=== PATIENT | male | born 1960 | race Caucasian/White ===

== ENCOUNTER → 2017-03-28 13:55 | Outpatient (CLI) | payer BC, SELFPAY ==
[2017-03-28 14:32] LABS: Basophils # 0.1 K/mm3 (0-0.2); Basophils % 0.9 % (0.1-2.0); Eosinophils # 0.2 K/mm3 (0.0-0.4); Eosinophils % 3.5 % (0.1-12.0); Hematocrit 34.7 % (42.0-52.0); Hemoglobin 9.7 g/dL (14.1-18.0); Lymphocytes # 1.4 K/mm3 (0.7-4.5); Lymphocytes % 22.9 K/mm3 (10-50); Mean Corpuscular HGB Conc 27.8 g/dL (31.8-35.4); Mean Corpuscular Volume 71.8 fl (80-94); Monocytes # 0.4 K/mm3 (0.1-1.0); Monocytes % 7.2 % (1.7-9.3); Neutrophils % 65.4 % (37.0-80.0); Platelet Count 398 K/mm3 (142-424); Red Blood Count 4.84 M/mm3 (4.60-6.20); Red Cell Distribution Width 16.8 % (11.5-17.5); White Blood Count 6.1 K/mm3 (4.8-10.8)
[2017-03-30 08:23] LABS: Iron 15 ug/dL (38-169); UIBC 473 ug/dL (111-343)
[2017-03-30 18:28] LABS: Iron Saturation 3 % (15-55)
== END ==
PROVIDERS: PCP Nurse Practitioner Family; Visit Provider Nurse Practitioner Family
DX: R53.83 Other fatigue (principal)
CPT/HCPCS: 83550; 85025

== ENCOUNTER 2017-04-16 12:55 | Outpatient (CLI) | payer BC, SELFPAY ==
[2017-04-16 13:16] VITALS: BP 115/77; PULSE 74; RESP 20; TEMP 36.6; O2SAT 98
[2017-04-16 13:31] VITALS: BP 117/69; PULSE 69; RESP 20; O2SAT 97
[2017-04-16 13:46] VITALS: BP 120/64; PULSE 67; RESP 20; O2SAT 97
[2017-04-16 14:01] VITALS: BP 119/69; PULSE 67; RESP 20; O2SAT 97
[2017-04-16 14:20] VITALS: BP 115/77; PULSE 69; RESP 20; TEMP 36.6; O2SAT 97
== END 2017-04-16 14:25 | disposition home or self-care (01) ==
LOC: INF 13:04
PROVIDERS: Family Provider Emergency Medicine; PCP Nurse Practitioner Family; Visit Provider Internal Medicine
DX: D50.9 Iron deficiency anemia, unspecified (principal)
CPT/HCPCS: 96365; J1756

== ENCOUNTER 2017-04-23 12:38 | Outpatient (CLI) | payer BC, SELFPAY ==
[2017-04-23 13:12] VITALS: BP 114/68; PULSE 75; RESP 18; TEMP 36.6; O2SAT 97
[2017-04-23 13:27] VITALS: BP 111/67; PULSE 78; RESP 18; TEMP 36.5; O2SAT 96
[2017-04-23 13:42] VITALS: BP 109/62; PULSE 79; RESP 18; TEMP 36.4; O2SAT 97
[2017-04-23 14:00] VITALS: BP 112/64; PULSE 74; RESP 18; TEMP 36.4; O2SAT 98
== END 2017-04-23 14:05 | disposition home or self-care (01) ==
LOC: INF 12:38
PROVIDERS: Family Provider Emergency Medicine; PCP Nurse Practitioner Family; Visit Provider Internal Medicine
DX: D50.0 Iron deficiency anemia secondary to blood loss (chronic) (principal)
CPT/HCPCS: 96365; J1756

== ENCOUNTER 2017-04-30 12:21 | Outpatient (CLI) | payer BC, SELFPAY ==
[2017-04-30 12:35] VITALS: BP 127/92; PULSE 68; RESP 20; TEMP 36.4; O2SAT 96
[2017-04-30 12:50] VITALS: BP 122/70; PULSE 68; RESP 20; TEMP 36.4; O2SAT 98
[2017-04-30 13:05] VITALS: BP 128/79; PULSE 68; RESP 20; TEMP 36.4; O2SAT 96
== END 2017-04-30 13:10 | disposition home or self-care (01) ==
LOC: INF 12:21
PROVIDERS: Family Provider Emergency Medicine; PCP Nurse Practitioner Family; Visit Provider Internal Medicine
DX: D50.0 Iron deficiency anemia secondary to blood loss (chronic) (principal)
CPT/HCPCS: 96365; J1756

== ENCOUNTER 2017-05-07 11:57 | Outpatient (CLI) | payer BC, SELFPAY ==
[2017-05-07 12:01] VITALS: BMI 36.3
[2017-05-07 12:33] VITALS: BP 134/86; PULSE 74; RESP 18; TEMP 36.8; O2SAT 98
[2017-05-07 12:39] LABS: Basophils % 0.8 % (0.1-2.0); Eosinophils # 0.2 K/mm3 (0.0-0.4); Eosinophils % 3.7 % (0.1-12.0); Hematocrit 39.9 % (42.0-52.0); Hemoglobin 11.1 g/dL (14.1-18.0); Lymphocytes # 1.2 K/mm3 (0.7-4.5); Lymphocytes % 22.5 K/mm3 (10-50); Mean Corpuscular HGB Conc 27.9 g/dL (31.8-35.4); Mean Corpuscular Hemoglobin 21.6 pg (27.0-31.2); Mean Corpuscular Volume 77.5 fl (80-94); Mean Platelet Volume 7.1 fl (7.4-10.4); Monocytes # 0.5 K/mm3 (0.1-1.0); Monocytes % 9.1 % (1.7-9.3); Neutrophils # 3.4 K/mm3 (1.8-7.8); Platelet Count 329 K/mm3 (142-424); Red Blood Count 5.15 M/mm3 (4.60-6.20); Red Cell Distribution Width 22.6 % (11.5-17.5); White Blood Count 5.3 K/mm3 (4.8-10.8)
[2017-05-07 12:48] VITALS: BP 129/84; PULSE 71; RESP 18; O2SAT 97
[2017-05-07 13:03] VITALS: BP 131/84; PULSE 78; RESP 18; O2SAT 97
[2017-05-07 13:12] VITALS: BP 129/76; PULSE 71; RESP 18; TEMP 36.6; O2SAT 98
== END 2017-05-07 13:15 | disposition home or self-care (01) ==
LOC: INF 11:57
PROVIDERS: Family Provider Emergency Medicine; PCP Nurse Practitioner Family; Visit Provider Internal Medicine
DX: D50.9 Iron deficiency anemia, unspecified (principal)
CPT/HCPCS: 85025; 96365; J1756

== ENCOUNTER 2017-05-14 12:46 | Outpatient (CLI) | payer BC, SELFPAY ==
[2017-05-14 13:35] VITALS: BP 121/82; PULSE 74; RESP 18; TEMP 36.1; O2SAT 96
[2017-05-14 14:05] VITALS: BP 132/79; PULSE 80; RESP 18; O2SAT 97
[2017-05-14 14:25] VITALS: BP 119/76; PULSE 69; RESP 18; TEMP 36.4; O2SAT 97
== END 2017-05-14 14:25 | disposition home or self-care (01) ==
LOC: INF 12:47
PROVIDERS: Family Provider Emergency Medicine; PCP Nurse Practitioner Family; Visit Provider Internal Medicine
DX: D50.9 Iron deficiency anemia, unspecified (principal)
CPT/HCPCS: 96365; J1756

== ENCOUNTER 2017-05-21 12:40 | Outpatient (CLI) | payer BC, SELFPAY ==
[2017-05-21 13:18] VITALS: BP 147/92; PULSE 74; RESP 18; TEMP 36.7; O2SAT 97
[2017-05-21 13:26] VITALS: BMI 36.3
[2017-05-21 13:48] VITALS: BP 135/90; PULSE 69; RESP 18
[2017-05-21 14:18] VITALS: BP 137/91; PULSE 70; RESP 18
== END 2017-05-21 14:18 | disposition home or self-care (01) ==
LOC: INF 12:57
PROVIDERS: Family Provider Emergency Medicine; PCP Nurse Practitioner Family; Visit Provider Internal Medicine
DX: D50.9 Iron deficiency anemia, unspecified (principal)
CPT/HCPCS: 96365; J1756

== ENCOUNTER → 2017-06-05 14:25 | Outpatient (CLI) | payer BC, SELFPAY ==
[2017-06-05 14:42] LABS: Basophils % 0.6 % (0.1-2.0); Eosinophils # 0.3 K/mm3 (0.0-0.4); Eosinophils % 5.2 % (0.1-12.0); Hematocrit 43.1 % (42.0-52.0); Hemoglobin 12.7 g/dL (14.1-18.0); Lymphocytes # 1.5 K/mm3 (0.7-4.5); Lymphocytes % 27.7 K/mm3 (10-50); Mean Corpuscular HGB Conc 29.6 g/dL (31.8-35.4); Mean Corpuscular Hemoglobin 24.9 pg (27.0-31.2); Mean Corpuscular Volume 84.3 fl (80-94); Mean Platelet Volume 7.8 fl (7.4-10.4); Monocytes # 0.4 K/mm3 (0.1-1.0); Monocytes % 6.7 % (1.7-9.3); Neutrophils # 3.2 K/mm3 (1.8-7.8); Neutrophils % 59.8 % (37.0-80.0); Platelet Count 316 K/mm3 (142-424); Red Blood Count 5.11 M/mm3 (4.60-6.20); Red Cell Distribution Width 21.8 % (11.5-17.5); White Blood Count 5.3 K/mm3 (4.8-10.8)
[2017-06-05 15:22] LABS: Alanine Aminotransferase 33 U/L (12-78); Albumin Level 4.1 gm/dL (3.4-5.0); Albumin/Globulin Ratio 1.1 (1.1-1.8); Alkaline Phosphatase 66 U/L (46-116); Anion Gap 12.4 mEq/L (5-15); Aspartate Amino Transferase 18 U/L (15-37); Bilirubin,Total 0.2 mg/dL (0.2-1.0); Blood Urea Nitrogen 10 mg/dL (7-18); Calcium 8.9 mg/dL (8.5-10.1); Carbon Dioxide 29 mmol/L (21.0-32.0); Chloride 102 mmol/L (98-107); Creatinine,Serum 0.84 mg/dL (0.70-1.30); Estimated Glomerular Filt Rate 95 ml/min (>60); GFR (African American) 115 ML/MIN (>60); Globulin 3.6 gm/dl (1.3-3.2); Glucose 100 mg/dL (74-106); Potassium 4.4 mmoL/L (3.5-5.1); Sodium 139 mmol/L (136-145); Total Protein,Serum 7.7 gm/dL (6.4-8.2)
== END ==
PROVIDERS: Visit Provider Internal Medicine
DX: D50.0 Iron deficiency anemia secondary to blood loss (chronic) (principal)
CPT/HCPCS: 36415; 80053; 85025

== ENCOUNTER → 2017-06-12 14:19 | Outpatient (CLI) | payer BC, SELFPAY ==
[2017-06-12 16:01] LABS: Ferritin 37 ng/mL (8-388)
[2017-06-18 15:28] LABS: Tissue Transglutaminase IgA Ab <2 U/mL
[2017-06-18 15:29] LABS: Endomysial IgA Antibody Negative
== END ==
PROVIDERS: Visit Provider Internal Medicine
DX: D50.9 Iron deficiency anemia, unspecified (principal)
CPT/HCPCS: 36415; 82728; 83516; 83550; 86255

== ENCOUNTER 2017-07-02 12:11 | Outpatient (CLI) | payer BC, SELFPAY ==
[2017-07-02 13:30] VITALS: BP 105/72; PULSE 78; RESP 18; TEMP 36.7; O2SAT 94
[2017-07-02 14:00] VITALS: BP 110/76; PULSE 79; RESP 18; O2SAT 95
[2017-07-02 14:25] VITALS: BP 108/72; PULSE 81; RESP 18; O2SAT 96
== END 2017-07-02 14:30 | disposition home or self-care (01) ==
LOC: INF 12:11
PROVIDERS: Family Provider Emergency Medicine; PCP Nurse Practitioner Family; Visit Provider Internal Medicine
DX: D50.9 Iron deficiency anemia, unspecified (principal); R10.9 Unspecified abdominal pain; R14.0 Abdominal distension (gaseous)
CPT/HCPCS: 96365; J1756

== ENCOUNTER 2017-07-11 12:43 | Outpatient (CLI) | payer BC, SELFPAY ==
[2017-07-11 13:14] VITALS: BP 129/89; PULSE 81; RESP 18; TEMP 36.6; O2SAT 95; BMI 36.3
[2017-07-11 15:00] VITALS: BP 114/79; PULSE 70; RESP 18; TEMP 36.7; O2SAT 95
== END 2017-07-11 15:05 | disposition home or self-care (01) ==
LOC: INF 12:43
PROVIDERS: Family Provider Emergency Medicine; PCP Nurse Practitioner Family; Visit Provider Nurse Practitioner
DX: D50.9 Iron deficiency anemia, unspecified (principal); R10.9 Unspecified abdominal pain; R14.0 Abdominal distension (gaseous); N28.1 Cyst of kidney, acquired
CPT/HCPCS: 96365; J1756

== ENCOUNTER 2017-07-16 12:36 | Outpatient (CLI) | payer BC, SELFPAY ==
[2017-07-16 13:10] VITALS: BP 116/71; PULSE 76; RESP 18; TEMP 36.2; O2SAT 96
[2017-07-16 13:40] VITALS: BP 112/66; PULSE 72; RESP 18
[2017-07-16 14:00] VITALS: BP 105/67; PULSE 71; RESP 18
== END 2017-07-16 14:00 | disposition home or self-care (01) ==
LOC: INF 12:36
PROVIDERS: Family Provider Emergency Medicine; PCP Nurse Practitioner Family; Visit Provider Internal Medicine
DX: D50.9 Iron deficiency anemia, unspecified (principal); R10.9 Unspecified abdominal pain; R14.0 Abdominal distension (gaseous); N28.1 Cyst of kidney, acquired
CPT/HCPCS: 96365; J1756

== ENCOUNTER 2017-07-23 11:35 | Outpatient (CLI) | payer BC, SELFPAY ==
[2017-07-23 12:08] VITALS: BP 137/82; PULSE 72; RESP 18; TEMP 36.6; O2SAT 95
[2017-07-23 12:30] VITALS: BP 135/69; PULSE 74; RESP 18; TEMP 36.6; O2SAT 96
[2017-07-23 13:05] VITALS: BP 127/75; PULSE 80; RESP 18; TEMP 36.6; O2SAT 96
== END 2017-07-23 13:05 | disposition home or self-care (01) ==
LOC: INF 11:35
PROVIDERS: Family Provider Emergency Medicine; PCP Nurse Practitioner Family; Visit Provider Internal Medicine
DX: D50.9 Iron deficiency anemia, unspecified (principal); R10.9 Unspecified abdominal pain; R14.0 Abdominal distension (gaseous)
CPT/HCPCS: 96365; J1756

== ENCOUNTER → 2017-07-30 10:50 | Outpatient (CLI) | payer BC, SELFPAY ==
[2017-07-30 11:33] LABS: Basophils % 0.6 % (0.1-2.0); Eosinophils # 0.2 K/mm3 (0.0-0.4); Eosinophils % 4.6 % (0.1-12.0); Hematocrit 42.2 % (42.0-52.0); Hemoglobin 12.2 g/dL (14.1-18.0); Lymphocytes # 1.2 K/mm3 (0.7-4.5); Lymphocytes % 25.8 K/mm3 (10-50); Mean Corpuscular HGB Conc 28.8 g/dL (31.8-35.4); Mean Corpuscular Hemoglobin 24.2 pg (27.0-31.2); Mean Corpuscular Volume 83.9 fl (80-94); Mean Platelet Volume 6.9 fl (7.4-10.4); Monocytes # 0.3 K/mm3 (0.1-1.0); Monocytes % 7.1 % (1.7-9.3); Neutrophils # 2.9 K/mm3 (1.8-7.8); Neutrophils % 61.9 % (37.0-80.0); Platelet Count 305 K/mm3 (142-424); Red Blood Count 5.03 M/mm3 (4.60-6.20); Red Cell Distribution Width 20.3 % (11.5-17.5); White Blood Count 4.7 K/mm3 (4.8-10.8)
[2017-07-30 12:51] LABS: Ferritin 109 ng/mL (8-388)
[2017-07-31 05:13] LABS: Iron 32 ug/dL (38-169); UIBC 416 ug/dL (111-343)
[2017-07-31 06:39] LABS: Iron Saturation 7 % (15-55)
== END ==
PROVIDERS: Visit Provider Internal Medicine
DX: D50.9 Iron deficiency anemia, unspecified (principal); R10.84 Generalized abdominal pain; R14.0 Abdominal distension (gaseous); N28.1 Cyst of kidney, acquired
CPT/HCPCS: 36415; 82728; 83550; 85025

== ENCOUNTER → 2017-08-01 10:28 | Outpatient (CLI) | payer BC, SELFPAY ==
--- NOTE | 2017-08-01 10:32 | US_ITS ---
US kidney retroperitoneal comp HISTORY: Left-sided flank pain, history of left renal cyst ITS.REASON: RENAL CYST ORDERING PHYSICIAN: Ramakrishna Rosas MD PATIENT AGE: 57 years Comparison: 11/28/2016 FINDINGS: Right kidney is 9 x 6 x 6 cm. No hydronephrosis mass or other significant anomalies. The left kidney is 12 x 6 x 5 cm. No hydronephrosis. There is a 6 x 4 cm septated cyst involving the pole the left kidney. Previously the cyst was 6 x 5 cm. Septations present in the inferior aspect of the cyst which appears slightly thickened compared to the previous study. IMPRESSION: 6 x 4 cm septated left renal cyst. Although the cyst is slightly less bulky, an internal septation appears slightly more thickened. This is of questionable clinical significance and could even be technical. Follow-up recommended. CT of the kidneys without and with contrast and with delayed imaging may be of further value.
== END ==
PROVIDERS: Family Provider Emergency Medicine; PCP Nurse Practitioner Family; Visit Provider Urology
DX: Z87.448 Personal history of other diseases of urinary system (principal)
CPT/HCPCS: 76770

== ENCOUNTER → 2017-09-06 08:46 | Outpatient (CLI) | payer BC, SELFPAY ==
[2017-09-06 09:06] LABS: Blood Urea Nitrogen 15 mg/dL (7-18); Creatinine,Serum 0.91 mg/dL (0.70-1.30); Estimated Glomerular Filt Rate 86 ml/min (>60); GFR (African American) 104 ML/MIN (>60)
--- NOTE | 2017-09-06 09:17 | CT_ITS ---
CT abdomen pelvis wo/w con CLINICAL INDICATION: Back pain, renal cyst ITS.REASON: RENAL CYST ORDERING PHYSICIAN: Ramakrishna Rosas MD PATIENT AGE: 57 years COMPARISON: 10/25/2016 TECHNIQUE: Axial images obtained without contrast. Immediate and 10 minute delayed images are also obtained following contrast administration Axial images obtained without and with contrast with sagittal and coronal reformats. All CT scans at the facility use one or more dose reduction, viz: automated exposure control; ma/kV adjustment per patient size (including targeted exams where dose is matched to indication; i.e. head); or iterative reconstruction technique. PROCEDURE: Oral Contrast: None IV Contrast: 75 mL's of Isovue-370.. FINDINGS: Lung bases are clear. There is a moderate sized hiatal hernia. There has been a prior cholecystectomy. The liver, spleen, adrenal glands, and pancreas have an unremarkable appearance. There is a duodenal diverticulum projecting medially and pancreas No renal or ureteral calculi. There is a 6 mm cyst projecting off the lateral aspect of the right kidney. There is a complex cyst along the posterior and superior aspect of the left kidney measuring 5.4 cm AP, 3.3 cm transverse, and 4.4 cm cephalad. Previously this may be explained 5 x 5.9 x 6.4 cm in similar dimensions. There is a small linear septation in the posterior aspect of the cyst which is slightly hyperdense some minimal calcification. No mural nodules are evident. Urinary bladder has an unremarkable appearance. Unremarkable appendix. No evidence of diverticulitis. No intestinal obstruction or free air there are scattered diverticula within the colon. There is a small left inguinal hernia containing fat. No pelvic mass abnormal fluid collection or focal inflammatory change of the pelvis No acute bony anomalies. There are degenerative changes in the lumbar spine. A small sclerotic lesion involves the right ilium laterally unchanged and may be due to bone island IMPRESSION: 1. Overall decrease in size of the complex left renal cyst. 2. Moderate-sized hiatal hernia. 3. Small left inguinal hernia containing fat
== END ==
PROVIDERS: Family Provider Emergency Medicine; PCP Nurse Practitioner Family; Visit Provider Urology
DX: N28.1 Cyst of kidney, acquired (principal)
CPT/HCPCS: 36415; 74170; 82565; 84520; Q9967

== ENCOUNTER → 2017-09-30 12:50 | Outpatient (CLI) | payer BC, SELFPAY ==
[2017-09-30 14:11] LABS: Ferritin 5 ng/mL (8-388)
[2017-09-30 14:18] LABS: Eosinophils # 0.2 K/mm3 (0.0-0.4); Eosinophils % 4.8 % (0.1-12.0); Hematocrit 34.4 % (42.0-52.0); Lymphocytes % 25.6 K/mm3 (10-50); Mean Corpuscular HGB Conc 28.9 g/dL (31.8-35.4); Mean Corpuscular Hemoglobin 21.5 pg (27.0-31.2); Mean Corpuscular Volume 74.4 fl (80-94); Mean Platelet Volume 7.6 fl (7.4-10.4); Monocytes # 0.3 K/mm3 (0.1-1.0); Monocytes % 8.1 % (1.7-9.3); Neutrophils # 2.4 K/mm3 (1.8-7.8); Neutrophils % 60.5 % (37.0-80.0); Platelet Count 311 K/mm3 (142-424); Red Blood Count 4.63 M/mm3 (4.60-6.20); Red Cell Distribution Width 18.2 % (11.5-17.5)
[2017-10-01 08:29] LABS: Iron 22 ug/dL (38-169); UIBC 483 ug/dL (111-343)
[2017-10-02 16:50] LABS: Iron Saturation 4 % (15-55)
== END ==
PROVIDERS: Visit Provider Nurse Practitioner
DX: D50.9 Iron deficiency anemia, unspecified (principal); D70.9 Neutropenia, unspecified
CPT/HCPCS: 36415; 82728; 83540; 83550; 85025

== ENCOUNTER → 2017-10-23 11:52 | Outpatient (CLI) | payer BC, SELFPAY ==
[2017-10-23 12:38] LABS: Basophils % 0.8 % (0.1-2.0); Eosinophils # 0.2 K/mm3 (0.0-0.4); Eosinophils % 5.2 % (0.1-12.0); Hematocrit 34.5 % (42.0-52.0); Hemoglobin 9.6 g/dL (14.1-18.0); Lymphocytes # 1.3 K/mm3 (0.7-4.5); Lymphocytes % 29.1 K/mm3 (10-50); Mean Corpuscular HGB Conc 27.8 g/dL (31.8-35.4); Mean Corpuscular Volume 72.1 fl (80-94); Mean Platelet Volume 7.5 fl (7.4-10.4); Monocytes # 0.3 K/mm3 (0.1-1.0); Monocytes % 6.8 % (1.7-9.3); Neutrophils # 2.7 K/mm3 (1.8-7.8); Platelet Count 369 K/mm3 (142-424); Red Blood Count 4.79 M/mm3 (4.60-6.20); Red Cell Distribution Width 17.8 % (11.5-17.5); White Blood Count 4.6 K/mm3 (4.8-10.8)
[2017-10-24 08:26] LABS: Iron 19 ug/dL (38-169); UIBC 497 ug/dL (111-343)
[2017-10-25 08:26] LABS: Iron Saturation 4 % (15-55)
== END ==
PROVIDERS: Visit Provider Internal Medicine
DX: K92.2 Gastrointestinal hemorrhage, unspecified (principal)
CPT/HCPCS: 36415; 83540; 83550; 85025

== ENCOUNTER → 2017-11-14 11:13 | Outpatient (CLI) | payer BC, SELFPAY ==
[2017-11-14 12:07] LABS: Basophils % 0.8 % (0.1-2.0); Eosinophils # 0.2 K/mm3 (0.0-0.4); Eosinophils % 3.6 % (0.1-12.0); Hematocrit 29.6 % (42.0-52.0); Mean Corpuscular HGB Conc 27.1 g/dL (31.8-35.4); Mean Corpuscular Hemoglobin 18.7 pg (27.0-31.2); Mean Corpuscular Volume 68.9 fl (80-94); Mean Platelet Volume 7.6 fl (7.4-10.4); Monocytes # 0.3 K/mm3 (0.1-1.0); Neutrophils # 2.7 K/mm3 (1.8-7.8); Neutrophils % 63.5 % (37.0-80.0); Platelet Count 408 K/mm3 (142-424); Red Blood Count 4.29 M/mm3 (4.60-6.20); Red Cell Distribution Width 17.8 % (11.5-17.5); White Blood Count 4.2 K/mm3 (4.8-10.8)
[2017-11-14 15:06] LABS: Ferritin 3 ng/mL (8-388); Lactate Dehydrogenase 177 U/L (82-234)
[2017-11-15 08:25] LABS: Iron 10 ug/dL (38-169); UIBC 465 ug/dL (111-343)
[2017-11-18 05:21] LABS: Iron Saturation 2 % (15-55)
[2017-11-20 07:47] LABS: Haptoglobin 105 mg/dL (34-200)
== END ==
PROVIDERS: PCP Emergency Medicine; Visit Provider Internal Medicine Medical Oncology
DX: D50.9 Iron deficiency anemia, unspecified (principal)
CPT/HCPCS: 36415; 82728; 83010; 83540; 83550; 83615; 85025

== ENCOUNTER 2017-11-15 08:21 | Outpatient (CLI) | payer BC, SELFPAY ==
[2017-11-15] VITALS (21 sets, daily range): BP systolic 108–131; BP diastolic 59–77; PULSE 61–78; RESP 16–20; TEMP 35.9–36.1; O2SAT 95–98; BMI 35.9
[2017-11-15 17:24] LABS: Hematocrit 32.4 % (42.0-52.0); Hemoglobin 9.5 g/dL (14.1-18.0)
== END 2017-11-15 17:30 | disposition home or self-care (01) ==
LOC: INF 08:21
PROVIDERS: Family Provider Emergency Medicine; PCP Emergency Medicine; Visit Provider Internal Medicine Medical Oncology
DX: D64.9 Anemia, unspecified (principal)
CPT/HCPCS: 36430; 85014; 85018; 86850; P9016

== ENCOUNTER 2017-11-19 10:45 | Outpatient (CLI) | payer BC, SELFPAY ==
[2017-11-19 11:00] VITALS: BP 120/87; PULSE 71; RESP 18
[2017-11-19 11:30] VITALS: BP 114/69; PULSE 71; RESP 18
[2017-11-19 11:50] VITALS: BP 115/68; PULSE 71; RESP 18
== END 2017-11-19 11:50 | disposition home or self-care (01) ==
LOC: INF 10:46
PROVIDERS: Family Provider Emergency Medicine; PCP Emergency Medicine; Visit Provider Internal Medicine Medical Oncology
DX: D50.9 Iron deficiency anemia, unspecified (principal)
CPT/HCPCS: 96365; J1439

== ENCOUNTER 2017-11-26 10:24 | Outpatient (CLI) | payer BC, SELFPAY ==
[2017-11-26 11:30] VITALS: BP 132/82; PULSE 68; RESP 20; TEMP 36.9; O2SAT 96
[2017-11-26 12:10] VITALS: BP 128/78; PULSE 68; RESP 20; TEMP 36.9; O2SAT 96
== END 2017-11-26 12:15 | disposition home or self-care (01) ==
LOC: INF 10:24
PROVIDERS: Family Provider Emergency Medicine; PCP Emergency Medicine; Visit Provider Internal Medicine Medical Oncology
DX: D50.9 Iron deficiency anemia, unspecified (principal)
CPT/HCPCS: 96365; J1439

== ENCOUNTER → 2017-12-26 09:08 | Outpatient (CLI) | payer BC, SELFPAY ==
[2017-12-26 09:25] LABS: Basophils # 0.1 K/mm3 (0-0.2); Basophils % 0.8 % (0.1-2.0); Eosinophils # 0.2 K/mm3 (0.0-0.4); Eosinophils % 3.8 % (0.1-12.0); Hematocrit 44.7 % (42.0-52.0); Hemoglobin 13.8 g/dL (14.1-18.0); Lymphocytes # 1.1 K/mm3 (0.7-4.5); Lymphocytes % 19.8 K/mm3 (10-50); Mean Corpuscular HGB Conc 30.9 g/dL (31.8-35.4); Mean Corpuscular Hemoglobin 27.6 pg (27.0-31.2); Mean Platelet Volume 7.8 fl (7.4-10.4); Monocytes # 0.4 K/mm3 (0.1-1.0); Monocytes % 6.8 % (1.7-9.3); Neutrophils # 3.9 K/mm3 (1.8-7.8); Neutrophils % 68.8 % (37.0-80.0); Platelet Count 248 K/mm3 (142-424); Red Blood Count 5.02 M/mm3 (4.60-6.20); Red Cell Distribution Width 23.5 % (11.5-17.5); White Blood Count 5.6 K/mm3 (4.8-10.8)
== END ==
PROVIDERS: PCP Emergency Medicine; Visit Provider Internal Medicine Medical Oncology
DX: D50.9 Iron deficiency anemia, unspecified (principal)
CPT/HCPCS: 36415; 85025

== ENCOUNTER → 2018-01-27 09:59 | Outpatient (CLI) | payer BC, SELFPAY ==
[2018-01-27 10:48] LABS: Basophils % 0.9 % (0.1-2.0); Eosinophils # 0.3 K/mm3 (0.0-0.4); Eosinophils % 5.6 % (0.1-12.0); Hematocrit 48.9 % (42.0-52.0); Hemoglobin 15.2 g/dL (14.1-18.0); Lymphocytes # 0.9 K/mm3 (0.7-4.5); Lymphocytes % 20.5 % (10-50); Mean Corpuscular HGB Conc 31.2 g/dL (31.8-35.4); Mean Corpuscular Hemoglobin 27.6 pg (27.0-31.2); Mean Corpuscular Volume 88.7 fl (80-94); Mean Platelet Volume 7.6 fl (7.4-10.4); Monocytes # 0.2 K/mm3 (0.1-1.0); Monocytes % 5.1 % (1.7-9.3); Neutrophils # 3.1 K/mm3 (1.8-7.8); Neutrophils % 67.9 % (37.0-80.0); Platelet Count 280 K/mm3 (142-424); Red Blood Count 5.52 M/mm3 (4.60-6.20); Red Cell Distribution Width 19.4 % (11.5-17.5); White Blood Count 4.5 K/mm3 (4.8-10.8)
[2018-01-27 11:26] LABS: Ferritin 24 ng/mL (8-388)
[2018-01-28 05:12] LABS: Iron 46 ug/dL (38-169); UIBC 415 ug/dL (111-343)
[2018-01-28 06:09] LABS: Iron Saturation 10 % (15-55)
== END ==
PROVIDERS: Visit Provider Internal Medicine Medical Oncology
DX: D50.9 Iron deficiency anemia, unspecified (principal)
CPT/HCPCS: 36415; 82728; 83540; 83550; 85025

== ENCOUNTER 2018-02-11 10:49 | Outpatient (CLI) | payer BC, SELFPAY ==
[2018-02-11 10:45] VITALS: BP 131/92; PULSE 68; RESP 20; TEMP 36.9; O2SAT 95
[2018-02-11 11:40] VITALS: BP 133/89; PULSE 64; RESP 20; TEMP 36.9; O2SAT 96
== END 2018-02-11 11:50 | disposition home or self-care (01) ==
LOC: INF 10:49
PROVIDERS: Visit Provider Internal Medicine Medical Oncology
DX: D50.9 Iron deficiency anemia, unspecified (principal)
CPT/HCPCS: 96365; J1439

== ENCOUNTER 2018-02-18 10:44 | Outpatient (CLI) | payer BC, SELFPAY ==
[2018-02-18 10:59] VITALS: BP 140/90; PULSE 73; RESP 18; TEMP 36.6; O2SAT 98
[2018-02-18 11:30] VITALS: BP 141/87; PULSE 78; RESP 18; O2SAT 97
[2018-02-18 11:40] VITALS: BP 136/84; PULSE 76; RESP 18; O2SAT 97
== END 2018-02-18 11:40 | disposition home or self-care (01) ==
LOC: INF 10:44
PROVIDERS: Visit Provider Internal Medicine Medical Oncology
DX: D50.9 Iron deficiency anemia, unspecified (principal)
CPT/HCPCS: 96365; J1439

== ENCOUNTER → 2018-03-21 09:41 | Outpatient (CLI) | payer BC, SELFPAY ==
[2018-03-21 10:50] LABS: Basophils # 0.1 K/mm3 (0-0.2); Eosinophils # 0.2 K/mm3 (0.0-0.4); Eosinophils % 4.3 % (0.1-12.0); Hematocrit 54.8 % (42.0-52.0); Hemoglobin 17.5 g/dL (14.1-18.0); Lymphocytes # 1.5 K/mm3 (0.7-4.5); Lymphocytes % 27.1 % (10-50); Mean Corpuscular Hemoglobin 29.3 pg (27.0-31.2); Mean Corpuscular Volume 91.6 fl (80-94); Mean Platelet Volume 7.2 fl (7.4-10.4); Monocytes # 0.3 K/mm3 (0.1-1.0); Monocytes % 5.6 % (1.7-9.3); Neutrophils # 3.4 K/mm3 (1.8-7.8); Platelet Count 220 K/mm3 (142-424); Red Blood Count 5.98 M/mm3 (4.60-6.20); Red Cell Distribution Width 16.2 % (11.5-17.5); White Blood Count 5.5 K/mm3 (4.8-10.8)
[2018-03-21 12:54] LABS: Ferritin 273 ng/mL (8-388)
[2018-03-22 08:23] LABS: Iron 118 ug/dL (38-169); UIBC 196 ug/dL (111-343)
[2018-03-22 12:37] LABS: Haptoglobin 111 mg/dL (34-200); Iron Saturation 38 % (15-55)
== END ==
PROVIDERS: Visit Provider Internal Medicine Medical Oncology
DX: D50.9 Iron deficiency anemia, unspecified (principal)
CPT/HCPCS: 36415; 82728; 83010; 83540; 83550; 85025

== ENCOUNTER → 2018-04-03 13:01 | Outpatient (CLI) | payer BC, SELFPAY ==
[2018-04-03 14:42] LABS: Thyroid Stimulating Hormone 1.47 uIU/ml (0.358-3.740)
[2018-04-05 11:59] LABS: Folate 11.2 ng/mL (>3.0); Vitamin B12 323 pg/mL (232-1245)
== END ==
PROVIDERS: Visit Provider Internal Medicine Medical Oncology
DX: D50.9 Iron deficiency anemia, unspecified (principal)
CPT/HCPCS: 36415; 82607; 82746; 84443

== ENCOUNTER → 2018-05-02 18:03 | Outpatient (CLI) | payer BC, SELFPAY ==
[2018-05-02 18:21] LABS: Basophils % 0.6 % (0.1-2.0); Eosinophils # 0.1 K/mm3 (0.0-0.4); Eosinophils % 1.6 % (0.1-12.0); Hematocrit 54.3 % (42.0-52.0); Lymphocytes # 1.2 K/mm3 (0.7-4.5); Lymphocytes % 22.7 % (10-50); Mean Corpuscular HGB Conc 33.1 g/dL (31.8-35.4); Mean Corpuscular Hemoglobin 30.2 pg (27.0-31.2); Mean Corpuscular Volume 91.3 fl (80-94); Mean Platelet Volume 8.1 fl (7.4-10.4); Monocytes # 0.3 K/mm3 (0.1-1.0); Neutrophils # 3.5 K/mm3 (1.8-7.8); Platelet Count 267 K/mm3 (142-424); Red Blood Count 5.94 M/mm3 (4.60-6.20)
[2018-05-02 20:50] LABS: Ferritin 276 ng/mL (8-388)
[2018-05-04 07:10] LABS: Iron 101 ug/dL (38-169); UIBC 246 ug/dL (111-343)
[2018-05-05 13:24] LABS: Vitamin B12 339 pg/mL (232-1245)
[2018-05-05 13:25] LABS: Iron Saturation 29 % (15-55)
== END ==
PROVIDERS: Visit Provider Nurse Practitioner Family
DX: D64.9 Anemia, unspecified (principal)
CPT/HCPCS: 82607; 82728; 83540; 83550; 85025

== ENCOUNTER → 2018-06-26 12:32 | Outpatient (CLI) | payer BC, SELFPAY ==
[2018-06-26 13:34] LABS: Basophils % 0.7 % (0.1-2.0); Eosinophils # 0.1 K/mm3 (0.0-0.4); Eosinophils % 2.8 % (0.1-12.0); Hematocrit 49.1 % (42.0-52.0); Hemoglobin 16.2 g/dL (14.1-18.0); Lymphocytes # 1.2 K/mm3 (0.7-4.5); Mean Corpuscular HGB Conc 32.9 g/dL (31.8-35.4); Mean Corpuscular Hemoglobin 31.3 pg (27.0-31.2); Mean Corpuscular Volume 95.1 fl (80-94); Mean Platelet Volume 7.4 fl (7.4-10.4); Monocytes # 0.3 K/mm3 (0.1-1.0); Monocytes % 5.9 % (1.7-9.3); Neutrophils # 3.6 K/mm3 (1.8-7.8); Neutrophils % 68.5 % (37.0-80.0); Platelet Count 256 K/mm3 (142-424); Red Blood Count 5.16 M/mm3 (4.60-6.20); Red Cell Distribution Width 13.1 % (11.5-17.5); White Blood Count 5.2 K/mm3 (4.8-10.8)
[2018-06-26 18:30] LABS: Ferritin 75 ng/mL (8-388); Thyroid Stimulating Hormone 0.68 uIU/ml (0.358-3.740)
[2018-06-27 08:20] LABS: Iron 100 ug/dL (38-169); Iron Saturation 29 % (15-55); UIBC 250 ug/dL (111-343)
[2018-06-28 06:42] LABS: Folate 17.2 ng/mL (>3.0)
[2018-06-28 12:40] LABS: Vitamin B12 265 pg/mL (232-1245)
== END ==
PROVIDERS: Visit Provider Internal Medicine Medical Oncology
DX: D50.9 Iron deficiency anemia, unspecified (principal)
CPT/HCPCS: 36415; 82607; 82728; 82746; 83540; 83550; 84443; 85025

== ENCOUNTER 2018-07-22 10:59 | Outpatient (CLI) | payer BC, SELFPAY ==
[2018-07-22 11:11] VITALS: BP 134/94; PULSE 66; RESP 18; O2SAT 96
== END 2018-07-22 11:14 | disposition home or self-care (01) ==
LOC: INF 10:59
PROVIDERS: Visit Provider Internal Medicine Medical Oncology
DX: E53.8 Deficiency of other specified B group vitamins (principal)
CPT/HCPCS: 96372

== ENCOUNTER 2018-07-29 10:47 | Outpatient (CLI) | payer BC, SELFPAY ==
[2018-07-29 11:00] VITALS: BP 139/95; PULSE 67; RESP 18; TEMP 36.6; O2SAT 95
== END 2018-07-29 11:20 | disposition home or self-care (01) ==
LOC: INF 10:47
PROVIDERS: Visit Provider Internal Medicine Medical Oncology
DX: E53.8 Deficiency of other specified B group vitamins (principal)
CPT/HCPCS: 96372

== ENCOUNTER → 2018-08-05 10:45 | Outpatient (CLI) | payer BC, SELFPAY ==
[2018-08-05 10:45] VITALS: BP 114/78; PULSE 69; RESP 16; O2SAT 95
== END ==
PROVIDERS: Visit Provider Internal Medicine Medical Oncology
DX: E53.8 Deficiency of other specified B group vitamins (principal)
CPT/HCPCS: 96372

== ENCOUNTER 2018-08-12 10:41 | Outpatient (CLI) | payer BC, SELFPAY ==
[2018-08-12 10:52] VITALS: BP 138/84; PULSE 70; RESP 20; TEMP 36.3; O2SAT 95
== END 2018-08-12 10:45 | disposition home or self-care (01) ==
LOC: INF 10:41
PROVIDERS: Visit Provider Internal Medicine Medical Oncology
DX: E53.8 Deficiency of other specified B group vitamins (principal)
CPT/HCPCS: 96372

== ENCOUNTER → 2018-09-19 10:30 | Outpatient (CLI) | payer BC, SELFPAY ==
[2018-09-19 10:58] LABS: Basophils % 0.9 % (0.1-2.0); Eosinophils # 0.2 K/mm3 (0.0-0.4); Eosinophils % 4.2 % (0.1-12.0); Hematocrit 49.7 % (42.0-52.0); Hemoglobin 15.9 g/dL (14.1-18.0); Lymphocytes # 1.2 K/mm3 (0.7-4.5); Lymphocytes % 26.2 % (10-50); Mean Corpuscular Hemoglobin 28.7 pg (27.0-31.2); Mean Corpuscular Volume 89.6 fl (80-94); Mean Platelet Volume 7.3 fl (7.4-10.4); Monocytes # 0.4 K/mm3 (0.1-1.0); Monocytes % 7.9 % (1.7-9.3); Neutrophils # 2.9 K/mm3 (1.8-7.8); Neutrophils % 60.8 % (37.0-80.0); Platelet Count 227 K/mm3 (142-424); Red Blood Count 5.55 M/mm3 (4.60-6.20); Red Cell Distribution Width 12.6 % (11.5-17.5); White Blood Count 4.7 K/mm3 (4.8-10.8)
[2018-09-19 12:38] LABS: Ferritin 31 ng/mL (8-388)
[2018-09-20 07:09] LABS: Iron 147 ug/dL (38-169); UIBC 223 ug/dL (111-343)
[2018-09-20 18:16] LABS: Iron Saturation 40 % (15-55)
== END ==
PROVIDERS: Visit Provider Internal Medicine Medical Oncology
DX: D50.9 Iron deficiency anemia, unspecified (principal)
CPT/HCPCS: 36415; 82728; 83540; 83550; 85025

== ENCOUNTER 2018-09-25 14:43 | Outpatient (CLI) | payer BC, SELFPAY ==
[2018-09-25 15:08] VITALS: BP 136/88; PULSE 69; RESP 18; TEMP 36.6; O2SAT 97
[2018-09-25 15:10] LABS: Basophils # 0.1 K/mm3 (0-0.2); Basophils % 0.9 % (0.1-2.0); Eosinophils # 0.1 K/mm3 (0.0-0.4); Eosinophils % 1.4 % (0.1-12.0); Hemoglobin 16.6 g/dL (14.1-18.0); Lymphocytes # 1.4 K/mm3 (0.7-4.5); Lymphocytes % 24.6 % (10-50); Mean Corpuscular HGB Conc 31.9 g/dL (31.8-35.4); Mean Corpuscular Hemoglobin 28.7 pg (27.0-31.2); Mean Corpuscular Volume 90.1 fl (80-94); Mean Platelet Volume 7.7 fl (7.4-10.4); Monocytes # 0.3 K/mm3 (0.1-1.0); Monocytes % 4.8 % (1.7-9.3); Neutrophils # 3.9 K/mm3 (1.8-7.8); Neutrophils % 68.3 % (37.0-80.0); Platelet Count 237 K/mm3 (142-424); Red Blood Count 5.77 M/mm3 (4.60-6.20); Red Cell Distribution Width 12.6 % (11.5-17.5); White Blood Count 5.6 K/mm3 (4.8-10.8)
[2018-09-25 15:48] LABS: Alanine Aminotransferase 37 U/L (12-78); Albumin Level 4.2 gm/dL (3.4-5.0); Albumin/Globulin Ratio 1.2 (1.1-1.8); Alkaline Phosphatase 55 U/L (46-116); Anion Gap 12.5 mEq/L (5-15); Aspartate Amino Transferase 17 U/L (15-37); Bilirubin,Direct 0.1 mg/dL (0.0-0.2); Bilirubin,Indirect 0.5 mg/dL (0.0-0.9); Bilirubin,Total 0.6 mg/dL (0.2-1.0); Blood Urea Nitrogen 13 mg/dL (7-18); Carbon Dioxide 29 mmol/L (21.0-32.0); Chloride 103 mmol/L (98-107); Creatinine,Serum 1.01 mg/dL (0.70-1.30); Estimated Glomerular Filt Rate 76 ml/min (>60); GFR (African American) 92 ML/MIN (>60); Globulin 3.5 gm/dl (1.3-3.2); Glucose 90 mg/dL (74-106); Potassium 4.5 mmoL/L (3.5-5.1); Sodium 140 mmol/L (136-145); Total Protein,Serum 7.7 gm/dL (6.4-8.2)
== END 2018-09-25 15:45 | disposition home or self-care (01) ==
LOC: INF 14:44
PROVIDERS: Visit Provider Internal Medicine Medical Oncology
DX: D64.9 Anemia, unspecified (principal); E53.8 Deficiency of other specified B group vitamins
CPT/HCPCS: 36415; 80053; 80076; 85025; 96372

== ENCOUNTER 2018-10-17 10:05 | Outpatient (CLI) | payer BC, SELFPAY ==
[2018-10-17 10:25] VITALS: BP 125/79; PULSE 68; RESP 18; O2SAT 93
== END 2018-10-17 10:40 | disposition home or self-care (01) ==
LOC: INF 10:13
PROVIDERS: Visit Provider Internal Medicine Medical Oncology
DX: E53.8 Deficiency of other specified B group vitamins (principal)
CPT/HCPCS: 96372

== ENCOUNTER 2018-11-21 10:20 | Outpatient (CLI) | payer BC, SELFPAY ==
[2018-11-21 10:25] VITALS: BP 138/98; PULSE 71; RESP 18; O2SAT 94
== END 2018-11-21 10:27 | disposition home or self-care (01) ==
LOC: INF 10:20
PROVIDERS: Visit Provider Internal Medicine Medical Oncology
DX: E53.8 Deficiency of other specified B group vitamins (principal)
CPT/HCPCS: 96372

== ENCOUNTER 2018-12-26 11:43 | Outpatient (CLI) | payer BC, SELFPAY ==
[2018-12-26 11:44] VITALS: BMI 35.9
[2018-12-26 12:00] VITALS: BP 112/84; PULSE 70; RESP 18
[2018-12-26 12:07] LABS: Basophils % 0.6 % (0.1-2.0); Eosinophils # 0.2 K/mm3 (0.0-0.4); Eosinophils % 5.6 % (0.1-12.0); Hematocrit 51.3 % (42.0-52.0); Hemoglobin 16.3 g/dL (14.1-18.0); Lymphocytes # 0.8 K/mm3 (0.7-4.5); Lymphocytes % 21.3 % (10-50); Mean Corpuscular HGB Conc 31.8 g/dL (31.8-35.4); Mean Corpuscular Hemoglobin 30.4 pg (27.0-31.2); Mean Corpuscular Volume 95.7 fl (80-94); Mean Platelet Volume 8.2 fl (7.4-10.4); Monocytes # 0.4 K/mm3 (0.1-1.0); Monocytes % 9.5 % (1.7-9.3); Neutrophils # 2.5 K/mm3 (1.8-7.8); Platelet Count 229 K/mm3 (142-424); Red Blood Count 5.36 M/mm3 (4.60-6.20); Red Cell Distribution Width 13.1 % (11.5-17.5)
[2018-12-26 12:20] LABS: Alanine Aminotransferase 37 U/L (12-78); Albumin Level 3.8 gm/dL (3.4-5.0); Alkaline Phosphatase 67 U/L (46-116); Anion Gap 12.2 mEq/L (5-15); Aspartate Amino Transferase 17 U/L (15-37); Bilirubin,Total 0.4 mg/dL (0.2-1.0); Blood Urea Nitrogen 10 mg/dL (7-18); Calcium 8.8 mg/dL (8.5-10.1); Carbon Dioxide 26 mmol/L (21.0-32.0); Chloride 105 mmol/L (98-107); Creatinine Clearance Estimated 127 mL/min (50-200); Creatinine,Serum 0.94 mg/dL (0.70-1.30); Estimated Glomerular Filt Rate 83 ml/min (>60); GFR (African American) 100 ML/MIN (>60); Globulin 3.7 gm/dl (1.3-3.2); Glucose 86 mg/dL (74-106); Potassium 4.2 mmoL/L (3.5-5.1); Sodium 139 mmol/L (136-145); Total Protein,Serum 7.5 gm/dL (6.4-8.2)
[2018-12-26 12:38] LABS: Ferritin 62 ng/mL (8-388)
[2018-12-27 04:07] LABS: Iron 56 ug/dL (38-169); UIBC 296 ug/dL (111-343)
[2018-12-27 18:53] LABS: Iron Saturation 16 % (15-55); Vitamin B12 870 pg/mL (232-1245)
== END 2018-12-26 12:06 | disposition home or self-care (01) ==
LOC: INF 11:43
PROVIDERS: Visit Provider Internal Medicine Medical Oncology
DX: E53.8 Deficiency of other specified B group vitamins (principal)
CPT/HCPCS: 36415; 80053; 82607; 82728; 83540; 83550; 85025; 96372

== ENCOUNTER 2019-01-26 12:46 | Outpatient (CLI) | payer BC, SELFPAY ==
[2019-01-26 12:49] VITALS: BP 138/89; PULSE 78; RESP 18
== END 2019-01-26 12:55 | disposition home or self-care (01) ==
LOC: INF 12:46
PROVIDERS: Visit Provider Internal Medicine Medical Oncology
DX: E53.8 Deficiency of other specified B group vitamins (principal)
CPT/HCPCS: 96372

== ENCOUNTER 2019-02-23 12:23 | Outpatient (CLI) | payer BC, SELFPAY ==
[2019-02-23 12:33] VITALS: BP 150/88; PULSE 84; RESP 18
== END 2019-02-23 12:33 | disposition home or self-care (01) ==
LOC: INF 12:23
PROVIDERS: Visit Provider Internal Medicine Medical Oncology
DX: E53.8 Deficiency of other specified B group vitamins (principal)
CPT/HCPCS: 96372

== ENCOUNTER → 2019-03-20 07:35 | Outpatient (CLI) | payer BC, SELFPAY ==
[2019-03-20 07:54] LABS: Basophils % 0.8 % (0.1-2.0); Eosinophils # 0.2 K/mm3 (0.0-0.4); Eosinophils % 3.6 % (0.1-12.0); Hematocrit 53.7 % (42.0-52.0); Hemoglobin 17.2 g/dL (14.1-18.0); Lymphocytes # 1.3 K/mm3 (0.7-4.5); Lymphocytes % 22.7 % (10-50); Mean Corpuscular HGB Conc 32.1 g/dL (31.8-35.4); Mean Corpuscular Hemoglobin 29.9 pg (27.0-31.2); Mean Corpuscular Volume 93.1 fl (80-94); Mean Platelet Volume 7.5 fl (7.4-10.4); Monocytes # 0.4 K/mm3 (0.1-1.0); Monocytes % 6.7 % (1.7-9.3); Neutrophils # 3.9 K/mm3 (1.8-7.8); Neutrophils % 66.1 % (37.0-80.0); Platelet Count 205 K/mm3 (142-424); Red Blood Count 5.77 M/mm3 (4.60-6.20); White Blood Count 5.9 K/mm3 (4.8-10.8)
[2019-03-20 09:50] LABS: Alanine Aminotransferase 36 U/L (12-78); Albumin Level 3.9 gm/dL (3.4-5.0); Albumin/Globulin Ratio 1.1 (1.1-1.8); Alkaline Phosphatase 60 U/L (46-116); Aspartate Amino Transferase 19 U/L (15-37); Bilirubin,Total 0.8 mg/dL (0.2-1.0); Blood Urea Nitrogen 13 mg/dL (7-18); Calcium 9.1 mg/dL (8.5-10.1); Carbon Dioxide 29 mmol/L (21.0-32.0); Chloride 102 mmol/L (98-107); Creatinine,Serum 1.07 mg/dL (0.70-1.30); Estimated Glomerular Filt Rate 71 ml/min (>60); Ferritin 59 ng/mL (8-388); GFR (African American) 86 ML/MIN (>60); Globulin 3.5 gm/dl (1.3-3.2); Glucose 93 mg/dL (74-106); Sodium 139 mmol/L (136-145); Total Protein,Serum 7.4 gm/dL (6.4-8.2)
[2019-03-21 08:12] LABS: Iron 173 ug/dL (38-169); UIBC 191 ug/dL (111-343)
[2019-03-21 11:04] LABS: Iron Saturation 48 % (15-55); Vitamin B12 562 pg/mL (232-1245)
== END ==
PROVIDERS: Visit Provider Internal Medicine Medical Oncology
DX: E53.8 Deficiency of other specified B group vitamins (principal)
CPT/HCPCS: 36415; 80053; 82607; 82728; 83540; 83550; 85025

== ENCOUNTER 2019-03-25 12:44 | Outpatient (RCR) | payer BC, SELFPAY | END 2019-04-27 14:26 | disposition home or self-care (01) | LOC: PT.CARL 12:44 | PROVIDERS: PCP Nurse Practitioner Family; Visit Provider Surgery | DX: R53.1 Weakness (principal) | CPT/HCPCS: 97110; 97163 ==

== ENCOUNTER 2019-03-26 13:07 | Outpatient (CLI) | payer BC, SELFPAY ==
[2019-03-26 13:15] VITALS: BP 122/81; PULSE 67; RESP 18; TEMP 36.6; O2SAT 100
== END 2019-03-26 13:30 | disposition home or self-care (01) ==
LOC: INF 13:07
PROVIDERS: Visit Provider Internal Medicine Medical Oncology
DX: E53.8 Deficiency of other specified B group vitamins (principal)
CPT/HCPCS: 96372

== ENCOUNTER → 2019-04-03 14:03 | Outpatient (CLI) | payer BC, SELFPAY ==
[2019-04-03 15:04] LABS: Blood Urea Nitrogen 12 mg/dL (7-18); Creatinine,Serum 0.96 mg/dL (0.70-1.30); Estimated Glomerular Filt Rate 81 ml/min (>60); GFR (African American) 98 ML/MIN (>60)
== END ==
PROVIDERS: Visit Provider Surgery
DX: Z01.818 Encounter for other preprocedural examination (principal)
CPT/HCPCS: 36415; 82565; 84520

== ENCOUNTER → 2019-04-14 09:12 | Outpatient (CLI) | payer BC, SELFPAY ==
--- NOTE | 2019-04-14 09:13 | CT_ITS ---
PROCEDURE: CT ABDOMEN PELVIS W CON CLINICAL INDICATION: abdominal wall cellulitis/h/o hiatal hernia repair COMPARISON: ABDPELWW CT abdomen pelvis wo/w con from 09/06/2017 TECHNIQUE: IV Contrast: 75ML OPTIRAY 350 Oral Contrast 450ml Redicat Axial images obtained with sagittal and coronal reformats. All CT scans at the facility use one or more dose reduction, viz: automated exposure control, ma/kV adjustment per patient size (including targeted exams where dose is matched to indication, i.e. head), or iterative reconstruction technique. FINDINGS: LOWER THORAX: No acute finding. There are are a few coronary artery calcifications ABDOMEN & PELVIS: Prior cholecystectomy. The liver, spleen, adrenal glands, and pancreas are unremarkable. There is a small duodenal type diverticulum projecting off the medial aspect of the duodenum. There is a 7.4 by 6.3 cm left renal cyst with a thin septation posteriorly not significantly changed. Small exophytic right renal cyst is present at 8 mm. No intestinal obstruction or free air. No evidence of appendicitis or diverticulitis. There is no evidence of abdominal wall abscess. There is minimal subcutaneous/skin thickening in the left paracentral aspect of the upper to mid abdomen. This is 11 cm superior to the umbilicus and very slightly to the left of midline. No abscess is evident at this region. There is a left inguinal hernia which contains fat. A small sclerotic focus is present in the right ilium not significantly changed and may be due to small bone island. IMPRESSION: 1. No evidence of abdominal wall abscess. 2. Mild cutaneous/subcutaneous thickening in the mid abdominal wall to the left of midline 11 cm above the umbilicus which may be due to small area of cellulitis. 3. No change in the septated left renal cyst. 4. Left inguinal hernia containing fat Dictated by: Leo Mcnulty MD 04/15/2019 12:45 Electronically signed by Leo Mcnulty MD in [place] 04/15/2019 12:45
== END ==
PROVIDERS: PCP Nurse Practitioner Family; Visit Provider Surgery
DX: K46.9 Unspecified abdominal hernia without obstruction or gangrene (principal)
CPT/HCPCS: 74177; Q9967

== ENCOUNTER 2019-04-27 11:06 | Outpatient (CLI) | payer BC, SELFPAY ==
[2019-04-27 11:11] VITALS: BP 135/86; PULSE 67; RESP 18; O2SAT 96
== END 2019-04-27 11:11 | disposition home or self-care (01) ==
LOC: INF 11:06
PROVIDERS: Visit Provider Internal Medicine Medical Oncology
DX: E53.8 Deficiency of other specified B group vitamins (principal)
CPT/HCPCS: 96372

== ENCOUNTER 2019-05-25 11:26 | Outpatient (CLI) | payer BC, SELFPAY ==
[2019-05-25 11:33] VITALS: BP 139/87; PULSE 73; RESP 18; TEMP 36.4; O2SAT 96
== END 2019-05-25 11:33 | disposition home or self-care (01) ==
LOC: INF 11:26
PROVIDERS: Visit Provider Internal Medicine Medical Oncology
DX: E53.8 Deficiency of other specified B group vitamins (principal); D50.9 Iron deficiency anemia, unspecified
CPT/HCPCS: 96372

== ENCOUNTER 2019-07-21 10:32 | Outpatient (CLI) | payer BC, SELFPAY ==
[2019-07-21 10:36] VITALS: BP 150/84; PULSE 70; RESP 18; TEMP 36.3; O2SAT 97
== END 2019-07-21 10:48 | disposition home or self-care (01) ==
LOC: INF 10:32
PROVIDERS: Visit Provider Internal Medicine Medical Oncology
DX: E53.8 Deficiency of other specified B group vitamins (principal); D50.9 Iron deficiency anemia, unspecified
CPT/HCPCS: 96372

== ENCOUNTER 2019-08-18 09:59 | Outpatient (CLI) | payer MEDICARE, BC, SELFPAY ==
[2019-08-18 10:06] VITALS: BP 138/94; PULSE 79; RESP 20; O2SAT 94
== END 2019-08-18 10:06 | disposition home or self-care (01) ==
LOC: INF 09:59
PROVIDERS: Visit Provider Internal Medicine Medical Oncology
DX: E53.8 Deficiency of other specified B group vitamins (principal); D50.9 Iron deficiency anemia, unspecified
CPT/HCPCS: 96372

== ENCOUNTER 2019-09-15 09:00 | Outpatient (CLI) | payer MEDICARE, BC, SELFPAY ==
[2019-09-15 09:05] VITALS: BP 131/80; PULSE 72; RESP 20; TEMP 36.9; O2SAT 95
== END 2019-09-15 09:15 | disposition home or self-care (01) ==
LOC: INF 09:09
PROVIDERS: Visit Provider Internal Medicine Medical Oncology
DX: E53.8 Deficiency of other specified B group vitamins (principal); D50.9 Iron deficiency anemia, unspecified
CPT/HCPCS: 96372

== ENCOUNTER → 2019-09-18 08:53 | Outpatient (CLI) | payer MEDICARE, BC, SELFPAY ==
[2019-09-18 09:26] LABS: Basophils % 0.6 % (0.1-2.0); Eosinophils # 0.3 K/mm3 (0.0-0.4); Eosinophils % 4.3 % (0.1-12.0); Hematocrit 53.3 % (42.0-52.0); Lymphocytes # 1.6 K/mm3 (0.7-4.5); Lymphocytes % 25.3 % (10-50); Mean Corpuscular Hemoglobin 31.6 pg (27.0-31.2); Mean Platelet Volume 7.3 fl (7.4-10.4); Monocytes # 0.4 K/mm3 (0.1-1.0); Monocytes % 5.9 % (1.7-9.3); Neutrophils # 4.1 K/mm3 (1.8-7.8); Neutrophils % 63.9 % (37.0-80.0); Platelet Count 233 K/mm3 (142-424); Red Blood Count 5.73 M/mm3 (4.60-6.20); Red Cell Distribution Width 13.2 % (11.5-17.5); White Blood Count 6.4 K/mm3 (4.8-10.8)
[2019-09-18 09:28] LABS: Hemoglobin 18.1 g/dL (14.1-18.0)
[2019-09-18 10:18] LABS: Alanine Aminotransferase 31 U/L (12-78); Albumin Level 4.5 g/dl (3.5-5.0); Albumin/Globulin Ratio 1.5 (1.1-1.8); Alkaline Phosphatase 55 U/L (38-126); Anion Gap 14.1 mEq/L (5-15); Aspartate Amino Transferase 34 U/L (17-59); Bilirubin,Total 0.7 mg/dl (0.2-1.3); Blood Urea Nitrogen 15 mg/dl (9-20); Calcium 9.5 mg/dl (8.4-10.2); Carbon Dioxide 30 mmol/L (22.0-30.0); Chloride 100 mmol/L (98-107); Estimated Glomerular Filt Rate 99 ml/min (>60); GFR (African American) 120 ML/MIN (>60); Globulin 3.1 g/dL (1.3-3.2); Glucose 98 mg/dl (74-100); Potassium 4.1 mmoL/L (3.5-5.1); Sodium 140 mmol/L (136-145); Total Protein,Serum 7.6 g/dl (6.3-8.2)
[2019-09-18 10:45] LABS: Iron 108 ug/dL (49-181)
[2019-09-18 10:53] LABS: Total Iron Binding Capacity 407 ug/dL (261-462)
[2019-09-18 11:22] LABS: Ferritin 20.3 ng/ml (17.9-464)
== END ==
PROVIDERS: Nurse Practitioner Family; Visit Provider Internal Medicine Medical Oncology
DX: D64.9 Anemia, unspecified (principal); I10 Essential (primary) hypertension
CPT/HCPCS: 36415; 80053; 82728; 83540; 83550; 85025

== ENCOUNTER 2019-10-13 10:30 | Outpatient (CLI) | payer MEDICARE, BC, SELFPAY ==
[2019-10-13 10:45] VITALS: BP 124/90; PULSE 76; RESP 18; TEMP 36.7
== END 2019-10-13 10:45 | disposition home or self-care (01) ==
LOC: INF 10:38
PROVIDERS: Visit Provider Internal Medicine Medical Oncology
DX: D50.9 Iron deficiency anemia, unspecified (principal)
CPT/HCPCS: 96372

== ENCOUNTER 2019-11-10 10:36 | Outpatient (CLI) | payer MEDICARE, BC, SELFPAY ==
[2019-11-10 10:45] VITALS: BP 134/89; PULSE 77; RESP 18; TEMP 36.4
== END 2019-11-10 10:45 | disposition home or self-care (01) ==
LOC: INF 10:36
PROVIDERS: Visit Provider Internal Medicine Medical Oncology
DX: D50.9 Iron deficiency anemia, unspecified (principal)
CPT/HCPCS: 96372

== ENCOUNTER → 2019-12-03 13:32 | Outpatient (CLI) | payer MEDICARE, BC, SELFPAY ==
[2019-12-03 14:23] LABS: Basophils % 0.4 % (0.1-2.0); Eosinophils # 0.1 K/mm3 (0.0-0.4); Hematocrit 54.3 % (42.0-52.0); Lymphocytes # 1.2 K/mm3 (0.7-4.5); Mean Corpuscular Hemoglobin 31.1 pg (27.0-31.2); Monocytes # 0.4 K/mm3 (0.1-1.0); Red Cell Distribution Width 13.3 % (11.5-17.5)
[2019-12-03 14:30] LABS: Eosinophils % 2.3 % (0.1-12.0); Lymphocytes % 20.3 % (10-50); Mean Corpuscular HGB Conc 34.3 g/dL (31.8-35.4); Mean Corpuscular Volume 90.8 fl (80-94); Mean Platelet Volume 7.8 fl (7.4-10.4); Monocytes % 6.2 % (1.7-9.3); Neutrophils # 4.1 K/mm3 (1.8-7.8); Neutrophils % 70.8 % (37.0-80.0); Platelet Count 221 K/mm3 (142-424); Red Blood Count 5.98 M/mm3 (4.60-6.20); White Blood Count 5.7 K/mm3 (4.8-10.8)
[2019-12-03 14:56] LABS: Iron 99 ug/dL (49-181)
[2019-12-03 15:05] LABS: Total Iron Binding Capacity 448 ug/dL (261-462)
[2019-12-03 15:32] LABS: Ferritin 39.6 ng/ml (17.9-464)
[2019-12-03 16:04] LABS: Folate 9.25 ng/mL
[2019-12-03 17:16] LABS: Vitamin B12 942 pg/mL (239-931)
[2019-12-03 17:42] LABS: Hemoglobin 18.6 g/dL (14.1-18.0)
== END ==
PROVIDERS: Visit Provider Internal Medicine Medical Oncology
DX: D50.9 Iron deficiency anemia, unspecified (principal)
CPT/HCPCS: 36415; 82607; 82728; 82746; 83540; 83550; 85025

== ENCOUNTER 2019-12-08 10:31 | Outpatient (CLI) | payer MEDICARE, BC, SELFPAY ==
[2019-12-08 10:35] VITALS: BP 135/83; PULSE 68
[2019-12-08 10:40] VITALS: BP 135/82; PULSE 63; RESP 20; TEMP 36.9; O2SAT 95
== END 2019-12-08 10:45 | disposition home or self-care (01) ==
LOC: INF 10:31
PROVIDERS: Visit Provider Internal Medicine Medical Oncology
DX: D50.8 Other iron deficiency anemias (principal)
CPT/HCPCS: 96372

== ENCOUNTER 2020-01-05 09:40 | Outpatient (CLI) | payer MEDICARE, BC, SELFPAY ==
[2020-01-05 09:46] VITALS: BP 126/81; PULSE 59; RESP 18; TEMP 36.6; O2SAT 97
== END 2020-01-05 09:55 | disposition home or self-care (01) ==
LOC: INF 09:40
PROVIDERS: Visit Provider Internal Medicine Medical Oncology
DX: D50.9 Iron deficiency anemia, unspecified (principal)
CPT/HCPCS: 96372

== ENCOUNTER 2020-02-02 09:50 | Outpatient (CLI) | payer MEDICARE, BC, SELFPAY ==
[2020-02-02 10:00] VITALS: BP 129/73; PULSE 73; RESP 18; TEMP 36.2; O2SAT 96
== END 2020-02-02 10:00 | disposition home or self-care (01) ==
LOC: INF 09:56
PROVIDERS: Visit Provider Internal Medicine Medical Oncology
DX: D50.9 Iron deficiency anemia, unspecified (principal)
CPT/HCPCS: 96372

== ENCOUNTER → 2020-02-08 10:50 | Outpatient (CLI) | payer MEDICARE, BC, SELFPAY ==
--- NOTE | 2020-02-08 13:28 | PC.NURSE ---
PFT Complete with 6 minute walk. Albuterol 0.083% given, per written protocol, via hand held nebulizer, Pt tolerated tx well.
== END ==
PROVIDERS: PCP Nurse Practitioner Family; Visit Provider Internal Medicine Pulmonary Disease
DX: R06.09 Other forms of dyspnea (principal)
CPT/HCPCS: 94060; 94618; 94726; 94729

== ENCOUNTER 2020-03-01 09:31 | Outpatient (CLI) | payer MEDICARE, BC, SELFPAY ==
[2020-03-01 09:35] VITALS: BP 130/83; PULSE 69; RESP 18; TEMP 36.6; O2SAT 97
== END 2020-03-01 09:45 | disposition home or self-care (01) ==
LOC: INF 09:31
PROVIDERS: Visit Provider Internal Medicine Medical Oncology
DX: D50.9 Iron deficiency anemia, unspecified (principal); D45 Polycythemia vera
CPT/HCPCS: 96372

== ENCOUNTER → 2020-03-17 11:26 | Outpatient (CLI) | payer MEDICARE, BC, SELFPAY ==
[2020-03-17 12:01] LABS: Basophils # 0.1 K/mm3 (0-0.2); Basophils % 1.2 % (0.1-2.0); Eosinophils # 0.2 K/mm3 (0.0-0.4); Eosinophils % 3.6 % (0.1-12.0); Lymphocytes # 1.4 K/mm3 (0.7-4.5); Lymphocytes % 22.5 % (10-50); Mean Corpuscular HGB Conc 33.3 g/dL (31.8-35.4); Mean Corpuscular Volume 93.2 fl (80-94); Monocytes # 0.4 K/mm3 (0.1-1.0); Monocytes % 6.1 % (1.7-9.3); Neutrophils # 4.3 K/mm3 (1.8-7.8); Neutrophils % 66.6 % (37.0-80.0); Platelet Count 270 K/mm3 (142-424); Red Blood Count 6.22 M/mm3 (4.60-6.20); Red Cell Distribution Width 13.8 % (11.5-17.5); White Blood Count 6.4 K/mm3 (4.8-10.8)
[2020-03-17 12:02] LABS: Hemoglobin 19.3 g/dL (14.1-18.0)
[2020-03-17 12:52] LABS: Iron 73 ug/dL (49-181)
[2020-03-17 13:02] LABS: Total Iron Binding Capacity 401 ug/dL (261-462)
[2020-03-17 13:28] LABS: Ferritin 42.6 ng/ml (17.9-464)
[2020-03-17 14:20] LABS: Vitamin B12 511 pg/mL (239-931)
== END ==
PROVIDERS: Visit Provider Internal Medicine Medical Oncology
DX: D64.9 Anemia, unspecified (principal)
CPT/HCPCS: 36415; 82607; 82728; 83540; 83550; 85025

== ENCOUNTER 2020-03-24 13:32 | Outpatient (CLI) | payer MEDICARE, BC, SELFPAY ==
[2020-03-24 14:02] VITALS: BP 145/89; PULSE 79; RESP 18; TEMP 36.2; O2SAT 99
[2020-03-29 12:05] LABS: Erythropoietin 12.7 mIU/mL (2.6-18.5)
== END 2020-03-24 14:16 | disposition home or self-care (01) ==
LOC: INF 13:33
PROVIDERS: Visit Provider Internal Medicine Medical Oncology
DX: D64.9 Anemia, unspecified (principal); D45 Polycythemia vera
CPT/HCPCS: 36415; 81270; 82668; 96372

== ENCOUNTER 2020-05-20 10:28 | Outpatient (CLI) | payer MEDICARE, BC, SELFPAY ==
[2020-05-20 10:35] VITALS: BP 130/80; PULSE 66; RESP 20; TEMP 36.3; O2SAT 96
== END 2020-05-20 10:35 | disposition home or self-care (01) ==
LOC: INF 10:28
PROVIDERS: Visit Provider Internal Medicine Medical Oncology
DX: D50.9 Iron deficiency anemia, unspecified (principal)
CPT/HCPCS: 96372

== ENCOUNTER 2020-06-14 10:47 | Outpatient (CLI) | payer MEDICARE, BC, SELFPAY ==
[2020-06-14 11:01] VITALS: BP 132/89; PULSE 70; RESP 18; TEMP 36.2; O2SAT 96
== END 2020-06-14 11:15 | disposition home or self-care (01) ==
LOC: INF 10:47
PROVIDERS: Visit Provider Internal Medicine Medical Oncology
DX: D64.9 Anemia, unspecified (principal)
CPT/HCPCS: 96372

== ENCOUNTER 2020-07-15 10:20 | Outpatient (CLI) | payer MEDICARE, BC, SELFPAY ==
[2020-07-15 10:30] VITALS: BP 143/88; PULSE 83; RESP 18; O2SAT 94
== END 2020-07-15 10:30 | disposition home or self-care (01) ==
LOC: INF 10:26
PROVIDERS: Visit Provider Internal Medicine Medical Oncology
DX: D64.9 Anemia, unspecified (principal)
CPT/HCPCS: 96372

== ENCOUNTER 2020-08-12 09:54 | Outpatient (CLI) | payer MEDICARE, BC, SELFPAY ==
[2020-08-12 10:00] VITALS: BP 132/86; PULSE 69; RESP 18; TEMP 36.6; O2SAT 96
== END 2020-08-12 10:20 | disposition home or self-care (01) ==
LOC: INF 09:54
PROVIDERS: Visit Provider Internal Medicine Medical Oncology
DX: D75.1 Secondary polycythemia (principal); R79.1 Abnormal coagulation profile
CPT/HCPCS: 96372

== ENCOUNTER 2020-09-12 10:19 | Outpatient (CLI) | payer MEDICARE, BC, SELFPAY ==
[2020-09-12 10:25] VITALS: BP 129/86; PULSE 69; RESP 16; TEMP 36.6; O2SAT 98
== END 2020-09-12 10:40 | disposition home or self-care (01) ==
LOC: INF 10:19
PROVIDERS: Visit Provider Internal Medicine Medical Oncology
DX: E53.8 Deficiency of other specified B group vitamins (principal)
CPT/HCPCS: 96372

== ENCOUNTER → 2020-09-16 09:31 | Outpatient (CLI) | payer MEDICARE, BC, SELFPAY ==
[2020-09-16 10:19] LABS: Basophils # 0.1 K/mm3 (0-0.2); Basophils % 0.9 % (0.1-2.0); Eosinophils # 0.2 K/mm3 (0.0-0.4); Eosinophils % 3.9 % (0.1-12.0); Hematocrit 53.1 % (42.0-52.0); Lymphocytes # 1.4 K/mm3 (0.7-4.5); Lymphocytes % 26.6 % (10-50); Mean Corpuscular Hemoglobin 31.9 pg (27.0-31.2); Mean Platelet Volume 7.9 fl (7.4-10.4); Monocytes # 0.4 K/mm3 (0.1-1.0); Monocytes % 6.8 % (1.7-9.3); Neutrophils # 3.3 K/mm3 (1.8-7.8); Neutrophils % 61.9 % (37.0-80.0); Platelet Count 228 K/mm3 (142-424); Red Blood Count 5.65 M/mm3 (4.60-6.20); Red Cell Distribution Width 13.7 % (11.5-17.5); White Blood Count 5.3 K/mm3 (4.8-10.8)
[2020-09-16 10:37] LABS: Iron 112 ug/dL (49-181)
[2020-09-16 10:48] LABS: Total Iron Binding Capacity 399 ug/dL (261-462)
== END ==
PROVIDERS: Visit Provider Internal Medicine Medical Oncology
DX: D50.9 Iron deficiency anemia, unspecified (principal)
CPT/HCPCS: 36415; 83540; 83550; 85025

== ENCOUNTER 2020-10-13 10:31 | Outpatient (CLI) | payer MEDICARE, BC, SELFPAY ==
[2020-10-13 10:48] VITALS: BP 143/83; PULSE 70; RESP 17; TEMP 36.6; O2SAT 94
== END 2020-10-13 10:50 | disposition home or self-care (01) ==
LOC: INF 10:38
PROVIDERS: Visit Provider Internal Medicine Medical Oncology
DX: E53.8 Deficiency of other specified B group vitamins (principal)
CPT/HCPCS: 96372

== ENCOUNTER 2020-11-11 09:31 | Outpatient (CLI) | payer MEDICARE, BC, SELFPAY ==
[2020-11-11 09:46] VITALS: BP 130/80; PULSE 60; RESP 16; TEMP 36.4; O2SAT 95
== END 2020-11-11 10:00 | disposition home or self-care (01) ==
LOC: INF 09:33
PROVIDERS: PCP Emergency Medicine; Visit Provider Internal Medicine Medical Oncology
DX: E53.8 Deficiency of other specified B group vitamins (principal)
CPT/HCPCS: 96372

== ENCOUNTER 2020-12-09 09:29 | Outpatient (CLI) | payer MEDICARE, BC, SELFPAY ==
[2020-12-09 09:53] VITALS: BP 138/84; PULSE 69; RESP 17; TEMP 35.9; O2SAT 95
== END 2020-12-09 09:55 | disposition home or self-care (01) ==
LOC: INF 09:32
PROVIDERS: PCP Emergency Medicine; Visit Provider Internal Medicine Medical Oncology
DX: E53.8 Deficiency of other specified B group vitamins (principal)
CPT/HCPCS: 96372

== ENCOUNTER 2021-01-06 09:57 | Outpatient (CLI) | payer MEDICARE, BC, SELFPAY ==
[2021-01-06 10:20] VITALS: BP 130/94; PULSE 59; RESP 16; TEMP 35.7; O2SAT 94
[2021-01-06 10:35] VITALS: BP 130/94; PULSE 59; RESP 16; TEMP 35.7; O2SAT 94
== END 2021-01-06 10:35 | disposition home or self-care (01) ==
LOC: INF 09:58
PROVIDERS: PCP Emergency Medicine; Visit Provider Internal Medicine Medical Oncology
DX: E53.8 Deficiency of other specified B group vitamins (principal)
CPT/HCPCS: 96372

== ENCOUNTER 2021-02-03 10:03 | Outpatient (CLI) | payer MEDICARE, BC, SELFPAY ==
[2021-02-03 10:23] VITALS: BP 122/75; PULSE 65; RESP 18; TEMP 36.7; O2SAT 100
== END 2021-02-03 10:23 | disposition home or self-care (01) ==
LOC: INF 10:04
PROVIDERS: PCP Emergency Medicine; Visit Provider Internal Medicine Medical Oncology
DX: E53.8 Deficiency of other specified B group vitamins (principal)
CPT/HCPCS: 96372

== ENCOUNTER 2021-03-17 10:31 | Outpatient (CLI) | payer MEDICARE, BC, SELFPAY ==
[2021-03-17 10:46] VITALS: BP 122/77; PULSE 72; RESP 18; TEMP 36.6; O2SAT 95
[2021-03-17 10:51] VITALS: BMI 34.1
[2021-03-17 11:35] VITALS: BP 126/72; PULSE 76; RESP 16; TEMP 36.6; O2SAT 96
[2021-03-17 11:58] LABS: Basophils # 0.1 K/mm3 (0-0.2); Eosinophils # 0.1 K/mm3 (0.0-0.4); Eosinophils % 2.8 % (0.1-12.0); Hematocrit 54.8 % (42.0-52.0); Lymphocytes # 0.9 K/mm3 (0.7-4.5); Lymphocytes % 19.5 % (10-50); Mean Corpuscular HGB Conc 33.2 g/dL (31.8-35.4); Mean Corpuscular Hemoglobin 32.5 pg (27.0-31.2); Mean Corpuscular Volume 97.8 fl (80-94); Mean Platelet Volume 8.9 fl (7.4-10.4); Monocytes # 0.4 K/mm3 (0.1-1.0); Neutrophils # 3.3 K/mm3 (1.8-7.8); Neutrophils % 68.8 % (37.0-80.0); Platelet Count 239 K/mm3 (142-424); White Blood Count 4.7 K/mm3 (4.8-10.8)
[2021-03-17 12:04] LABS: Hemoglobin 18.5 g/dL (14.1-18.0)
[2021-03-17 12:08] LABS: Alanine Aminotransferase 27 U/L (12-78); Albumin/Globulin Ratio 1.6 (1.1-1.8); Alkaline Phosphatase 40 U/L (38-126); Anion Gap 11.1 mEq/L (5-15); Aspartate Amino Transferase 38 U/L (17-59); Bilirubin,Total 0.9 mg/dl (0.2-1.3); Blood Urea Nitrogen 11 mg/dl (9-20); Calcium 9.6 mg/dl (8.4-10.2); Carbon Dioxide 32 mmol/L (22.0-30.0); Chloride 98 mmol/L (98-107); Creatinine Clearance Estimated 139 mL/min (50-200); Estimated Glomerular Filt Rate 99 ml/min (>60); GFR (African American) 120 ML/MIN (>60); Globulin 3.2 g/dL (1.3-3.2); Glucose 87 mg/dl (74-100); Potassium 4.1 mmoL/L (3.5-5.1); Sodium 137 mmol/L (136-145); Total Protein,Serum 8.2 g/dl (6.3-8.2)
[2021-03-17 12:38] LABS: Iron 145 ug/dL (49-181)
[2021-03-17 12:48] LABS: Total Iron Binding Capacity 374 ug/dL (261-462)
[2021-03-17 13:00] LABS: Vitamin B12 > 1000 pg/mL (239-931)
[2021-03-17 13:16] LABS: Ferritin 94.3 ng/ml (17.9-464)
== END 2021-03-17 11:35 | disposition home or self-care (01) ==
LOC: INF 10:32
PROVIDERS: PCP Emergency Medicine; Visit Provider Internal Medicine Medical Oncology
DX: D64.9 Anemia, unspecified (principal); D51.9 Vitamin B12 deficiency anemia, unspecified
CPT/HCPCS: 80053; 82607; 82728; 83540; 83550; 85025; 96372

== ENCOUNTER 2021-05-11 12:45 | Outpatient (CLI) | payer MEDICARE, BC, SELFPAY ==
[2021-05-11 12:59] VITALS: BP 125/78; PULSE 83; RESP 16; TEMP 36.3; O2SAT 96
== END 2021-05-11 13:10 | disposition home or self-care (01) ==
LOC: INF 12:46
PROVIDERS: PCP Emergency Medicine; Visit Provider Internal Medicine Medical Oncology
DX: E53.8 Deficiency of other specified B group vitamins (principal)
CPT/HCPCS: 96372

== ENCOUNTER 2021-06-09 10:18 | Outpatient (CLI) | payer MEDICARE, BC, SELFPAY ==
[2021-06-09 10:30] VITALS: BP 133/89; PULSE 66; RESP 16; O2SAT 98
== END 2021-06-09 10:45 | disposition home or self-care (01) ==
LOC: INF 10:19
PROVIDERS: PCP Emergency Medicine; Visit Provider Internal Medicine Medical Oncology
DX: E53.8 Deficiency of other specified B group vitamins (principal)
CPT/HCPCS: 96372

== ENCOUNTER 2021-07-10 09:40 | Outpatient (CLI) | payer MEDICARE, BC, SELFPAY ==
[2021-07-10 09:46] VITALS: BP 141/89; PULSE 74; RESP 18; TEMP 36.6; O2SAT 97
== END 2021-07-10 10:10 | disposition home or self-care (01) ==
LOC: INF 09:40
PROVIDERS: PCP Emergency Medicine; Visit Provider Internal Medicine Medical Oncology
DX: D64.9 Anemia, unspecified (principal)
CPT/HCPCS: 96372

== ENCOUNTER 2021-08-07 09:23 | Outpatient (CLI) | payer MEDICARE, BC, SELFPAY ==
[2021-08-07 09:30] VITALS: BP 139/71; PULSE 78; RESP 18; TEMP 36.4; O2SAT 97
== END 2021-08-07 09:45 | disposition home or self-care (01) ==
LOC: INF 09:24
PROVIDERS: PCP Emergency Medicine; Visit Provider Internal Medicine Medical Oncology
DX: D64.9 Anemia, unspecified (principal); D51.9 Vitamin B12 deficiency anemia, unspecified
CPT/HCPCS: 96372; 96523

== ENCOUNTER 2021-09-05 08:42 | Outpatient (CLI) | payer MEDICARE, BC, SELFPAY ==
[2021-09-05 08:53] VITALS: BP 139/92; PULSE 71; RESP 18; O2SAT 99
== END 2021-09-05 08:55 | disposition home or self-care (01) ==
LOC: INF 08:43
PROVIDERS: PCP Emergency Medicine; Visit Provider Internal Medicine Medical Oncology
DX: D64.9 Anemia, unspecified (principal)
CPT/HCPCS: 96372

== ENCOUNTER 2021-10-06 08:24 | Outpatient (CLI) | payer MEDICARE, BC, SELFPAY ==
[2021-10-06 08:32] VITALS: BP 133/88; PULSE 67; RESP 18; O2SAT 98
== END 2021-10-06 08:35 | disposition home or self-care (01) ==
LOC: INF 08:26
PROVIDERS: PCP Emergency Medicine; Visit Provider Internal Medicine Medical Oncology
DX: E53.8 Deficiency of other specified B group vitamins (principal)
CPT/HCPCS: 96372

== ENCOUNTER → 2021-11-15 08:55 | Outpatient (CLI) | payer MEDICARE, BC, SELFPAY ==
[2021-11-15 09:34] LABS: Basophils # 0.1 K/mm3 (0-0.2); Basophils % 1.4 % (0.1-2.0); Eosinophils # 0.1 K/mm3 (0.0-0.4); Eosinophils % 1.6 % (0.1-12.0); Hematocrit 57.2 % (42.0-52.0); Lymphocytes % 17.5 % (10-50); Mean Corpuscular HGB Conc 32.5 g/dL (31.8-35.4); Mean Corpuscular Hemoglobin 31.4 pg (27.0-31.2); Mean Corpuscular Volume 96.7 fl (80-94); Monocytes # 0.4 K/mm3 (0.1-1.0); Monocytes % 6.9 % (1.7-9.3); Neutrophils # 4.2 K/mm3 (1.8-7.8); Neutrophils % 72.5 % (37.0-80.0); Platelet Count 223 K/mm3 (142-424); Red Blood Count 5.92 M/mm3 (4.60-6.20); White Blood Count 5.8 K/mm3 (4.8-10.8)
[2021-11-15 09:35] LABS: Hemoglobin 18.6 g/dL (14.1-18.0)
[2021-11-15 10:28] LABS: Iron 104 ug/dL (49-181)
[2021-11-15 10:39] LABS: Total Iron Binding Capacity 362 ug/dL (261-462)
[2021-11-15 11:50] LABS: Vitamin B12 409 pg/mL (239-931)
== END ==
LOC: LAB 08:56
PROVIDERS: PCP Emergency Medicine; Visit Provider Internal Medicine Medical Oncology
DX: D51.8 Other vitamin B12 deficiency anemias (principal)
CPT/HCPCS: 36415; 82607; 82728; 83540; 83550; 85025

== ENCOUNTER → 2021-11-17 12:05 | Outpatient (CLI) | payer MEDICARE, BC, SELFPAY | PROVIDERS: PCP Emergency Medicine; Visit Provider Internal Medicine Pulmonary Disease | DX: R06.02 Shortness of breath (principal) | CPT/HCPCS: 94060; 94618; 94726; 94729 ==

== ENCOUNTER 2021-11-23 12:31 | Outpatient (CLI) | payer MEDICARE, BC, SELFPAY ==
[2021-11-23 12:47] VITALS: BMI 34.5
[2021-11-23 13:04] LABS: Chloride 100 mmol/L (98-107); Sodium 141 mmol/L (136-145)
[2021-11-23 13:05] LABS: Potassium 4.1 mmoL/L (3.5-5.1)
[2021-11-23 13:07] LABS: Alanine Aminotransferase 30 U/L (12-78); Albumin Level 4.8 g/dl (3.5-5.0); Albumin/Globulin Ratio 1.6 (1.1-1.8); Alkaline Phosphatase 55 U/L (38-126); Anion Gap 18.1 mEq/L (5-15); Aspartate Amino Transferase 34 U/L (17-59); Bilirubin,Total 0.7 mg/dl (0.2-1.3); Blood Urea Nitrogen 21 mg/dl (9-20); Calcium 9.2 mg/dl (8.4-10.2); Carbon Dioxide 27 mmol/L (22.0-30.0); Creatinine Clearance Estimated 123 mL/min (50-200); Estimated Glomerular Filt Rate 86 ml/min (>60); GFR (African American) 104 ML/MIN (>60); Glucose 183 mg/dl (74-100); Total Protein,Serum 7.8 g/dl (6.3-8.2)
[2021-11-23 13:10] VITALS: BP 130/70; PULSE 88; RESP 18; TEMP 36.3; O2SAT 95
[2021-11-23] MEDS: VITAMIN B-12 1,000 MCG 1ML VIAL 1000 MCG IM (13:10)
== END 2021-11-23 13:20 | disposition home or self-care (01) ==
LOC: INF 12:33
PROVIDERS: PCP Emergency Medicine; Visit Provider Internal Medicine Medical Oncology
DX: D51.8 Other vitamin B12 deficiency anemias (principal); D45 Polycythemia vera
CPT/HCPCS: 36415; 80053; 96372

== ENCOUNTER 2021-12-22 09:13 | Outpatient (CLI) | payer MEDICARE, BC, SELFPAY ==
[2021-12-22 09:44] VITALS: BP 135/72; PULSE 75; RESP 16; TEMP 36.4; O2SAT 96
== END 2021-12-22 09:58 | disposition home or self-care (01) ==
LOC: INF 09:20
PROVIDERS: PCP Emergency Medicine; Visit Provider Internal Medicine Medical Oncology
DX: D50.8 Other iron deficiency anemias (principal); D51.8 Other vitamin B12 deficiency anemias
CPT/HCPCS: 96372

== ENCOUNTER 2022-01-19 09:07 | Outpatient (CLI) | payer MEDICARE, BC, SELFPAY ==
[2022-01-19 09:29] VITALS: BP 144/79; PULSE 74; RESP 16; TEMP 36.2; O2SAT 95
== END 2022-01-19 09:40 | disposition home or self-care (01) ==
LOC: INF 09:13
PROVIDERS: PCP Emergency Medicine; Visit Provider Internal Medicine Medical Oncology
DX: D51.8 Other vitamin B12 deficiency anemias (principal)
CPT/HCPCS: 96372

== ENCOUNTER 2022-02-16 09:06 | Outpatient (CLI) | payer MEDICARE, BC, SELFPAY ==
[2022-02-16 09:15] VITALS: BP 137/85; PULSE 74; RESP 18; O2SAT 99
== END 2022-02-16 09:20 | disposition home or self-care (01) ==
LOC: INF 09:08
PROVIDERS: PCP Emergency Medicine; Visit Provider Internal Medicine Medical Oncology
DX: D51.8 Other vitamin B12 deficiency anemias (principal)
CPT/HCPCS: 96372

== ENCOUNTER 2022-03-16 08:37 | Outpatient (CLI) | payer MEDICARE, BC, SELFPAY ==
[2022-03-16 08:50] VITALS: BP 138/94; PULSE 74; RESP 16; TEMP 36.4; O2SAT 97
== END 2022-03-16 09:00 | disposition home or self-care (01) ==
LOC: INF 08:38
PROVIDERS: PCP Emergency Medicine; Visit Provider Internal Medicine Medical Oncology
DX: D51.8 Other vitamin B12 deficiency anemias (principal)
CPT/HCPCS: 96372

== ENCOUNTER 2022-04-13 09:18 | Outpatient (CLI) | payer MEDICARE, BC, SELFPAY ==
[2022-04-13 09:32] VITALS: BP 144/92; PULSE 74; RESP 18; O2SAT 93
== END 2022-04-13 09:32 | disposition home or self-care (01) ==
LOC: INF 09:20
PROVIDERS: PCP Emergency Medicine; Visit Provider Internal Medicine Medical Oncology
DX: D51.8 Other vitamin B12 deficiency anemias (principal)
CPT/HCPCS: 96372

== ENCOUNTER 2022-05-11 09:01 | Outpatient (CLI) | payer MEDICARE, BC, SELFPAY ==
[2022-05-11 09:15] VITALS: BP 141/88; PULSE 80; RESP 16; O2SAT 93
== END 2022-05-11 09:30 | disposition home or self-care (01) ==
PROVIDERS: PCP Emergency Medicine; Visit Provider Internal Medicine Medical Oncology
DX: D51.8 Other vitamin B12 deficiency anemias (principal)
CPT/HCPCS: 96372

== ENCOUNTER 2022-06-04 08:59 | Outpatient (CLI) | payer MEDICARE, BC, SELFPAY ==
[2022-06-04 09:06] VITALS: BMI 37.3
[2022-06-04 09:20] VITALS: BP 132/74; PULSE 82; RESP 18; O2SAT 99
[2022-06-04 09:36] LABS: Chloride 102 mmol/L (98-107); Potassium 3.9 mmoL/L (3.5-5.1); Sodium 139 mmol/L (136-145)
[2022-06-04 09:38] LABS: Basophils # 0.1 K/mm3 (0-0.2); Basophils % 1.3 % (0.1-2.0); Eosinophils # 0.3 K/mm3 (0.0-0.4); Eosinophils % 5.4 % (0.1-12.0); Hematocrit 57.7 % (42.0-52.0); Lymphocytes # 1.3 K/mm3 (0.7-4.5); Lymphocytes % 24.6 % (10-50); Mean Corpuscular HGB Conc 32.4 g/dL (31.8-35.4); Mean Corpuscular Hemoglobin 31.3 pg (27.0-31.2); Mean Corpuscular Volume 96.6 fl (80-94); Mean Platelet Volume 7.9 fl (7.4-10.4); Monocytes # 0.3 K/mm3 (0.1-1.0); Monocytes % 6.5 % (1.7-9.3); Neutrophils # 3.2 K/mm3 (1.8-7.8); Neutrophils % 62.3 % (37.0-80.0); Platelet Count 198 K/mm3 (142-424); Red Blood Count 5.97 M/mm3 (4.60-6.20); Red Cell Distribution Width 13.3 % (11.5-17.5); White Blood Count 5.1 K/mm3 (4.8-10.8)
[2022-06-04 09:39] LABS: Alanine Aminotransferase 27 U/L (12-78); Albumin Level 4.3 g/dl (3.5-5.0); Albumin/Globulin Ratio 1.4 (1.1-1.8); Alkaline Phosphatase 41 U/L (38-126); Anion Gap 10.9 mEq/L (5-15); Aspartate Amino Transferase 27 U/L (17-59); Bilirubin,Total 0.7 mg/dl (0.2-1.3); Blood Urea Nitrogen 10 mg/dl (9-20); Calcium 8.9 mg/dl (8.4-10.2); Carbon Dioxide 30 mmol/L (22.0-30.0); Creatinine Clearance Estimated 116 mL/min (50-200); Estimated Glomerular Filt Rate 76 ml/min (>60); GFR (African American) 92 ML/MIN (>60); Glucose 88 mg/dl (74-100); Iron 203 ug/dL (49-181); Total Protein,Serum 7.3 g/dl (6.3-8.2)
[2022-06-04 09:49] LABS: Total Iron Binding Capacity 227 ug/dL (261-462)
[2022-06-04 09:58] LABS: Hemoglobin 18.8 g/dL (14.1-18.0)
[2022-06-04 10:17] LABS: Ferritin 30.6 ng/ml (17.9-464)
[2022-06-04 10:37] LABS: Vitamin B12 464 pg/mL (239-931)
== END 2022-06-04 09:22 | disposition home or self-care (01) ==
LOC: INF 09:02
PROVIDERS: PCP Emergency Medicine; Visit Provider Internal Medicine Medical Oncology
DX: D51.8 Other vitamin B12 deficiency anemias (principal)
CPT/HCPCS: 36415; 80053; 82607; 82728; 83540; 83550; 85025; 96372

== ENCOUNTER 2022-07-02 09:13 | Outpatient (CLI) | payer MEDICARE, BC, SELFPAY ==
[2022-07-02 09:20] VITALS: BP 128/84; PULSE 78; RESP 18; TEMP 36.7; O2SAT 94
== END 2022-07-02 09:30 | disposition home or self-care (01) ==
LOC: INF 09:14
PROVIDERS: PCP Emergency Medicine; Visit Provider Internal Medicine Medical Oncology
DX: D51.8 Other vitamin B12 deficiency anemias (principal)
CPT/HCPCS: 96372

== ENCOUNTER 2022-08-02 08:46 | Outpatient (CLI) | payer MEDICARE, BC, SELFPAY ==
[2022-08-02 08:53] VITALS: BP 140/81; PULSE 74; RESP 18; TEMP 36.6; O2SAT 94
== END 2022-08-02 09:10 | disposition home or self-care (01) ==
LOC: INF 08:47
PROVIDERS: PCP Emergency Medicine; Visit Provider Internal Medicine Medical Oncology
DX: D51.8 Other vitamin B12 deficiency anemias (principal)
CPT/HCPCS: 96372

== ENCOUNTER → 2022-08-17 13:03 | Outpatient (CLI) | payer MEDICARE, SELFPAY ==
[2022-08-17 12:37] LABS: Basophils % 0.7 % (0.1-2.0); Eosinophils # 0.5 K/mm3 (0.0-0.4); Eosinophils % 9.4 % (0.1-12.0); Lymphocytes % 20.8 % (10-50); Mean Corpuscular HGB Conc 32.7 g/dL (31.8-35.4); Mean Corpuscular Hemoglobin 31.3 pg (27.0-31.2); Mean Corpuscular Volume 95.6 fl (80-94); Mean Platelet Volume 8.5 fl (7.4-10.4); Monocytes # 0.3 K/mm3 (0.1-1.0); Monocytes % 6.4 % (1.7-9.3); Neutrophils # 3.1 K/mm3 (1.8-7.8); Neutrophils % 62.7 % (37.0-80.0); Platelet Count 221 K/mm3 (142-424); Red Blood Count 6.17 M/mm3 (4.60-6.20); Red Cell Distribution Width 13.3 % (11.5-17.5); White Blood Count 4.9 K/mm3 (4.8-10.8)
[2022-08-17 12:40] LABS: Alanine Aminotransferase 30 U/L (12-78); Albumin/Globulin Ratio 1.7 (1.1-1.8); Alkaline Phosphatase 50 U/L (38-126); Anion Gap 18.2 mEq/L (5-15); Aspartate Amino Transferase 33 U/L (17-59); Blood Urea Nitrogen 12 mg/dl (9-20); Calcium 9.4 mg/dl (8.4-10.2); Carbon Dioxide 26 mmol/L (22.0-30.0); Chloride 103 mmol/L (98-107); Cholesterol 209 mg/dl (140-200); Estimated Glomerular Filt Rate 86 ml/min (>60); GFR (African American) 104 ML/MIN (>60); Globulin 2.9 g/dL (1.3-3.2); Glucose 106 mg/dl (74-100); HDL Cholesterol 42 mg/dl (40-60); Potassium 4.2 mmoL/L (3.5-5.1); Sodium 143 mmol/L (136-145); Total Protein,Serum 7.9 g/dl (6.3-8.2); Triglycerides 192 mg/dl (30-150); VLDL Cholesterol 38 mg/dL (0-40)
[2022-08-17 12:51] LABS: Direct LDL Cholesterol 133.26 mg/dL (100-129)
[2022-08-17 12:57] LABS: T4 (Thyroxine) 8.2 ug/dl (5.53-11.0)
[2022-08-17 12:59] LABS: 25-OH Vitamin D, Total 23.2 ng/mL (30-100)
[2022-08-17 13:11] LABS: Prostate Specific Ag Screen 7.3 ng/ml (0.0-4.0); Thyroid Stimulating Hormone 0.51 uIU/mL (0.465-4.68)
[2022-08-17 13:11] LABS: Hemoglobin 19.3 g/dL (14.1-18.0)
[2022-08-17 13:30] LABS: Vitamin B12 781 pg/mL (239-931)
== END ==
PROVIDERS: PCP Emergency Medicine; Visit Provider Emergency Medicine
DX: D51.8 Other vitamin B12 deficiency anemias (principal); D64.9 Anemia, unspecified; E66.9 Obesity, unspecified; R06.09 Other forms of dyspnea; Z12.5 Encounter for screening for malignant neoplasm of prostate; J44.9 Chronic obstructive pulmonary disease, unspecified; E55.9 Vitamin D deficiency, unspecified; Z68.35 Body mass index [BMI] 35.0-35.9, adult
CPT/HCPCS: 80053; 80061; 82306; 82607; 84436; 84443; 85025; G0103

== ENCOUNTER → 2022-08-24 10:26 | Outpatient (CLI) | payer MEDICARE, SELFPAY ==
[2022-08-25 19:35] LABS: PSA, Free 1.49 ng/mL; Prostate Specific Ag 7.8 ng/mL (0.0-4.0)
== END ==
PROVIDERS: PCP Emergency Medicine; Visit Provider Emergency Medicine
DX: R97.20 Elevated prostate specific antigen [PSA] (principal)
CPT/HCPCS: 36415; 84153; 84154

== ENCOUNTER 2022-08-29 08:33 | Outpatient (CLI) | payer MEDICARE, SELFPAY ==
[2022-08-29 08:44] VITALS: BP 128/88; PULSE 78; RESP 18; O2SAT 99
== END 2022-08-29 08:47 | disposition home or self-care (01) ==
LOC: INF 08:34
PROVIDERS: PCP Emergency Medicine; Visit Provider Internal Medicine Medical Oncology
DX: D50.9 Iron deficiency anemia, unspecified (principal); D51.9 Vitamin B12 deficiency anemia, unspecified
CPT/HCPCS: 96372

== ENCOUNTER 2022-09-28 08:34 | Outpatient (CLI) | payer MEDICARE, SELFPAY ==
[2022-09-28 08:44] VITALS: BP 117/79; PULSE 66; RESP 14; TEMP 36.4; O2SAT 98
== END 2022-09-28 08:50 | disposition home or self-care (01) ==
LOC: INF 08:34
PROVIDERS: PCP Emergency Medicine; Visit Provider Internal Medicine Medical Oncology
DX: D50.9 Iron deficiency anemia, unspecified (principal); D51.9 Vitamin B12 deficiency anemia, unspecified
CPT/HCPCS: 96372

== ENCOUNTER 2022-10-26 08:50 | Outpatient (CLI) | payer MEDICARE, SELFPAY ==
[2022-10-26 09:00] VITALS: BP 121/82; PULSE 68; RESP 18; TEMP 36.7; O2SAT 97
== END 2022-10-26 09:00 | disposition home or self-care (01) ==
LOC: INF 08:51
PROVIDERS: PCP Emergency Medicine; Visit Provider Internal Medicine Medical Oncology
DX: D50.9 Iron deficiency anemia, unspecified (principal); D51.9 Vitamin B12 deficiency anemia, unspecified
CPT/HCPCS: 96372

== ENCOUNTER → 2022-11-08 07:13 | Outpatient (CLI) | payer MEDICARE, SELFPAY ==
--- NOTE | 2022-11-08 07:47 | PC.NURSE ---
Pre and Post Spirometry completed without incident. Albuterol 0.083% given via HHN, per written protocol, Pt tolerated tx well.
== END ==
PROVIDERS: PCP Emergency Medicine; Visit Provider Internal Medicine Pulmonary Disease
DX: R06.02 Shortness of breath (principal)
CPT/HCPCS: 94060

== ENCOUNTER 2022-11-23 08:20 | Outpatient (CLI) | payer MEDICARE, SELFPAY ==
[2022-11-23 08:33] VITALS: BP 127/71; PULSE 84; RESP 18; O2SAT 99
== END 2022-11-23 08:34 | disposition home or self-care (01) ==
LOC: INF 08:22
PROVIDERS: PCP Emergency Medicine; Visit Provider Internal Medicine Medical Oncology
DX: D50.9 Iron deficiency anemia, unspecified (principal); D51.9 Vitamin B12 deficiency anemia, unspecified
CPT/HCPCS: 96372

== ENCOUNTER → 2022-12-14 23:07 | Outpatient (CLI) | payer MEDICARE, SELFPAY ==
[2022-12-14 18:20] LABS: Basophils % 0.7 % (0.1-2.0); Eosinophils # 0.2 K/mm3 (0.0-0.4); Eosinophils % 3.5 % (0.1-12.0); Lymphocytes # 1.3 K/mm3 (0.7-4.5); Lymphocytes % 24.8 % (10-50); Mean Corpuscular HGB Conc 33.8 g/dL (31.8-35.4); Mean Corpuscular Hemoglobin 32.8 pg (27.0-31.2); Mean Platelet Volume 9.7 fl (7.4-10.4); Monocytes # 0.4 K/mm3 (0.1-1.0); Monocytes % 7.3 % (1.7-9.3); Neutrophils # 3.3 K/mm3 (1.8-7.8); Neutrophils % 63.7 % (37.0-80.0); Platelet Count 237 K/mm3 (142-424); Red Blood Count 6.19 M/mm3 (4.60-6.20); White Blood Count 5.2 K/mm3 (4.8-10.8)
[2022-12-14 18:26] LABS: Alanine Aminotransferase 29 U/L (12-78); Albumin Level 5.3 g/dl (3.5-5.0); Albumin/Globulin Ratio 1.4 (1.1-1.8); Alkaline Phosphatase 72 U/L (38-126); Anion Gap 19.1 mEq/L (5-15); Aspartate Amino Transferase 38 U/L (17-59); Bilirubin,Total 1.2 mg/dl (0.2-1.3); Blood Urea Nitrogen 22 mg/dl (9-20); Calcium 10.4 mg/dl (8.4-10.2); Carbon Dioxide 27 mmol/L (22.0-30.0); Chloride 98 mmol/L (98-107); Chol/HDL Ratio 5.2 (1-3.5); Cholesterol 204 mg/dl (140-200); Estimated Glomerular Filt Rate 86 ml/min (>60); GFR (African American) 104 ML/MIN (>60); Globulin 3.8 g/dL (1.3-3.2); Glucose 91 mg/dl (74-100); HDL Cholesterol 39 mg/dl (40-60); Iron 168 ug/dL (49-181); Potassium 4.1 mmoL/L (3.5-5.1); Sodium 140 mmol/L (136-145); Total Protein,Serum 9.1 g/dl (6.3-8.2); Triglycerides 154 mg/dl (30-150); VLDL Cholesterol 31 mg/dL (0-40)
[2022-12-14 18:35] LABS: Total Iron Binding Capacity 398 ug/dL (261-462)
[2022-12-14 18:37] LABS: Direct LDL Cholesterol 121.94 mg/dL (100-129)
[2022-12-14 18:43] LABS: 25-OH Vitamin D, Total 42.1 ng/mL (30-100)
[2022-12-14 19:15] LABS: Vitamin B12 565 pg/mL (239-931)
[2022-12-14 20:04] LABS: Hematocrit 60.1 % (42.0-52.0)
[2022-12-14 20:06] LABS: Hemoglobin 20.1 g/dL (14.1-18.0)
[2022-12-16 09:25] LABS: Testosterone,Total 391 ng/dL (264-916)
== END ==
PROVIDERS: PCP Emergency Medicine; Visit Provider Emergency Medicine
DX: R53.83 Other fatigue; E66.9 Obesity, unspecified; E55.9 Vitamin D deficiency, unspecified; D75.1 Secondary polycythemia; R79.1 Abnormal coagulation profile; Z68.34 Body mass index [BMI] 34.0-34.9, adult; Z79.899 Other long term (current) drug therapy; D51.8 Other vitamin B12 deficiency anemias; D64.9 Anemia, unspecified
CPT/HCPCS: 80053; 80061; 82306; 82607; 83540; 83550; 84403; 85025

== ENCOUNTER 2022-12-21 08:39 | Outpatient (CLI) | payer MEDICARE, SELFPAY ==
[2022-12-21 08:50] VITALS: BP 127/78; PULSE 65; RESP 17; O2SAT 95
== END 2022-12-21 09:00 | disposition home or self-care (01) ==
LOC: INF 08:41
PROVIDERS: PCP Emergency Medicine; Visit Provider Internal Medicine Medical Oncology
DX: D50.9 Iron deficiency anemia, unspecified (principal); D51.9 Vitamin B12 deficiency anemia, unspecified
CPT/HCPCS: 96372

== ENCOUNTER 2023-01-18 08:02 | Outpatient (CLI) | payer MEDICARE, SELFPAY ==
[2023-01-18 08:05] VITALS: BP 125/86; PULSE 69; RESP 18; O2SAT 94
== END 2023-01-18 08:16 | disposition home or self-care (01) ==
LOC: INF 08:03
PROVIDERS: PCP Emergency Medicine; Visit Provider Internal Medicine Medical Oncology
DX: D51.9 Vitamin B12 deficiency anemia, unspecified (principal); D50.9 Iron deficiency anemia, unspecified
CPT/HCPCS: 96372

== ENCOUNTER → 2023-02-08 09:50 | Outpatient (CLI) | payer MEDICARE, SELFPAY ==
[2023-02-08 10:32] LABS: Basophils % 0.4 % (0.1-2.0); Eosinophils # 0.1 K/mm3 (0.0-0.4); Eosinophils % 1.1 % (0.1-12.0); Hematocrit 57.7 % (42.0-52.0); Mean Corpuscular HGB Conc 33.3 g/dL (31.8-35.4); Mean Corpuscular Hemoglobin 32.1 pg (27.0-31.2); Mean Corpuscular Volume 96.4 fl (80-94); Mean Platelet Volume 8.2 fl (7.4-10.4); Monocytes # 0.5 K/mm3 (0.1-1.0); Monocytes % 5.9 % (1.7-9.3); Neutrophils % 80.6 % (37.0-80.0); Platelet Count 192 K/mm3 (142-424); Red Blood Count 5.99 M/mm3 (4.60-6.20); Red Cell Distribution Width 12.9 % (11.5-17.5); White Blood Count 8.7 K/mm3 (4.8-10.8)
[2023-02-08 11:40] LABS: Chloride 101 mmol/L (98-107); Potassium 5.1 mmoL/L (3.5-5.1); Sodium 141 mmol/L (136-145)
[2023-02-08 11:43] LABS: Alanine Aminotransferase 32 U/L (12-78); Albumin Level 4.8 g/dl (3.5-5.0); Albumin/Globulin Ratio 1.6 (1.1-1.8); Alkaline Phosphatase 53 U/L (38-126); Anion Gap 17.1 mEq/L (5-15); Aspartate Amino Transferase 27 U/L (17-59); Bilirubin,Total 0.8 mg/dl (0.2-1.3); Blood Urea Nitrogen 19 mg/dl (9-20); Calcium 9.6 mg/dl (8.4-10.2); Carbon Dioxide 28 mmol/L (22.0-30.0); Estimated Glomerular Filt Rate 68 ml/min (>60); GFR (African American) 82 ML/MIN (>60); Glucose 106 mg/dl (74-100); Iron 83 ug/dL (49-181); Total Protein,Serum 7.8 g/dl (6.3-8.2)
[2023-02-08 11:48] LABS: Hemoglobin 19.4 g/dL (14.1-18.0)
[2023-02-08 11:53] LABS: Total Iron Binding Capacity 347 ug/dL (261-462)
[2023-02-08 12:19] LABS: Ferritin 96.4 ng/ml (17.9-464)
[2023-02-08 13:10] LABS: Uric Acid 9.1 mg/dl (3.5-8.5)
== END ==
PROVIDERS: PCP Internal Medicine; Visit Provider Internal Medicine Medical Oncology
DX: D50.9 Iron deficiency anemia, unspecified (principal)
CPT/HCPCS: 36415; 80053; 82728; 83540; 83550; 84550; 85025

== ENCOUNTER 2023-02-15 09:22 | Outpatient (CLI) | payer MEDICARE, SELFPAY ==
[2023-02-15 09:30] VITALS: BP 127/83; PULSE 76; RESP 18; TEMP 36.4; O2SAT 95
[2023-02-15] MEDS: VITAMIN B-12 1,000 MCG 1ML VIAL 1000 MCG (09:30)
== END 2023-02-15 09:35 | disposition home or self-care (01) ==
LOC: INF 09:23
PROVIDERS: PCP Internal Medicine; Visit Provider Internal Medicine Medical Oncology
DX: D51.9 Vitamin B12 deficiency anemia, unspecified (principal)
CPT/HCPCS: 96372

== ENCOUNTER 2023-03-29 10:15 | Outpatient (CLI) | payer MEDICARE, SELFPAY ==
[2023-03-29 10:24] VITALS: BP 118/67; PULSE 72; RESP 18; TEMP 36.3; O2SAT 96
[2023-03-29] MEDS: VITAMIN B-12 1,000 MCG 1ML VIAL 1000 MCG (10:28)
== END 2023-03-29 10:31 | disposition home or self-care (01) ==
LOC: INF 10:16
PROVIDERS: PCP Internal Medicine; Visit Provider Internal Medicine Medical Oncology
DX: D51.9 Vitamin B12 deficiency anemia, unspecified
CPT/HCPCS: 96372

== ENCOUNTER 2023-04-26 09:36 | Outpatient (CLI) | payer MEDICARE, SELFPAY ==
[2023-04-26 09:40] VITALS: BP 108/74; PULSE 55; RESP 16; TEMP 36.6; O2SAT 97
[2023-04-26] MEDS: VITAMIN B-12 1,000 MCG 1ML VIAL 1000 MCG (10:00)
== END 2023-04-26 09:45 | disposition home or self-care (01) ==
LOC: INF 09:37
PROVIDERS: PCP Nurse Practitioner Family; Visit Provider Internal Medicine Medical Oncology
DX: D51.8 Other vitamin B12 deficiency anemias (principal); D50.8 Other iron deficiency anemias
CPT/HCPCS: 96372

== ENCOUNTER 2023-05-24 08:33 | Outpatient (CLI) | payer MEDICARE, SELFPAY ==
[2023-05-24 08:37] VITALS: BP 113/70; PULSE 60; RESP 16; TEMP 36.4; O2SAT 95
[2023-05-24] MEDS: VITAMIN B-12 1,000 MCG 1ML VIAL 1000 MCG (08:41)
[2023-05-24 08:45] VITALS: BP 113/70; PULSE 60; RESP 16; TEMP 36.4; O2SAT 95
== END 2023-05-24 08:47 | disposition home or self-care (01) ==
LOC: INF 08:33
PROVIDERS: PCP Nurse Practitioner Family; Visit Provider Internal Medicine Medical Oncology
DX: D51.8 Other vitamin B12 deficiency anemias (principal)
CPT/HCPCS: 96372

== ENCOUNTER 2023-06-10 10:08 | Outpatient (CLI) | payer MEDICARE, SELFPAY ==
[2023-06-10 10:25] LABS: Basophils # 0.1 K/mm3 (0-0.2); Eosinophils # 0.3 K/mm3 (0.0-0.4); Eosinophils % 5.2 % (0.1-12.0); Hemoglobin 17.7 g/dL (14.1-18.0); Lymphocytes # 1.3 K/mm3 (0.7-4.5); Lymphocytes % 23.7 % (10-50); Mean Corpuscular HGB Conc 31.7 g/dL (31.8-35.4); Mean Corpuscular Hemoglobin 31.6 pg (27.0-31.2); Mean Corpuscular Volume 99.7 fl (80-94); Mean Platelet Volume 8.1 fl (7.4-10.4); Monocytes # 0.3 K/mm3 (0.1-1.0); Monocytes % 5.6 % (1.7-9.3); Neutrophils # 3.4 K/mm3 (1.8-7.8); Neutrophils % 63.5 % (37.0-80.0); Platelet Count 214 K/mm3 (142-424); Red Blood Count 5.59 M/mm3 (4.60-6.20); White Blood Count 5.4 K/mm3 (4.8-10.8)
[2023-06-10 10:38] LABS: Hematocrit 55.7 % (42.0-52.0)
[2023-06-10 11:57] LABS: Blood Urea Nitrogen 12 mg/dl (9-20); Estimated Glomerular Filt Rate 86 ml/min (>60); GFR (African American) 103 ML/MIN (>60)
[2023-06-11 08:26] LABS: PSA, Free 1.88 ng/mL; Prostate Specific Ag 9.9 ng/mL (0.0-4.0); Sex Hormone Binding Globulin 70.5 nmol/L (19.3-76.4)
[2023-06-14 14:57] LABS: Free Testosterone (Direct) 6.4 pg/mL (6.6-18.1); Testosterone, Total, LC/MS 463.2 ng/dL (264.0-916.0)
== END 2023-06-10 23:59 ==
LOC: LAB 10:10
PROVIDERS: PCP Nurse Practitioner Family; Visit Provider Urology
DX: N40.0 Benign prostatic hyperplasia without lower urinary tract symptoms (principal); R97.20 Elevated prostate specific antigen [PSA]
CPT/HCPCS: 36415; 82565; 84153; 84154; 84270; 84520; 85025

== ENCOUNTER 2023-06-21 09:20 | Outpatient (CLI) | payer MEDICARE, SELFPAY ==
[2023-06-21 09:43] VITALS: BP 111/71; PULSE 51; RESP 14; TEMP 36.6; O2SAT 96
[2023-06-21] MEDS: VITAMIN B-12 1,000 MCG 1ML VIAL 1000 MCG IM (09:43)
== END 2023-06-21 09:50 | disposition home or self-care (01) ==
LOC: INF 09:21
PROVIDERS: PCP Nurse Practitioner Family; Visit Provider Internal Medicine Medical Oncology
DX: D51.9 Vitamin B12 deficiency anemia, unspecified (principal)
CPT/HCPCS: 96372

== ENCOUNTER 2023-07-11 15:43 | Outpatient (CLI) | payer MEDICARE, SELFPAY ==
[2023-07-11 18:57] LABS: Basophils # 0.1 K/mm3 (0-0.2); Basophils % 1.2 % (0.1-2.0); Eosinophils # 0.1 K/mm3 (0.0-0.4); Hematocrit 56.3 % (42.0-52.0); Lymphocytes # 1.3 K/mm3 (0.7-4.5); Lymphocytes % 26.2 % (10-50); Mean Corpuscular HGB Conc 32.8 g/dL (31.8-35.4); Mean Corpuscular Hemoglobin 32.1 pg (27.0-31.2); Mean Corpuscular Volume 97.8 fl (80-94); Mean Platelet Volume 9.1 fl (7.4-10.4); Monocytes # 0.4 K/mm3 (0.1-1.0); Monocytes % 7.4 % (1.7-9.3); Neutrophils % 62.2 % (37.0-80.0); Platelet Count 241 K/mm3 (142-424); Red Blood Count 5.76 M/mm3 (4.60-6.20); Red Cell Distribution Width 13.8 % (11.5-17.5); White Blood Count 4.8 K/mm3 (4.8-10.8)
[2023-07-11 19:11] LABS: Alanine Aminotransferase 44 U/L (12-78); Albumin Level 5.1 g/dl (3.5-5.0); Albumin/Globulin Ratio 1.5 (1.1-1.8); Alkaline Phosphatase 39 U/L (38-126); Aspartate Amino Transferase 45 U/L (17-59); Blood Urea Nitrogen 15 mg/dl (9-20); Calcium 10.2 mg/dl (8.4-10.2); Carbon Dioxide 26 mmol/L (22.0-30.0); Chloride 102 mmol/L (98-107); Chol/HDL Ratio 4.8 (1-3.5); Cholesterol 247 mg/dl (140-200); Estimated Glomerular Filt Rate 86 ml/min (>60); GFR (African American) 103 ML/MIN (>60); Globulin 3.3 g/dL (1.3-3.2); Glucose 90 mg/dl (74-100); HDL Cholesterol 52 mg/dl (40-60); Sodium 143 mmol/L (136-145); Total Protein,Serum 8.4 g/dl (6.3-8.2); Triglycerides 199 mg/dl (30-150); VLDL Cholesterol 40 mg/dL (0-40)
[2023-07-11 19:12] LABS: Hemoglobin 18.6 g/dL (14.1-18.0)
[2023-07-11 19:22] LABS: Direct LDL Cholesterol 159.15 mg/dL (100-129)
[2023-07-11 19:47] LABS: Hemoglobin A1C 5.6 % (4.0-6.0)
[2023-07-11 20:21] LABS: Vitamin B12 470 pg/mL (239-931)
[2023-07-11 20:58] LABS: Iron 185 ug/dL (49-181)
[2023-07-11 21:08] LABS: Total Iron Binding Capacity 360 ug/dL (261-462)
== END 2023-07-11 23:59 | disposition home or self-care (01) ==
LOC: LAB.DROPOF 07-12 15:43
PROVIDERS: PCP Nurse Practitioner Family; Visit Provider Nurse Practitioner Family
DX: R53.83 Other fatigue (principal); E78.5 Hyperlipidemia, unspecified; E55.9 Vitamin D deficiency, unspecified; R73.03 Prediabetes; Z68.34 Body mass index [BMI] 34.0-34.9, adult; D64.9 Anemia, unspecified
CPT/HCPCS: 80053; 80061; 82306; 82607; 82746; 83036; 83540; 83550; 84443; 85025

== ENCOUNTER 2023-07-19 09:52 | Outpatient (CLI) | payer MEDICARE, SELFPAY ==
[2023-07-19] MEDS: VITAMIN B-12 1,000 MCG 1ML VIAL 1000 MCG IM (10:03)
[2023-07-19 10:06] VITALS: BP 105/61; PULSE 74; RESP 18; O2SAT 95
== END 2023-07-19 10:06 | disposition home or self-care (01) ==
LOC: INF 09:54
PROVIDERS: PCP Nurse Practitioner Family; Visit Provider Internal Medicine Medical Oncology
DX: D50.9 Iron deficiency anemia, unspecified (principal); E53.8 Deficiency of other specified B group vitamins
CPT/HCPCS: 96372

== ENCOUNTER 2023-07-30 11:48 | Outpatient (CLI) | payer MEDICARE, SELFPAY ==
--- NOTE | 2023-07-30 11:55 | XR_ITS ---
FINAL REPORT TECHNIQUE: Chest PA & Lateral CLINICAL HISTORY: Shortness of breath FINDINGS: 2 views of the chest were performed. The heart size is normal. The mediastinum is within normal limits. There is no acute cardiopulmonary process. The lungs are underinflated. There are no pleural effusions. There is no pneumothorax. The bony thorax appears intact. IMPRESSION: No acute cardiopulmonary process. Reviewed, Interpreted and Dictated by Angel Barragan MD Transcribed by Michelle Partida Authenticated and . [facility]
== END 2023-07-30 23:59 | disposition home or self-care (01) ==
LOC: RAD 11:49
PROVIDERS: PCP Nurse Practitioner Family; Visit Provider Nurse Practitioner Family
DX: R06.02 Shortness of breath (principal)
CPT/HCPCS: 71046

== ENCOUNTER 2023-08-16 09:05 | Outpatient (CLI) | payer MEDICARE, SELFPAY ==
[2023-08-16 09:15] VITALS: BP 139/74; PULSE 76; RESP 18; TEMP 36.7; O2SAT 96
[2023-08-16] MEDS: VITAMIN B-12 1,000 MCG 1ML VIAL 1000 MCG IM (09:15)
== END 2023-08-16 09:20 | disposition home or self-care (01) ==
LOC: INF 09:06
PROVIDERS: PCP Nurse Practitioner Family; Visit Provider Internal Medicine Medical Oncology
DX: D50.9 Iron deficiency anemia, unspecified (principal)
CPT/HCPCS: 96372; J3420

== ENCOUNTER 2023-09-13 09:02 | Outpatient (CLI) | payer MEDICARE, SELFPAY ==
[2023-09-13 09:25] VITALS: BP 141/93; PULSE 71; RESP 20; TEMP 36.7; O2SAT 93
[2023-09-13] MEDS: VITAMIN B-12 1,000 MCG 1ML VIAL 1000 MCG IM (09:25)
== END 2023-09-13 09:35 | disposition home or self-care (01) ==
LOC: INF 09:04
PROVIDERS: PCP Nurse Practitioner Family; Visit Provider Internal Medicine Medical Oncology
DX: D50.9 Iron deficiency anemia, unspecified (principal)
CPT/HCPCS: 96372; J3420

== ENCOUNTER 2023-10-11 09:31 | Outpatient (CLI) | payer MEDICARE, SELFPAY ==
[2023-10-11 09:50] VITALS: BP 125/77; PULSE 67; RESP 18; TEMP 36.6; O2SAT 92
[2023-10-11] MEDS: VITAMIN B-12 1,000 MCG 1ML VIAL 1000 MCG IM (09:50)
== END 2023-10-11 10:00 | disposition home or self-care (01) ==
LOC: INF 09:33
PROVIDERS: PCP Nurse Practitioner Family; Visit Provider Internal Medicine Medical Oncology
DX: D50.9 Iron deficiency anemia, unspecified (principal)
CPT/HCPCS: 96372; J3420

== ENCOUNTER 2023-11-08 08:51 | Outpatient (CLI) | payer MEDICARE, SELFPAY ==
[2023-11-08 09:05] VITALS: BP 131/59; PULSE 72; RESP 18; TEMP 36.6; O2SAT 98
[2023-11-08] MEDS: VITAMIN B-12 1,000 MCG 1ML VIAL 1000 MCG IM (09:05)
== END 2023-11-08 09:25 | disposition home or self-care (01) ==
LOC: INF 08:53
PROVIDERS: PCP Nurse Practitioner Family; Visit Provider Internal Medicine Medical Oncology
DX: D50.9 Iron deficiency anemia, unspecified (principal)
CPT/HCPCS: 96372; J3420

== ENCOUNTER 2023-11-14 08:20 | Outpatient (CLI) | payer MEDICARE, SELFPAY ==
[2023-11-14 08:34] VITALS: BMI 33.2
--- NOTE | 2023-11-14 08:47 | PC.NURSE ---
Pt presents to outpt infusion dept to have blood drawn for labs as ordered per md prior to f/u appt next week. Venipuncture performed to pt's lt ac x 1 stick using a butterfly access needle per Romy Ingram RN. Blood drawn, needle withdrawn and site secured with 2x2 gauze and coban. Specimens sent to lab for analysis.
[2023-11-14 08:59] LABS: Basophils # 0.1 K/mm3 (0-0.2); Basophils % 1.3 % (0.1-2.0); Eosinophils # 0.2 K/mm3 (0.0-0.4); Eosinophils % 3.7 % (0.1-12.0); Hematocrit 55.3 % (42.0-52.0); Hemoglobin 17.5 g/dL (14.1-18.0); Lymphocytes # 1.3 K/mm3 (0.7-4.5); Lymphocytes % 22.6 % (10-50); Mean Corpuscular HGB Conc 31.6 g/dL (31.8-35.4); Mean Corpuscular Hemoglobin 31.9 pg (27.0-31.2); Mean Platelet Volume 8.8 fl (7.4-10.4); Monocytes # 0.4 K/mm3 (0.1-1.0); Monocytes % 7.3 % (1.7-9.3); Neutrophils # 3.8 K/mm3 (1.8-7.8); Neutrophils % 65.1 % (37.0-80.0); Platelet Count 208 K/mm3 (142-424); Red Blood Count 5.48 M/mm3 (4.60-6.20); Red Cell Distribution Width 12.8 % (11.5-17.5); White Blood Count 5.8 K/mm3 (4.8-10.8)
[2023-11-14 09:01] LABS: Alanine Aminotransferase 26 U/L (12-78); Albumin Level 4.1 g/dl (3.5-5.0); Albumin/Globulin Ratio 1.3 (1.1-1.8); Alkaline Phosphatase 39 U/L (38-126); Anion Gap 7.9 mEq/L (5-15); Aspartate Amino Transferase 31 U/L (17-59); Bilirubin,Total 0.8 mg/dl (0.2-1.3); Blood Urea Nitrogen 13 mg/dl (9-20); Carbon Dioxide 30 mmol/L (22.0-30.0); Chloride 105 mmol/L (98-107); Creatinine Clearance Estimated 104 mL/min (50-200); Estimated Glomerular Filt Rate 98 ml/min (>60); GFR (African American) 119 ML/MIN (>60); Globulin 3.1 g/dL (1.3-3.2); Glucose 91 mg/dl (74-100); Potassium 3.9 mmoL/L (3.5-5.1); Sodium 139 mmol/L (136-145); Total Protein,Serum 7.2 g/dl (6.3-8.2)
[2023-11-14 09:13] LABS: Uric Acid 9.4 mg/dl (3.5-8.5)
[2023-11-14 09:16] LABS: Iron 137 ug/dL (49-181)
[2023-11-14 09:25] LABS: Total Iron Binding Capacity 311 ug/dL (261-462)
[2023-11-14 09:52] LABS: Ferritin 118 ng/ml (17.9-464)
[2023-11-14 10:58] LABS: Vitamin B12 720 pg/mL (239-931)
== END 2023-11-14 08:52 | disposition home or self-care (01) ==
PROVIDERS: PCP Nurse Practitioner Family; Visit Provider Internal Medicine Medical Oncology
DX: D50.9 Iron deficiency anemia, unspecified (principal)
CPT/HCPCS: 36415; 80053; 82607; 82728; 83540; 83550; 84550; 85025

== ENCOUNTER 2023-11-27 10:52 | Outpatient (CLI) | payer MEDICARE, SELFPAY ==
[2023-11-26 18:58] LABS: C-Reactive Protein 31.5 mg/L (0-4)
[2023-11-27 11:07] LABS: Basophils # 0.2 K/mm3 (0-0.2); Basophils % 1.2 % (0.1-2.0); Eosinophils # 0.1 K/mm3 (0.0-0.4); Eosinophils % 0.7 % (0.1-12.0); Hematocrit 52.9 % (42.0-52.0); Hemoglobin 17.4 g/dL (14.1-18.0); Lymphocytes # 0.9 K/mm3 (0.7-4.5); Lymphocytes % 6.1 % (10-50); Mean Corpuscular HGB Conc 32.8 g/dL (31.8-35.4); Mean Corpuscular Hemoglobin 32.2 pg (27.0-31.2); Mean Corpuscular Volume 98.1 fl (80-94); Mean Platelet Volume 8.1 fl (7.4-10.4); Monocytes % 6.6 % (1.7-9.3); Neutrophils # 12.7 K/mm3 (1.8-7.8); Neutrophils % 85.4 % (37.0-80.0); Platelet Count 299 K/mm3 (142-424); Red Blood Count 5.39 M/mm3 (4.60-6.20); Red Cell Distribution Width 13.1 % (11.5-17.5); White Blood Count 14.9 K/mm3 (4.8-10.8)
[2023-11-27 11:09] LABS: MANUAL DIFFERENTIAL MANUAL DIFFERENTIAL (MANUAL DIFF)
[2023-11-27 12:39] LABS: Erythrocyte Sedimentation Rate 5 mm/hr (0-20)
[2023-11-27 13:16] LABS: Lymphocytes % 12 % (10-50); Monocytes % 4 % (2-9); Neutrophils % 84 % (42-76); Platelet Estimate Normal; RBC Morphology Normal; Total Cells Counted 100
== END 2023-11-27 23:59 | disposition home or self-care (01) ==
LOC: LAB 10:54
PROVIDERS: PCP Nurse Practitioner Family; Visit Provider Internal Medicine
DX: R70.0 Elevated erythrocyte sedimentation rate (principal); D64.9 Anemia, unspecified
CPT/HCPCS: 36415; 85007; 85025; 85651; 86140

== ENCOUNTER 2023-12-04 08:49 | Outpatient (CLI) | payer MEDICARE, SELFPAY ==
[2023-12-04 10:05] VITALS: BMI 35.4
[2023-12-04 10:17] VITALS: BP 134/83; PULSE 74; RESP 18; TEMP 36.4; O2SAT 95
[2023-12-04] MEDS: VITAMIN B-12 1,000 MCG 1ML VIAL 1000 MCG (10:17)
[2023-12-17 09:12] LABS: Miscellaneous Test SCANNED IMAGE
== END 2023-12-04 10:30 | disposition home or self-care (01) ==
PROVIDERS: PCP Nurse Practitioner Family; Visit Provider Internal Medicine Medical Oncology
DX: D64.9 Anemia, unspecified (principal); D75.1 Secondary polycythemia
CPT/HCPCS: 36415; 96372; J3420

== ENCOUNTER 2024-01-01 08:31 | Outpatient (CLI) | payer MEDICARE, SELFPAY ==
[2024-01-01 08:38] VITALS: BP 115/72; PULSE 62; RESP 20; TEMP 36.7; O2SAT 94
[2024-01-01] MEDS: VITAMIN B-12 1,000 MCG 1ML VIAL 1000 MCG IM (08:38)
== END 2024-01-01 09:11 | disposition home or self-care (01) ==
LOC: INF 08:32
PROVIDERS: PCP Nurse Practitioner Family; Visit Provider Internal Medicine Medical Oncology
DX: D50.9 Iron deficiency anemia, unspecified (principal)
CPT/HCPCS: 96372; J3420

== ENCOUNTER 2024-01-29 08:58 | Outpatient (CLI) | payer MEDICARE, SELFPAY ==
--- OUTSIDE RECORDS SUMMARY | 2024-01-29 09:02 | XMS_ITS | Encounter Summary ---
Author Organization [facility] Address [address] [place] [address] Care Team Providers Care Imaging Assistant Name Role Phone Delfin Pratt MD Primary Care Provider [phone] Encounter Details Date Type Department Care Team (Late Contact Info) Description 11/23/2022 Telephone [facility] [address] [place] [phone] Domonique Palomino APRN [address] [place], [place] [id number] Social History Tobacco Use Types Packs/Day Years Used Date Smoking Tobacco: Never Passive Smoke Exposure: Never Smokeless Tobacco: Never Alcohol Use Standard Drinks/Week Comments Not Currently 0 (1 standard drink = 0.6 oz pur e alcohol) Sex and Gender Information Value Date Recorded Sex Assigned at Not on file Legal Sex Male 10:44 AM EST Gender Identity Not on file Sexual Orientation Not on file documented as of this encounter Miscellaneous Notes * Telephone Encounter - Carli Gonzales RegSched Rep - 11/23/2022 9:20 AM EDT Patient stopped in office and stated he needs a new prescription for CPAP supplies sent to [facility]. Patient can be reached at [phone] with any questions. documented in this encounter Plan of Treatment Upcoming Encounters Date Type Department Care Team (Late st Contact Info) Description 02/11/2024 11:00 AM EST Office Visit [facility] [address] [place] [phone] Domonique Palomino APRN [address] [place] [id number] documented as of this encounter Visit Diagnoses Not on filedocumented in this encounter Care Teams Imaging Assistant Relationship Specialty Start Date End Date Delfin Pratt MD [address] [place] [id number] PCP - General Emergency Medicine 09/10/22 08/15/23 documented as of this encounter
--- OUTSIDE RECORDS SUMMARY | 2024-01-29 09:02 | XMS_ITS | Encounter Summary ---
Author Organization [facility] Address [address] [place] [address] Care Team Providers Care Easement Man Name Role Phone Jr Niles Acosta APRN Primary Care Prov ider Reason for Visit * Reason Comments Sleep Apnea Hypertension Echo results Encounter Details Date Type Department Care Team (Late st Contact Info) Description 09/12/2023 11:00 AM EDT Office Visit [facility] [address] [place] [phone] Domonique Palomino APRN [address] [place] [id number] Chest pain, atypical (Primary Dx); Obstructive sleep apnea; Primary hypertension Social History Tobacco Use Types Packs/Day Years Used Date Smoking Tobacco: Never Passive Smoke Exposure: Never Smokeless Tobacco: Never Tobacco Cessation:Counseling Given: No Alcohol Use Standard Drinks/Week Comments Not Currently 0 (1 standard drink = 0.6 oz pur e alcohol) Sex and Gender Information Value Date Recorded Sex Assigned at Not on file Legal Sex Male 10:44 AM EST Gender Identity Not on file Sexual Orientation Not on file documented as of this encounter Last Filed Vital Signs Vital Sign Reading Time Taken Comments Blood Pressure 108/80 09/12/2023 10:43 AM EDT Pulse 79 09/12/2023 10:43 AM EDT Temperature - - Respiratory Rate - - Oxygen Saturation 93% 09/12/2023 10:43 AM EDT Inhaled Oxygen Concentration - - Weight 102 kg (225 lb) 09/12/2023 10:43 AM EDT Height 170.2 cm (5' 7 ) 09/12/2023 10:43 AM EDT Body Mass Index 35.24 09/12/2023 10:43 AM EDT documented in this encounter Progress Notes * Domonique Palomino APRN - 09/12/2023 12:52 PM EDTAssociated Problem(s): Chest pain, atypical Echocardiogram from 08/06/2023 shows an LVEF of 61-65%, grade 1 diastolic dysfunction and no significant valvular regurgitation or stenosis. He reports that chest pain has improved significantly since restarting inhalers. We discussed proceeding with stress test to rule out ischemia, however patient would like to monitor symptoms for now and hold off on any further testing. - Follow-up in 3 months to reassess. - He will call sooner if symptoms worsen * Domonique Palomino APRN - 09/12/2023 12:51 PM EDTAssociated Problem(s): HTN (hypertension) Hypertension is stable and controlled Continue current treatment regimen. Dietary sodium restriction. Weight loss. Regular aerobic exercise. Blood pressure will be reassessed in 6 months. * Domonique Palomino APRN - 09/12/2023 12:51 PM EDTAssociated Problem(s): Obstructive sleep apnea Download was reviewed at last office visit last month showing good control and compliance. He denies any problems with his CPAP at this time. * Domonique Palomino APRN - 09/12/2023 11:00 AM EDT Images from the original note were not included. [facility] Provider Note Date: 09/12/2023 Name: Ramakrishna Sen : 1960 PCP: Jr Niles Acosta APRN Chief Complaint Patient presents with Sleep Apnea Hypertension Echo results Subjective History of Present Illness Ramakrishna Sen is a 63 y.o. male who presents today for follow-up on atypical chest pain and hypertension. At last office visit on 08/15/2023, patient reported chest pressure that radiated to his upperback between his shoulder blades. He completed an echocardiogram on 08/16/2023 that revealed an LVEFof 61-65%, grade 1 diastolic function, no significant valvular regurgitation or stenosis and normal RVSP. He reports that the chest pain has improved significantly since restarting his inhalers. He denies any new symptoms or concerns today. HCTZ was restarted at last office visit and his blood pressure has been stable. BIENVENIDO download was reviewed at last office visit with excellent control compliance. He denies any problems with his CPAP at this time. Cardiac/sleep history 1. BIENVENIDO with baseline AHI of 29 on 03/19/2019. CPAP settings: 10-20 cm. 2. Hypertension ECHO 08/16/23- LVEF of 61-65%. Grade 1 diastolic dysfunction. No significant valvular regurgitation or stenosis. Normal RVSP. Allergies Allergen Reactions Rocephin [Ceftriaxone] Other (See Comments) Headaches/Body aches Current Outpatient Medications: albuterol sulfate HFA 108 (90 Base) MCG/ACT inhaler, Inhale 2 puffs Every 4 (Four) Hours As Needed for Wheezing., Disp: , Rfl: budesonide-formoterol (Symbicort) 80-4.5 MCG/ACT inhaler, Four times a day, Disp: , Rfl: fluticasone (FLONASE) 50 MCG/ACT nasal spray, 2 sprays into the nostril(s) as directed by provider Daily., Disp: , Rfl: fluticasone (VERAMYST) 27.5 MCG/SPRAY nasal spray, 2 sprays into the nostril(s) as directed by provider Daily., Disp: , Rfl: hydroCHLOROthiazide (MICROZIDE) 12.5 MG capsule, Take 1 capsule by mouth Daily., Disp: 90 capsule, Rfl: 3 vitamin B-12 (CYANOCOBALAMIN) 1000 MCG tablet, Take 1 tablet by mouth 1 (One) Time Per Week., Disp:, Rfl: vitamin D (ERGOCALCIFEROL) 1.25 MG (03255 UT) capsule capsule, Take 1 capsule by mouth 1 (One) TimePer Week., Disp: , Rfl: Past Medical History: Diagnosis Date Anemia GERD (gastroesophageal reflux disease) Gout Hiatal hernia HTN (hypertension) BIENVENIDO (obstructive sleep apnea) Restrictive lung disease Syncope Vitamin D deficiency Past Surgical History: Procedure Laterality Date CHOLECYSTECTOMY COLONOSCOPY HIATAL HERNIA REPAIR Family History Problem Relation Age of Onset Pancreatic cancer Mother Colon cancer Father No Known Problems Sister Lung cancer Brother Social History Socioeconomic History Marital status: Single Tobacco Use Smoking status: Never Passive exposure: Never Smokeless tobacco: Never Vaping Use Vaping status: Never Used Substance and Sexual Activity Alcohol use: Not Currently Drug use: Never Sexual activity: Defer Objective Vital Signs: BP 108/80 Pulse 79 Ht 170.2 cm (67 ) Wt 102 kg (225 lb) SpO2 93% BMI 35.24 kg/m?? Estimated body mass index is 35.24 kg/m?? as calculated from the following: Height as of this encounter: 170.2 cm (67 ). Weight as of this encounter: 102 kg (225 lb). Physical Exam Vitals reviewed. Constitutional: Appearance: Normal appearance. HENT: Head: Normocephalic. Cardiovascular: Rate and Rhythm: Normal rate and regular rhythm. Heart sounds: Normal heart sounds. Pulmonary: Effort: Pulmonary effort is normal. Breath sounds: Normal breath sounds. Musculoskeletal: Right lower leg: No edema. Left lower leg: No edema. Skin: General: Skin is warm and dry. Capillary Refill: Capillary refill takes less than 2 seconds. Neurological: General: No focal deficit present. Mental Status: He is alert and oriented to person, place, and time. Psychiatric: Mood and Affect: Mood normal. Behavior: Behavior normal. Cardiology studies reviewed: Echo reviewed Assessment and Plan Diagnoses and all orders for this visit: 1. Chest pain, atypical (Primary) Assessment & Plan: Echocardiogram from 08/06/2023 shows an LVEF of 61-65%, grade 1 diastolic dysfunction and no significant valvular regurgitation or stenosis. He reports that chest pain has improved significantly since restarting inhalers. We discussed proceeding with stress test to rule out ischemia, however patient would like to monitor symptoms for now and hold off on any further testing. - Follow-up in 3 months to reassess. - He will call sooner if symptoms worsen 2. Obstructive sleep apnea Assessment & Plan: Download was reviewed at last office visit last month showing good control and compliance. He denies any problems with his CPAP at this time. 3. Primary hypertension Assessment & Plan: Hypertension is stable and controlled Continue current treatment regimen. Dietary sodium restriction. Weight loss. Regular aerobic exercise. Blood pressure will be reassessed in 6 months. Recommendations: ER if symptoms increase and Report if any new/changing symptoms immediately Follow Up Return in about 3 months (around 12/13/2023) for BIENVENIDO, chest pain follow up . Patient was given instructions and counseling regarding his condition or for health maintenance advice. Please see specific information pulled into the AVS if appropriate. documented in this encounter Plan of Treatment Upcoming Encounters Date Type Department Care Team (Late st Contact Info) Description 02/11/2024 11:00 AM EST Office Visit [facility] [address] [phone] Domonique Palomino APRN [address] [place] [id number] documented as of this encounter Visit Diagnoses Diagnosis Chest pain, atypical- Primary Obstructive sleep apnea Obstructive sleep apnea (adult) (pediatric) Primary hypertension Unspecified essential hypertension documented in this encounter Care Teams Easement Man Relationship Specialty Start Date End Date Jr Niles Acosta APRN [address] [place] [address] PCP - General Nurse Practitioner 08/16/23 documented as of this encounter
--- OUTSIDE RECORDS SUMMARY | 2024-01-29 09:02 | XMS_ITS | Clinical Summary ---
Author Organization [facility] Address [address] [place] [address] Care Team Providers Care Dispatch Associate Name Role Phone Jr Niles Acosta APRN Primary Care Prov ider Allergies Active Allergy Reactions Criticality Noted Date Comments Ceftriaxone Other (See Comments) Medium 09/27/2022 Headaches/Body aches Medications vitamin B-12 (CYANOCOBALAMI N) 1000 MCG tablet Take 1 tablet by mouth 1 (One) Time Per Week. Active budesonide-for moterol (Symbicort) 80-4.5 MCG/ACT inhaler Four times a day 3 Active albuterol sulfate HFA 108 (90 Base) MCG/ACT inhaler Inhale 2 puffs Every 4 (Four) Hours As Needed for Wheezing. Active fluticasone (VERAMYST) 27.5 MCG/SPRAY nasal spray Administer 2 sprays into the nostril(s) as directed by provider Daily. Active hydroCHLOROthi azide (MICROZIDE) 12.5 MG capsuleIndicat ions:Primary hypertension,C hest pain, atypical Take 1 capsule by mouth Daily. 90 capsule 3 4 Active fluticasone (FLONASE) 50 MCG/ACT nasal spray Administer 2 sprays into the nostril(s) as directed by provider Daily. 4 Active vitamin D (ERGOCALCIFERO L) 1.25 MG (45414 UT) capsule capsule Take 1 capsule by mouth 1 (One) Time Per Week. 01/14/20 24 Discontinu ed(Histori andrea Med - Therapy completed) Active Problems Problem Noted Date Diagnosed Date Polycythemia 11/07/2023 Assessment & Plan (11/07/2023 12:29 PM EDT): Patient states that he was having delusions when he was diagnosed with polycythemia he does not know if this has anything to do with why he is having the delusions. Patient states he has not followed up in about 2 years and is requesting an order for lab work to check his levels. Anemia 11/07/2023 Chest pain, atypical 08/15/2023 Assessment & Plan (09/12/2023 12:52 PM EDT): Echocardiogram from 08/06/2023 shows an LVEF of [...] He will call sooner if symptoms worsen Assessment & Plan (08/15/2023 11:30 AM EDT): Patient reports chest pain and pressure in the center of his chest that radiates between his shoulder blades with exertion only lasting a few seconds. It is relieved with rest He also reports it radiates down into his low back. He reports worsening SOA with the chest pressure episodes. Plan an echo to evaluate heart function or valvular abnormalities. Obstructive sleep apnea 09/27/2022 Assessment & Plan (01/14/2024 12:43 PM EST): He completed the titration study on 11/08/2023 that revealed the optimal therapy to be BiPAP 19/15 cm. BiPAP therapy was initiated at that time and he is here today for a 31-90-day compliance visit. Download reviewed and interpreted today. Compliance is 100%, when used greater than 4 hours is 97%. Average use per night is 9 hours and 14 minutes. AHI is 0.4. He was using a fullface mask and doing well with that. He feels like the pressure settings are too high. He reports that he stopped using his BiPAP several nights ago because he started hearing the unusual noise again. He would like pressure settings lowered -Decrease pressure settings to 17/13cm -Follow up in 1 month to reassess Assessment & Plan (11/07/2023 12:29 PM EDT): Patient has a baseline AHI of 29. This is moderate sleep apnea. Download shows good compliance and control. Mask fit and airflow are comfortable. Patient reports that his machine continues to shut off on him and he has contacted his [employer] company and they have been unable to reach the company that repairs the CPAP machine. Patient states he continues to hear unusual noises in the attic and on the roof. He states that he is even called the police on his neighbor for hitting against the wall. Patient states that he swears that people are smoking and the other apartment and he is allergic to the cigarette smoke. Patient has an oxygen concentrator in his home and would like the connector piece to bleed it in to his PAP machine. This was ordered by his hospital internship in [place]. Patient was ordered a titration study about a month ago and he never scheduled this. Patient is now agreeable to doing the titration study and it has been scheduled. Titration study on CPAP to consider BiPAP. Patient is receiving benefit from PAP therapy. Plan to continue current treatment. Assessment & Plan (10/21/2023 10:34 AM EDT): Patient reports that he has been hearing a unusual noise from his CPAP machine for the last several years. He has had multiple replacements and continues to report a swooshing sound. He originally thought it was the CPAP machine, but this morning he noticed that the noise was coming from his chest area. He also reports excessive daytime sleepiness and fatigue. He has not been sleeping well recently. He does not feel like his CPAP is working correctly. Download reviewed and interpreted today. Compliance is 100%, average use per night is 5 hours and 47 minutes. AHI is 1.8. EPR level noted to be at 1, previously set at 3. We will increase that back to 3. We discussed a titration study and he is agreeable. Assessment & Plan (09/12/2023 12:51 PM EDT): Download was reviewed at last office visit last month showing good control and compliance. He denies any problems with his CPAP at this time. Assessment & Plan (08/15/2023 11:24 AM EDT): Baseline AHI 29. This is moderate sleep apnea. Download shows good compliance and control. Airflow and mask fit is comfortable. Plan to continue. Assessment & Plan (04/01/2023 10:24 AM EST): Patient is doing well on PAP therapy with good control and compliance. Download reviewed and interpreted today. Compliance is 100%, AHI is 1.1. He is using a DreamStation 2 device and reports that it is making a loud buzzing noise. It has been replaced at least 3 times in the last year. He is needing a new device due to consistent problems with DreamStation 2 replacement devices. We also discussed the recent FDA warning that the DreamStation 2 device may overheat. He would like to get his device replaced. - Order for new PAP device sent to [facility]. - Continue PAP therapy at current settings. Assessment & Plan (09/27/2022 2:07 PM EDT): Patient is doing very well on PAP therapy with good control compliance. Download reviewed and interpreted today. Compliance is 100%, AHI 0.9. He is benefiting from PAP therapy and we plan to continue at current settings. HTN (hypertension) 09/27/2022 Assessment & Plan (01/14/2024 12:44 PM EST): Hypertension is stable and controlled Continue current treatment regimen. Dietary sodium restriction. Weight loss. Regular aerobic exercise. Blood pressure will be reassessed in 6 months Assessment & Plan (10/21/2023 10:32 AM EDT): Hypertension is stable and controlled Continue current treatment regimen. Dietary sodium restriction. Weight loss. Regular aerobic exercise. Blood pressure will be reassessed in 6 months. Assessment & Plan (09/12/2023 12:51 PM EDT): Hypertension is stable and controlled Continue current treatment regimen. Dietary sodium restriction. Weight loss. Regular aerobic exercise. Blood pressure will be reassessed in 6 months. Assessment & Plan (08/15/2023 11:26 AM EDT): Hypertension is stable and controlled Continue current treatment regimen. Has stopped his Bisoprolol because of low BP and worsening asthma. Wishes to restart his HCTZ 12.5mg. Blood pressure will be reassessed at next scheduled visit. . Assessment & Plan (04/01/2023 10:18 AM EST): Hypertension is well controlled . Continue current treatment regimen. Dietary sodium restriction. Weight loss. Regular aerobic exercise. Blood pressure will be reassessed at the next regular appointment. Assessment & Plan (09/27/2022 2:06 PM EDT): Hypertension is well controlled . Continue current treatment regimen. Dietary sodium restriction. Weight loss. Regular aerobic exercise. Blood pressure will be reassessed at the next regular appointment. Encounters Date Type Department Care Team Description 01/27/2024 Telephone [facility] [address] [phone] Domonique Palomino APRN 01/14/2024 10:30 AM EST Office Visit [facility] [address] [phone] Domonique Palomino APRN Obstructive sleep apnea (Primary Dx); Primary hypertension 01/14/2024 Travel 11/29/2023 Telephone [facility] [address] [phone] Domonique Palomino APRN J. TRAUTWEIN - SCHEDULING 11/20/2023 Telephone [facility] [address] [phone] Domonique Palomino APRN 11/07/2023 9:00 AM EDT Office Visit [facility] [address] [phone] Keyanna Novoa APRN Obstructive sleep apnea (Primary Dx); Anemia, unspecified type; Polycythemia 11/05/2023 Telephone [facility] [address] [phone] Domonique Palomino APRN JENNIE TRAUTWEIN-SCHEDULE 11/05/2023 Telephone [facility] [address] [phone] Domonique Palomino APRN J. TRAUTWEIN - SCHEDULING REQUEST from Last 3 Months Family History Medical History Relation Name Comments Lung cancer Brother Colon cancer Father Pancreatic cancer Mother No Known Problems Sister Relation Name Status Comments Brother Father Mother Sister Alive Social History Tobacco Use Types Packs/Day Years [...] on file Sexual Orientation Not on file Last Filed Vital Signs Vital Sign Reading Time Taken Comments Blood Pressure 110/76 01/14/2024 10:31 AM EST Pulse 71 01/14/2024 10:31 AM EST Temperature - - Respiratory Rate - - Oxygen Saturation 95% 01/14/2024 10:31 AM EST Inhaled Oxygen Concentration - - Weight 99.8 kg (220 lb) 01/14/2024 10:31 AM EST Height 170.2 cm (5' 7 ) 01/14/2024 10:31 AM EST Body Mass Index 34.46 01/14/2024 10:31 AM EST Plan of Treatment Upcoming Encounters Date Type Department Care Team (Late st Contact Info) Description 02/11/2024 11:00 AM EST Office Visit [facility] [address] [phone] Domonique Palomino APRN [address] [place] [address] Health Maintenance Due Date Last Done Comments COLOGUARD 1960 COLON CANCER SCREENING 5 YEA R SIGMOIDOSCOPY 1960 COLONOSCOPY 1960 [address] CANCER SCREENING [address] COLONOGRAPHY 1960 FECAL OCCULT BLOOD TEST 1960 FIT Testing (1 year) 1960 Pneumococcal Vaccine 0-64 (1 of 2 - PCV) 06/07/1967 TDAP/TD VACCINES (1 - Tdap) 1980 ZOSTER VACCINE (1 of 2) 06/07/2011 ANNUAL WELLNESS VISIT 09/27/2022 HEPATITIS C SCREENING 09/27/2022 COVID-19 Vaccine (2 - 2023-2 5 season) 2023 06/09/2020 BMI FOLLOWUP 10/20/2024 10/21/2023, 10/02, 09/27/2022, Additional history exists INFLUENZA VACCINE Completed 01/08/2024, 12/14/2022 Procedures Procedure Name Priority Date/Time Associated Diagnosis Comments SCANNED - PULMONARY RESULTS 01/27/2024 SCANNED - PULMONARY RESULTS 01/14/2024 SCANNED - PULMONARY RESULTS 01/14/2024 SCANNED - LABS 11/27/2023 TITRATION Routine 11/08/2023 Obstructive sleep apnea Excessive daytime sleepiness CBC AND DIFFERENTIAL Routine 11/07/2023 Anemia, unspecified type Polycythemia COMPREHENSIVE METABOLIC PANEL Routine 11/07/2023 Anemia, unspecified type Polycythemia MAGNESIUM Routine 11/07/2023 Anemia, unspecified type Polycythemia IRON PROFILEC Routine 11/07/2023 Anemia, unspecified type Polycythemia SCANNED - PULMONARY RESULTS 11/06/2023 from Last 3 Months Results * Pulmonary Results Scan (01/27/2024) us Domonique Palomino SCHOOL CHILD CARE ATTENDANT PFT ORDERABLES Final Re sult * Pulmonary Results Scan (01/14/2024) us Domonique Theron Trautjuanain SCHOOL CHILD CARE ATTENDANT PFT ORDERABLES Final Re sult * Pulmonary Results Scan (01/14/2024) Domonique Palomino SCHOOL CHILD CARE ATTENDANT PFT ORDERABLES Final Re sult * LABS SCANNED (11/27/2023) us Domonique Palomino SCHOOL CHILD CARE ATTENDANT LAB BLOOD ORDERABLES Fin al Result * Titration (11/08/2023) Domonique Palomino SCHOOL CHILD CARE ATTENDANT SLEEP CENTER ORDERABLES Final Result * Iron Profile (11/07/2023) Blood Keyanna Novoa SCHOOL CHILD CARE ATTENDANT LAB BLOOD ORDERABLES Final R esult Performing Organization Address [facility] [place]/ZIP Co de Phone Number [facility] * CBC & Differential (11/07/2023) Blood Keyanna Novoa SCHOOL CHILD CARE ATTENDANT LAB BLOOD ORDERABLES Final R esult Performing Organization Address [facility] [place]/ZIP Co de Phone Number [facility]
[address] [place] [address], [place] [phone] * Magnesium (11/07/2023) Blood us Keyanna Chávez Seivers SCHOOL CHILD CARE ATTENDANT LAB BLOOD ORDERABLES Final R esult Performing Organization Address [facility] [place]/ZIP Co de Phone Number [facility]
[address] [place] [address], [place] [phone] * Comprehensive Metabolic Panel (11/07/2023) Blood us Flori Kyler Esquivelivers SCHOOL CHILD CARE ATTENDANT LAB BLOOD ORDERABLES Final R esult Performing Organization Address [facility] [place]/ZIP Co de Phone Number [facility]
[address] [place] [address], [place] [phone] * Pulmonary Results Scan (11/06/2023) us Kya Titus SCHOOL CHILD CARE ATTENDANT PFT ORDERABLES Final R esult from Last 3 Months Insurance MEDICARE ADVANTAGE Care Teams Dispatch Associate Relationship Specialty Start Date End Date Jr Niles Acosta APRN [address] [place] [address] PCP - General Nurse Practitioner 08/16/23
--- OUTSIDE RECORDS SUMMARY | 2024-01-29 09:02 | XMS_ITS | Encounter Summary ---
Author Organization [facility] Address [address] [place] [address] Care Team Providers Care Core Blower Name Role Phone Delfin Pratt MD Primary Care Provider [phone] Reason for Referral * Durable Medical Equipment (Routine) - Closed Specialty Diagnoses / Procedures Referred By Contac t Referred To Contact Diagnoses Obstructive sleep apnea Procedures PAP Therapy Domonique Palomino APRN [address] [place] [address] Phone: tel: fax: [place] [address] Phone: tel: fax: Referral ID Status Reason Start Date Expiration Date Visits Re quested Visits Authorized [id number] Closed 09/27/2022 09/27/2023 1 1 Reason for Visit * Reason Comments Sleep Apnea Hypertension Encounter Details Date Type Department Care Team (Late st Contact Info) Description 09/27/2022 1:30 PM EDT Office Visit [facility] [address] [place] [phone] Domonique Palomino APRN [address] [address] Obstructive sleep apnea (Primary Dx); Hypertension, unspecified type Social History Tobacco Use Types Packs/Day Years [...] Sign Reading Time Taken Comments Blood Pressure 128/78 09/27/2022 1:15 PM EDT Pulse 77 09/27/2022 1:15 PM EDT Temperature - - Respiratory Rate - - Oxygen Saturation 97% 09/27/2022 1:15 PM EDT Inhaled Oxygen Concentration - - Weight 103 kg (226 lb) 09/27/2022 1:15 PM EDT Height 170.2 cm (5' 7 ) 09/27/2022 1:15 PM EDT Body Mass Index 35.4 09/27/2022 1:15 PM EDT documented in this encounter Progress Notes * Domonique Palomino APRN - 09/27/2022 2:07 PM EDTAssociated Problem(s): Obstructive sleep apnea Patient is doing very well on PAP therapy with good control compliance. Download reviewed and interpreted today. Compliance is 100%, AHI 0.9. He is benefiting from PAP therapy and we plan to continueat current settings. * Domonique Palomino APRN - 09/27/2022 2:06 PM EDTAssociated Problem(s): HTN (hypertension) Hypertension is well controlled . Continue current treatment regimen. Dietary sodium restriction. Weight loss. Regular aerobic exercise. Blood pressure will be reassessed at the next regular appointment. * Domonique Palomino APRN - 09/27/2022 1:30 PM EDT Images from the original note were not included. Follow-Up Sleep Consult Date: 09/27/2022 Name: Ramakrishna Sen : 1960 PCP: Delfin Pratt MD Chief Complaint Patient presents with Sleep Apnea Hypertension Subjective History of Present Illness Ramakrishna Sen is a 62 y.o. male who presents today for follow-up on BIENVENIDO. Patient has a history of BIENVENIDO with baseline AHI of 29. He is doing very well on PAP therapy with good control and compliance. Download reviewed and interpreted today. Compliance is 100%, AHI 0.9. Patient is using a full facemask and doing well with that. Airflow is comfortable. He denies excessive daytime sleepiness or fatigue. He is benefiting from PAP therapy and plans to continue. Patient denies any chest pain, shortnessof breath, palpitation, dizziness, lower extremity edema or syncope. He stays active and walks frequently. He denies any other concerns or complaints today. Overall doing very well. Cardiac/sleep history 1. BIENVENIDO with baseline AHI of 29 on 03/19/2019. CPAP settings: 10-20 cm. 2. Hypertension History of BIENVENIDO with a baseline AHI of 29. Current Treatment: CPAP settings 10-20 cm. Device Download 08/28/22-09/26/22 AHI on download is 0.9. Compliance on download is 100%. When used >4 hours is 100%. Average use per night is 11 hours. Current mask used: Full face mask The patient's relevant past medical, surgical, family, and social history reviewed and updated in Slide as appropriate. Past Medical History: Diagnosis Date Anemia GERD (gastroesophageal reflux disease) Gout Hiatal hernia HTN (hypertension) Restrictive lung disease Syncope Vitamin D deficiency Past Surgical History: Procedure Laterality Date CHOLECYSTECTOMY COLONOSCOPY HIATAL HERNIA REPAIR Allergies Allergen Reactions Rocephin [Ceftriaxone] Other (See Comments) Headaches/Body aches Prior to Admission medications Medication Sig Start Date End Date Taking? Authorizing Provider Cranberry 250 MG tablet Take 250 mg by mouth 2 (Two) Times a Day. Yes Nicolle Almanzar MD hydroCHLOROthiazide (HYDRODIURIL) 12.5 MG tablet Take 1 tablet by mouth Daily. Yes Nicolle Almanzar MD vitamin B-12 (CYANOCOBALAMIN) 1000 MCG tablet Take 1 tablet by mouth 1 (One) Time Per Week. Yes Nicolle Almanzar MD Family History Problem Relation Age of Onset Pancreatic cancer Mother Colon cancer Father No Known Problems Sister Lung cancer Brother Objective Vital Signs: BP 128/78 Pulse 77 Ht 170.2 cm (67 ) Wt 103 kg (226 lb) SpO2 97% BMI 35.40 kg/m?? Class 2 Severe Obesity (BMI >=35 and <=39.9). Obesity-related health conditions include the following: obstructive sleep apnea. Obesity is unchanged. BMI is is above average; BMI management plan is completed. We discussed portion control and increasing exercise. Physical Exam Vitals reviewed. Constitutional: Appearance: Normal [...] and Affect: Mood normal. Behavior: Behavior normal. PAP download reviewed: 08/28/2022 - 09/26/2022 Assessment and Plan Diagnoses and all orders for this visit: 1. Obstructive sleep apnea (Primary) Assessment & Plan: Patient is doing very well on PAP therapy with good control compliance. Download reviewed and interpreted today. Compliance is 100%, AHI 0.9. He is benefiting from PAP therapy and we plan to continueat current settings. Orders: - PAP Therapy 2. Hypertension, unspecified type Assessment & Plan: Hypertension is well controlled . Continue current treatment regimen. Dietary sodium restriction. Weight loss. Regular aerobic exercise. Blood pressure will be reassessed at the next regular appointment. Report if any new/changing symptoms immediately Follow Up Return in about 6 months (around 03/30/2023) for BIENVENIDO/ HTN. Patient was given instructions and counseling regarding his condition or for health maintenance advice. Please see specific information pulled into the AVS if appropriate. documented in this encounter Plan of Treatment Upcoming Encounters Date Type Department Care Team (Late st Contact Info) Description 02/11/2024 11:00 AM EST Office Visit [facility] [address] [phone] Domonique Palomino, JEWEL FLAT SURFACER [address] [address] documented as of this encounter Visit Diagnoses Diagnosis Obstructive sleep apnea- Primary Obstructive sleep apnea (adult) (pediatric) Hypertension, unspecified type documented in this encounter Care Teams Core Blower Relationship Specialty Start Date End Date Delfin Pratt MD [address] [place] [address] PCP - General Emergency Medicine 09/10/22 08/15/23 documented as of this encounter
--- OUTSIDE RECORDS SUMMARY | 2024-01-29 09:02 | XMS_ITS | Encounter Summary ---
Author Organization [facility] Address [address] [place] [address] Care Team Providers Care Letterer Name Role Phone Jr Niles Acosta LIFE SKILLS SPECIALIST Primary Care Prov ider Reason for Visit * Reason Onset Date Comments García PALOMINO - SUMAN 11/29/2023 Encounter Details Date Type Department Care Team (Late st Contact Info) Description 11/29/2023 Telephone [facility] [address] [place] [phone] Domonique Palomino APRN [address] [place], [place] [id number] García PALOMINO - SCHEDULING Social History Tobacco Use Types Packs/Day Years [...] encounter Miscellaneous Notes * Telephone Encounter - Davion Lazar RegSched Rep - 11/29/2023 8:17 AM EDT Caller: Ramakrishna Sen Relationship: Self Best call back number: [phone] (home) What is the best time to reach you: ANYTIME Who are you requesting to speak with (clinical staff, provider, specific staff member): CLINICAL What was the call regarding: PT RECEIVED NEW BI-PAP 9.26.24 AND THE MACHINE LEAKS. PT WAS ALSO TOLDHE NEEDS TO HAVE A FU SCHEDULED FOR 30-60 DAYS AFTER STARTING USE OF NEW MACHINE. PLEASE CALL PT TODISCUSS. documented in this encounter Plan of Treatment Upcoming Encounters Date Type Department Care Team (Late st Contact Info) Description 02/11/2024 11:00 AM EST Office Visit [facility] [address] [phone] Domonique Palomino APRN [address] [address] documented as of this encounter Visit Diagnoses Not on filedocumented in this encounter Care Teams Letterer Relationship Specialty Start Date End Date Jr Niles Acosta APRN [address] [place] [address] PCP - General Nurse Practitioner 08/16/23 documented as of this encounter
--- OUTSIDE RECORDS SUMMARY | 2024-01-29 09:02 | XMS_ITS | Encounter Summary ---
Author Organization [facility] Address [address] [place] [address] Care Team Providers Care Broadband Installer Name Role Phone Delfin Pratt MD Primary Care Provider [phone] Reason for Visit * Reason Comments Med Refill Encounter Details Date Type Department Care Team (Late st Contact Info) Description 08/13/2023 Refill [facility] [address] [phone] Kya Titus APRN [address] [address] Med Refill Social History Tobacco Use Types Packs/Day Years [...] encounter Miscellaneous Notes * Telephone Encounter - Nadia Redmond RN - 08/13/2023 11:10 AM EDT Discontinued on med last at last visit documented in this encounter Plan of Treatment Upcoming Encounters Date Type Department Care Team (Late st Contact Info) Description 02/11/2024 11:00 AM EST Office Visit [facility] [address] [phone] Domonique Palomino, RISK MANAGEMENT ANALYST [address] [place] [address] documented as of this encounter Visit Diagnoses Not on filedocumented in this encounter Care Teams Broadband Installer Relationship Specialty Start Date End Date Delfin Pratt MD [address] [place] [address] PCP - General Emergency Medicine 09/10/22 08/15/23 documented as of this encounter
--- OUTSIDE RECORDS SUMMARY | 2024-01-29 09:02 | XMS_ITS | Encounter Summary ---
[facility] Organization [facility] Address [address] [place] [address] Care Team Providers Care Montessori Paraprofessional Name Role Phone Jr Gordon Acostael Venessa NASCIMENTO Primary Care Prov ider Encounter Details Date Type Department Care Team (Late st Contact Info) Description 11/20/2023 Telephone [facility] [address] [place] [phone] Domonique Palomino APRN [address] [place] [address] Social History Tobacco Use Types Packs/Day Years [...] encounter Miscellaneous Notes * Telephone Encounter - Jailyn Yeh MA - 11/20/2023 12:21 PM EDT Called patient yes he is willing to change please send BIPAP order to [facility] * Telephone Encounter - Domonique Palomino APRN - 11/20/2023 11:42 AM EDT Please call patient and let him know that I have reviewed his titration study. BiPAP therapy is recommended. Let me know if patient is agreeable to switch to BiPAP therapy and I will place the order. documented in this encounter Plan of Treatment Upcoming Encounters Date Type Department Care Team (Late st Contact Info) Description 02/11/2024 11:00 AM EST Office Visit [facility] [address] [place] [phone] Domonique Palomino APRN [address] [place] [id number] documented as of this encounter Visit Diagnoses Not on filedocumented in this encounter Care Teams Montessori Paraprofessional Relationship Specialty Start Date End Date Jr Niles Acosta APRN [address] [place] [address] PCP - General Nurse Practitioner 08/16/23 documented as of this encounter
--- OUTSIDE RECORDS SUMMARY | 2024-01-29 09:02 | XMS_ITS | Encounter Summary ---
Author Organization [facility] Address [address] [place] [id number] Care Team Providers Care Manager Sports Name Role Phone Delfin Pratt MD Primary Care Provider [phone] Reason for Visit * Reason Comments Sleep Apnea Encounter Details Date Type Department Care Team (Late st Contact Info) Description 06/03/2023 11:15 AM EDT Office Visit [facility] [address] [place] [address] Araceli Harding MD [address] [place], [place] [id number] Obstructive sleep apnea (Primary Dx) Social History Tobacco Use Types Packs/Day Years [...] Sign Reading Time Taken Comments Blood Pressure 126/82 06/03/2023 11:13 AM EDT Pulse 60 06/03/2023 11:13 AM EDT Temperature - - Respiratory Rate - - Oxygen Saturation 93% 06/03/2023 11:13 AM EDT Inhaled Oxygen Concentration - - Weight 99.3 kg (219 lb) 06/03/2023 11:13 AM EDT Height 170.2 cm (5' 7 ) 06/03/2023 11:13 AM EDT Body Mass Index 34.3 06/03/2023 11:13 AM EDT documented in this encounter Patient Instructions * Attachments The following attachments cannot be sent through Care Everywhere. * Quality Sleep Information Adult ([place]orese) documented in this encounter Progress Notes * Araceli Harding MD - 06/03/2023 11:15 AM EDT Images from the original note were not included. Follow-Up Sleep Consult Date: 06/03/2023 Name: Ramakrishna Sen : 1960 PCP: Delfin Pratt MD Chief Complaint Patient presents with Sleep Apnea Subjective History of Present Illness Ramakrishna Sen is a 62 y.o. male who presents today for follow-up on BIENVENIDO.History of BIENVENIDO with a baseline AHI of 29. Current Treatment: auto CPAP 10-20 Device Download AHI on download is 0.5. Compliance on download is 100%. When used >4 hours is 100%. Average use per night is 8h 45min. Current mask used is FFM Sometimes ramps up at night or shoots air, not doing it every night. Restarts it and it works well after that. Likes this machine better than his Qian Xiao'erstation machine. Still some daytime fatigue, not actually sleeping all of hours or wearing the machine. Cannot be active during the day because of disability. Does watch TV at night sometime. Sleep is very interrupted. Cardiac/sleep history 1. BIENVENIDO with baseline AHI of 29 on 03/19/2019. CPAP settings: 10-20 cm. 2. Hypertension The patient's relevant past medical, surgical, family, and social history reviewed and updated in [facility] as appropriate. Past Medical History: Diagnosis Date Anemia GERD (gastroesophageal reflux disease) Gout Hiatal hernia HTN (hypertension) Restrictive lung disease Syncope Vitamin D deficiency Past Surgical History: Procedure Laterality Date CHOLECYSTECTOMY COLONOSCOPY HIATAL HERNIA REPAIR Allergies Allergen Reactions Rocephin [Ceftriaxone] Other (See Comments) Headaches/Body aches Prior to Admission medications Medication Sig Start Date End Date Taking? Authorizing Provider bisoprolol (ZEBeta) 5 MG tablet Take 0.5 tablets by mouth Daily. 04/15/23 Yes Nicolle Almanzar MD budesonide-formoterol (Symbicort) 80-4.5 MCG/ACT inhaler Four times a day 11/08/22 Yes ProviderNicolle MD vitamin B-12 (CYANOCOBALAMIN) 1000 MCG tablet Take 1 tablet by mouth 1 (One) Time Per Week. Yes Nicolle Almanzar MD hydroCHLOROthiazide (HYDRODIURIL) 12.5 MG tablet Take 1 tablet by mouth Daily. Patient not taking: Reported on 06/03/2023 06/03/23 ProviderNicolle MD Family History Problem Relation Age of Onset Pancreatic cancer Mother Colon cancer Father No Known Problems Sister Lung cancer Brother Objective Vital Signs: BP 126/82 (BP Location: Left arm, Patient Position: Sitting) Pulse 60 Ht 170.2 cm (67 ) Wt 99.3 kg (219 lb) SpO2 93% BMI 34.30 kg/m?? Physical Exam Constitutional: Appearance: Normal appearance. He is well-developed. HENT: Head: Normocephalic and atraumatic. Eyes: General: No scleral icterus. Pupils: Pupils are equal, round, and reactive to light. Neck: Vascular: No carotid bruit. Cardiovascular: Rate and Rhythm: Normal rate and regular rhythm. Pulses: Normal pulses. Radial pulses are 2+ on the right side and 2+ on the left side. Dorsalis pedis pulses are 2+ on the right side and 2+ on the left side. Posterior tibial pulses are 2+ on the right side and 2+ on the left side. Heart sounds: Normal heart sounds. No murmur heard. Pulmonary: Breath sounds: Normal breath sounds. No wheezing or rhonchi. Musculoskeletal: Right lower leg: No edema. Left lower leg: No edema. Skin: Capillary Refill: Capillary refill takes less than 2 seconds. Coloration: Skin is not cyanotic. Nails: There is no clubbing. Neurological: Mental Status: He is alert and oriented to person, place, and time. Motor: No weakness. Gait: Gait normal. Psychiatric: Mood and Affect: Mood normal. Behavior: Behavior is cooperative. Thought Content: Thought content normal. Cognition and Memory: Memory normal. Assessment and Plan Diagnoses and all orders for this visit: 1. Obstructive sleep apnea (Primary) Comments: Download reviewed. Good compliance and control. Report if any new/changing symptoms immediately Follow Up Return in about 1 year (around 06/02/2024) for Patient OK with COPYIST visit, Next scheduled follow up. Patient was given instructions and counseling regarding his condition or for health maintenance advice. Please see specific information pulled into the AVS if appropriate. documented in this encounter Plan of Treatment Upcoming Encounters Date Type Department Care Team (Late st Contact Info) Description 02/11/2024 11:00 AM EST Office Visit [facility] [address] [place] [phone] Domonique Palomino APRN [address] [place] [address] documented as of this encounter Visit Diagnoses Diagnosis Obstructive sleep apnea- Primary Obstructive sleep apnea (adult) (pediatric) documented in this encounter Care Teams Manager Sports Relationship Specialty Start Date End Date Delfin Pratt MD [address] [place] [address] [place] [address] PCP - General Emergency Medicine 09/10/22 08/15/23 documented as of this encounter
--- OUTSIDE RECORDS SUMMARY | 2024-01-29 09:02 | XMS_ITS | Encounter Summary ---
Author Organization [facility] Address [address] [place] [address] Care Team Providers Care Hot Knife Foxing Cutter Name Role Phone Delfin Pratt MD Primary Care Provider [phone] Reason for Referral * Durable Medical Equipment (Routine) - Pending Review Specialty Diagnoses / Procedures Referred By Contmarcelina t Referred To Contact Diagnoses Obstructive sleep apnea Procedures PAP Therapy Domonique Palomino APRN [address] [place] [address] Phone: tel: fax: [facility] [address] [place] [address] Phone: tel: fax: Referral ID Status Reason Start Date Expiration Date V isits Requested Visits Authorized [id number] Pending Review 04/01/2023 03/31/2024 1 1 Reason for Visit * Reason Comments Sleep Apnea Encounter Details Date Type Department Care Team (Late st Contact Info) Description 04/01/2023 9:30 AM EST Office Visit [facility] [address] [place] [phone] Domonique Palomino APRN [address] [place] [id number] Obstructive sleep apnea (Primary Dx); Hypertension, unspecified [...] Sign Reading Time Taken Comments Blood Pressure 122/66 04/01/2023 9:42 AM EST Pulse 74 04/01/2023 9:42 AM EST Temperature - - Respiratory Rate - - Oxygen Saturation 95% 04/01/2023 9:42 AM EST Inhaled Oxygen Concentration - - Weight 99.3 kg (219 lb) 04/01/2023 9:42 AM EST Height 170.2 cm (5' 7 ) 04/01/2023 9:42 AM EST Body Mass Index 34.3 04/01/2023 9:42 AM EST documented in this encounter Progress Notes * Domonique Palomino APRN - 04/01/2023 10:22 AM ESTAssociated Problem(s): Obstructive sleep apnea Patient is doing well on PAP therapy with good control and compliance. Download reviewed and interpreted today. Compliance is 100%, AHI is 1.1. He is using a DreamStation 2 device and reports that itis making a loud buzzing noise. It has been replaced at least 3 times in the last year. He is needing a new device due to consistent problems with DreamStation 2 replacement devices. We also discussed the recent FDA warning that the DreamStation 2 device may overheat. He would like to get his device replaced. - Order for new PAP device sent to [facility]. - Continue PAP therapy at current settings. * Domonique Palomino APRN - 04/01/2023 10:18 AM ESTAssociated Problem(s): HTN (hypertension) Hypertension is well controlled . Continue current treatment regimen. Dietary sodium restriction. Weight loss. Regular aerobic exercise. Blood pressure will be reassessed at the next regular appointment. * Domonique Palomino APRN - 04/01/2023 9:30 AM EST Images from the original note were not included. Follow-Up Sleep Consult Date: 04/01/2023 Name: Ramakrishna Sen : 1960 PCP: Delfin Pratt MD Chief Complaint Patient presents with Sleep Apnea Subjective History of Present Illness Ramakrishna Sen is a 62 y.o. male who presents today for follow-up on BIENVENIDO. Patient is doing well on PAP therapy [...] would like to get his device replaced. His blood pressure has been stable. He denies any new concerns or complaints today. He denies chest pain, shortnessof breath, palpitations, dizziness or syncope. Cardiac/sleep history 1. BIENVENIDO with baseline AHI of 29 on 03/19/2019. CPAP settings: 10-20 cm. 2. Hypertension History of BIENVENIDO with a baseline AHI of 29. Current Treatment: Autocpap 10-20cm Current mask used is full face mask. Device Functioning Well: Yes Mask Fit Comfortable: Yes Air Flow Comfortable: Yes DME Helpful for Supplies: Yes Sleep is rested: Yes Device Download: The patient's relevant past medical, surgical, family, and social history reviewed and updated in [employer] as appropriate. Past Medical History: Diagnosis Date Anemia GERD (gastroesophageal reflux disease) Gout Hiatal hernia HTN (hypertension) Restrictive lung disease Syncope Vitamin D deficiency Past Surgical History: Procedure Laterality Date CHOLECYSTECTOMY COLONOSCOPY HIATAL HERNIA REPAIR Allergies Allergen Reactions Rocephin [Ceftriaxone] Other (See Comments) Headaches/Body aches Prior to Admission medications Medication Sig Start Date End Date Taking? Authorizing Provider budesonide-formoterol (Symbicort) 80-4.5 MCG/ACT inhaler Four times a day 11/08/22 Yes Nicolle Almanzar MD hydroCHLOROthiazide (HYDRODIURIL) 12.5 MG tablet Take 1 tablet by mouth Daily. Yes Nicolle Almanzar MD vitamin B-12 (CYANOCOBALAMIN) 1000 MCG tablet Take 1 tablet by mouth 1 (One) Time Per Week. Yes Nicolle Almanzar MD Cranberry 250 MG tablet Take 250 mg by mouth 2 (Two) Times a Day. 04/01/23 Nicolle Almanzar MD Family History Problem Relation Age of Onset Pancreatic cancer Mother Colon cancer Father No Known Problems Sister Lung cancer Brother Objective Vital Signs: BP 122/66 Pulse 74 Ht 170.2 cm (67 ) Wt 99.3 kg (219 lb) SpO2 95% BMI 34.30 kg/m?? Physical Exam Vitals reviewed. Constitutional: Appearance: Normal [...] normal. Behavior: Behavior normal. PAP download reviewed: 03/02/23- 03/31/23 Assessment and Plan Diagnoses and all orders for this visit: 1. Obstructive sleep apnea (Primary) Assessment & Plan: Patient is doing well on PAP therapy with good control and compliance. Download reviewed and interpreted today. Compliance is 100%, AHI is 1.1. He is using a DreamStation 2 device and reports that itis making a loud buzzing noise. It has been replaced at least 3 times in the last year. He is needing a new device due to consistent problems with DreamStation 2 replacement devices. We also discussed the recent FDA warning that the DreamStation 2 device may overheat. He would like to get his device replaced. - Order for new PAP device sent to [facility]. - Continue PAP therapy at current settings. Orders: - PAP Therapy 2. Hypertension, unspecified type Assessment & Plan: Hypertension is well controlled . Continue current treatment regimen. Dietary sodium restriction. Weight loss. Regular aerobic exercise. Blood pressure will be reassessed at the next regular appointment. Report if any new/changing symptoms immediately Follow Up Return in about 8 weeks (around 05/27/2023) for BIENVENIDO- compliance visit. . Patient was given instructions and counseling regarding his condition or for health maintenance advice. Please see specific information pulled into the AVS if appropriate. documented in this encounter Plan of Treatment Upcoming Encounters Date Type Department Care Team (Late st Contact Info) Description 02/11/2024 11:00 AM EST Office Visit [facility] [address] [place] [phone] Domonique Palomino APRN [address] [place] [address] documented as of this encounter Visit Diagnoses Diagnosis Obstructive sleep apnea- Primary Obstructive sleep apnea (adult) (pediatric) Hypertension, unspecified type documented in this encounter Care Teams Hot Knife Foxing Cutter Relationship Specialty Start Date End Date [facility]elfin Pratt [facility] [address] [facility] [address] PCP - General Emergency Medicine 09/10/22 08/15/23 documented as of this encounter
--- OUTSIDE RECORDS SUMMARY | 2024-01-29 09:02 | XMS_ITS | Encounter Summary ---
Author Organization [facility] Address [address] [place] [address] Care Team Providers Care Funeral Location Manager Name Role Phone Jr Niles Acosta APRN Primary Care Prov ider Reason for Referral * Durable Medical Equipment (Routine) - Authorized Specialty Diagnoses / Procedures Referred By Contac t Referred To Contact Diagnoses Obstructive sleep apnea Procedures PAP Therapy Keyanna Novoa APRN [address] [place] [address] [place] [address] Phone: tel: fax: [place] [address] [place] [address] Phone: tel: fax: Referral ID Status Reason Start Date Expiration Date V isits Requested Visits Authorized [id number] Authorized 11/07/2023 11/06/2024 1 1 * Medical Care (Routine) - Closed Specialty Diagnoses / Procedures Referred By Contac t Referred To Contact Diagnoses Obstructive sleep apnea Procedures Titration Keyanna Novoa APRN [address] [place] [address] Phone: tel: fax: [address] [place] [address] Phone: tel: Referral ID Status Reason Start Date Expiration Date Visits Re quested Visits Authorized [id number] Closed 11/07/2023 11/06/2024 1 1 Reason for Visit * Reason Comments Delusional Encounter Details Date Type Department Care Team (Late st Contact Info) Description 11/07/2023 9:00 AM EDT Office Visit [facility] [address] [place] [address] Keyanna Novoa APRN [address] [place] [address] Obstructive sleep apnea (Primary Dx); Anemia, unspecified type; Polycythemia Social History Tobacco Use Types Packs/Day Years [...] Sign Reading Time Taken Comments Blood Pressure 122/78 11/07/2023 8:59 AM EDT Pulse 78 11/07/2023 8:59 AM EDT Temperature - - Respiratory Rate - - Oxygen Saturation 90% 11/07/2023 8:59 AM EDT Inhaled Oxygen Concentration - - Weight 101 kg (222 lb 11.2 oz) 11/07/2023 8:59 A M EDT Height 170.2 cm (5' 7 ) 11/07/2023 8:59 AM EDT Body Mass Index 34.88 11/07/2023 8:59 AM EDT documented in this encounter Progress Notes * Keyanna Novoa APRN - 11/07/2023 12:29 PM EDTAssociated Problem(s): Polycythemia Patient states that he was having delusions when he was diagnosed with polycythemia he does not know if this has anything to do with why he is having the delusions. Patient states he has not followedup in about 2 years and is requesting an order for lab work to check his levels. * Keyanna Novoa APRN - 11/07/2023 12:29 PM EDTAssociated Problem(s): Obstructive sleep apnea Patient has a baseline AHI of 29. This is moderate sleep apnea. Download shows good compliance and control. Mask fit and airflow are comfortable. Patient reports that his machine continues to shut off on him and he has contacted his [employer] company and they have been unable to [...] home and would like the connector piece tobleed it in to his PAP machine. This was ordered by his systems technologist in [place]. Patient was ordered a titration study about a month ago and he never scheduled this. Patient is now agreeable to doing the titration study and it has been scheduled. Titration study on CPAP to consider BiPAP. Patient is receiving benefit from PAP therapy. Plan to continue current treatment. * Keyanna Novoa APRN - 11/07/2023 9:00 AM EDT Images from the original note were not included. Follow-Up Sleep Consult Date: 11/07/2023 Name: Ramakrishna Sen : 1960 PCP: Jr Niles Acosta APRN Chief Complaint Patient presents with ??? Delusional Subjective History of Present Illness Ramakrishna Sen is a 63 y.o. male who presents today for follow-up on BIENVENIDO. Patient is here today with his sister. She states that he has been hearing and seeing things. She states that he lives in his own apartment, but the apartment supervisor drying contacted her stating that hehad called the police on the neighbor. Patient states he has been hearing noises in the attic. He states that this is during times of the day when he is not sleeping. Patient states that he has no explanation as to why he is doing as. Patient's oxygen is 90% in the office today. He states that he has not had his anemia or his polycythemia followed up on for a couple years. He states that he had been doing this prior to his polycythemia diagnosis he was having the delusions. Patient's sister states that she is afraid that he is going to lose his apartment because of his recent behavior. He is requesting that I order labs to check for his anemia. Patient has also been following with divya Morin. He states that he has an oxygen concentrator but the oxygen is not hooked into his CPAP and that he needs an adapter to be able to help get him. Patient's sister states that the patient is on a CPAP and has been charged monthly to be able to pay for it. She states that he is paying $60 a month and really does not have the $60 to pay. She states that she has talked with another DME company in [place] that says he can return the CPAP to [facility] and all he needs is a prescription to give to them and they would get him a CPAP through his insurance company. Patient had previously been on a DreamStation 2 and had decided to switch to a ResMed before his 5 years was up. The ResMed then started to have issues and his current DME company hasbeen unable to get the ResMed repaired. Patient states that his ResMed CPAP has been cutting off during the night. He states that his sleepis rested. Airflow and mask fit is comfortable. Patient was ordered a titration study about a monthago and did not schedule it. We have discussed checking his CPAP and his oxygen. He is agreeable todoing the titration study to consider CPAP to BiPAP. Patient states that other than his delusions he has been otherwise doing well. He denies any chest pain, shortness of breath, palpitations, edema, presyncope, or syncope. Labs have been ordered to check for his anemia. Cardiac/sleep history 1. BIENVENIDO with baseline AHI of 29 on 03/19/2019. CPAP settings: 11-16cm. 2. Hypertension ECHO 08/16/23- LVEF of 61-65%. Grade 1 diastolic dysfunction. No significant valvular regurgitation or stenosis. Normal RVSP. Current mask used is FFM Device Functioning Well: Yes Mask Fit Comfortable: Yes Air Flow Comfortable: Yes DME Helpful for Supplies: Yes Sleep is rested: No, Frequent awakenings Device Download: The patient's relevant past medical, surgical, family, and social history reviewed and updated in [facility] as appropriate. Past Medical History: Diagnosis Date ??? Anemia ??? GERD (gastroesophageal reflux disease) ??? Gout ??? Hiatal hernia ??? HTN (hypertension) ??? BIENVENIDO (obstructive sleep apnea) ??? Restrictive lung disease ??? Syncope ??? Vitamin D deficiency Past Surgical History: Procedure Laterality Date ??? CHOLECYSTECTOMY ??? COLONOSCOPY ??? HIATAL HERNIA REPAIR Allergies Allergen Reactions ??? Rocephin [Ceftriaxone] Other (See Comments) Headaches/Body aches Prior to Admission medications Medication Sig Start Date End Date Taking? Authorizing Provider albuterol sulfate HFA 108 (90 Base) MCG/ACT inhaler Inhale 2 puffs Every 4 (Four) Hours As Needed for Wheezing. Yes Nicolle Almanzar MD budesonide-formoterol (Symbicort) 80-4.5 MCG/ACT inhaler Four times a day 11/08/22 Yes Nicolle Almanzar MD fluticasone (FLONASE) 50 MCG/ACT nasal spray 2 sprays into the nostril(s) as directed by provider Daily. 08/14/23 Yes Nicolle Almanzar MD fluticasone (VERAMYST) 27.5 MCG/SPRAY nasal spray 2 sprays into the nostril(s) as directed by provider Daily. Yes Nicolle Almanzar MD hydroCHLOROthiazide (MICROZIDE) 12.5 MG capsule Take 1 capsule by mouth Daily. 08/15/23 Yes Keyanna Novoa APRN vitamin B-12 (CYANOCOBALAMIN) 1000 MCG tablet Take 1 tablet by mouth 1 (One) Time Per Week. Yes Nicolle Almanzar MD vitamin D (ERGOCALCIFEROL) 1.25 MG (57308 UT) capsule capsule Take 1 capsule by mouth 1 (One) Time Per Week. Yes Nicolle Almanzar MD Family History Problem Relation Age of Onset ??? Pancreatic cancer Mother ??? Colon cancer Father ??? No Known Problems Sister ??? Lung cancer Brother Objective Vital Signs: BP 122/78 Pulse 78 Ht 170.2 cm (67 ) Wt 101 kg (222 lb 11.2 oz) SpO2 90% BMI 34.88 kg/m?? Physical Exam Constitutional: Appearance: Normal appearance. He is obese. Cardiovascular: Rate and Rhythm: Normal rate and regular rhythm. Pulses: Normal pulses. Heart sounds: Normal heart sounds. Pulmonary: Effort: Pulmonary effort is normal. Breath sounds: Normal breath sounds. Musculoskeletal: General: Normal range of motion. Skin: General: Skin is warm and dry. Neurological: General: No focal deficit present. Mental Status: He is alert and oriented to person, place, and time. Psychiatric: Mood and Affect: Mood normal. Behavior: Behavior normal. Thought Content: Thought content normal. Judgment: Judgment normal. The following data was reviewed by: Keyanna Novoa APRN on 11/07/2023: 30-day download 10/06/2023 to 11/04/2023 I have reviewed interpret the data from the download. Downloadshows good compliance and control with an AHI of 1. Mask fit and airflow are comfortable. Patient is receiving benefit from PAP therapy. Plan to continue current treatment. Assessment and Plan Diagnoses and all orders for this visit: 1. Obstructive sleep apnea (Primary) Assessment & Plan: Patient has a baseline AHI of 29. This is moderate sleep apnea. Download shows good compliance and control. Mask fit and airflow are comfortable. Patient reports that his machine continues to shut off on him and he has contacted his [employer] and they have been unable to reach [...] home and would like the connector piece tobleed it in to his PAP machine. This was ordered by his systems technologist in [place]. Patient was ordered a titration study about a month ago and he never scheduled this. Patient is now agreeable to doing the titration study and it has been scheduled. Titration study on CPAP to consider BiPAP. Patient is receiving benefit from PAP therapy. Plan to continue current treatment. Orders: - Titration; Future - PAP Therapy 2. Anemia, unspecified type - CBC & Differential; Future - Comprehensive Metabolic Panel; Future - Ferritin; Future - Magnesium; Future - Iron; Future - Iron Profile; Future 3. Polycythemia Assessment & Plan: Patient states that he was having delusions when he was diagnosed with polycythemia he does not know if this has anything to do with why he is having the delusions. Patient states he has not followedup in about 2 years and is requesting an order for lab work to check his levels. Orders: - CBC & Differential; Future - Comprehensive Metabolic Panel; Future - Ferritin; Future - Magnesium; Future - Iron; Future - Iron Profile; Future ER if symptoms increase, Report if any new/changing symptoms immediately, Limit salt, Sleep risks reviewed (driving, medical, sleep , sedating agents), and Sleep hygiene discussed I spent 45 minutes caring for Ramakrishna on this date of service. This time includes time spent by me in the following activities: performing a medically appropriate examination and/or evaluation, counseling and educating the patient/family/caregiver, ordering test(s), and care coordination . Follow Up Return in about 4 weeks (around 12/05/2023) for Next scheduled follow up. Patient was given instructions and counseling regarding his condition or for health maintenance advice. Please see specific information pulled into the AVS if appropriate. documented in this encounter Plan of Treatment Upcoming Encounters Date Type Department Care Team (Late st Contact Info) Description 02/11/2024 11:00 AM EST Office Visit [facility] [address] [place] [address] Domonique Palomino APRN [address] [place] [address] Scheduled Orders Name Type Priority Associated Diagnoses Orde r Schedule Titration Sleep Center Routine Obstructive sleep apnea Expected: 05/05/2024, Expires: 11/06/2024 documented as of this encounter Results * Iron Profile (11/07/2023) Blood us Keyanna Novoa APRN LAB BLOOD ORDERABLES Final R esult [facility] * Magnesium (11/07/2023) Blood Keyanna Network[employer] Insightsivers SOLAR HOT WATER INSTALLER LAB BLOOD ORDERABLES Final R esult Performing Organization Address City/[facility]/ZIP Co de Phone Number [facility]
[address] [place] [address], [place] [phone] * Comprehensive Metabolic Panel (11/07/2023) Blood Keyanna Prowl SOLAR HOT WATER INSTALLER LAB BLOOD ORDERABLES Final R esult Performing Organization Address [facility] Co de Phone Number [facility]
[address] [place] [address], [place] [phone] * CBC & Differential (11/07/2023) Blood Keyanna Prowl SOLAR H[employer] WATER INSTALLER LAB BLOOD ORDERABLES Final R esult Performing Organization Address [facility] Co de Phone Number [facility]
[address] [place] [address], [place] [phone] documented in this encounter Visit Diagnoses Diagnosis Obstructive sleep apnea- Primary Obstructive sleep apnea (adult) (pediatric) Anemia, unspecified type Polycythemia Polycythemia, secondary documented in this encounter Care Teams Funeral Location Manager Relationship Specialty Start Date End Date Jr Niles Acosta APRN [address] [place] [address] PCP - General Nurse Practitioner 08/16/23 documented as of this encounter
--- OUTSIDE RECORDS SUMMARY | 2024-01-29 09:02 | XMS_ITS | Encounter Summary ---
Author Organization [facility] Address [address] [place] [address] Care Team Providers Care Byproducts Extractor Name Role Phone Jr Niles Acosta APRN Primary Care Prov ider Reason for Visit * Reason Onset Date Comments García PALOMINO - SCHEDULING REQUEST 11/05/2023 Encounter Details Date Type Department Care Team (Late st Contact Info) Description 11/05/2023 Telephone [facility] [address] [place] [address] Domonique Palomino APRN [address] [place] [address] García PALOMINO - SCHEDULING REQUEST Social History Tobacco Use Types Packs/Day Years [...] Telephone Encounter - Jailyn Yeh MA - 11/05/2023 4:14 PM EDT Called left detailed message he will need to call his DME compandion Patient Aids at [phone] hit option 2 to make appt to take machine in to be looked at. HUB okay to relay message * Telephone Encounter - Davion Lazar RegSched Rep - 11/05/2023 4:05 PM EDT Caller: Ramakrishna Sen Relationship to patient: Self Best call back number: [phone] (home) Chief complaint: PT HAS A RECENT ISSUE WITH SLEEP EQUIPMENT. MACHINE IS MAKING A NEW NOISE. Type of visit: FU Requested date: MACEY Additional notes: NO SCHEDULING TIMEFRAME IN CHART FOR HUB TO SCHEDULE. PLEASE CALL PT TO SCHEDULE.OR PLEASE CALL PT TO DISCUSS. documented in this encounter Plan of Treatment Upcoming Encounters Date Type Department Care Team (Late st Contact Info) Description 02/11/2024 11:00 AM EST Office Visit [facility] [address] [place] [address] Domonique Palomino APRN [address] [place] [address] documented as of this encounter Visit Diagnoses Not on filedocumented in this encounter Care Teams Byproducts Extractor Relationship Specialty Start Date End Date Jr Niles Acosta APRN [address] [place] [address] PCP - General Nurse Practitioner 08/16/23 documented as of this encounter
--- OUTSIDE RECORDS SUMMARY | 2024-01-29 09:02 | XMS_ITS | Encounter Summary ---
Author Organization [facility] Address [address] [place] [address] Care Team Providers Care Roustabout Hand Name Role Phone Jr Niles Acosta APRN Primary Care Prov ider Reason for Referral * Durable Medical Equipment (Routine) - Authorized Specialty Diagnoses / Procedures Referred By Contmarcelina t Referred To Contact Diagnoses Obstructive sleep apnea Procedures PAP Therapy Domonique Palomino APRN [address] [place] [address] Phone: tel: fax: [facility] [address] [place] [address] Phone: tel: fax: Referral ID Status Reason Start Date Expiration Date V isits Requested Visits Authorized [id number] Authorized 01/14/2024 01/13/2025 1 1 Reason for Visit * Reason Comments Sleep Apnea Stopped PAP Saturday Encounter Details Date Type Department Care Team (Late st Contact Info) Description 01/14/2024 10:30 AM EST Office Visit [facility] [address] [place] [address] Domonique Palomino APRN [address] [place] [address] Obstructive sleep apnea (Primary Dx); Primary hypertension Social History Tobacco Use Types [...] Mass Index 34.46 01/14/2024 10:31 AM EST documented in this encounter Progress Notes * Domonique Palomino APRN - 01/14/2024 12:44 PM ESTAssociated Problem(s): HTN (hypertension) Hypertension is stable and controlled Continue current treatment regimen. Dietary sodium restriction. Weight loss. Regular aerobic exercise. Blood pressure will be reassessed in 6 months * Domonique Palomino APRN - 01/14/2024 12:43 PM ESTAssociated Problem(s): Obstructive sleep apnea He completed the titration study on 11/08/2023 [...] high. He reports that he stopped using hisBiPAP several nights ago because he started hearing the unusual noise again. He would like pressuresettings lowered -Decrease pressure settings to 17/13cm -Follow up in 1 month to reassess * Domonique Palomino APRN - 01/14/2024 10:30 AM EST Images from the original note were not included. Follow-Up Sleep Consult Date: 01/14/2024 Name: Ramakrishna Sen : 1960 PCP: Jr Niles Acosta APRN Chief Complaint Patient presents with Sleep Apnea Stopped PAP Saturday Subjective History of Present Illness Ramakrishna Sen is a 63 y.o. male who presents today for follow-up on BIENVENIDO. At last office visit with me on 10/21/2023, patient reported hearing an unusual noise from his CPAP machine for the last several years. He had had multiple replacements and continued to report a loud noise every night. He originally thought it was coming from his CPAP machine, but at last visit he reported that the noise was coming from his chest area. A titration study was ordered at that time for further evaluation. He completed the titration study on 11/08/2023 [...] He reports that he stopped using his BiPAPseveral nights ago because he started hearing the unusual noise again. He reports that the noise wakes him up several times at night. He has heard the same noise with every CPAP he had and now with the BiPAP. He feels like it is worse with the BiPAP. He stayed with his sister last night and she describes the sound as a mooing cow . Unclear where this noises coming from. He reports that his neighb ors in his apartment complex can also hear the noise and it wakes them up at night. He is requesting to decrease pressure settings on his BiPAP. Cardiac/sleep history 1. BIENVENIDO with baseline AHI of 29 on 03/19/2019. Titrated to BiPAP on 11/08/2023. 2. Hypertension ECHO 08/16/23- LVEF of 61-65%. Grade 1 diastolic dysfunction. No significant valvular regurgitation or stenosis. Normal RVSP. Titration Study 11/08/23- CPAP and BiPAP therapy was initiated and titrated revealing optimal therapythis night to be BiPAP 19/15 cm. Supplemental oxygen was not needed. History of BIENVENIDO with a baseline AHI of 29. Device Download: The patient's relevant past medical, surgical, family, and social history reviewed and updated in [facility] as appropriate. Past Medical History: Diagnosis Date [...] MD fluticasone (FLONASE) 50 MCG/ACT nasal spray Administer 2 sprays into the nostril(s) as directed byprovider Daily. 08/14/23 Yes Nicolle Almanzar MD fluticasone (VERAMYST) 27.5 MCG/SPRAY nasal spray Administer 2 sprays into the nostril(s) as directed by provider Daily. Yes Nicolle Almanzar MD hydroCHLOROthiazide (MICROZIDE) 12.5 MG capsule Take 1 capsule by mouth Daily. 08/15/23 Yes Keyanna Novoa APRN vitamin B-12 (CYANOCOBALAMIN) 1000 MCG tablet Take 1 tablet by mouth 1 (One) Time Per Week. Yes Nicolle Almanzar MD vitamin D (ERGOCALCIFEROL) 1.25 MG (94333 UT) capsule capsule Take 1 capsule by mouth 1 (One) Time Per Week. 01/14/24 Nicolle Almanzar MD Family History Problem Relation Age of Onset Pancreatic cancer Mother Colon cancer Father No Known Problems Sister Lung cancer Brother Objective Vital Signs: BP 110/76 Pulse 71 Ht 170.2 cm (67 ) Wt 99.8 kg (220 lb) SpO2 95% BMI 34.46 kg/m?? Physical Exam Vitals reviewed. Constitutional: Appearance: [...] normal. Behavior: Behavior normal. PAP download reviewed: Titration study most recent PAP download reviewed Assessment and Plan Diagnoses and all orders for this visit: 1. Obstructive sleep apnea (Primary) Assessment & Plan: He completed the titration study on 11/08/2023 [...] high. He reports that he stopped using hisBiPAP several nights ago because he started hearing the unusual noise again. He would like pressuresettings lowered -Decrease pressure settings to 17/13cm -Follow up in 1 month to reassess Orders: - PAP Therapy 2. Primary hypertension Assessment & Plan: Hypertension is stable and controlled Continue current treatment regimen. Dietary sodium restriction. Weight loss. Regular aerobic exercise. Blood pressure will be reassessed in 6 months ER if symptoms increase and Report if any new/changing symptoms immediately Follow Up Return in about 4 weeks (around 02/11/2024) for BIENVENIDO. Patient was given instructions and counseling regarding his condition or for health maintenance advice. Please see specific information pulled into the AVS if appropriate. documented in this encounter Plan of Treatment Upcoming Encounters Date Type Department Care Team (Late st Contact Info) Description 02/11/2024 11:00 AM EST Office Visit [facility] [address] [place] [address] Domonique Palomino APRN [address] [place] [address] documented as of this encounter Visit Diagnoses Diagnosis Obstructive sleep apnea- Primary Obstructive sleep apnea (adult) (pediatric) Primary hypertension Unspecified essential hypertension documented in this encounter Care Teams Roustabout Hand Relationship Specialty Start Date End Date Jr Niles Acosta APRN [address] [place] [address] PCP - General Nurse Practitioner 08/16/23 documented as of this encounter
--- OUTSIDE RECORDS SUMMARY | 2024-01-29 09:02 | XMS_ITS | Encounter Summary ---
Author Organization [facility] Address [address] [place] [address] Care Team Providers Care Cleaning Supervisor Name Role Phone Jr Niles Acosta APRN Primary Care Prov ider Reason for Visit * Reason Onset Date Comments POONAM PALOMINO-SCHEDULE 11/05/2023 Encounter Details Date Type Department Care Team (Late st Contact Info) Description 11/05/2023 Telephone [facility] [address] [place] [address] Poonam Palomino APRN [address] [place] [address] POONAM PALOMINO-SCHEDULE Social History Tobacco Use Types Packs/Day Years [...] Miscellaneous Notes * Telephone Encounter - Carli David MA - 11/06/2023 10:35 AM EDT I spoke with patient, and he has more questions/concerns about his delusional. He states the last 3weeks, it's gotten worse. He wanted to talk with a provider face to face about what's going on. I did discuss with him about the overnight pulse ox, but unsure if insurance would pay. He understood. Forwarding this to you, because I added him to your schedule so that you are aware. Thanks. * Telephone Encounter - Gato Fernández CMA - 11/06/2023 8:11 AM EDT Spoke with patient. Patient stated that there was a whoosing noise coming from the machine. Instructed patient that he would need to take it to [facility] to have it looked at. Patient also stated that he has been feeling delusional, like he is not getting enough oxygen or something. Download scanned in chart. * Telephone Encounter - Alma Rosa Rodriguez RegSched Rep - 11/05/2023 4:16 PM EDT Caller: Ramakrishna Sen Relationship to patient: Self Best call back number: [phone] Chief complaint: Type of visit: FOLLOW UP Requested date: MACEY-TOMORROW If rescheduling, when is the original appointment: 12.11.2023 Additional notes:PATIENT ADVISING CPAP IS NOT WORKING PROPERLY STATED HE IS DELUSIONAL PLEASE CALL THE PATIENT TO RESCHEDULE documented in this encounter Plan of Treatment Upcoming Encounters Date Type Department Care Team (Late st Contact Info) Description 02/11/2024 11:00 AM EST Office Visit [facility] [address] [place] [phone] Poonam Palomino APRN [address] [place] [address] documented as of this encounter Visit Diagnoses Not on filedocumented in this encounter Care Teams Cleaning Supervisor Relationship Specialty Start Date End Date Jr Niles Acosta APRN [address] [place] [address] PCP - General Nurse Practitioner 08/16/23 documented as of this encounter
--- OUTSIDE RECORDS SUMMARY | 2024-01-29 09:02 | XMS_ITS | Encounter Summary ---
Author Organization [facility] Address [address] [place] [address] Care Team Providers Care Schedule Announcer Name Role Phone Jr Niles Acosta APRN Primary Care Prov ider Reason for Visit * Diagnostic Imaging (Routine) - Closed Specialty Diagnoses / Procedures Referred By Contac t Referred To Contact Diagnoses Primary hypertension Chest pain, atypical Procedures Adult Transthoracic Echo Complete W/ Cont if Necessary Per Protocol LA ECHO TTHRC R-T 2D W/WOM-MODE COMPL SPEC&COLR D LA ECHO TRANSTHORC R-T 2D W/WO M-MODE REC F-UP/LMTD Bright, Keyanna W, SOFTWARE BUSINESS ANALYST [address] [place] [address] [place] [address] Phone: tel: fax: [facility] [address] [place] [address] Phone: tel: fax: Referral ID Status Reason Start Date Expiration Date Visits Re quested Visits Authorized [id number] Closed 08/15/2023 08/14/2024 1 1 Encounter Details Date Type Department Care Team (Latest Contact Info) Description 08/16/2023 1:30 PM EDT Ancillary Procedure [facility] [address] [place] [address] [place] [phone] Primary hypertension; Chest pain, atypical Social History Tobacco Use Types Packs/Day Years [...] Sign Reading Time Taken Comments Blood Pressure 140/90 08/16/2023 1:21 PM EDT Pulse - - Temperature - - Respiratory Rate - - Oxygen Saturation - - Inhaled Oxygen Concentration - - Weight 103 kg (226 lb) 08/16/2023 1:21 PM EDT Height 170.2 cm (5' 7 ) 08/16/2023 1:21 PM EDT Body Mass Index 35.4 08/16/2023 1:21 PM EDT documented in this encounter Plan of Treatment Upcoming Encounters Date Type Department Care Team (Late st Contact Info) Description 02/11/2024 11:00 AM EST Office Visit [facility] [address] [phone] Domonique Palomino APRN [address] [address] documented as of this encounter Procedures Procedure Name Priority Date/Time Associated Diagnosis Comments ECHO COMPLETE W/ DOPPLER AND COLOR FLOW Routine 08/16/2023 1:21 PM EDT Primary hypertension Chest pain, atypical documented in this encounter Results * ECHO COMPLETE W/ DOPPLER AND COLOR FLOW (08/16/2023 1:21 PM EDT) EF(MOD-bp) 65.0 % LVIDd 4.0 cm LVIDs 2.6 cm IVSd 1.0 cm LVPWd 1.33 cm FS 33.2 % IVS/LVPW 0.67 cm ESV(cubed) 18.4 ml EDV(cubed) 61.6 ml LV mass(C)d 145.3 grams LVOT area 4.2 cm2 LVOT diam 2.30 cm EDV(MOD-sp2) 60.9 ml EDV(MOD-sp4) 83.1 ml ESV(MOD-sp2) 24.8 ml ESV(MOD-sp4) 24.6 ml SV(MOD-sp2) 36.1 ml SV(MOD-sp4) 58.5 ml EF(MOD-sp2) 59.3 % EF(MOD-sp4) 70.4 % MV E max iban 68.3 cm/sec MV A max iban 84.2 cm/sec MV dec time 0.23 sec MV E/A 0.81 Med Peak E' Iban 8.0 cm/sec Lat Peak E' Iban 10.5 cm/sec TR max iban 244.0 cm/sec Avg E/e' ratio 7.38 SV(LVOT) 73.1 ml RVIDd 3.6 cm TAPSE (>1.6) 2.01 cm LA dimension (2D) 3.6 cm LV V1 max 82.0 cm/sec LV V1 max PG 2.7 mmHg LV V1 mean PG 1.00 mmHg LV V1 VTI 17.6 cm Ao pk iban 99.0 cm/sec Ao max PG 3.9 mmHg Ao mean PG 2.00 mmHg Ao V2 VTI 25.3 cm YOVANY(I,D) 2.9 cm2 MV max PG 2.49 mmHg MV mean PG 1.00 mmHg MV V2 VTI 24.1 cm MVA(VTI) 3.0 cm2 MV dec slope 297.0 cm/sec2 TR max PG 23.8 mmHg RVSP(TR) 26.8 mmHg RAP systole 3.0 mmHg PA V2 max 89.8 cm/sec Ao root diam 3.6 cm Sinus 3.6 cm Ascending aorta 3.6 cm Anatomical Region Laterality Modality Ultrasound Narrative 08/19/2023 4:51 PM EDT ?Left ventricular systolic function is normal. Left ventricular ejection fraction appears to be 61 - 65%. ?Left ventricular diastolic function is consistent with (grade I) impaired relaxation. ?The right ventricular cavity is borderline dilated. ?No significant valvular regurgitation or stenosis present. ?Estimated right ventricular systolic pressure from tricuspid regurgitation is normal (<35 mmHg). Left Ventricle Left ventricular systolic function is normal. Left ventricular ejection fraction appears to be 61 - 65%. Septal wall motion is normal. Normal left ventricular cavity size and wall thickness noted. All left ventricular wall segments contract normally. Left ventricular diastolic function is consistent with (grade I) impaired relaxation. Normal left atrial pressure. Right Ventricle The right ventricular cavity is borderline dilated. Right ventricular wall thickness is consistent with mild hypertrophy. Normal right ventricular systolic function noted. Left Atrium Normal left atrial size and volume noted. Right Atrium Normal right atrial cavity size noted. Mitral Valve The mitral valve is structurally normal with no regurgitation or significant stenosis present. Tricuspid Valve The tricuspid valve is normal in structure. Trace to mild tricuspid valve regurgitation is present. Estimated right ventricular systolic pressure from tricuspid regurgitation is normal (<35 mmHg). Aortic Valve The aortic valve is structurally normal with no regurgitation or stenosis present. Pulmonic Valve The pulmonic valve is structurally normal with no regurgitation or significant stenosis present. Pericardium The pericardium is normal. There is no evidence of pericardial effusion. . Greater Vessels Borderline dilation of the aortic root is present. Borderline dilation of the sinuses of Valsalva is present. Borderline dilation of the ascending aorta is present. Study Quality The study is technically difficult for diagnosis. The quality of the study is limited due to lung disease. Normal sinus was the predominant rhythm observed during the procedure. Wall Scoring Score Index: 1.00 The left ventricular wall motion is normal. Keyanna Novoa APRN CV ECHO ORDERABLES Final Res ult documented in this encounter Visit Diagnoses Diagnosis Primary hypertension Unspecified essential hypertension Chest pain, atypical documented in this encounter Care Teams Schedule Announcer Relationship Specialty Start Date End Date Jr Niles Acosta APRN [address] [place] [address] PCP - General Nurse Practitioner 08/16/23 documented as of this encounter
--- OUTSIDE RECORDS SUMMARY | 2024-01-29 09:02 | XMS_ITS | Encounter Summary ---
Author Organization [facility] Address [address] [place] [address] Care Team Providers Care Commercial Lines Account Executive Name Role Phone Jr Gordon Acostael Venessa NASCIMENTO Primary Care Prov ider Reason for Visit * Reason Onset Date Comments POONAM PALOMINO -- SCHEDULINGREQUEST 10/21/2023 Encounter Details Date Type Department Care Team (Late st Contact Info) Description 10/21/2023 Telephone [facility] [address] [place] [address] Poonam Palomino APRN [address] [place], [place] [id number] POONAM PALOMINO -- SCHEDULINGREQUEST Social History Tobacco Use Types Packs/Day Years [...] Telephone Encounter - Nadia Redmond RN - 10/21/2023 8:25 AM EDT Patient made appt for today at 10:00 * Telephone Encounter - Bart Vega RegSched Rep - 10/21/2023 8:08 AM EDT Caller: SenRamakrishna bentley Relationship to patient: Self Best call back number: [phone] Chief complaint: PT FEELS NEEDS APPT TODAY. Type of visit: F/U Requested date: 10.21.23 If rescheduling, when is the original appointment: 10.25.23 Additional notes:GOT UP @ 4AM THIS MORNING, THINKING THE CPAP WAS MAKING A LOUD NOISE, IT WAS ACTUALLY THE PT MAKING THAT NOISE. PT REPORTS BEING QUITE FRIGHTENED FROM THIS AND FEELS HE NEEDS TO STOPCPAP AND MAY NEED TO BE ADMITTED SOMEWHERE. REPORTS BLOATING, AND WHOOSHING SOUND IN CHEST FROM THE CPAP. PT REPORTS SOB. documented in this encounter Plan of Treatment Upcoming Encounters Date Type Department Care Team (Late st Contact Info) Description 02/11/2024 11:00 AM EST Office Visit [facility] [address] [place] [phone] Poonam Palomino APRN [address] [place] [address] documented as of this encounter Visit Diagnoses Not on filedocumented in this encounter Care Teams Commercial Lines Account Executive Relationship Specialty Start Date End Date Jr Niles Acosta, PILY [address] [place], [place] [id number] PCP - General Nurse Practitioner 08/16/23 documented as of this encounter
--- OUTSIDE RECORDS SUMMARY | 2024-01-29 09:02 | XMS_ITS | Encounter Summary ---
Author Organization [facility] Address [address] [place] [address] Care Team Providers Care Food And Beverage Outlets Manager Name Role Phone Delfin Pratt MD Primary Care Provider [phone] Reason for Referral * Diagnostic Imaging (Routine) - Closed Specialty Diagnoses / Procedures Referred By Contac t Referred To Contact Diagnoses Primary hypertension Chest pain, atypical Procedures Adult Transthoracic Echo Complete W/ Cont if Necessary Per Protocol OR ECHO TTHRC R-T 2D W/WOM-MODE COMPL SPEC&COLR D OR ECHO TRANSTHORC R-T 2D W/WO M-MODE REC F-UP/LMTD Keyanna Novoa APRN [address] [place] [address] [place] [address] Phone: tel: fax: [facility] [address] [place] [address] Phone: tel: fax: Referral ID Status Reason Start Date Expiration Date Visits Re quested Visits Authorized [id number] Closed 08/15/2023 08/14/2024 1 1 Reason for Visit * Reason Comments Sleep Apnea Encounter Details Date Type Department Care Team (Late st Contact Info) Description 08/15/2023 11:00 AM EDT Office Visit [facility] [address] [place] [address] [place] [address] Keyanna Novoa APRN [address] [place] [address] [place] [address] Chest pain, atypical (Primary Dx); Primary hypertension; Obstructive sleep apnea Social History Tobacco Use Types Packs/Day Years [...] Sign Reading Time Taken Comments Blood Pressure 122/62 08/15/2023 10:25 AM EDT Pulse 80 08/15/2023 10:25 AM EDT Temperature - - Respiratory Rate - - Oxygen Saturation 94% 08/15/2023 10:25 AM EDT Inhaled Oxygen Concentration - - Weight 103 kg (226 lb) 08/15/2023 10:25 AM EDT Height 170.2 cm (5' 7 ) 08/15/2023 10:25 AM EDT Body Mass Index 35.4 08/15/2023 10:25 AM EDT documented in this encounter Progress Notes * Keyanna Novoa APRN - 08/15/2023 11:30 AM EDTAssociated Problem(s): Chest pain, atypical Patient reports chest pain and pressure in the center of his chest that radiates between his shoulder blades with exertion only lasting a few seconds. It is relieved with rest He also reports it radiates down into his low back. He reports worsening SOA with the chest pressure episodes. Plan an echo to evaluate heart function or valvular abnormalities. * Keyanna Novoa APRN - 08/15/2023 11:24 AM EDTAssociated Problem(s): Obstructive sleep apnea Baseline AHI 29. This is moderate sleep apnea. Download shows good compliance and control. Airflow and mask fit is comfortable. Plan to continue. * Keyanna Novoa APRN - 08/15/2023 11:22 AM EDTAssociated Problem(s): HTN (hypertension) Hypertension is stable and controlled Continue current treatment regimen. Has stopped his Bisoprolol because of low BP and worsening asthma. Wishes to restart his HCTZ 12.5mg. Blood pressure will be reassessed at next scheduled visit. . * Keyanna Novoa APRN - 08/15/2023 11:00 AM EDTAssociated Order(s): ECG 12 Lead Pre-Procedure Diagnose(s): Chest pain, atypical Post-Procedure Diagnose(s): Chest pain, atypical Images from the original note were not included. [facility] Provider Note Date: 08/15/2023 Name: Ramakrishna Sen : 1960 PCP: Delfin Pratt MD Chief Complaint Patient presents with Sleep Apnea Subjective History of Present Illness Ramakrishna Sen is a 63 y.o. male who presents today for CP. Patient states he went to his diplomatic interpreter at [facility] and was told to get his heart checked. He had been having worsening chest pressure and pain in the center of his chest radiating to his upper back between his shoulder blades and down into his lower back. He states this has been going on since June. He states he was on Bisoprolol by his PCP and was taken off his HCTZ 12.5mg . He has since stopped the Bisoprolol and has restarted his HCTZ. He also states his HCTZ was stopped due to having a bout with gout. He states he stopped the bisoprolol because he was having a low heart rate and he read where the medication should not be taken if you have asthma. He also states that when he got startedback on his inhalers he did have some relief of the chest pain, but still is having with activity. He states he would like to get refills on his HCTZ 12.5 mg to help with any BP issues that was controlled on HCTZ in the past. Cardiac/sleep history 1. BIENVENIDO with baseline AHI of 29 on 03/19/2019. CPAP settings: 10-20 cm. 2. Hypertension Reports Denies Chest Pain [x]Chest pressure and pain into his upper and lower back []Into his upper back between his shoulder blades and down into his lower back. Shortness of Air [x]Worsened since June [] Palpitations [] [x] Edema [] [x] Dizziness [] [x] Syncope [] [x] Current mask used is FFM Device Functioning Well: Yes Mask Fit Comfortable: Yes Air Flow Comfortable: Yes DME Helpful for Supplies: Yes Sleep is rested: Yes Device Download: Allergies Allergen Reactions Rocephin [Ceftriaxone] Other (See Comments) Headaches/Body aches Current Outpatient Medications: albuterol sulfate HFA 108 (90 Base) MCG/ACT inhaler, Inhale 2 puffs Every 4 (Four) Hours As Needed for Wheezing., Disp: , Rfl: budesonide-formoterol (Symbicort) 80-4.5 MCG/ACT inhaler, Four times a day, Disp: , Rfl: fluticasone (VERAMYST) 27.5 MCG/SPRAY nasal spray, 2 sprays into the nostril(s) as directed by provider Daily., Disp: , Rfl: vitamin B-12 (CYANOCOBALAMIN) 1000 MCG tablet, Take 1 tablet by mouth 1 (One) Time Per Week., Disp:, Rfl: vitamin D (ERGOCALCIFEROL) 1.25 MG (01434 UT) capsule capsule, Take 1 capsule by mouth 1 (One) TimePer Week., Disp: , Rfl: hydroCHLOROthiazide (MICROZIDE) 12.5 MG capsule, Take 1 capsule by mouth Daily., Disp: 90 capsule, Rfl: 3 Past Medical History: Diagnosis Date Anemia GERD [...] Sexual activity: Defer Objective Vital Signs: BP 122/62 Pulse 80 Ht 170.2 cm (67 ) Wt 103 kg (226 lb) SpO2 94% BMI 35.40 kg/m?? Estimated body mass index is 35.4 kg/m?? as calculated from the following: Height as of this encounter: 170.2 cm (67 ). Weight as of this encounter: 103 kg (226 lb). Physical Exam Constitutional: Appearance: Normal appearance. Cardiovascular: Rate and Rhythm: Normal rate and regular rhythm. Pulses: Normal pulses. Heart sounds: Normal heart sounds. Pulmonary: Effort: Pulmonary effort is normal. Breath sounds: Normal breath sounds and air entry. Musculoskeletal: Right lower leg: No edema. Left lower leg: No edema. Skin: General: Skin is warm. Capillary Refill: Capillary refill takes less than 2 seconds. Neurological: General: No focal deficit present. Mental Status: He is alert and oriented to person, place, and time. Psychiatric: Mood and Affect: Mood normal. Behavior: Behavior normal. The following data was reviewed by: Keyanna Novoa APRN on 08/15/2023: 30-day download 07/16/23 to 08/14/23 I have reviewed and interpreted the data from the download. Download shows good compliance and control with an AHI 0.4. Patient is receiving benefit from pap therapy. Plan to continue. ECG 12 Lead Date/Time: 08/15/2023 10:59 AM Performed by: Keyanna Novoa APRN Authorized by: Keyanna Novoa APRN Comparison: not compared with previous ECG Rhythm: sinus rhythm Rate: normal Conduction: conduction normal ST Segments: ST segments normal T Waves: T waves normal QRS axis: normal Other: no other findings Clinical impression: normal ECG Assessment and Plan Diagnoses and all orders for this visit: 1. Chest pain, atypical (Primary) Assessment & Plan: Patient reports chest pain and pressure in the center of his chest that radiates between his shoulder blades with exertion only lasting a few seconds. It is relieved with rest He also reports it radiates down into his low back. He reports worsening SOA with the chest pressure episodes. Plan an echo to evaluate heart function or valvular abnormalities. Orders: - hydroCHLOROthiazide (MICROZIDE) 12.5 MG capsule; Take 1 capsule by mouth Daily. Dispense: 90 capsule; Refill: 3 - ECG 12 Lead - Adult Transthoracic Echo Complete W/ Cont if Necessary Per Protocol; Future 2. Primary hypertension Assessment & Plan: Hypertension is stable and controlled Continue current treatment regimen. Has stopped his Bisoprolol because of low BP and worsening asthma. Wishes to restart his HCTZ 12.5mg. Blood pressure will be reassessed at next scheduled visit. . Orders: - hydroCHLOROthiazide (MICROZIDE) 12.5 MG capsule; Take 1 capsule by mouth Daily. Dispense: 90 capsule; Refill: 3 - Adult Transthoracic Echo Complete W/ Cont if Necessary Per Protocol; Future 3. Obstructive sleep apnea Assessment & Plan: Baseline AHI 29. This is moderate sleep apnea. Download shows good compliance and control. Airflow and mask fit is comfortable. Plan to continue. Recommendations: ER if symptoms increase, Report if any new/changing symptoms immediately, Sleep risks reviewed (driving, medical, sleep , sedating agents), and Sleep hygiene discussed Follow Up Return in about 4 weeks (around 09/12/2023) for Next scheduled follow up. Patient was given instructions and counseling regarding his condition or for health maintenance advice. Please see specific information pulled into the AVS if appropriate. documented in this encounter Plan of Treatment Upcoming Encounters Date Type Department Care Team (Late st Contact Info) Description 02/11/2024 11:00 AM EST Office Visit [facility] [address] [place] [phone] Domonique Palomino APRN [address] [place] [address] documented as of this encounter Procedures Procedure Name Priority Date/Time Associated Diagnosis Comments ECG 12-LEAD Routine 08/15/2023 Chest pain, atypical documented in this encounter [...] % EF(MOD-sp4) 70.4 % MV E max iabn 68.3 cm/sec MV A max iban 84.2 [...] The left ventricular wall motion is normal. us Keyanna Novoa APRN CV ECHO ORDERABLES Final Res ult * ECG 12-LEAD (08/15/2023) Narrative ECG - 08/15/2023 Kyeanna Novoa APRN ? 08/15/2023 11:41 AM ECG 12 Lead Date/Time: 08/15/2023 10:59 AM Performed by: Keyanna Novoa APRN Authorized by: Keyanna Novoa APRN ??Comparison: not compared with previous ECG Rhythm: sinus rhythm Rate: normal Conduction: conduction normal ST Segments: ST segments normal T Waves: T waves normal QRS axis: normal Other: no other findings Clinical impression: normal ECG Procedure Note Keyanna Novoa, RETINA SUBSPECIALIST - 08/15/2023 11:00 AM EDT Images from the original note were not included. [facility] Provider Note Date: 08/15/2023 Name: Ramakrishna Sen : 1960 PCP: Delfin Pratt MD Chief Complaint Patient presents with Sleep Apnea Subjective History of Present Illness Ramakrishna Sen is a 63 y.o. male who presents today for CP. Patient states he went to his diplomatic interpreter at [facility] and was told to get hisheart checked. He had been having worsening chest pressure and pain inthe center of his chest radiating to his upper back between his shoulderblades and down into his lower back. He states this has been going onsince June. He states he was on Bisoprolol by his PCP and was taken offhis HCTZ 12.5mg . He has since stopped the Bisoprolol and has restartedhis HCTZ. He also states his HCTZ was stopped due to having a bout withgout. He states he stopped the bisoprolol because he was having a lowheart rate and he read where the medication should not be taken if youhave asthma. He also states that when he got started back on his inhalershe did have some relief of the chest pain, but still is having withactivity. He states he would like to get refills on his HCTZ 12.5 mg tohelp with any BP issues that was controlled on HCTZ in the past. Cardiac/sleep history 1. BIENVENIDO with baseline AHI of 29 on 03/19/2019. CPAP settings: 10-20 cm. 2. Hypertension Reports Denies Chest Pain [x]Chest pressure and pain into his upper and lower back[]Into his upper back between his shoulder blades and down into his lowerback. Shortness of Air [x]Worsened since June [] Palpitations [] [x] Edema [] [x] Dizziness [] [x] Syncope [] [x] Current mask used is FFM Device Functioning Well: Yes Mask Fit Comfortable: Yes Air Flow Comfortable: Yes DME Helpful for Supplies: Yes Sleep is rested: Yes Device Download: Allergies Allergen Reactions Rocephin [Ceftriaxone] Other (See Comments) Headaches/Body aches Current Outpatient Medications: albuterol sulfate HFA 108 (90 Base) MCG/ACT inhaler, Inhale 2 puffsEvery 4 (Four) Hours As Needed for Wheezing., Disp: , Rfl: budesonide-formoterol (Symbicort) 80-4.5 MCG/ACT inhaler, Four times aday, Disp: , Rfl: fluticasone (VERAMYST) 27.5 MCG/SPRAY nasal spray, 2 sprays into thenostril(s) as directed by provider Daily., Disp: , Rfl: vitamin B-12 (CYANOCOBALAMIN) 1000 MCG tablet, Take 1 tablet by mouth 1(One) Time Per Week., Disp: , Rfl: vitamin D (ERGOCALCIFEROL) 1.25 MG (66554 UT) capsule capsule, Take 1capsule by mouth 1 (One) Time Per Week., Disp: , Rfl: hydroCHLOROthiazide (MICROZIDE) 12.5 MG capsule, Take 1 capsule by mouthDaily., Disp: 90 capsule, Rfl: 3 Past Medical History: Diagnosis Date Anemia GERD [...] Sexual activity: Defer Objective Vital Signs: BP 122/62 Pulse 80 Ht 170.2 cm (67 ) Wt 103 kg (226 lb) [id number]% BMI 35.40 kg/m?? Estimated body mass index is 35.4 kg/m?? as calculated from thefollowing: Height as of this encounter: 170.2 cm (67 ). Weight as of this encounter: 103 kg (226 lb). Physical Exam Constitutional: Appearance: Normal appearance. Cardiovascular: Rate and Rhythm: Normal rate and regular rhythm. Pulses: Normal pulses. Heart sounds: Normal heart sounds. Pulmonary: Effort: Pulmonary effort is normal. Breath sounds: Normal breath sounds and air entry. Musculoskeletal: Right lower leg: No edema. Left lower leg: No edema. Skin: General: Skin is warm. Capillary Refill: Capillary refill takes less than 2 seconds. Neurological: General: No focal deficit present. Mental Status: He is alert and oriented to person, place, and time. Psychiatric: Mood and Affect: Mood normal. Behavior: Behavior normal. The following data was reviewed by: Keyanna Novoa APRN on 08/15/2023: 30-day download 07/16/23 to 08/14/23 I have reviewed and interpreted thedata from the download. Download shows good compliance and control withan AHI 0.4. Patient is receiving benefit from pap therapy. Plan tocontinue. ECG 12 Lead Date/Time: 08/15/2023 10:59 AM Performed by: Keyanna Novoa APRN Authorized by: Keyanna Novoa APRN Comparison: not compared withprevious ECG Rhythm: sinus rhythm Rate: normal Conduction: conduction normal ST Segments: ST segments normal T Waves: T waves normal QRS axis: normal Other: no other findings Clinical impression: normal ECG Assessment and Plan Diagnoses and all orders for this visit: 1. Chest pain, atypical (Primary) Assessment & Plan: Patient reports chest pain and pressure in the center of his chest thatradiates between his shoulder blades with exertion only lasting a fewseconds. It is relieved with rest He also reports it radiates down intohis low back. He reports worsening SOA with the chest pressure episodes. Plan an echo to evaluate heart function or valvular abnormalities. Orders: - hydroCHLOROthiazide (MICROZIDE) 12.5 MG capsule; Take 1 capsule bymouth Daily. Dispense: 90 capsule; Refill: 3 - ECG 12 Lead - Adult Transthoracic Echo Complete W/ Cont if Necessary Per Protocol;Future 2. Primary hypertension Assessment & Plan: Hypertension is stable and controlled Continue current treatment regimen. Has stopped his Bisoprolol because of low BP and worsening asthma. [place] restart his HCTZ 12.5mg. Blood pressure will be reassessed at next scheduled visit. . Orders: - hydroCHLOROthiazide (MICROZIDE) 12.5 MG capsule; Take 1 capsule bymouth Daily. Dispense: 90 capsule; Refill: 3 - Adult Transthoracic Echo Complete W/ Cont if Necessary Per Protocol;Future 3. Obstructive sleep apnea Assessment & Plan: Baseline AHI 29. This is moderate sleep apnea. Download shows goodcompliance and control. Airflow and mask fit is comfortable. Plan tocontinue. Recommendations: ER if symptoms increase, Report if any new/changingsymptoms immediately, Sleep risks reviewed (driving, medical, sleep ,sedating agents), and Sleep hygiene discussed Follow Up Return in about 4 weeks (around 09/12/2023) for Next scheduled follow up. Patient was given instructions and counseling regarding his condition orfor health maintenance advice. Please see specific information pulled intothe AVS if appropriate. us Keyanna Novoa RETINA SUBSPECIALIST ECG ORDERABLES Final Result ECG documented in this encounter Visit Diagnoses Diagnosis Chest pain, atypical- Primary Primary hypertension Unspecified essential hypertension Obstructive sleep apnea Obstructive sleep apnea (adult) (pediatric) Primary hypertension Unspecified essential hypertension Chest pain, atypical documented in this encounter Care Teams Food And Beverage Outlets Manager Relationship Specialty Start Date End Date Delfin Pratt MD [address] [id number] PCP - General Emergency Medicine 09/10/22 08/15/23 documented as of this encounter
--- OUTSIDE RECORDS SUMMARY | 2024-01-29 09:02 | XMS_ITS | Encounter Summary ---
Author Organization [facility] Address [address] [place] [address] Care Team Providers Care Hog Feeder Name Role Phone Jr Niles Acosta APRN Primary Care Prov ider Encounter Details Date Type Department Care Team (Latest Contact Info) Description 01/14/2024 Travel Social History Tobacco Use Types Packs/Day Years [...] on file documented as of this encounter Plan of Treatment Upcoming Encounters Date Type Department Care Team (Late st Contact Info) Description 02/11/2024 11:00 AM EST Office Visit [facility] [address] [place] [phone] Domonique Palomino APRN [address] [place] [address] documented as of this encounter Visit Diagnoses Not on filedocumented in this encounter Care Teams Hog Feeder Relationship Specialty Start Date End Date Jr Niles Acosta APRN [address] [place] [address] PCP - General Nurse Practitioner 08/16/23 documented as of this encounter
--- OUTSIDE RECORDS SUMMARY | 2024-01-29 09:02 | XMS_ITS | Encounter Summary ---
Author Organization [facility] Address [address] [place] [address] Care Team Providers Care Rouge Mixer Name Role Phone Jr Niles Acosta APRN Primary Care Prov ider Reason for Referral * Medical Care (Routine) - Closed Specialty Diagnoses / Procedures Referred By Imelda t Referred To Contact Diagnoses Obstructive sleep apnea Excessive daytime sleepiness Procedures Titration Domonique Palomino APRN [address] [place] [address] Phone: tel: fax: [address] [place] [address] Phone: tel: Referral ID Status Reason Start Date Expiration Date Visits Re quested Visits Authorized [id number] Closed 10/21/2023 10/20/2024 1 1 Reason for Visit * Reason Comments Sleep Apnea CPAP issues Encounter Details Date Type Department Care Team (Late st Contact Info) Description 10/21/2023 10:00 AM EDT Office Visit [facility] [address] [place] [phone] Domonique Palomino APRN [address] [place] [address] Obstructive sleep apnea (Primary Dx); Excessive daytime sleepiness; Primary hypertension Social History Tobacco Use Types [...] Sign Reading Time Taken Comments Blood Pressure 130/74 10/21/2023 9:40 AM EDT Pulse 74 10/21/2023 9:40 AM EDT Temperature - - Respiratory Rate - - Oxygen Saturation 92% 10/21/2023 9:40 AM EDT Inhaled Oxygen Concentration - - Weight 103 kg (227 lb) 10/21/2023 9:40 AM EDT Height 170.2 cm (5' 7 ) 10/21/2023 9:40 AM EDT Body Mass Index 35.55 10/21/2023 9:40 AM EDT documented in this encounter Progress Notes * Domonique Palomino APRN - 10/21/2023 10:34 AM EDTAssociated Problem(s): Obstructive sleep apnea Patient reports that he has been hearing a unusual noise from his CPAP machine for the last severalyears. He has had multiple replacements and continues [...] a titration study and he is agreeable. * Domonique Palomino APRN - 10/21/2023 10:32 AM EDTAssociated Problem(s): HTN (hypertension) Hypertension is stable and controlled Continue current treatment regimen. Dietary sodium restriction. Weight loss. Regular aerobic exercise. Blood pressure will be reassessed in 6 months. * Domonique Palomino APRN - 10/21/2023 10:00 AM EDT Images from the original note were not included. Follow-Up Sleep Consult Date: 10/21/2023 Name: Ramakrishna Sen : 1960 PCP: Jr Niles Acosta APRN Chief Complaint Patient presents with ??? Sleep Apnea CPAP issues Subjective History of Present Illness Ramakrishna Sen is a 63 y.o. male who presents today for follow-up on BIENVENIDO. Patient reports that he has been hearing a unusual noise from his CPAP machine for the last several years. He has had multiplereplacements and continues to report a swooshing sound. He originally thought it was the CPAP machine, but this morning he noticed that the noise was coming from his chest area. He also reports excessive daytime sleepiness and fatigue. He has not been sleeping well recently. He does not feel likehis CPAP is working correctly. Download reviewed and interpreted today. Compliance is 100%, averageuse per night is 5 hours and 47 minutes. AHI is 1.8. EPR level noted to be at 1, previously set at 3. We will increase that back to 3. He is requesting to be admitted so that the medical team can hear the noise he has been experiencing. We discussed a titration study and he is agreeable. Cardiac/sleep history 1. BIENVENIDO with baseline AHI of 29 on 03/19/2019. CPAP settings: 11-16cm. 2. Hypertension ECHO 08/16/23- LVEF of 61-65%. Grade 1 diastolic dysfunction. No significant valvular regurgitation or stenosis. Normal RVSP. History of BIENVENIDO with a baseline AHI of 29. Current Treatment: Auto CPAP 11-16 cm Current mask used is fullface mask Device Functioning Well: No, Device is loud during use Mask Fit Comfortable: Yes Air Flow Comfortable: Yes DME Helpful for Supplies: Yes Sleep is rested: No, Frequent awakenings Device Download: The patient's relevant past medical, surgical, family, and social history reviewed and updated in [facility] as appropriate. Past Medical History: Diagnosis Date [...] Almanzar MD vitamin D (ERGOCALCIFEROL) 1.25 MG (08878 UT) capsule capsule Take 1 capsule by mouth 1 (One) Time Per Week. Yes Nicolle Almanzar MD Family History Problem Relation Age of Onset ??? Pancreatic cancer Mother ??? Colon cancer Father ??? No Known Problems Sister ??? Lung cancer Brother Objective Vital Signs: BP 130/74 Pulse 74 Ht 170.2 cm (67 ) Wt 103 kg (227 lb) SpO2 92% BMI 35.55 kg/m?? Class 2 Severe Obesity (BMI >=35 [...] normal. Behavior: Behavior normal. PAP download reviewed: Most recent PAP download reviewed Assessment and Plan Diagnoses and all orders for this visit: 1. Obstructive sleep apnea (Primary) Assessment & Plan: Patient reports that he has been hearing a unusual noise from his CPAP machine for the last severalyears. He has had multiple replacements and continues [...] a titration study and he is agreeable. Orders: - Titration; Future 2. Excessive daytime sleepiness - Titration; Future 3. Primary hypertension Assessment & Plan: Hypertension is stable and controlled Continue current treatment regimen. Dietary sodium restriction. Weight loss. Regular aerobic exercise. Blood pressure will be reassessed in 6 months. ER if symptoms increase and Report if any new/changing symptoms immediately Follow Up Return for keep follow up in december . Patient was given instructions and counseling regarding his condition or for health maintenance advice. Please see specific information pulled into the AVS if appropriate. documented in this encounter Plan of Treatment Upcoming Encounters Date Type Department Care Team (Late st Contact Info) Description 02/11/2024 11:00 AM EST Office Visit [facility] [address] [place] [phone] Domonique Palomino APRN [address] [place], [place] [address] documented as of this encounter Results * Titration (11/08/2023) Domonique Palomino APRN SLEEP CENTER ORDERABLES Final Result documented in this encounter Visit Diagnoses Diagnosis Obstructive sleep apnea- Primary Obstructive sleep apnea (adult) (pediatric) Excessive daytime sleepiness Primary hypertension Unspecified essential hypertension documented in this encounter Care Teams Rouge Mixer Relationship Specialty Start Date End Date Jr Niles Acosta APRN [address] [place] [address] PCP - General Nurse Practitioner 08/16/23 documented as of this encounter
--- OUTSIDE RECORDS SUMMARY | 2024-01-29 09:02 | XMS_ITS | Encounter Summary ---
Author Organization [facility] Address [address] [place] [address] Care Team Providers Care Salvage Winder And Inspector Name Role Phone DaveJr Niles Gomezkhalidakong PILY Primary Care Prov ider Reason for Visit * Reason Onset Date Comments DR. HARDING-SCHEDULING REQUEST 08/14/2023 Encounter Details Date Type Department Care Team (Late st Contact Info) Description 08/14/2023 Telephone [facility] [address] [place] [phone] Araceli Harding MD [address] [place] [address] DR. HARDING-SCHEDULING REQUEST Social History Tobacco Use Types Packs/Day [...] Miscellaneous Notes * Telephone Encounter - Carli Pena RegSched Rep - 08/14/2023 11:38 AM EDT Name: Ramakrishna Sen Relationship: Self Best Callback Number: [phone] HUB PROVIDED THE RELAY MESSAGE FROM THE OFFICE PATIENT: SCHEDULED PER NOTE ADDITIONAL INFORMATION: SCHEDULED WITH KEYANNA 6.13.24 @ 11AM * Telephone Encounter - Kendal Mujica RegSched Rep - 08/14/2023 11:14 AM EDT LVM for PT. Patient can be scheduled or Saturday this week with Keyanna Youssef, or Mouna. HUB OKto schedule. * Telephone Encounter - Carli Pena RegSched Rep - 08/14/2023 11:00 AM EDT Caller: Ramakrishna Sen Relationship to patient: Self Best call back number: [phone] Chief complaint: SAW PULMONOLOGY AND WANT HIM SEEN MACEY FOR ISSUES THEY THINK MAY BE RELATED TO HISHEART & BP MEDS Type of visit: FOLLOW UP Requested date: MACEY If rescheduling, when is the original appointment: N/A Additional notes: documented in this encounter Plan of Treatment Upcoming Encounters Date Type Department Care Team (Late st Contact Info) Description 02/11/2024 11:00 AM EST Office Visit [facility] [address] [place] [phone] Domonique Palomino APRN [address] [place] [address] documented as of this encounter Visit Diagnoses Not on filedocumented in this encounter Care Teams Salvage Winder And Inspector Relationship Specialty Start Date End Date Jr Niles Acosta APRN [address] [place] [id number] PCP - General Nurse Practitioner 08/16/23 documented as of this encounter
--- OUTSIDE RECORDS SUMMARY | 2024-01-29 09:02 | XMS_ITS | Encounter Summary ---
Author Organization [facility] Address [address] [place] [address] Care Team Providers Care Semiconductor Technician Name Role Phone Jr Niles Acosta APRN Primary Care Prov ider Encounter Details Date Type Department Care Team (Late st Contact Info) Description 01/27/2024 Telephone [facility] C[facility] [address] [place] [phone] Domonique Palomino APRN [address] [place] [address] Social History Tobacco Use Types Packs/Day Years [...] encounter Miscellaneous Notes * Telephone Encounter - Gato Fernández CMA - 01/27/2024 12:23 PM EST Download in scanned into chart now * Telephone Encounter - Nancie Rivas RN - 01/27/2024 10:51 AM EST Called [facility] who relate pt is currently on pressure of 17/13cm with PS 3. Also called pt who relates this pressure is still too much. He is having c/o bloating . Follow up scheduled for 02/11/24. Please advise. * Telephone Encounter - Dawan Saavedra MA - 01/27/2024 9:21 AM EST PATIENT CALLED AND IS NEEDING HIS PAP PRESSURE TURNED DOWN A FEW MORE HE IS FEELING THE SYMPTOMSAS BEFORE. documented in this encounter Plan of Treatment Upcoming Encounters Date Type Department Care Team (Late st Contact Info) Description 02/11/2024 11:00 AM EST Office Visit [facility] [address] [place] [phone] Domonique Palomino APRN [address] [place] [address] documented as of this encounter Visit Diagnoses Not on filedocumented in this encounter Care Teams Semiconductor Technician Relationship Specialty Start Date End Date Jr Niles Acosta APRN [address] [place] [address] PCP - General Nurse Practitioner 08/16/23 documented as of this encounter
[2024-01-29 09:10] VITALS: BP 121/89; PULSE 64; RESP 17; O2SAT 95
[2024-01-29] MEDS: VITAMIN B-12 1,000 MCG 1ML VIAL 1000 MCG IM (09:10)
== END 2024-01-29 09:20 | disposition home or self-care (01) ==
LOC: INF 09:00
PROVIDERS: PCP Nurse Practitioner Family; Visit Provider Internal Medicine Medical Oncology
DX: D51.9 Vitamin B12 deficiency anemia, unspecified (principal)
CPT/HCPCS: 96372; J3420

== ENCOUNTER 2024-02-28 09:07 | Outpatient (CLI) | payer MEDICARE, SELFPAY ==
[2024-02-28] MEDS: VITAMIN B-12 1,000 MCG 1ML VIAL 1000 MCG (09:13)
[2024-02-28 09:16] VITALS: BP 113/69; PULSE 68; RESP 18; O2SAT 94
== END 2024-02-28 09:16 | disposition home or self-care (01) ==
LOC: INF 09:07
PROVIDERS: PCP Nurse Practitioner Family; Visit Provider Internal Medicine Medical Oncology
DX: D51.9 Vitamin B12 deficiency anemia, unspecified (principal)
CPT/HCPCS: 96372; J3420

== ENCOUNTER 2024-03-27 09:17 | Outpatient (CLI) | payer MEDICARE, SELFPAY ==
[2024-03-27 09:30] VITALS: BP 130/81; PULSE 72; RESP 16; TEMP 36.3; O2SAT 98
[2024-03-27] MEDS: VITAMIN B-12 1,000 MCG 1ML VIAL 1000 MCG IM (09:30)
== END 2024-03-27 09:45 | disposition home or self-care (01) ==
LOC: INF 09:18
PROVIDERS: PCP Nurse Practitioner Family; Visit Provider Internal Medicine Medical Oncology
DX: D51.9 Vitamin B12 deficiency anemia, unspecified (principal)
CPT/HCPCS: 96372; J3420

== ENCOUNTER 2024-04-16 10:26 | Outpatient (CLI) | payer MEDICARE, SELFPAY ==
--- NOTE | 2024-04-16 10:27 | US_ITS ---
FINAL REPORT CLINICAL HISTORY: .cystic lesion on lt kidney COMPARISON: None FINDINGS: RENAL ULTRASOUND Ultrasound images of the kidneys were obtained. Limited images of the liver parenchyma demonstrate normal echogenicity. The right kidney measures 11.0 cm in length. The left kidney measures 12.5 cm in length. There is an 18 mm simple cyst of the anterior right mid kidney. There is a larger septated cyst of the left kidney measuring up to 12 cm. The central septation is mildly thickened with calcification. There is no obvious solid mass. There is no hydronephrosis. IMPRESSION: Complex cystic mass left kidney. Further evaluation using renal mass protocol recommended. Reviewed, Interpreted and Dictated by García Cortes MD Transcribed by Slime Madrigal Authenticated and [facility]
== END 2024-04-16 23:59 | disposition home or self-care (01) ==
LOC: RAD 10:27
PROVIDERS: PCP Nurse Practitioner Family; Visit Provider Nurse Practitioner Family
DX: N28.1 Cyst of kidney, acquired (principal)
CPT/HCPCS: 76770

== ENCOUNTER 2024-05-01 08:20 | Outpatient (CLI) | payer MEDICARE, SELFPAY ==
[2024-05-01 08:28] VITALS: BP 132/85; PULSE 73; RESP 18; TEMP 36.3; O2SAT 93
[2024-05-01] MEDS: VITAMIN B-12 1,000 MCG 1ML VIAL 1000 MCG IM (08:29)
== END 2024-05-01 08:42 | disposition home or self-care (01) ==
LOC: INF 08:20
PROVIDERS: PCP Nurse Practitioner Family; Visit Provider Internal Medicine Medical Oncology
DX: R53.83 Other fatigue (principal)
CPT/HCPCS: 96372; J3420

== ENCOUNTER 2024-05-27 11:11 | Outpatient (CLI) | payer MEDICARE, SELFPAY ==
[2024-05-27 18:47] LABS: Basophils # 0.1 K/mm3 (0-0.2); Basophils % 0.8 % (0.1-2.0); Eosinophils # 0.2 K/mm3 (0.0-0.4); Eosinophils % 2.5 % (0.1-12.0); Hematocrit 53.6 % (42.0-52.0); Hemoglobin 17.6 g/dL (14.1-18.0); Lymphocytes # 1.2 K/mm3 (0.7-4.5); Lymphocytes % 16.7 % (10-50); Mean Corpuscular HGB Conc 32.8 g/dL (31.8-35.4); Mean Corpuscular Hemoglobin 31.2 pg (27.0-31.2); Mean Corpuscular Volume 94.9 fl (80-94); Mean Platelet Volume 10.6 fl (7.4-10.4); Monocytes # 0.5 K/mm3 (0.1-1.0); Monocytes % 6.9 % (1.7-9.3); Neutrophils # 5.3 K/mm3 (1.8-7.8); Neutrophils % 72.8 % (37.0-80.0); Platelet Count 257 K/mm3 (142-424); Red Blood Count 5.65 M/mm3 (4.60-6.20); White Blood Count 7.3 K/mm3 (4.8-10.8)
[2024-05-27 19:26] LABS: Erythrocyte Sedimentation Rate 4 mm/hr (0-20)
[2024-05-27 19:27] LABS: Hemoglobin A1C 5.4 % (4.0-6.0)
[2024-05-27 20:23] LABS: Alanine Aminotransferase 23 U/L (12-78); Albumin/Globulin Ratio 1.9 (1.1-1.8); Alkaline Phosphatase 39 U/L (38-126); Anion Gap 18.5 mEq/L (5-15); Aspartate Amino Transferase 26 U/L (17-59); Bilirubin,Total 1.2 mg/dl (0.2-1.3); Blood Urea Nitrogen 9 mg/dl (9-20); Calcium 9.9 mg/dl (8.4-10.2); Carbon Dioxide 24 mmol/L (22.0-30.0); Chloride 100 mmol/L (98-107); Chol/HDL Ratio 5.5 (1-3.5); Cholesterol 224 mg/dl (140-200); Estimated Glomerular Filt Rate 114 ml/min (>60); GFR (African American) 138 ML/MIN (>60); Globulin 2.6 g/dL (1.3-3.2); Glucose 84 mg/dl (74-100); HDL Cholesterol 41 mg/dl (40-60); Potassium 4.5 mmoL/L (3.5-5.1); Sodium 138 mmol/L (136-145); Total Protein,Serum 7.6 g/dl (6.3-8.2); Triglycerides 229 mg/dl (30-150); VLDL Cholesterol 46 mg/dL (0-40)
[2024-05-27 20:34] LABS: C-Reactive Protein 15.8 mg/L (0-4); Direct LDL Cholesterol 139.41 mg/dL (100-129)
[2024-05-27 20:54] LABS: Thyroid Stimulating Hormone 0.63 uIU/mL (0.465-4.68)
[2024-05-27 21:13] LABS: Vitamin B12 432 pg/mL (239-931)
[2024-05-27 21:46] LABS: Folate 9.82 ng/mL
[2024-05-27 21:51] LABS: Iron 189 ug/dL (49-181)
[2024-05-27 22:26] LABS: Total Iron Binding Capacity 375 ug/dL (261-462)
== END 2024-05-27 23:59 | disposition home or self-care (01) ==
LOC: LAB.DROPOF 05-28 12:39
PROVIDERS: PCP Nurse Practitioner Family; Visit Provider Nurse Practitioner Family
DX: I10 Essential (primary) hypertension (principal); D51.8 Other vitamin B12 deficiency anemias; E66.01 Morbid (severe) obesity due to excess calories; E66.812 Obesity, class 2; Z68.35 Body mass index [BMI] 35.0-35.9, adult; R53.83 Other fatigue
CPT/HCPCS: 80053; 80061; 82306; 82607; 82746; 83036; 83540; 83550; 84443; 85025; 85651; 86140

== ENCOUNTER 2024-05-29 08:47 | Outpatient (CLI) | payer MEDICARE, SELFPAY ==
[2024-05-29] MEDS: VITAMIN B-12 1,000 MCG 1ML VIAL 1000 MCG IM (08:55)
[2024-05-29 09:05] VITALS: BP 114/83; PULSE 76; RESP 18; TEMP 36.1; O2SAT 94
--- NOTE | 2024-05-29 09:06 | XR_ITS ---
FINAL REPORT CLINICAL HISTORY: Foot Pain PRIOR HX OF BACTERIAL INFECTION PER PATIENT COMPARISON: None FINDINGS: LEFT FOOT Three views demonstrate no acute fracture or dislocation. There are small degenerative cysts in the distal first metatarsal. No acute soft tissue abnormality is seen. IMPRESSION: Degenerative changes without acute bony abnormality. Reviewed, Interpreted and Dictated by Angel Barragan MD Transcribed by Slime Madrigal Authenticated and [facility]
--- NOTE | 2024-05-29 09:06 | XR_ITS ---
FINAL REPORT CLINICAL HISTORY: Foot Pain COMPARISON: None FINDINGS: RIGHT FOOT Three views demonstrate no acute fracture or dislocation. The joint spaces appear normal. No acute soft tissue abnormality is seen. There is a small plantar spur. IMPRESSION: No acute bony abnormality. Reviewed, Interpreted and Dictated by Angel Barragan MD Transcribed by Slime Madrigal Authenticated and [facility]
== END 2024-05-29 09:05 | disposition home or self-care (01) ==
LOC: INF 08:48
PROVIDERS: PCP Nurse Practitioner Family; Visit Provider Internal Medicine Medical Oncology
DX: D51.8 Other vitamin B12 deficiency anemias (principal); L03.116 Cellulitis of left lower limb
CPT/HCPCS: 73630; 96372; J3420

== ENCOUNTER 2024-05-30 10:25 | Emergency (ER) | payer MEDICARE, SELFPAY ==
[2024-05-30 10:34] VITALS: BP 134/94; PULSE 87; RESP 18; TEMP 36.5; O2SAT 97; BMI 35.4
--- NOTE | 2024-05-30 10:52 | XR_ITS ---
PROCEDURE INFORMATION: Exam: XR Left Ankle Exam date and time: 05/30/2024 11:25 AM Age: 63 years old Clinical indication: Swelling or effusion of joint; Ankle; Additional info: sig swelling since prior, lateral mal pain TECHNIQUE: Imaging protocol: Radiologic exam of the left ankle. Views: 3 or more views. Total images: 3 COMPARISON: CR XR FOOT WT BEARING LT 3V 05/29/2024 9:13 AM FINDINGS: Bones/joints: No evidence of acute fracture or dislocation. Soft tissues: Diffuse soft tissue swelling. IMPRESSION: 1. Diffuse soft tissue swelling. 2. No evidence of acute fracture or dislocation.
--- NOTE | 2024-05-30 10:56 | ED_ITS ---
Discharge Plan Disposition Patient Disposition: Home, Self-Care Prescriptions Prescriptions: New doxycycline hyclate 100 mg capsule 100 mg PO BID 7 Days Qty: 14 0RF No Action albuterol sulfate [Ventolin HFA] 90 mcg/actuation HFA aerosol inhaler 2 inh inhalation Q6H PRN (Reason: shortness of breath or wheezing) 90 Days Qty: 18 3RF budesonide-formoterol [Symbicort] 160-4.5 mcg/actuation HFA aerosol inhaler 2 puff inhalation BID 90 Days Qty: 10.2 2RF fluticasone propionate [Flonase Allergy Relief] 50 mcg/actuation spray,suspension 2 spray intranasal DAILY PRN (Reason: allergic symptoms) 90 Days Qty: 16 3RF Rx Instructions: administer into each nostril cyanocobalamin (vitamin B-12) 1,000 mcg/mL solution 1,000 mcg IM QMONTH hydrochlorothiazide 12.5 mg tablet 12.5 mg PO DAILY Referrals Follow up/Referrals: Niles Acosta APRN [Primary Care Provider] - See instructions Activity Restrictions/Add. Instructions Additional Instructions/Restrictions: Call your family doctor to establish care for this visit to the emergency department and schedule follow-up within 48 hours to ensure improvement. If you have any worsening of your condition or any other concerning signs or symptoms, return to the emergency department or your primary care doctor for further evaluation. Doxycycline twice daily for 7 days. Be sure to stay out of the sun while on doxycycline because it can cause severe sunburn and blistering Clinical Impressions Clinical Impression: Cellulitis of left ankle Print Language Print Language: Citizen Of [place] Discharge ED Provider: Timothy Steiner General Adult HPI General Chief complaint: Extremity Problem,Nontraumatic Stated complaint: swollen L foot, back pain Time Seen by Provider: 05/30/24 10:35 Mode of Arrival: Ambulatory Source of Information: Patient Description of Symptoms (Recalled from ER Triage Doc. by RN): left foot pain that has been going on since fall. had blood work and x rays done yesterday. has not received results. no fevers. hx of gout History of Present Illness HPI narrative: Please note that above description of symptoms, in this electronic medical record under categorization of recalled from ER triage doctor by RN are reflective of an initial nursing assessment, however, is not reflective of my full history and physical exam that was personally taken and clarified. Consequentially, this preceding description of symptoms, which may include the patient's categorized chief complaint in the EMR, do not reflect my personal clinical impression, and the ultimate description of history of present illness and patient stated complaints should be deferred to this section of the note. Unless stated otherwise or congruent with this section of the note, additional signs, symptoms, or incongruence should be interpreted as inaccurate with my clinical impression. Related Data Home Medications ?Medication ?Instructions ?Recorded ?Confirmed cyanocobalamin (vitamin B-12) 1,000 mcg IM QMONTH Supplement 08/17/22 05/29/24 1,000 mcg/mL injection solution hydrochlorothiazide 12.5 mg tablet 12.5 mg PO DAILY 07/30/23 05/29/24 Previous Rx's ?Medication ?Instructions ?Recorded albuterol sulfate 90 mcg/actuation 2 inh inhalation Q6H PRN shortness 08/14/23 aerosol inhaler (Ventolin HFA) of breath or wheezing 90 days #18 grams budesonide-formoterol HFA 160 2 puff inhalation BID 90 days 08/14/23 mcg-4.5 mcg/actuation aerosol #10.2 grams inhaler (Symbicort) fluticasone propionate 50 2 spray intranasal DAILY PRN 08/14/23 mcg/actuation nasal allergic symptoms 90 days #16 grams spray,suspension (Flonase Allergy Relief) doxycycline hyclate 100 mg capsule 100 mg PO BID 7 days #14 caps 05/30/24 Allergies Allergy/AdvReac Type Severity Reaction Status Date / Time ceftriaxone Allergy Mild ANAPHYLAXIS Verified 05/27/24 10:39 [facility] Disclaimer: The information contained in this section may have been updated after the patient was seen, as this information can be updated by other users. Medical History Asthma History of COPD Dyspnea on exertion History of sleep apnea Nocturnal hypoxemia Moderate persistent asthma Allergic rhinitis due to animal (cat) (dog) hair and dander Seasonal allergies Surgical History H/O esophagogastroduodenoscopy H/O colonoscopy History of cholecystectomy H/O hernia repair Family History Other Cancer Social History Smoking Status: Never smoker second hand exposure: No alcohol intake: never substance use type: denies use current occupational status: unemployed Travel in the last 8 weeks: None household members: none housing: house lives independently: Yes marital status: single current occupational exposures/hazards: No caffeine: Yes Have you lived/traveled outside [place] in past 30 days?: No Contact w/someone who lives/traveled outside [place] past 30 days?: No Exposure to someone with infectious disease in past 14 days?: No Do you have a fever (greater than 100.4 F or 38 C)?: No Have you tested positive for COVID-19: No Exposed to someone with COVID-19 in past 14 days?: No Do you have a sore throat?: No Do you have a cough?: No Do you have any weakness?: No Do you have any diarrhea?: No Are you experiencing any unusual bleeding?: No Do you have any muscle aches/pain?: No Do you have any abdominal pain?: No Are you experiencing loss of taste or smell?: No Other Medical History Have you received the Flu Vaccine for this season: No Have you received the Pneumonia Vaccine: No ROS Obtained: Yes All systems reviewed & no additional complaints except as documented Physical Exam General General appearance: alert Head Head exam: atraumatic and normocephalic Eye Eye exam: Present normal appearance, PERRL and EOMI Neck Neck exam: Present normal inspection, full ROM and trachea midline Respiratory Respiratory exam: Absent respiratory distress, wheezes, stridor, accessory muscle use or prolonged expiratory phase Cardiovascular Cardiovascular exam: Present other (Pulses equal symmetric in upper and lower extremities) Abdominal Exam Abdominal exam: Present soft; Absent distention, tenderness or pulsatile mass Extremities Exam Extremities exam: Present edema and other (Tenderness and swelling left lateral malleolus with associated joint effusion) Back Exam Back exam: Present paraspinal tenderness (Left lumbosacral) and vertebral tenderness (Lumbosacral) Neurological Exam Neurological exam: Present alert, oriented X3 and CN II-XII intact; Absent motor sensory deficit Skin Skin exam: Present warm and dry; Absent diaphoresis or erythema Medical Decision Making Medical Records Medical records reviewed: Yes I reviewed the patient's medical records. Screening: Per USPSTF and CDC recommendations, given the prevalence of disease in our region, it is our hospital?s policy to screen for HIV and viral Hepatitis for all patients aged 18 and over and those with ongoing risk factors. Ba Inquiry Pt receiving controlled substance: No Ba was queried for this patient: No Vital Signs: 05/30/24 10:34 05/30/24 12:04 Temperature 97.7 F 98.7 F Temperature Source Oral Oral Pulse Rate 85 Pulse Rate [Right] 87 Respiratory Rate 18 13 Blood Pressure 142/89 H Blood Pressure [Right Arm] 134/94 H Blood Pressure Mean [Right Arm] 107 02 Sat by Pulse Oximetry 97 95 Oxygen Delivery Method Room Air Room Air Lab Data Lab Results 05/30/24 11:01: WBC 7.8, RBC 5.56, Hgb 17.8, Hct 51.6, MCV 92.8, MCH 32.0 H, MCHC 34.5, RDW 12.9, Plt Count 242, MPV 10.0, Neut % (Auto) 78.7, Lymph % (Auto) 12.5, Mineral % (Auto) 6.6, Eos % (Auto) 1.5, Baso % (Auto) 0.4, Neut # (Auto) 6.2, Lymph # (Auto) 1.0, Mineral # (Auto) 0.5, Eos # (Auto) 0.1, Baso # (Auto) 0.0, ESR 1, Sodium 142, Potassium 4.4, Chloride 104, Carbon Dioxide 27, Anion Gap 15.4 H, BUN 12 D, Creatinine 0.70, Estimated Creat Clear 111, Estimated GFR 114, Est GFR ( Amer) 138, Glucose 105 H, Uric Acid 7.5, Calcium 10.1, Total Bilirubin 0.6, AST 25, ALT 22, Alkaline Phosphatase 47, C-Reactive Protein 27.2 H D, Total Protein 8.3 H, Albumin 4.8, Globulin 3.5 H, Albumin/Globulin Ratio 1.4 05/30/24 11:01 05/30/24 11:01 Orders (Tests/Meds): ED MEDICATIONS Discontinued Medications Generic Name Dose Route Start Last Admin Trade Name Freq PRN Reason Stop Dose Admin Ketorolac Tromethamine 15 mg 05/30/24 10:50 05/30/24 11:07 Ketorolac 30mg/Ml Vial IV 05/30/24 10:51 15 mg ONCE ONE Administration Methylprednisolone Sodium Succinate 125 mg 05/30/24 10:50 05/30/24 11:07 Methylprednisolone Sod Succ 125mg Vial IV 05/30/24 10:51 125 mg ONCE ONE Administration ORDERS Category Date Time Status Ankle XR - Left minimum 3 Views [XR ankle LT min 3V] Exams 05/30/24 10:52 Completed Stat POCUS Point of Care (ER Only) Stat Exams 05/30/24 10:50 Taken CBC w/Auto Diff [Complete Blood Count Auto Diff] Stat Lab 05/30/24 11:01 Completed CMP [Comprehensive Metabolic Panel] Stat Lab 05/30/24 11:01 Completed CRP [C-Reactive Protein] Stat Lab 05/30/24 11:01 Completed ESR [Erythrocyte Sedimentation Rate] Stat Lab 05/30/24 11:01 Completed Uric Acid Stat Lab 05/30/24 11:01 Completed Blood Culture Stat Micro 05/30/24 10:50 Received Medical Decision Narrative: 63-year-old male history of hypertension, hyperlipidemia, gout, presenting with multiple complaints. He states that his biggest complaint is his left lower back. He has pain in his midline and states that it is radiating into his left hip. States that it started happening after he bent down to put his socks on a couple days ago. Has not taken anything for it. Patient also states that his other complaint is left ankle swelling. Went to family doctor and had it x- rayed. States that he was concerned that he had a bacterial infection in his joints in the past, was put on antibiotic in the remote past and it went away. Patient denies bowel or bladder dysfunction, chest pain, shortness of breath, nausea, vomiting, fevers, chills, red streaking up the leg, or any other concerns. He states that it is tender and swollen on the lateral aspect of his left ankle. History was obtained via conversation with patient and outside result review. On arrival, patient hemodynamically stable, alert, [oriented x4, ][appropriate, ]GCS [15], moving all extremities spontaneously, pupils equal and reactive to light. Full physical exam performed and significant for chronically ill-appearing male who is in no acute distress. Nontachycardic, mildly hypertensive. Patient has mild midline lumbosacral spine pain with no outward signs of abnormality, step-off, deformity, etc. Also has mild paraspinal pain on the left just above SI joint consistent with probable radiculopathy. Neurovascular intact lower extremities and ambulatory. Regarding left lower extremity, patient has swelling and tenderness about lateral malleolus and ankle, but no evidence of trauma. No redness or warmth. Differential includes gout flare, sprain, strain, radiculopathy, fracture, dislocation, among others. Patient was given Toradol and Solu-Medrol for symptomatic management[ and correction of underlying abnormalities]. Workup independently interpreted and significant for nonactionable CBC or chemistry. ESR normal at 1. CRP climbing currently 27 up from 15 a couple days prior. On independent interpretation of imaging, patient has soft tissue swelling, but no bony abnormality about the joint. See radiology read for full review of final results. On reevaluation, patient states his pain is currently 2 out of 10 and very manageable. Bedside [id number] ultrasound was performed about the foot and ankle. Patient does not have a joint effusion, but he does have extensive cobblestoning and fluid about the ankle consistent with cellulitis. Given patient presentation, workup, history, this most likely represents cellulitis about the left ankle. Given first dose of doxycycline here. Rest of doxycycline sent to the pharmacy. Precautions about sunlight were discussed. He voiced his understanding. Physical Sciences Instructor disclaimer Much of this encounter note is an electronic administrative medical director spoken language to printed text. Electronic administrative medical director of the spoken language may permit errors. Although I have reviewed the note, some errors may still exist. Procedures Limited Ultrasound Indication:: Limited soft tissue ultrasound Indication: Soft tissue swelling left ankle with negative x-rays Identified structures: Location: Left foot and ankle Findings: Cellulitis without abscess left foot and ankle. No evidence of joint effusion Impression: Cellulitis without abscess of the left foot and ankle no evidence of joint effusion Images were saved to permanent archive The study was technically adequate Soft Tissue CPT Codes: CPT Neck: 81891-89 CPT Upper extremity: 30704-68 CPT Axilla: 41751-21 CPT Chest wall: 27227-65 CPT Breast: 71083-66-[place]/LT (complete), 92574-24-GN/LT (limited), CPT Upper Back: 00270-71 CPT Lower Back: 92448-93 CPT Abdominal Wall: 43799-42 CPT Pelvic Wall: 14023-19 CPT Lower Extremity: 42621-86 CPT Other Soft Tissue: 81641-64 This study was performed by me, and I personally interpreted all images/videos. Based on my clinical judgement, these images were adequate and did not necessitate further imaging. Critical Care Critical Care Time Critical Care Time: No
[2024-05-30] MEDS: KETOROLAC 30MG/ML VIAL 15 MG IV (11:07)
[2024-05-30] MEDS: METHYLPREDNISOLONE SOD SUCC 125MG VIAL 125 MG IV (11:07)
[2024-05-30 11:19] LABS: Basophils % 0.4 % (0.1-2.0); Eosinophils # 0.1 K/mm3 (0.0-0.4); Eosinophils % 1.5 % (0.1-12.0); Hematocrit 51.6 % (42.0-52.0); Hemoglobin 17.8 g/dL (14.1-18.0); Lymphocytes % 12.5 % (10-50); Mean Corpuscular HGB Conc 34.5 g/dL (31.8-35.4); Mean Corpuscular Volume 92.8 fl (80-94); Monocytes # 0.5 K/mm3 (0.1-1.0); Monocytes % 6.6 % (1.7-9.3); Neutrophils # 6.2 K/mm3 (1.8-7.8); Neutrophils % 78.7 % (37.0-80.0); Platelet Count 242 K/mm3 (142-424); Red Blood Count 5.56 M/mm3 (4.60-6.20); Red Cell Distribution Width 12.9 % (11.5-17.5); White Blood Count 7.8 K/mm3 (4.8-10.8)
[2024-05-30 11:31] LABS: Albumin Level 4.8 g/dl (3.5-5.0); Chloride 104 mmol/L (98-107); Potassium 4.4 mmoL/L (3.5-5.1); Sodium 142 mmol/L (136-145)
[2024-05-30 11:34] LABS: Alanine Aminotransferase 22 U/L (12-78); Albumin/Globulin Ratio 1.4 (1.1-1.8); Alkaline Phosphatase 47 U/L (38-126); Anion Gap 15.4 mEq/L (5-15); Aspartate Amino Transferase 25 U/L (17-59); Bilirubin,Total 0.6 mg/dl (0.2-1.3); Blood Urea Nitrogen 12 mg/dl (9-20); Calcium 10.1 mg/dl (8.4-10.2); Carbon Dioxide 27 mmol/L (22.0-30.0); Creatinine Clearance Estimated 111 mL/min (50-200); Estimated Glomerular Filt Rate 114 ml/min (>60); GFR (African American) 138 ML/MIN (>60); Globulin 3.5 g/dL (1.3-3.2); Glucose 105 mg/dl (74-100); Total Protein,Serum 8.3 g/dl (6.3-8.2)
[2024-05-30 12:04] VITALS: BP 142/89; PULSE 85; RESP 13; TEMP 37.1; O2SAT 95
[2024-05-30 12:11] LABS: Uric Acid 7.5 mg/dl (3.5-8.5)
[2024-05-30 12:16] LABS: C-Reactive Protein 27.2 mg/L (0-4)
[2024-05-30 12:33] LABS: Erythrocyte Sedimentation Rate 1 mm/hr (0-20)
[2024-05-30] MEDS: DOXYCYCLINE HYCL 100 MG TABLET PO (13:09)
[2024-05-30 13:14] VITALS: BP 135/96; PULSE 84; RESP 13; TEMP 36.7; O2SAT 95
== END 2024-05-30 13:15 | disposition home or self-care (01) ==
PROVIDERS: Emergency Provider Emergency Medicine; PCP Nurse Practitioner Family
DX: L03.116 Cellulitis of left lower limb (principal); M25.559 Pain in unspecified hip; M54.9 Dorsalgia, unspecified; I10 Essential (primary) hypertension; J45.40 Moderate persistent asthma, uncomplicated; J44.89 Other specified chronic obstructive pulmonary disease; G47.30 Sleep apnea, unspecified; R09.02 Hypoxemia; E78.5 Hyperlipidemia, unspecified; M10.9 Gout, unspecified; Z91.81 History of falling; Z98.890 Other specified postprocedural states; Z91.048 Other nonmedicinal substance allergy status; Z80.9 Family history of malignant neoplasm, unspecified; Z90.49 Acquired absence of other specified parts of digestive tract
CPT/HCPCS: 73610; 80053; 84550; 85025; 85651; 86140; 87040; 96374; 96375; 99284; J1885; J2919

== ENCOUNTER 2024-06-08 08:52 | Inpatient (IN) | payer MEDICARE, SELFPAY ==
[2024-06-08] VITALS (22 sets, daily range): BP systolic 115–146; BP diastolic 62–95; PULSE 77–100; RESP 15–20; TEMP 36.5–36.9; O2SAT 90–100; BMI 34.9; BMI 34.4
--- NOTE | 2024-06-08 10:25 | XR_ITS ---
FINAL REPORT CLINICAL HISTORY: bilateral great toe pain COMPARISON: None FINDINGS: LEFT FOOT Three views of the left foot demonstrate no acute fracture or dislocation. There is mild narrowing of the first MTP joint. There is prominent soft tissue edema over the medial first metatarsal phalangeal joint. IMPRESSION: Soft tissue edema without acute bony abnormality. Reviewed, Interpreted and Dictated by Angel Barragan MD Transcribed by Michelle Partida Authenticated and . [facility]
--- NOTE | 2024-06-08 10:25 | XR_ITS ---
FINAL REPORT CLINICAL HISTORY: bilateral great toe pain COMPARISON: None FINDINGS: RIGHT FOOT 3 views of the right foot were obtained. There is no acute fracture or dislocation. Visualized joint spaces are normally aligned. There is a small plantar spur. Soft tissues are unremarkable. IMPRESSION: No acute bony abnormality. Reviewed, Interpreted and Dictated by Angel Barragan MD Transcribed by Michelle Partida Authenticated and [facility]
[2024-06-08 10:35] LABS: Basophils % 0.2 % (0.1-2.0); Eosinophils % 0.3 % (0.1-12.0); Hematocrit 51.4 % (42.0-52.0); Hemoglobin 17.3 g/dL (14.1-18.0); Lymphocytes # 0.6 K/mm3 (0.7-4.5); Lymphocytes % 4.8 % (10-50); Mean Corpuscular HGB Conc 33.7 g/dL (31.8-35.4); Mean Corpuscular Hemoglobin 31.5 pg (27.0-31.2); Mean Corpuscular Volume 93.5 fl (80-94); Mean Platelet Volume 9.4 fl (7.4-10.4); Monocytes # 1.1 K/mm3 (0.1-1.0); Monocytes % 9.4 % (1.7-9.3); Neutrophils # 10.1 K/mm3 (1.8-7.8); Neutrophils % 84.7 % (37.0-80.0); Platelet Count 268 K/mm3 (142-424); Red Cell Distribution Width 12.3 % (11.5-17.5); White Blood Count 11.9 K/mm3 (4.8-10.8)
[2024-06-08 10:43] LABS: Lactic Acid 1.3 mmol/L (0.7-2.1)
[2024-06-08 10:45] LABS: Albumin Level 4.5 g/dl (3.5-5.0); Chloride 99 mmol/L (98-107); Potassium 4.8 mmoL/L (3.5-5.1); Sodium 139 mmol/L (136-145)
[2024-06-08 10:47] LABS: Blood Urea Nitrogen 13 mg/dl (9-20); Creatinine Clearance Estimated 108 mL/min (50-200); Estimated Glomerular Filt Rate 75 ml/min (>60); GFR (African American) 91 ML/MIN (>60)
[2024-06-08 10:48] LABS: Alanine Aminotransferase 22 U/L (12-78); Albumin/Globulin Ratio 1.2 (1.1-1.8); Alkaline Phosphatase 51 U/L (38-126); Anion Gap 16.8 mEq/L (5-15); Aspartate Amino Transferase 28 U/L (17-59); Bilirubin,Total 1.3 mg/dl (0.2-1.3); Calcium 9.8 mg/dl (8.4-10.2); Carbon Dioxide 28 mmol/L (22.0-30.0); Globulin 3.7 g/dL (1.3-3.2); Glucose 105 mg/dl (74-100); Total Protein,Serum 8.2 g/dl (6.3-8.2)
[2024-06-08 10:54] LABS: C-Reactive Protein 148.1 mg/L (0-4)
[2024-06-08] MEDS: ACETAMINOPHEN 500MG TAB 1000 MG PO (10:56)
[2024-06-08] MEDS: KETOROLAC 30MG/ML VIAL 15 MG IV (10:56)
--- NOTE | 2024-06-08 11:18 | CT_ITS ---
FINAL REPORT CLINICAL HISTORY: 1st MTP swelling/fluctuance, eval abscess FINDINGS: CT LEFT FOOT with CONTRAST TECHNIQUE: Postcontrast axial and reformatted sagittal and coronal images were obtained of the left foot. This study was performed with techniques to keep radiation doses as low as reasonably achievable, (ALARA). Individualized dose reduction techniques using automated exposure control or adjustment of mA and/or kV according to the patient's size were employed. FINDINGS: There is no acute fracture or dislocation. There is a moderate hallux valgus deformity. There is significant joint space narrowing of the first metatarsophalangeal joint with cyst formation in the first metatarsal head. There is soft tissue edema in the medial first MTP. There is mild bony erosion involving the first metatarsal head. Findings are concerning for gout or osteomyelitis. There are faint calcifications in the soft tissues medially to the first metatarsal heads which could be related to partial calcific tophi. IMPRESSION: Mild bony erosion and soft tissue swelling of the first metatarsal head with calcifications concerning for gout versus osteomyelitis. Reviewed, Interpreted and Dictated by Angel Barragan MD Transcribed by Anum Mejia Authenticated and [facility]
[2024-06-08 11:20] LABS: Uric Acid 8.9 mg/dl (3.5-8.5)
[2024-06-08 11:38] LABS: Procalcitonin 0.074 ng/mL (0.0-2.0)
[2024-06-08] MEDS: IOPAMIDOL-370 (76%);100ML BOTTLE 75 ML IV (11:38)
[2024-06-08] MEDS: SODIUM CHLORIDE 0.9% 10ML SYR (RAD ONLY) 10 ML IV (11:38)
[2024-06-08 11:46] LABS: Hemoglobin A1C 5.3 % (4.0-6.0)
--- NOTE | 2024-06-08 11:52 | HMH.EDGENADL ---
Discharge Plan Disposition Patient Disposition: Admitted Condition: Good Clinical Impressions Clinical Impression: Abscess of great toe, left Cellulitis Qualifiers: Site of cellulitis: extremity Site of cellulitis of extremity: lower extremity Laterality: left Qualified Code(s): L03.116 - Cellulitis of left lower limb Gout Qualifiers: Gout site: toe Gout etiology: unspecified cause Chronicity: chronic Laterality: left Presence of tophus: without tophus Qualified Code(s): M1A.9XX0 - Chronic gout, unspecified, without tophus (tophi) Discharge ED Provider: Geraldine Hernandez General Adult HPI General Chief complaint: Skin/Abscess/Foreign Body Stated complaint: Celluitis Both Feet Time Seen by Provider: 06/08/24 10:06 Mode of Arrival: Wheelchair Source of Information: Patient Description of Symptoms (Recalled from ER Triage Doc. by RN): PT REPORTS PAIN TO BILATERAL FEET, REPORTS RECENT TREATMENT FOR CELLULITIS. PT REPORTS PAIN WORSE IN LEFT FOOT, REDNESS NOTED TO LEFT GREAT TOE. PT REPORTS HX OF GOUT, NOT TAKING ANY MEDICATIONS FOR GOUT History of Present Illness HPI narrative: This patient is a 64-year-old male with a history of gout, hypertension, BIENVENIDO, and asthma presented to the emergency department for evaluation with concern for pain to the bilateral feet. Patient notes he was recently treated for cellulitis of the left ankle, however despite being on antibiotics, he has had worsening pain, redness, and swelling to his left great toe. He also notes some redness and pain to his right great toe, but not nearly as bad as the left. No known trauma or injuries noted. No fevers or infectious symptoms noted. He notes this feels worse than usual gout flares and his gout flares typically do not streak up his foot like this. He is having trouble walking secondary to the pain. Related Data Home Medications ?Medication ?Instructions ?Recorded ?Confirmed cyanocobalamin (vitamin B-12) 1,000 mcg IM MONTHLY 08/17/22 06/08/24 1,000 mcg/mL injection solution cholecalciferol (vitamin D3) 1,250 1,250 mcg PO WEEKLY 06/08/24 06/08/24 mcg (50,000 unit) capsule Previous Rx's ?Medication ?Instructions ?Recorded cholecalciferol (vitamin D3) 50 50 mcg PO DAILY #30 caps 06/02/24 mcg (2,000 unit) capsule Allergies Allergy/AdvReac Type Severity Reaction Status Date / Time ceftriaxone Allergy Mild ANAPHYLAXIS Verified 05/27/24 10:39 [facility] Disclaimer: The information contained in this section may have been updated after the patient was seen, as this information can be updated by other users. Medical History Asthma History of COPD Dyspnea on exertion History of sleep apnea Nocturnal hypoxemia Moderate persistent asthma Allergic rhinitis due to animal (cat) (dog) hair and dander Seasonal allergies Surgical History H/O esophagogastroduodenoscopy H/O colonoscopy History of cholecystectomy H/O hernia repair Family History Other Cancer Social History (Updated 06/08/24 @ 16:26 by Kacey Baltazar RN) Smoking Status: Never smoker second hand exposure: No alcohol intake: never substance use type: denies use current occupational status: unemployed Travel in the last 8 weeks: None household members: none housing: house lives independently: Yes marital status: single current occupational exposures/hazards: No caffeine: Yes Have you lived/traveled outside [place] in past 30 days?: No Contact w/someone who lives/traveled outside [place] past 30 days?: No Exposure to someone with infectious disease in past 14 days?: No Do you have a fever (greater than 100.4 F or 38 C)?: No Have you tested positive for COVID-19: No Exposed to someone with COVID-19 in past 14 days?: No Do you have a sore throat?: No Do you have a cough?: No Do you have any weakness?: No Are you experiencing any nausea/vomitting?: No Do you have any diarrhea?: No Are you experiencing any unusual bleeding?: No Do you have any muscle aches/pain?: No Do you have any abdominal pain?: No Are you experiencing loss of taste or smell?: No Other Medical History Have you received the Flu Vaccine for this season: No Have you received the Pneumonia Vaccine: No ROS Obtained: Yes All systems reviewed & no additional complaints except as documented Physical Exam General General appearance: alert and in no apparent distress Head Head exam: atraumatic and normocephalic Eye Eye exam: Present normal appearance, PERRL and EOMI ENT ENT exam: Present normal exam, normal oropharynx, mucous membranes moist and normal external ear exam Neck Neck exam: Present normal inspection, full ROM and trachea midline; Absent tenderness Chest Chest inspection: Present normal inspection and symmetric chest wall rise; Absent tenderness Respiratory Respiratory exam: Present normal lung sounds bilaterally; Absent respiratory distress, wheezes, stridor or accessory muscle use Cardiovascular Cardiovascular exam: Present regular rate and normal rhythm Abdominal Exam Abdominal exam: Present soft; Absent distention, tenderness or guarding Extremities Exam Extremities exam: Present tenderness, normal capillary refill, edema and other (Erythema and fluctuance to the medial aspect of the left first MTP with some red streaking up the foot to the ankle. Minimal redness of the right first MTP with no fluctuance. No open wounds. Neurovascularly intact distally in all 4 extremities) Back Exam Back exam: Present normal inspection and full ROM; Absent tenderness Neurological Exam Neurological exam: Present alert, oriented X3, CN II-XII intact and normal gait; Absent motor sensory deficit Psychiatric Psychiatric exam: Present normal affect and normal mood Skin Skin exam: Present warm and dry Medical Decision Making Medical Records Medical records reviewed: Yes I reviewed the patient's medical records. Screening: Per USPSTF and CDC recommendations, given the prevalence of disease in our region, it is our hospital?s policy to screen for HIV and viral Hepatitis for all patients aged 18 and over and those with ongoing risk factors. Ba Inquiry Pt receiving controlled substance: No Vital Signs: 06/08/24 09:05 06/08/24 09:19 06/08/24 10:31 Temperature 98.2 F Temperature Source Oral Pulse Rate 96 H 91 H Pulse Rate [Radial] 100 H Respiratory Rate 18 Blood Pressure 126/86 134/85 Blood Pressure [Right Arm] 131/89 Blood Pressure Mean [Right Arm] 103 Blood Pressure Source [Right Arm] Automatic Cuff Blood Pressure Position [Right Arm] Sitting 02 Sat by Pulse Oximetry 95 95 93 L Oxygen Delivery Method Room Air Room Air 06/08/24 11:00 06/08/24 13:06 06/08/24 13:27 Temperature 98.2 F 98.2 F Temperature Source Oral Pulse Rate 98 H 95 H Pulse Rate [Radial] 100 H Respiratory Rate 18 15 Blood Pressure 146/95 H 146/95 H Blood Pressure [Right Arm] 146/95 H Blood Pressure Mean [Right Arm] 112 Blood Pressure Source [Right Arm] Automatic Cuff Blood Pressure Position [Right Arm] Sitting 02 Sat by Pulse Oximetry 92 L 95 Oxygen Delivery Method Room Air Room Air Lab Data Lab results reviewed: Yes I reviewed the patient's lab results. Lab Results 06/08/24 10:20: WBC 11.9 H, RBC 5.50, Hgb 17.3, Hct 51.4, MCV 93.5, MCH 31.5 H, MCHC 33.7, RDW 12.3, Plt Count 268, MPV 9.4, Neut % (Auto) 84.7 H, Lymph % (Auto) 4.8 L, [place] % (Auto) 9.4 H, Eos % (Auto) 0.3, Baso % (Auto) 0.2, Neut # (Auto) 10.1 H, Lymph # (Auto) 0.6 L, [place] # (Auto) 1.1 H, Eos # (Auto) 0.0, Baso # (Auto) 0.0, ESR 11, Sodium 139, Potassium 4.8, Chloride 99, Carbon Dioxide 28, Anion Gap 16.8 H, BUN 13, Creatinine 1.00, Estimated Creat Clear 108, Estimated GFR 75, Est GFR ( Amer) 91, Glucose 105 H, Hemoglobin A1c 5.3, Lactate 1.3, Uric Acid 8.9 H, Calcium 9.8, Total Bilirubin 1.3, AST 28, ALT 22, Alkaline Phosphatase 51, C-Reactive Protein 148.1 H, Total Protein 8.2, Albumin 4.5, Globulin 3.7 H, Albumin/Globulin Ratio 1.2, Procalcitonin 0.074 06/08/24 10:20 06/08/24 10:20 Orders (Tests/Meds): ED MEDICATIONS Generic Name Dose Route Start Last Admin Trade Name Freq PRN Reason Stop Dose Admin Hydrocodone Bitart/Acetaminophen 1 tab 06/08/24 15:10 Apap/Hydrocodone 325mg/7.5mg Tab PO 07/08/24 15:09 Q4HP PRN Moderate Pain (4-6) Levofloxacin/Dextrose 750 mg in 150 mls @ 100 mls/hr 06/08/24 13:00 06/08/24 14:00 Levofloxacin 750mg/150ml Premix IV 06/18/24 12:59 100 mls/hr Q24H RASHARD Administration Morphine Sulfate 2 mg 06/08/24 15:10 Morphine 2mg/Ml Syringe IV 07/08/24 15:09 Q3HP PRN Severe Pain (7-10) Discontinued Medications Generic Name Dose Route Start Last Admin Trade Name Itz PRN Reason Stop Dose Admin Acetaminophen 1,000 mg 06/08/24 10:29 06/08/24 10:56 Acetaminophen 500mg Tab PO 06/08/24 10:30 1,000 mg ONCE ONE Administration Vancomycin/PEG/NADA/Lysine/Water 1.75 gm in 350 mls @ 175 mls/hr 06/08/24 13:15 06/08/24 14:00 Vancomycin 1.75gm/350ml (Peg) Premix IV 06/08/24 15:14 175 mls/hr ONCE ONE Administration Iopamidol 75 ml 06/08/24 11:37 06/08/24 11:38 Iopamidol-370 (76%);100ml Bottle IV 06/08/24 11:38 75 ml ONCE ONE Administration Ketorolac Tromethamine 15 mg 06/08/24 10:29 06/08/24 10:56 Ketorolac 30mg/Ml Vial IV 06/08/24 10:30 15 mg ONCE ONE Administration Miscellaneous 1 each 06/08/24 13:00 06/08/24 16:19 Vancomycin Consult Request NOTAPPLIC 07/08/24 12:59 Not Given CONSULT PHARMACY RASHARD Sodium Chloride 10 ml 06/08/24 11:37 06/08/24 11:38 Sodium Chloride 0.9% 10ml Syr (Rad Only) IV 06/08/24 11:38 10 ml ONCE ONE Administration ORDERS Category Date Time Status CT foot LT w con Stat Cat Scan 06/08/24 11:18 Completed Nutrition Consult [CONS] Routine Cons 06/08/24 15:13 Active Podiatry Consult [Consult to Podiatry] [CONS] Routine Cons 06/08/24 11:18 Active Podiatry Consult [Consult to Podiatry] [CONS] Routine Cons 06/08/24 15:10 Active XR foot LT min 3V Stat Exams 06/08/24 10:25 Completed XR foot RT min 3V Stat Exams 06/08/24 10:25 Completed CRP [C-Reactive Protein] AMLAB Lab 06/09/24 06:00 Ordered CRP [C-Reactive Protein] Stat Lab 06/08/24 10:20 Completed Complete Blood Count Auto Diff AMLAB Lab 06/09/24 06:00 Ordered Complete Blood Count Auto Diff Stat Lab 06/08/24 10:20 Completed Comprehensive Metabolic Panel AMLAB Lab 06/09/24 06:00 Ordered Comprehensive Metabolic Panel Stat Lab 06/08/24 10:20 Completed ESR [Erythrocyte Sedimentation Rate] AMLAB Lab 06/09/24 06:00 Ordered ESR [Erythrocyte Sedimentation Rate] Stat Lab 06/08/24 10:20 Completed Hemoglobin A1C Stat Lab 06/08/24 10:20 Completed Lactic Acid Stat Lab 06/08/24 10:20 Completed Procalcitonin Stat Lab 06/08/24 10:20 Completed UK Syn Cell Count w. Crystals Stat Lab 06/08/24 14:43 Ordered Uric Acid Stat Lab 06/08/24 10:20 Completed Anaerobic Culture+Gram Stain Routine Micro 06/08/24 14:26 Ordered Anaerobic Culture+Gram Stain Routine Micro 06/08/24 14:29 Ordered Bone Culture Routine Micro 06/08/24 14:27 Ordered Tissue Culture and Gram Stain Routine Micro 06/08/24 14:27 Ordered Wound Culture and Gram Stain Routine Micro 06/08/24 14:26 Ordered Wound Culture and Gram Stain Routine Micro 06/08/24 14:28 Ordered Medical Decision Narrative: In summary, this patient is a 64-year-old male presenting to the Emergency Department for evaluation of redness, warmth, pain, swelling to the bilateral first MTPs, worse on the left. Differential diagnoses considered include but are not limited to cellulitis, abscess, septic arthritis, gouty arthritis. Ruling out the most morbid conditions drove assessment. It should be noted patient's history includes gout, obesity, hypertension, COPD, asthma which may or may not be at goal therapy. This complicates all aspects of care by increasing patient's risk for morbidity. I reviewed patient's past medical records and noted evaluation 05/30/2024 for redness and swelling of the left ankle, patient was diagnosed with cellulitis and treated with doxycycline On exam, the patient is lying in bed in no acute distress normal vital signs and cardiac telemetry. He is afebrile and nontoxic-appearing. He has redness and warmth to the bilateral first MTPs, but the left one is much worse with fluctuance to the medial aspect of the left first MTP. He also has some red streaking up the left foot. All compartments are soft, he is neurovascularly intact distally. workup included CBC, CMP, ESR, CRP, uric acid, x-rays of the bilateral feet. He was given IV Toradol and oral Tylenol for symptomatic improvement of pain. I independently interpreted x-rays prior to the radiologist read and noted bony destruction of the left first MTP joint as well as soft tissue swelling, some chronic changes to the right first MTP joint but not as bad. Please see their read for final interpretation. They note concerns for osteomyelitis. Labs were obtained that demonstrated elevated inflammatory markers. And mild leukocytosis, concerning since he is already been on antibiotics. On reassessment, patient is resting comfortably in no acute distress. I had an interactive discussion with Dr. Zhang with podiatry regarding the patient's exam findings concerning for possible infection/septic arthritis versus osteomyelitis. Dr. Ortiz advised that she would take the patient to the OR for washout and bone biopsy. She recommended IV antibiotic coverage, so patient was given IV vancomycin and Levaquin given anaphylaxis to Rocephin. He was taken to the OR in stable condition. I had an interactive discussion with the hospitalist who agreed to admit the patient afterward. Patient was admitted in stable condition. Critical Care Critical Care Time Critical Care Time: No
[2024-06-08 12:09] LABS: Erythrocyte Sedimentation Rate 11 mm/hr (0-20)
--- NOTE | 2024-06-08 13:10 | P.CONS_ITS ---
Documented by User: Margi Bennett, PILY 06/09/24 06:53 History of Present Illness *Admission Date: 06/08/24 *Reason for visit:: Left foot/Ankle cellulitis, Abscess of left great toe, gout flare *History of present illness: Patient presents today in the ER for pain and swelling to his left foot/ ankle, gout fare to his Left great toe. He came to the ER 05/30/24 for the same problem and was given Doxycyline 100mg po x 7 days, and once he completed the antibiotics pain and swelling returned. States he has a long history of gout attacks and was on allopurinol but had to stop due to it causing chest pain/discomfort. Patient states he usually has 4-5 gout flareups/attacks a year however this gout attack seems to be lasting longer than usual. Podiatry consulted saw patient while in the emergency room, the patient obtained left foot CT scan which showed mild bony erosion and soft tissue swelling of the first metatarsal head with calcifications concerning for gout versus osteomyelitis. Dr. Ortiz and myself examined the patient, after discussing the findings on the CT and patient's elevated CRP which is trended upward over the last few visits, we have decided to do an incision and drainage of the left foot with bone biopsy to rule out osteomyelitis. Patient has given verbal as well as written consent for this procedure today. Site has been marked and patient to remain n.p.o. until after surgery. [facility] Disclaimer: The information contained in this section may have been updated after the patient was seen, as this information can be updated by other users. Medical History Asthma History of COPD Dyspnea on exertion History of sleep apnea Nocturnal hypoxemia Moderate persistent asthma Allergic rhinitis due to animal (cat) (dog) hair and dander Seasonal allergies Surgical History H/O esophagogastroduodenoscopy H/O colonoscopy History of cholecystectomy H/O hernia repair Family History Other Cancer Social History Smoking Status: Never smoker second hand exposure: No alcohol intake: never substance use type: denies use current occupational status: unemployed Travel in the last 8 weeks: None household members: none housing: house lives independently: Yes marital status: single current occupational exposures/hazards: No caffeine: Yes Have you lived/traveled outside US in past 30 days?: No Contact w/someone who lives/traveled outside US past 30 days?: No Exposure to someone with infectious disease in past 14 days?: No Do you have a fever (greater than 100.4 F or 38 C)?: No Have you tested positive for COVID-19: No Exposed to someone with COVID-19 in past 14 days?: No Do you have a sore throat?: No Do you have a cough?: No Do you have any weakness?: No Are you experiencing any nausea/vomitting?: No Do you have any diarrhea?: No Are you experiencing any unusual bleeding?: No Do you have any muscle aches/pain?: No Do you have any abdominal pain?: No Are you experiencing loss of taste or smell?: No Meds Home Medications and Allergies Home Medications ?Medication ?Instructions ?Recorded ?Confirmed ?Type cyanocobalamin (vitamin B-12) 1,000 mcg IM MONTHLY 08/17/22 06/08/24 History 1,000 mcg/mL injection solution cholecalciferol (vitamin D3) 50 50 mcg PO DAILY #30 caps 06/02/24 06/08/24 Rx mcg (2,000 unit) capsule cholecalciferol (vitamin D3) 1,250 1,250 mcg PO WEEKLY 06/08/24 06/08/24 History mcg (50,000 unit) capsule New Prescriptions to Start Prescriptions: Allergies Allergy/AdvReac Type Severity Reaction Status Date / Time ceftriaxone Allergy Mild ANAPHYLAXIS Verified 05/27/24 10:39 Exam (Inpt) Vital signs and Labs for Last 24 Hours: Temp Pulse Resp BP Pulse Ox O2 Del Method 98.2 F 98 H 18 146/95 H 92 L Room Air 06/08/24 09:05 06/08/24 11:00 06/08/24 09:05 06/08/24 11:00 06/08/24 11:00 06/08/24 11:00 Laboratory Results - last 24 hr 06/08/24 10:20: WBC 11.9 H, RBC 5.50, Hgb 17.3, Hct 51.4, MCV 93.5, MCH 31.5 H, MCHC 33.7, RDW 12.3, Plt Count 268, MPV 9.4, Neut % (Auto) 84.7 H, Lymph % (Auto) 4.8 L, [place] % (Auto) 9.4 H, Eos % (Auto) 0.3, Baso % (Auto) 0.2, Neut # (Auto) 10.1 H, Lymph # (Auto) 0.6 L, [place] # (Auto) 1.1 H, Eos # (Auto) 0.0, Baso # (Auto) 0.0, ESR 11, Sodium 139, Potassium 4.8, Chloride 99, Carbon Dioxide 28, Anion Gap 16.8 H, BUN 13, Creatinine 1.00, Estimated Creat Clear 108, Estimated GFR 75, Est GFR ( Amer) 91, Glucose 105 H, Hemoglobin A1c 5.3, Lactate 1.3, Uric Acid 8.9 H, Calcium 9.8, Total Bilirubin 1.3, AST 28, ALT 22, Alkaline Phosphatase 51, C-Reactive Protein 148.1 H, Total Protein 8.2, Albumin 4.5, G lobulin 3.7 H, Albumin/Globulin Ratio 1.2, Procalcitonin 0.074 I & O for Labs for Last 24 Hours: Intake & Output 06/05/24 06/06/24 06/07/24 06/08/24 23:59 23:59 23:59 23:59 Weight 223 lb Constitutional: Present no acute distress and cooperative Head: Present normocephalic Eye: Present as per HPI Neck: Present trachea midline Respiratory: Present normal respiratory effort Cardiac: Present posterior tibial pulses present and pedal pulses present Comments:: Deferred Rectal (male): Present deferred (male): Present deferred Extremities: Present tenderness, normal capillary refill and edema Comment:: Left first MPJ, dorsal foot as well as left lateral ankle cellulitis, warmth noted, skin intact Skin: Present intact, erythema, dry, warm and normal turgor Neuro: Present Sensory Function Intact, oriented x 3 and moves all extremities Ankle: left: erythema (Lateral ankle erythema), left: swelling (First MPJ, midfoot lateral ankle swelling/cellulitis) and left: tenderness (Left foot/ankle) Feet/Toes: left: bunion, left: erythema, left: swelling (Left foot/ankle cellulitis) and left: tenderness (Left first MPJ gouty pain/erythema/swelling) Inspection: Present foot deformity deformity: Present bunion and infection Pulses: L dorsalis pedis pulse: normal, R dorsalis pedis pulse: normal, L posterior tibial pulse: normal and R posterior tibial pulse: normal CFT: normal: CFT Results Labs 06/09/24 05:54 06/08/24 10:20 Labs: Abnormal lab results 06/08/24 Range/Units 10:20 WBC 11.9 H (4.8-10.8) K/mm3 MCH 31.5 H (27.0-31.2) pg Neut % (Auto) 84.7 H (37.0-80.0) % Lymph % (Auto) 4.8 L (10-50) % [place] % (Auto) 9.4 H (1.7-9.3) % Neut # (Auto) 10.1 H (1.8-7.8) K/mm3 Lymph # (Auto) 0.6 L (0.7-4.5) K/mm3 [place] # (Auto) 1.1 H (0.1-1.0) K/mm3 Anion Gap 16.8 H (5-15) mEq/L Glucose 105 H (74-100) mg/dl Uric Acid 8.9 H (3.5-8.5) mg/dl C-Reactive Protein 148.1 H (0-4) mg/L Globulin 3.7 H (1.3-3.2) g/dL H & H 06/08/24 Range/Units 10:20 Hgb 17.3 (14.1-18.0) g/dL Hct 51.4 (42.0-52.0) % All other labs normal. Assessment and Plan *Assessment and plan (1) Gout: Status: Acute Qualifiers: Chronicity: chronic Gout etiology: unspecified cause Gout site: toe L aterality: left Presence of tophus: without tophus Qualified Code(s): M1A.9XX0 - Chronic gout, unspecified, without tophus (tophi) Category: Medical Code(s): M10.9 - Gout, unspecified (2) Cellulitis: Status: Acute Qualifiers: Laterality: left Site of cellulitis: extremity Site of cellulitis of extremity: lower extremity Qualified Code(s): L03.116 - Cellulitis of left lower limb Category: Medical Code(s): L03.90 - Cellulitis, unspecified (3) Abscess of great toe, left: Status: Acute Category: Medical Code(s): L02.612 - Cutaneous abscess of left foot (4) Cellulitis of left ankle: Status: Acute Category: Medical Code(s): L03.116 - Cellulitis of left lower limb (5) Left foot pain: Status: Acute Category: Medical Code(s): M79.672 - Pain in left foot (6) Left ankle pain: Status: Acute Qualifiers: Chronicity: chronic Qualified Code(s): M25.572 - Pain in left ankle and joints of left foot; G89.29 - Other chronic pain Category: Medical Code(s): M25.572 - Pain in left ankle and joints of left foot Plan 06/08/24: Left foot/Ankle Cellulitis, Gout flare, abscess of left great toe: Reviewed left foot CT with contrast, FINDINGS:CT LEFT FOOT with CONTRAST TECHNIQUE: Postcontrast axial andreformatted sagittal and coronal images were obtained of the left foot. This study was performed with techniques to keep radiation doses as low as reasonably achievable, (ALARA). Individualized dose reduction techniques using automated exposure control or adjustment of mA and/or kV according to the patient's size were employed. FINDINGS: There is no acute fracture or dislocation. There is a moderate hallux valgus deformity. There is significant joint space narrowing of the first metatarsophalangeal joint with cyst formation in the first metatarsal head. There is soft tissue edema in the medial first MTP. There is mild bony erosion involving the first metatarsal head. Findings are concerning for gout or osteomyelitis. There are faint calcifications in the soft tissues medially to the first metatarsal heads which could be related to partial calcific tophi.IMPRESSION: Mild bony erosion and soft tissue swelling of the first metatarsal head with calcifications concerning for gout versus osteomyelitis. Reviewed, Interpreted and Dictated by Angel Barragan MD Transcribed by Anum Mejia Reviewed labs: 06/08/2024 WBC 11.9, ESR 11, glucose 105, A1c 5.3%, uric acid 8.9, CRP 148.1 Patient made NPO Plan for surgery this afternoon; left foot incision and drainage, bone biopsy Plan for patient to be admitted per hospitalist Recommend IV antibiotics Vanco and levofloxacin dosed per hospitalist Surgical consent has been obtained All orders per Dr. Ortiz Documented by User: Lakia Ortiz DPM 06/08/24 15:17 PFSH PFSH Medical History Asthma History of COPD Dyspnea on exertion History of sleep apnea Nocturnal hypoxemia Moderate persistent asthma Allergic rhinitis due to animal (cat) (dog) hair and dander Seasonal allergies Surgical History H/O esophagogastroduodenoscopy H/O colonoscopy History of cholecystectomy H/O hernia repair Family History Other Cancer Social History Smoking Status: Never smoker second hand exposure: No alcohol intake: never substance use type: denies use current occupational status: unemployed Travel in the last 8 weeks: None household members: none housing: house lives independently: Yes marital status: single current occupational exposures/hazards: No caffeine: Yes Have you lived/traveled outside US in past 30 days?: No Contact w/someone who lives/traveled outside US past 30 days?: No Exposure to someone with infectious disease in past 14 days?: No Do you have a fever (greater than 100.4 F or 38 C)?: No Have you tested positive for COVID-19: No Exposed to someone with COVID-19 in past 14 days?: No Do you have a sore throat?: No Do you have a cough?: No Do you have any weakness?: No Are you experiencing any nausea/vomitting?: No Do you have any diarrhea?: No Are you experiencing any unusual bleeding?: No Do you have any muscle aches/pain?: No Do you have any abdominal pain?: No Are you experiencing loss of taste or smell?: No Meds Home Medications and Allergies Home Medications ?Medication ?Instructions ?Recorded ?Confirmed ?Type cyanocobalamin (vitamin B-12) 1,000 mcg IM MONTHLY 08/17/22 06/08/24 History 1,000 mcg/mL injection solution cholecalciferol (vitamin D3) 50 50 mcg PO DAILY #30 caps 06/02/24 06/08/24 Rx mcg (2,000 unit) capsule cholecalciferol (vitamin D3) 1,250 1,250 mcg PO WEEKLY 06/08/24 06/08/24 History mcg (50,000 unit) capsule New Prescriptions to Start Prescriptions: Allergies Allergy/AdvReac Type Severity Reaction Status Date / Time ceftriaxone Allergy Mild ANAPHYLAXIS Verified 05/27/24 10:39 Results Labs 06/09/24 05:54 06/08/24 10:20 Assessment and Plan *Assessment and plan (1) Gout: Status: Acute Qualifiers: Chronicity: chronic Gout etiology: unspecified cause Gout site: toe L aterality: left Presence of tophus: without tophus Qualified Code(s): M1A.9XX0 - Chronic gout, unspecified, without tophus (tophi) Category: Medical Code(s): M10.9 - Gout, unspecified (2) Cellulitis: Status: Acute Qualifiers: Laterality: left Site of cellulitis: extremity Site of cellulitis of extremity: lower extremity Qualified Code(s): L03.116 - Cellulitis of left lower limb Category: Medical Code(s): L03.90 - Cellulitis, unspecified (3) Abscess of great toe, left: Status: Acute Category: Medical Code(s): L02.612 - Cutaneous abscess of left foot (4) Cellulitis of left ankle: Status: Acute Category: Medical Code(s): L03.116 - Cellulitis of left lower limb (5) Left foot pain: Status: Acute Category: Medical Code(s): M79.672 - Pain in left foot (6) Left ankle pain: Status: Acute Qualifiers: Chronicity: chronic Qualified Code(s): M25.572 - Pain in left ankle and joints of left foot; G89.29 - Other chronic pain Category: Medical Code(s): M25.572 - Pain in left ankle and joints of left foot Plan 06/08/24: Left foot/Ankle Cellulitis, Gout flare, abscess of left great toe: Reviewed left foot CT with contrast, FINDINGS:CT LEFT FOOT with CONTRAST TECHNIQUE: Postcontrast axial andreformatted sagittal and coronal images were obtained of the left foot. This study was performed with techniques to keep radiation doses as low as reasonably achievable, (ALARA). Individualized dose reduction techniques using automated exposure control or adjustment of mA and/or kV according to the patient's size were employed. FINDINGS: There is no acute fracture or dislocation. There is a moderate hallux valgus deformity. There is significant joint space narrowing of the first metatarsophalangeal joint with cyst formation in the first metatarsal head. There is soft tissue edema in the medial first MTP. There is mild bony erosion involving the first metatarsal head. Findings are concerning for gout or osteomyelitis. There are faint calcifications in the soft tissues medially to the first metatarsal heads which could be related to partial calcific tophi.IMPRESSION: Mild bony erosion and soft tissue swelling of the first metatarsal head with calcifications concerning for gout versus osteomyelitis. Reviewed, Interpreted and Dictated by Angel Barragan MD Transcribed by Anum Mejia Reviewed labs: 06/08/2024 WBC 11.9, ESR 11, glucose 105, A1c 5.3%, uric acid 8.9, CRP 148.1 Patient made NPO Plan for surgery this afternoon; left foot incision and drainage, bone biopsy Plan for patient to be admitted per hospitalist Recommend IV antibiotics Vanco and levofloxacin dosed per hospitalist Surgical consent has been obtained All orders per Dr. Ortiz Patient is a 64-year-old male who was recently in the ER for left ankle cellulitis. He was discharged home on doxycycline. Patient reports back to the ER today with worsening left foot redness, swelling and pain. New images were discussed with the patient. Imaging including x-ray, left foot CT scan. Mild bone erosion and soft tissue swelling noted at the first metatarsal head with calcifications concerning for gout versus osteomyelitis. We discussed conservative versus surgical treatment options. We discussed conservative care including continued oral vs IV antibiotics and local wound care versus surgical incision and drainage. Based on patient's increased CRP, I recommended surgery to evaluate for abscess. Patient understands that they could have wound healing complications including delayed healing and infection. We discussed that if the wound does not heal, it is possible that they may need further debridement. Patient understands if infection spreads into the bone, it may warrant proximal amputation and could result in further loss of digits, loss of partial foot or loss of leg. We discussed the risks and benefits in great detail. Other surgical risks include: prolonged pain and swelling, further infection requiring oral or IV antibiotics, delay in healing of soft tissue or bone, nerve or blood vessel damage, CRPS/RSD, DVT, anesthesia complications, and even . All questions answered. Patient verbalized understanding. Verbal and written consent obtained. Plan for surgery today.
--- NOTE | 2024-06-08 13:27 | EXP.ANES.CKL ---
[facility] Disclaimer: The information contained in this section may have been updated after the patient was seen, as this information can be updated by other users. Medical History Asthma History of COPD Dyspnea on exertion History of sleep apnea Nocturnal hypoxemia Moderate persistent asthma Allergic rhinitis due to animal (cat) (dog) hair and dander Seasonal allergies Surgical History H/O esophagogastroduodenoscopy H/O colonoscopy History of cholecystectomy H/O hernia repair Family History Other Cancer Social History Smoking Status: Never smoker second hand exposure: No alcohol intake: never substance use type: denies use current occupational status: unemployed Travel in the last 8 weeks: None household members: none housing: house lives independently: Yes marital status: single current occupational exposures/hazards: No caffeine: Yes Have you lived/traveled outside [place] in past 30 days?: No Contact w/someone who lives/traveled outside US past 30 days?: No Exposure to someone with infectious disease in past 14 days?: No Do you have a fever (greater than 100.4 F or 38 C)?: No Have you tested positive for COVID-19: No Exposed to someone with COVID-19 in past 14 days?: No Do you have a sore throat?: No Do you have a cough?: No Do you have any weakness?: No Do you have any diarrhea?: No Are you experiencing any unusual bleeding?: No Do you have any muscle aches/pain?: No Do you have any abdominal pain?: No Are you experiencing loss of taste or smell?: No [facility] Anesthesia Checklist Patient Identification Patient Identification: Arm Band Structural Data Admitted From: Emergency Dept Planned Operative Procedure/s: I&D Left Foot with Bone Biopsy Consent for Planned Operative Procedure(s) Verified: Yes Verified Documents: Surgical Consent and History and Physical NPO Status Verified Time NPO: 00:00 Additional verifications Anesthesia Reactions: No Airway Assessment Mallampati Score:: Class II C-Spine Mobility Assessed: Yes TMJ Mobility Assessed: Yes Dentition: Good Dentition Neurological Assessment Level of Consciousness: Awake, Alert and Appropriate Anesthesia Plan Anesthesia Risk discussed: Yes Anesthesia Plan: Verified ASA Class: III Anesthesia Type: General
--- NOTE | 2024-06-08 13:50 | HMH.PHAINT1 ---
Pharmacy Intervention Comments: MEDICATION RECONCILIATION COMPLETED ON PATIENT USING EXTERNAL FILL HISTORY FROM PHARMACY. -[facility], [place]
[2024-06-08] MEDS: VANCOMYCIN/WATER FOR INJ (PEG) 1.75 GM/350 ML PIGGYBACK IV (14:00)
[2024-06-08] MEDS: LEVOFLOXACIN/D5W 750 MG/150 ML 750 MG/150 ML PIGGYBACK 100 MG IV (14:00)
[2024-06-08] MEDS: GENTAMICIN 80 MG/2 ML VIAL (14:17)
--- NOTE | 2024-06-08 15:17 | P.OP_ITS ---
Date of procedure: 06/08/24 Pre-op Diagnosis:: Left foot cellulitis Left foot abscess Gout, gouty arthritis Left foot skin lesion Post-op Diagnosis:: Same Procedure performed:: Left ankle incision and drainage Left foot incision and drainage Open bone biopsy Left first MTPJ synovectomy, irrigation and debridement (wide excisional debridement nonviable soft tissue to the deep fascia) Excision of skin lesion Surgeon:: Lakia Ortiz DPM POACHER WRINGER OPERATOR:: Andrew Das Anesthesia: GETA Estimated blood loss (mL): 20 Clinical Note:: Patient is a 64-year-old male who was recently in the ER for left ankle cellulitis. He was discharged home on doxycycline. Patient reports back to the ER today with worsening left foot redness, swelling and pain. New images were discussed with the patient. Imaging including x-ray, left foot CT scan. Mild bone erosion and soft tissue swelling noted at the first metatarsal head with calcifications concerning for gout versus osteomyelitis. We discussed conservative versus surgical treatment options. We discussed conservative care including continued oral vs IV antibiotics and local wound care versus surgical incision and drainage. Based on patient's increased CRP, I recommended surgery to evaluate for abscess. Patient understands that they could have wound healing complications including delayed healing and infection. We discussed that if the wound does not heal, it is possible that they may need further debridement. Patient understands if infection spreads into the bone, it may warrant proximal amputation and could result in further loss of digits, loss of partial foot or loss of leg. We discussed the risks and benefits in great detail. Other surgical risks include: prolonged pain and swelling, further infection requiring oral or IV antibiotics, delay in healing of soft tissue or bone, nerve or blood vessel damage, CRPS/RSD, DVT, anesthesia complications, and even . All questions answered. Patient verbalized understanding. Verbal and written consent obtained. Operative findings:: Pitting edema noted to the left foot and ankle. Left first MTPJ had increased redness and warmth around the joint mostly medial and plantar extending to the first interspace. An area of fluctuance was noted over the medial first metatarsal head. Sharp incision with a 15 blade full-thickness to the level of deep fascia 2 cm deep over the medial plantar first metatarsal. Some serous drainage noted, no socorro purulence or malodor. A separate incision was made over the dorsal aspect of the first MTPJ full-thickness down to the level of the bone. There was gouty tophi combined with caseous drainage, wound culture taken. Gout specimens taken and sent separately. Joint evaluated and there were was cortical erosions noted to the dorsal aspect of the first metatarsal head and the base of the proximal phalanx. Separate bone specimens were taken from the first metatarsal and the proximal phalanx for both culture and pathology. No significant malodor was noted. No sinus tracking appreciated. A separate incision was made over the lateral aspect of the left ankle full-thickness 2 cm to the deep fascia. Some serous fluid was noted but no socorro purulence. Wound culture was taken of the serous fluid. Area was explored and no deep tracking or signs of infection noted. There was a 0.5 cm round brown skin lesion noted over the left dorsal lateral foot over the cuboid region. An elliptical incision was made through skin into subcutaneous tissue excising the skin lesion which was sent to pathology. Overall prognosis fair: Although possible, the first MTPJ appeared to be more of an infectious gout process than an acute isolated osteomyelitis or septic joint. Outcome will depend on results of the bone cultures/pathology specimens. Patient may need further surgery if bone specimens result with osteomyelitis. Patient will need gout management. Operative note:: On this date and time the patient was deemed an appropriate surgical candidate. With informed consent time patient was transferred from the preoperative holding area to the operating theater placed on table in a normal supine position. No tourniquet utilized. IV vancomycin, Levaquin infused. Left lower extremity was prepped and draped in a normal sterile fashion. Left ankle incision and drainage: An incision was made over the lateral aspect of the less distal fibula approximately 3 x 0.1 x 2 cm deep full-thickness through skin, subcutaneous tissue to deep fascia. No purulence noted. Some serous fluid was expressed and wound culture taken. The fluid looked almost like lymphatic drainage fluid as opposed to infectious. Wound flushed with gentamicin irrigation. Decision made to close skin with Prolene since there was no purulence or signs of infection. Left foot excision of skin lesion: Attention was directed to the left dorsal lateral foot over the cuboid region where the skin lesion was noted. 15 blade was used to perform an ellipse incision removing the lesion full-thickness through skin into/including subcutaneous tissue. Lesion was sent for pathology. No signs of infection to this region. Skin flushed with saline. Prolene used to reapproximate the skin. Left foot incision and drainage: Attention was directed to the left medial plantar foot where edema and erythema was noted along with an area of fluctuance. Utilizing a 15 blade, a linear incision was made over this site full-thickness down to the level of the deep fascia. Some clear fluid noted but no purulence or malodor. Next hemostat used to explore the area. There was no deep tracking or tunneling noted. Left first MTPJ synovectomy, (I&D: Irrigation and debridement) wide excisional debridement nonviable soft tissue to the deep fascia: Next a separate incision was made over the dorsal aspect backed of the first MTPJ with a 15 blade full- thickness down to the level of the bone. The deep fascia extensor tendon had gouty crystals throughout it. The joint had gouty crystals along with some caseous yellow-white drainage, wound culture taken. 15 blade, forceps and bone rongeur were used to debride nonviable soft tissue performing synovectomy of the first MTPJ. Due to suspicion and obvious cortical erosive changes, an open bone biopsy was performed to rule out gouty arthritis versus osteomyelitis. Open bone biopsy: Utilizing a Jamshidi needle a piece of the metatarsal head was removed and sent for both bone culture and bone pathology specimen. The bone was soft with cortical erosion but no obvious purulence from the bone. Next a separate specimen was sent from the base of the proximal phalanx and sent to both bone culture and pathology specimen. Again the bone was soft and irregular with cortical erosions, no obvious purulence. All wounds flushed with gentamicin irrigation. The wound was explored and no purulence was noted. Prolene used to reapproximate skin. Xeroform applied. Betadine soaked gauze, dry sterile dressing was then applied over the left foot. Patient appeared to tolerate procedure and anesthesia well without complications. He was woken from anesthesia with vitals stable and neurovascular status intact to be transferred to recovery before being transferred to the floor. Plan: Maintain dressing clean dry and intact to left foot, reinforce as necessary. PT in am for gait training. NWB in short fracture boot, walker. Antibiotics: continue IV Vanco, Levo per Hospitalist team. Recommend nutrition consult, gout treatment/management. Podiatry will follow and see in am for dressing change. Condition: stable Disposition: floor Specimens:: Micro: Left ankle wound culture left foot wound culture left foot gout crystals left 1st metatarsal bone culture left proximal phalanx bone culture Path: left foot skin lesion left 1st metatarsal bone left proximal phalanx bone Complications:: None
--- NOTE | 2024-06-08 17:00 | EXP.HP ---
History of Present Illness *Admission Date: 06/08/24 *Reason for visit:: Swelling and pain in left foot *History of present illness: Mr. Sen is a 69-year-old gentleman with history of gout and obesity. He presented to the ER because of pain and swelling in his left foot and ankle. Is gotten worse over the past few days. He was concern for gout flare but began to worry more for infection due to it getting hot and him having a hard time walking on both his feet as his right foot began to hurt 2. He initially presented to the ER on 05/30 for the same problem and was given a course of doxycycline. Swelling got somewhat better but then returned after completing antibiotics. On presentation today, Patient's left foot is hot and red. White count elevated 11.9, ESR 11 and CRP elevated at 148. Uric acid is also elevated at 8.9. Complaining of pain in foot. Foot is hot and red. Imaging obtained showing concern for cellulitis and edema. Podiatry consulted to evaluate. Patient taken to the OR for further management. CT obtained showing bony erosion and soft tissue swelling of the first metatarsal head and calcifications concerning for gout versus osteomyelitis. Evaluated after surgery, patient is pain-free due to anesthesia. Stable on room air. Bone biopsies obtained from surgical site. Afebrile. [facility] Disclaimer: The information contained in this section may have been updated after the patient was seen, as this information can be updated by other users. Medical History Asthma History of COPD Dyspnea on exertion History of sleep apnea Nocturnal hypoxemia Moderate persistent asthma Allergic rhinitis due to animal (cat) (dog) hair and dander Seasonal allergies Surgical History H/O esophagogastroduodenoscopy H/O colonoscopy History of cholecystectomy H/O hernia repair Family History Other Cancer Social History Smoking Status: Never smoker second hand exposure: No alcohol intake: never substance use type: denies use current occupational status: unemployed Travel in the last 8 weeks: None household members: none housing: house lives independently: Yes marital status: single current occupational exposures/hazards: No caffeine: Yes Have you lived/traveled outside [place] in past 30 days?: No Contact w/someone who lives/traveled outside [place] past 30 days?: No Exposure to someone with infectious disease in past 14 days?: No Do you have a fever (greater than 100.4 F or 38 C)?: No Have you tested positive for COVID-19: No Exposed to someone with COVID-19 in past 14 days?: No Do you have a sore throat?: No Do you have a cough?: No Do you have any weakness?: No Are you experiencing any nausea/vomitting?: No Do you have any diarrhea?: No Are you experiencing any unusual bleeding?: No Do you have any muscle aches/pain?: No Do you have any abdominal pain?: No Are you experiencing loss of taste or smell?: No Other Medical History Have you received the Flu Vaccine for this season: Yes Have you received the Pneumonia Vaccine: No Review of Systems Review of Systems Review of systems (narrative): 14 point review of systems performed, pertinent positives and negatives as per [facility] Meds Home Medications and Allergies Home Medications ?Medication ?Instructions ?Recorded ?Confirmed ?Type cyanocobalamin (vitamin B-12) 1,000 mcg IM MONTHLY 08/17/22 06/08/24 History 1,000 mcg/mL injection solution cholecalciferol (vitamin D3) 50 50 mcg PO DAILY #30 caps 06/02/24 06/08/24 Rx mcg (2,000 unit) capsule cholecalciferol (vitamin D3) 1,250 1,250 mcg PO WEEKLY 06/08/24 06/08/24 History mcg (50,000 unit) capsule New Prescriptions to Start Prescriptions: Allergies Allergy/AdvReac Type Severity Reaction Status Date / Time ceftriaxone Allergy Mild ANAPHYLAXIS Verified 05/27/24 10:39 Exam Data for Last 24 hours Vital signs and Labs for Last 24 Hours: Temp Pulse Resp BP Pulse Ox O2 Del Method 98.0 F 82 16 133/83 97 Room Air 06/08/24 15:30 06/08/24 16:45 06/08/24 16:45 06/08/24 16:45 06/08/24 16:45 06/08/24 16:45 Laboratory Results - last 24 hr 06/08/24 10:20: WBC 11.9 H, RBC 5.50, Hgb 17.3, Hct 51.4, MCV 93.5, MCH 31.5 H, MCHC 33.7, RDW 12.3, Plt Count 268, MPV 9.4, Neut % (Auto) 84.7 H, Lymph % (Auto) 4.8 L, [place] % (Auto) 9.4 H, Eos % (Auto) 0.3, Baso % (Auto) 0.2, Neut # (Auto) 10.1 H, Lymph # (Auto) 0.6 L, [place] # (Auto) 1.1 H, Eos # (Auto) 0.0, Baso # (Auto) 0.0, ESR 11, Sodium 139, Potassium 4.8, Chloride 99, Carbon Dioxide 28, Anion Gap 16.8 H, BUN 13, Creatinine 1.00, Estimated Creat Clear 108, Estimated GFR 75, Est GFR ( Amer) 91, Glucose 105 H, Hemoglobin A1c 5.3, Lactate 1.3, Uric Acid 8.9 H, Calcium 9.8, Total Bilirubin 1.3, AST 28, ALT 22, Alkaline Phosphatase 51, C-Reactive Protein 148.1 H, Total Protein 8.2, Albumin 4.5, Globulin 3.7 H, Albumin/Globulin Ratio 1.2, Procalcitonin 0.074 I & O for Last 24 hours: Intake & Output 06/05/24 06/06/24 06/07/24 06/08/24 23:59 23:59 23:59 23:59 Weight 99.875 kg Constitutional Constitutional: no acute distress, obese, chronically ill appearing and cooperative *Routine HEENT Exam Head: Present normocephalic Eye: Present EOMI and PERRL ENT: Present mucous membranes moist *Routine Neck Exam Neck: Present supple; Absent lymphadenopathy *Routine Respiratory Exam Respiratory: Present CTA bilaterally; Absent rhonchi, wheezes or crackles *Routine Cardiovascular Exam Cardiovascular: Present RRR *Routine Abdominal Exam Abdominal: Present soft and normoactive bowel sounds; Absent tenderness *Routine Rectal Exam Rectal:: deferred *Routine Genitalia Exam Genitalia:: deferred *Routine Extremities Exam Extremities: Absent cyanosis, clubbing or edema Comments: Left foot in postsurgical wrap *Routine Skin Exam Skin: Present warm; Absent rash *Routine Neurological Exam Neurological: Present alert, oriented X3 and moving all extremities; Absent altered mental status Assessment and Plan *Assessment and plan (1) Gout: Status: Acute Qualifiers: Chronicity: chronic Gout etiology: unspecified cause Gout site: toe Laterality: left Presence of tophus: without tophus Qualified Code(s): M1A.9XX0 - Chronic gout, unspecified, without tophus (tophi) Category: Medical Code(s): M10.9 - Gout, unspecified (2) Cellulitis: Status: Acute Qualifiers: Laterality: left Site of cellulitis: extremity Site of cellulitis of extremity: lower extremity Qualified Code(s): L03.116 - Cellulitis of left lower limb Category: Medical Code(s): L03.90 - Cellulitis, unspecified (3) Abscess of great toe, left: Status: Acute Category: Medical Code(s): L02.612 - Cutaneous abscess of left foot (4) Cellulitis of left ankle: Status: Acute Category: Medical Code(s): L03.116 - Cellulitis of left lower limb (5) Left foot pain: Status: Acute Category: Medical Code(s): M79.672 - Pain in left foot (6) Left ankle pain: Status: Acute Qualifiers: Chronicity: chronic Qualified Code(s): M25.572 - Pain in left ankle and joints of left foot; G89.29 - Other chronic pain Category: Medical Code(s): M25.572 - Pain in left ankle and joints of left foot (7) Obesity: Status: Acute Qualifiers: Body mass index: BMI 35.0-35.9 Obesity classification: adult class 2 (BMI 35 - 39.9) Obesity type: due to excess calories Serious obesity comorbidity presence: with serious comorbidity Qualified Code(s): E66.812 - Obesity, class 2; E66.01 - Morbid (severe) obesity due to excess calories; Z68.35 - Body mass index [BMI] 35.0-35.9, adult Category: Medical Code(s): E66.9 - Obesity, unspecified Plan 69-year-old male who presented with swelling and redness of his left foot. Imaging in the ED concerning for gout with erosions and flare versus osteomyelitis. Discussed case with ER physician, request admission after patient goes to the OR for debridement. I agreed to admit for further care. Discussed case with podiatry, bone biopsies obtained. Continue broad-spectrum antibiotics. Problems addressed as follows: Left foot/Ankle Cellulitis Gout flare abscess of left great toe: -Per my review of CT, has some erosions in the First metatarsal head. Edema consistent with cellulitis. -White count elevated 11.9, CRP elevated 148. Uric acid 8.9. Repeat CBC, CMP, magnesium ordered for the morning -Taken to the OR for debridement and washout. Bone biopsies obtained. Monitor cultures -Continue IV vancomycin and IV Levaquin. -Initiate allopurinol 100 mg daily. Titrate as tolerated. No known history of diabetes. A1c 5.3. Full code Regular diet
--- NOTE | 2024-06-08 22:20 | PC.NURSE ---
Shade Hanger was paged at this time to consult [facility]. I spoke with Cj for a vancomycin consult, ordered per MAY.
[2024-06-08] MEDS: VANCOMYCIN/WATER FOR INJ (PEG) 1.25 GM/250 ML PIGGYBACK IV (23:10)
[2024-06-09] VITALS (8 sets, daily range): BP systolic 122–133; BP diastolic 72–97; PULSE 81–100; RESP 16–18; TEMP 36.2–36.8; O2SAT 90–96; BMI 34.9
--- NOTE | 2024-06-09 04:05 | PC.NURSE ---
Patient is alert and oriented x4. He was observed to have eyes closed, respirations even/unlabored on room air, and no apparent distress throughout the majority of the night. His left lower extremity was assessed; his left foot, the operative site, is dressed accordingly and wrapped with SHANE bandaging. It has remained clean and dry overall; no reinforcement has been required this shift. The patient has continued elevation of his left lower extremity using pillows. He has not had any complaints of left foot pain this shift, stating that he feels much better. Patient is currently non-weight bearing on this affected extremity; he has remained in bed this shift (requires assistance during ambulation/transfers at this time). Post-op vital sign assessments were completed during this shift. Auscultation of his heart, lungs, and bowels were within normal findings. Low purine diet encouraged. He uses the urinal at the bedside for voiding needs. Intravenous vancomycin was administered this shift after consult to initiate. Incentive spirometer usage at the bedside. Vital signs stable; heart rate was slightly elevated (90s bpm) this shift. At this time, the patient is resting in bed without any further complaints. No acute changes noted thus far. Call light within reach.
[2024-06-09 06:49] LABS: Basophils % 0.4 % (0.1-2.0); Eosinophils # 0.1 K/mm3 (0.0-0.4); Eosinophils % 1.3 % (0.1-12.0); Hematocrit 44.9 % (42.0-52.0); Lymphocytes # 1.1 K/mm3 (0.7-4.5); Lymphocytes % 13.7 % (10-50); Mean Corpuscular HGB Conc 33.4 g/dL (31.8-35.4); Mean Corpuscular Hemoglobin 31.1 pg (27.0-31.2); Mean Platelet Volume 9.7 fl (7.4-10.4); Monocytes # 0.9 K/mm3 (0.1-1.0); Monocytes % 11.2 % (1.7-9.3); Neutrophils # 5.8 K/mm3 (1.8-7.8); Neutrophils % 73.1 % (37.0-80.0); Platelet Count 253 K/mm3 (142-424); Red Blood Count 4.83 M/mm3 (4.60-6.20); Red Cell Distribution Width 12.5 % (11.5-17.5); White Blood Count 7.9 K/mm3 (4.8-10.8)
--- NOTE | 2024-06-09 06:50 | P.PN_ITS ---
Subjective *Date: 06/09/24 *Time: 08:03 Interval history: Patient is resting comfortably at the bedside. Denies N/V, F/C, SOB/CP. Reports left foot pain has improved significantly from yesterday before surgery. He is using the incentive spirometer as directed. Ortho Exam (Inpt) Vital signs and Labs for Last 24 Hours: Temp Pulse Resp BP Pulse Ox O2 Del Method 98.2 F 83 16 124/78 91 L Room Air 06/09/24 04:00 06/09/24 04:00 06/09/24 04:00 06/09/24 04:00 06/09/24 04:00 06/09/24 06:35 Laboratory Results - last 24 hr 06/08/24 10:20: WBC 11.9 H, RBC 5.50, Hgb 17.3, Hct 51.4, MCV 93.5, MCH 31.5 H, MCHC 33.7, RDW 12.3, Plt Count 268, MPV 9.4, Neut % (Auto) 84.7 H, Lymph % (Auto) 4.8 L, [place] % (Auto) 9.4 H, Eos % (Auto) 0.3, Baso % (Auto) 0.2, Neut # (Auto) 10.1 H, Lymph # (Auto) 0.6 L, [place] # (Auto) 1.1 H, Eos # (Auto) 0.0, Baso # (Auto) 0.0, ESR 11, Sodium 139, Potassium 4.8, Chloride 99, Carbon Dioxide 28, Anion Gap 16.8 H, BUN 13, Creatinine 1.00, Estimated Creat Clear 108, Estimated GFR 75, Est GFR ( Amer) 91, Glucose 105 H, Hemoglobin A1c 5.3, Lactate 1.3, Uric Acid 8.9 H, Calcium 9.8, Total Bilirubin 1.3, AST 28, ALT 22, Alkaline Phosphatase 51, C-Reactive Protein 148.1 H, Total Protein 8.2, Albumin 4.5, Globulin 3.7 H, Albumin/Globulin Ratio 1.2, Procalcitonin 0.074 I & O for Labs for Last 24 Hours: Intake & Output 06/06/24 06/07/24 06/08/24 06/09/24 23:59 23:59 23:59 23:59 Intake Total 120 / 120 400 / 400 Output Total 0 / 0 Balance 120 / 120 400 / 400 Weight 220 lb 3 oz 222 lb 9 oz Constitutional: Present no acute distress and cooperative Head: Present normocephalic Eyes: Present as per HPI Neck: Present trachea midline Respiratory: Present normal respiratory effort and able to speak in complete sentences Cardiac: Present posterior tibial pulses present and pedal pulses present Comments:: deferred Rectal (male): Present deferred (male): Present deferred Extremities: Present tenderness, normal capillary refill and edema (Left foot cellulitis improving ) Skin: Present warm and normal turgor Comment:: Sutures intact to the left lateral foot/ankle. Less edema to the ankle with no pain to palpation. Sutures clean dry and intact to the left first MTPJ and medial plantar foot. No purulence malodor or drainage. Edema and erythema both greatly reduced from the medial plantar foot. Patient reports minimal pain. Neuro: Present Motor Function Intact, Sensory Function Intact, oriented x 3 and moves all extremities Ankle: left: erythema, left: swelling and left: tenderness Feet/Toes: left: erythema (improving to medial plantar foot), left: swelling (improving) and left: tenderness (improving) Assessment and Plan *Assessment and plan (1) Gout: Status: Acute Qualifiers: Gout site: toe Gout etiology: unspecified cause Chronicity: chronic Laterality: left Presence of tophus: without tophus Qualified Code(s): M1A.9XX0 - Chronic gout, unspecified, without tophus (tophi) Category: Medical Code(s): M10.9 - Gout, unspecified (2) Cellulitis: Status: Acute Qualifiers: Laterality: left Site of cellulitis: extremity Site of cellulitis of extremity: lower extremity Qualified Code(s): L03.116 - Cellulitis of left lower limb Category: Medical Code(s): L03.90 - Cellulitis, unspecified (3) Abscess of great toe, left: Status: Acute Category: Medical Code(s): L02.612 - Cutaneous abscess of left foot (4) Cellulitis of left ankle: Status: Acute Category: Medical Code(s): L03.116 - Cellulitis of left lower limb (5) Left foot pain: Status: Acute Category: Medical Code(s): M79.672 - Pain in left foot (6) Left ankle pain: Status: Acute Qualifiers: Chronicity: chronic Qualified Code(s): M25.572 - Pain in left ankle and joints of left foot; G89.29 - Other chronic pain Category: Medical Code(s): M25.572 - Pain in left ankle and joints of left foot Plan Surgery, 06/08/24: s/p Left ankle incision and drainage, foot incision and drainage, Open bone biopsy, Left first MTPJ synovectomy, irrigation and debride ment (wide excisional debridement nonviable soft tissue to the deep fascia), Excision of skin lesion Intraop Specimens: PENDING Micro: Left ankle wound culture left foot wound culture left foot gout crystals left 1st metatarsal bone culture left proximal phalanx bone culture Path: left foot skin lesion left 1st metatarsal bone left proximal phalanx bone Labs: 06/08/24: wbc 11.9, esr 11, crp 148.1, cr 1.00, gfr 75, glucose 105, albumin 4.5, Ha1c 5.3%, uric acid 8.9 06/09/24: wbc 7.9, crp 192.2, cr 0.9, gfr 85, glucose 89, albumin 3.7 06/09/24: POD #1 Left foot/Ankle Cellulitis, Gout flare, abscess of left great toe: -Reviewed labs as above. -Dsg changed: overall pain, edema and erythema has improved. -New xeroform, betadine soaked gauze, dry gauze, deshawn, yolis applied. -Maintain dressing clean dry and intact to left foot, reinforce as necessary. -PT in am for gait training. Needs size 9.5 short fx boot. -NWB in short fracture boot, walker. -Antibiotics: continue IV Vanco, Levo per Hospitalist team. -Recommend nutrition consult, gout treatment/management. -Hospitalist initiated allopurinol. -Monitor cultures. If bone has positive growth will need sx for possible amputation. -Podiatry will follow and see in am for dressing change.
[2024-06-09 07:01] LABS: Albumin Level 3.7 g/dl (3.5-5.0); Chloride 103 mmol/L (98-107); Sodium 136 mmol/L (136-145)
[2024-06-09 07:04] LABS: Alanine Aminotransferase 14 U/L (12-78); Albumin/Globulin Ratio 1.2 (1.1-1.8); Alkaline Phosphatase 46 U/L (38-126); Aspartate Amino Transferase 27 U/L (17-59); Blood Urea Nitrogen 16 mg/dl (9-20); Calcium 8.8 mg/dl (8.4-10.2); Carbon Dioxide 23 mmol/L (22.0-30.0); Creatinine Clearance Estimated 108 mL/min (50-200); Estimated Glomerular Filt Rate 85 ml/min (>60); GFR (African American) 103 ML/MIN (>60); Globulin 3.1 g/dL (1.3-3.2); Glucose 89 mg/dl (74-100); Total Protein,Serum 6.8 g/dl (6.3-8.2)
[2024-06-09 07:10] LABS: C-Reactive Protein 192.2 mg/L (0-4)
--- NOTE | 2024-06-09 07:15 | EXP.ANES.II ---
[facility] Anesthesia Record Part II Anesthesia Record Part II Discharge Time: 15:30 Destination: Medical Surgical Department PACU nurse assessment reviewed?: Yes Patient Condition:: Good Anesthesia Complications:: None Swallowing reflex intact?: Yes Airway Patency: Patent Cyanosis?: No Blood Pressure: 130/78 SaO2: 96 Respiratory Rate: 16 Pulse Rate: 88 Temperature: 97.7 F Mental Status: Alert & Oriented Pain level:: 0 Nausea and/or vomitting:: None Intake, IV Amount: 0 Hydration: Adequate
--- NOTE | 2024-06-09 07:45 | P.CONPHA_ITS ---
Pharmacy Consult Date: 06/09/24 Time: 07:45 Referring provider: DR. FINK Reason for Consult:: VANCOMYCIN DOSING Allergies Allergy/AdvReac Type Severity Reaction Status Date / Time ceftriaxone Allergy Mild ANAPHYLAXIS Verified 05/27/24 10:39 Home Medications ?Medication ?Instructions ?Recorded ?Confirmed ?Type cyanocobalamin (vitamin B-12) 1,000 mcg IM MONTHLY 08/17/22 06/08/24 History 1,000 mcg/mL injection solution cholecalciferol (vitamin D3) 50 50 mcg PO DAILY #30 caps 06/02/24 06/08/24 Rx mcg (2,000 unit) capsule cholecalciferol (vitamin D3) 1,250 1,250 mcg PO WEEKLY 06/08/24 06/08/24 History mcg (50,000 unit) capsule New Prescriptions to Start Prescriptions: Height: 1.7 m Weight: 100.953 kg Laboratory Results:: Laboratory Results - last 24 hr 06/08/24 10:20: WBC 11.9 H, RBC 5.50, Hgb 17.3, Hct 51.4, MCV 93.5, MCH 31.5 H, MCHC 33.7, RDW 12.3, Plt Count 268, MPV 9.4, Neut % (Auto) 84.7 H, Lymph % (Auto) 4.8 L, [place] % (Auto) 9.4 H, Eos % (Auto) 0.3, Baso % (Auto) 0.2, Neut # (Auto) 10.1 H, Lymph # (Auto) 0.6 L, [place] # (Auto) 1.1 H, Eos # (Auto) 0.0, Baso # (Auto) 0.0, ESR 11, Sodium 139, Potassium 4.8, Chloride 99, Carbon Dioxide 28, Anion Gap 16.8 H, BUN 13, Creatinine 1.00, Estimated Creat Clear 108, Estimated GFR 75, Est GFR ( Amer) 91, Glucose 105 H, Hemoglobin A1c 5.3, Lactate 1.3, Uric Acid 8.9 H, Calcium 9.8, Total Bilirubin 1.3, AST 28, ALT 22, Alkaline Phosphatase 51, C-Reactive Protein 148.1 H, Total Protein 8.2, Albumin 4.5, Globulin 3.7 H, Albumin/Globulin Ratio 1.2, Procalcitonin 0.074 06/09/24 05:54: WBC 7.9 D, RBC 4.83, Hct 44.9, MCV 93.0, MCH 31.1, MCHC 33.4, RDW 12.5, Plt Count 253, MPV 9.7, Neut % (Auto) 73.1, Lymph % (Auto) 13.7, [place] % (Auto) 11.2 H, Eos % (Auto) 1.3, Baso % (Auto) 0.4, Neut # (Auto) 5.8, Lymph # (Auto) 1.1, [place] # (Auto) 0.9, Eos # (Auto) 0.1, Baso # (Auto) 0.0, Sodium 136, Potassium 4.0, Chloride 103, Carbon Dioxide 23, Anion Gap 14.0, BUN 16, Creatinine 0.90, Estimated Creat Clear 108, Estimated GFR 85, Est GFR ( Amer) 103, Glucose 89, Calcium 8.8, Total Bilirubin 1.0, AST 27, ALT 14 D, Alkaline Phosphatase 46, C-Reactive Protein 192.2 H, Total Protein 6.8, Albumin 3.7 D, Globulin 3.1, Albumin/Globulin Ratio 1.2 Medical History: Medical History (Updated 06/08/24 @ 13:22 by Margi Bennett APRN) Asthma History of COPD Dyspnea on exertion History of sleep apnea Nocturnal hypoxemia Moderate persistent asthma Allergic rhinitis due to animal (cat) (dog) hair and dander Seasonal allergies Assessment and Plan Assessment and plan all Dx Assessment and Plan for all problems:: Pharmacokinetic dosing service Objective: Patient: Floor: Age: 64 yo Serum creatinine: 0.90 mg/dL Height: 66.9 Inches Weight (kg): 101 Assessment: IBW (kg): 65.87 Dosing wt(kg): 101 Estimated Creatinine clearance (ml/min): 78.3 CRCL method: Cockcroft and Gault using ibw(default). Drug selected: Vancomycin Loading dose (mg): Vd (liters): 80.8 (factor used: 0.8 L/kg) Jalil (hr-1): 0.069 Half life (hrs): 10.05 CLvanco=?? 5.575 L/hr Recommended dose: 1500 mg Interval: 12 hrs Infusion time (hrs): 2.0 Predicted peak (mcg/mL): 30.8 Predicted trough (mcg/mL): 15.45 Total body weight is being used for vancomycin dosing. Recommendations: Give Vancomycin 1500 mg q 12 hrs with an expected Cpeak of 30.8 mcg/ml and an expected Ctrough of 15.45 mcg/ml AUC 0-24 /QUANG Data: QUANG 0.5 mcg/mL:?? AUC/QUANG:? 1076.2 QUANG 1.0 mcg/mL:?? AUC/QUANG:? 538.1 --------- QUANG 1.5 mcg/mL:?? AUC/QUANG:? 358.7 QUANG 2.0 mcg/mL:?? AUC/QUANG:? 269.1 Thank you for the consult, will continue to follow. -KURT WADSWORTH, JADOND
--- NOTE | 2024-06-09 07:46 | P.PNANES_ITS ---
[facility] Anesthesia Record Part I Anesthesia Record I Intake, IV Amount: 200 Hydration: Adequate Estimated blood loss (mL): 0 Urine output (mL): 0 Blood Products used (#): none Blood Pressure: 130/97 SaO2: 92 Pulse Rate: 100 Airway Patency: Patent Respiratory Rate: 18 Temperature: 97.2 F Patient is:: Drowsy and Stable Stable to PACU at:: 15:00
[2024-06-09 08:09] LABS: Erythrocyte Sedimentation Rate 26 mm/hr (0-20)
[2024-06-09] MEDS: ALLOPURINOL 100MG TABLET 100 MG PO (08:43)
[2024-06-09] MEDS: VANCOMYCIN/WATER FOR INJ (PEG) 1.5 GM/300 ML PIGGYBACK IV ×2 (10:45→23:00)
[2024-06-09] MEDS: APAP/HYDROCODONE 325MG/7.5MG TAB 1 TAB PO ×2 (11:05→23:00)
--- NOTE | 2024-06-09 11:53 | HMH.PTEV ---
Physical Therapy Evaluation Rehab PT IP Evaluation Start: 06/08/24 15:10 Freq: ONCE Status: Active Protocol: Document 06/09/24 09:05 LASHAUN (Rec: 06/09/24 11:53 LASHAUN [id number]) Subjective/History History History 69-year-old gentleman with history of gout and obesity. He presented to the ER because of pain and swelling in his left foot and ankle. Is gotten worse over the past few days. He was concern for gout flare but began to worry more for infection due to it getting hot and him having a hard time walking on both his feet as his right foot began to hurt also. Now S/P L foot I &D. He reports he lives alone, no MACRUS the home, and he is generally independent with all ambulation and ADLs at baseline. Subjective Subjective Pt reports, I walked in to the bathroom this morning with my cane. Discussed with pt that he is supposed to maintain NWB of the L LE and recommended a RW and WKS. He agrees to mobility assessment and has no c/o at this time. [facility] How much help from another person do you currently need... Turning from your back to your side None while in a flat bed without using bedrails? Moving from lying on back to sitting on None the side of a flat bed without using bedrails? Moving to and from a bed to a chair ( None including a wheelchair)? Standing up from a chair using your arms None ? (e.g., wheelchair, bedside chair) Walking in hospital room? A little Climbing 3-5 steps with a railing? A little Mobility Score [address] [facility] Mobility Calculator Mobility 7 Walk 25 feet or more Rehab PT IP Eval Objective Appearance Patient Behavior Appropriate Patient Orientation Person,Place,Time Difficulty following instructions none Speech Pattern Clear Ambulation Patient Able to Ambulate Yes Ambulation Observation IP General Gait Pattern Observation Decrease Weight Bear (L) Ambulation Distance (feet) 3 Ambulation Assistive Device Rolling Walker Ambulation Ability Supervision/Stand by Balance Ability to Arise Able, uses arms to help Sitting Balance Steady, safe Standing Balance Steady, wide stance Dynamic Sitting Balance Ability Good Dynamic Standing Balance Ability Fair Transfers Bed Transfer Ability Supervision/Stand by Chair Transfer Ability Supervision/Stand by Sit to Stand Bed Transfer Ability Supervision/Stand by Sit to Stand Chair Transfer Ability Supervision/Stand by Rehab PT IP prob,goals,plan Problems Date of Evaluation: 06/09/24 Discharge Plan PT Discharge Plan Pt is currently appropriate to return home once medically stable for d/c. Recommend RW and WKS for mobility at home. No current inpatient therapy needs. Eval Complexity Eval Charge Codes 23144 - High Complexity PHYSICIAN CERTIFICATION: I certify the specified therapy services for Ramakrishna Sen are required, authorized, and reviewed every 30 days.
[2024-06-09] MEDS: LEVOFLOXACIN/D5W 750 MG/150 ML 750 MG/150 ML PIGGYBACK 100 MG IV (13:03)
--- NOTE | 2024-06-09 18:50 | PC.NURSE ---
a&ox4. pt has tolerated ra well throughout shift. respirations regular and unlabored. lung sounds clear throughout. no cough noted. pt has used incentive spirometer 10 times every hour while awake. active bowel sounds heard in all 4 quadrants. soft and nontender. pt voids via urinal or bathroom independently. hand veterans services specialist equal. +1 pulses noted throughout. no edema noted. pt reported pain once this shift in L foot and received norco per may. on reassessment, pt denied pain. dressing noted to L foot from I&D done yesterday by Dr Ortiz. She changed pt's dressing this am, dressing has remained cdi. extremity has been elevated throughout shift. no questions or concerns voiced. was here for awhile to visit today. pt received antibiotics per may and tolerated well. bed in lowest position. call light within reach. vss. pt has remained afebrile.
--- NOTE | 2024-06-09 21:42 | P.PN_ITS ---
Subjective *Date: 06/19/24 *Time: 12:58 Interval history: Patient doing well today, podiatry following and changing dressings. If bone cultures positive, podiatry plans to take patient back to the OR for amputation on . Continue vancomycin, levofloxacin pending cultures. Exam Data for Last 24 hours Vital signs and Labs for Last 24 Hours: Temp Pulse Resp BP Pulse Ox O2 Del Method 98.1 F 97 H 18 133/79 91 L Room Air 06/09/24 20:06/09/24 20:06/09/24 20:06/09/24 20:06/09/24 20:00 06/09/24 20:00 Laboratory Results - last 24 hr 06/09/24 05:54: WBC 7.9 D, RBC 4.83, Hgb 15.0 D, Hct 44.9, MCV 93.0, MCH 31.1, MCHC 33.4, RDW 12.5, Plt Count 253, MPV 9.7, Neut % (Auto) 73.1, Lymph % (Auto) 13.7, [place] % (Auto) 11.2 H, Eos % (Auto) 1.3, Baso % (Auto) 0.4, Neut # (Auto) 5.8, Lymph # (Auto) 1.1, [place] # (Auto) 0.9, Eos # (Auto) 0.1, Baso # (Auto) 0.0, ESR 26 H, Sodium 136, Potassium 4.0, Chloride 103, Carbon Dioxide 23, Anion Gap 14.0, BUN 16, Creatinine 0.90, Estimated Creat Clear 108, Estimated GFR 85, Est GFR ( Amer) 103, Glucose 89, Calcium 8.8, Total Bilirubin 1.0, AST 27, ALT 14 D, Alkaline Phosphatase 46, C-Reactive Protein 192.2 H, Total Protein 6.8, Albumin 3.7 D, Globulin 3.1, Albumin/Globulin Ratio 1.2 I & O for Last 24 hours: Intake & Output 06/06/24 06/07/24 06/08/24 06/09/24 23:59 23:59 23:59 23:59 Intake Total 120 / 520 1703 / 1703 Output Total 0 / 0 Balance 120 / 520 1703 / 1703 Weight 99.875 kg 100.9 kg Microbiology Reports for the Last 24 Hours: Microbiology 06/08/24 14:00 Ankle,Left Gram Stain - Final 06/08/24 14:00 Toe,Left Great Gram Stain - Final Constitutional Constitutional: no acute distress *Routine HEENT Exam Head: Present normocephalic Eye: Present EOMI and PERRL ENT: Present mucous membranes moist *Routine Neck Exam Neck: Present supple; Absent lymphadenopathy *Routine Respiratory Exam Respiratory: Present CTA bilaterally *Routine Cardiovascular Exam Cardiovascular: Present RRR *Routine Abdominal Exam Abdominal: Present soft and normoactive bowel sounds; Absent tenderness *Routine Extremities Exam Extremities: Absent cyanosis, clubbing or edema Comments: Left foot dressed and wrapped. *Routine Skin Exam Skin: Present warm; Absent rash *Routine Neurological Exam Neurological: Present alert and oriented X3 Assessment and Plan *Assessment and plan (1) Gout: Status: Acute Qualifiers: Chronicity: chronic Gout etiology: unspecified cause Gout site: toe Laterality: left Presence of tophus: without tophus Qualified Code(s): M1A.9XX0 - Chronic gout, unspecified, without tophus (tophi) Category: Medical Code(s): M10.9 - Gout, unspecified (2) Cellulitis: Status: Resolved Qualifiers: Laterality: left Site of cellulitis: extremity Site of cellulitis of extremity: lower extremity Qualified Code(s): L03.116 - Cellulitis of left lower limb Category: Medical Code(s): L03.90 - Cellulitis, unspecified (3) Abscess of great toe, left: Status: Resolved Category: Medical Code(s): L02.612 - Cutaneous abscess of left foot (4) Cellulitis of left ankle: Status: Resolved Category: Medical Code(s): L03.116 - Cellulitis of left lower limb (5) Left foot pain: Status: Resolved Category: Medical Code(s): M79.672 - Pain in left foot (6) Obesity: Status: Acute Qualifiers: Body mass index: BMI 35.0-35.9 Obesity classification: adult class 2 (BMI 35 - 39.9) Obesity type: due to excess calories Serious obesity comorbidity presence: with serious comorbidity Qualified Code(s): E66.812 - Obesity, class 2; E66.01 - Morbid (severe) obesity due to excess calories; Z68.35 - Body mass index [BMI] 35.0-35.9, adult Category: Medical Code(s): E66.9 - Obesity, unspecified Plan Ramakrishna Sen is a 69-year-old male who presented with swelling and redness of his left foot. Imaging in the ED concerning for gout with erosions and flare versus osteomyelitis. Discussed case with ER physician, request admission after patient goes to the OR for debridement. #Left foot/Ankle Cellulitis #Gout #Abscess of left great toe - Podiatry consulted, taken to the OR for debridement and washout. Bone biopsies obtained. ? Follow-up on wound, bone cultures. If positive, podiatry will plan to amputate left great toe for source control. - Continue IV vancomycin and IV Levaquin. - Uric acid 8.9, initiate allopurinol 100 mg daily. Titrate as tolerated. ? Patient will need home health for dressing changes. No known history of diabetes. A1c 5.3. Full code Regular diet
[2024-06-10] VITALS: BP 113/63; PULSE 90; RESP 17; TEMP 36.8; O2SAT 90
[2024-06-10 04:00] VITALS: BP 123/70; PULSE 81; RESP 17; TEMP 36.3; O2SAT 90; BMI 34.6
--- NOTE | 2024-06-10 04:20 | PC.NURSE ---
Patient remains alert and oriented x4. He was observed to have eyes closed, respirations even/unlabored on room air, and no apparent distress throughout the majority of the night. His left foot remains wrapped; first dressing change was performed by Angel SNEED during the previous shift (06/09/24). Dressing has remained clean, dry, and intact with no reinforcement needed thus far. Sensation in left foot felt, capillary refill remains < 3 seconds. The patient has been continuing elevation of his left lower extremity using pillows and a rolled blanket. Non-weight bearing status ongoing. Boot was obtained during shift change, and education was provided about how to apply/when to use the boot accordingly. He verbalized an understanding of the boot's significance. Patient has been tolerating ambulation in his room/to the bathroom with ad estela supervision + walker usage very well. Auscultation of his heart, lungs, and bowels remain within normal findings. Low purine diet encouragement ongoing. Vancomycin administered as appropriately per MAY. [place] was given once this shift per MAY due to report of left foot pain. Incentive spirometer usage continuing at the bedside. At this time, the patient is resting in bed without any further complaints. No acute changes noted thus far. Call light within reach.
[2024-06-10 06:22] LABS: Basophils # 0.1 K/mm3 (0-0.2); Basophils % 0.8 % (0.1-2.0); Eosinophils # 0.3 K/mm3 (0.0-0.4); Eosinophils % 4.7 % (0.1-12.0); Hematocrit 41.8 % (42.0-52.0); Hemoglobin 14.2 g/dL (14.1-18.0); Lymphocytes # 1.3 K/mm3 (0.7-4.5); Mean Corpuscular Volume 94.1 fl (80-94); Mean Platelet Volume 9.9 fl (7.4-10.4); Monocytes # 0.7 K/mm3 (0.1-1.0); Monocytes % 11.4 % (1.7-9.3); Neutrophils % 62.6 % (37.0-80.0); Platelet Count 236 K/mm3 (142-424); Red Blood Count 4.44 M/mm3 (4.60-6.20); Red Cell Distribution Width 12.3 % (11.5-17.5); White Blood Count 6.4 K/mm3 (4.8-10.8)
[2024-06-10 06:29] LABS: Chloride 105 mmol/L (98-107); Sodium 138 mmol/L (136-145)
[2024-06-10 06:30] LABS: Potassium 3.9 mmoL/L (3.5-5.1)
[2024-06-10 06:33] LABS: Anion Gap 11.9 mEq/L (5-15); Blood Urea Nitrogen 12 mg/dl (9-20); Calcium 9.1 mg/dl (8.4-10.2); Carbon Dioxide 25 mmol/L (22.0-30.0); Creatinine Clearance Estimated 107 mL/min (50-200); Estimated Glomerular Filt Rate 98 ml/min (>60); GFR (African American) 118 ML/MIN (>60); Glucose 98 mg/dl (74-100)
[2024-06-10 06:38] LABS: C-Reactive Protein 101.4 mg/L (0-4)
[2024-06-10 06:53] LABS: Erythrocyte Sedimentation Rate 23 mm/hr (0-20)
--- NOTE | 2024-06-10 06:53 | EXP.ORTH.PN ---
Subjective *Date: 06/10/24 *Time: 08:04 Interval history: Patient sitting well in bed this morning stated he slept well through the night just had minor pain. Patient received his fracture boot to use for transfers he will only with a walker, foot elevated on pillow and dressings are C/D/I. Ortho Exam (Inpt) Vital signs and Labs for Last 24 Hours: Temp Pulse Resp BP Pulse Ox O2 Del Method 97.4 F L 81 17 123/70 90 L Room Air 06/10/24 04:00 06/10/24 04:00 06/10/24 04:00 06/10/24 04:00 06/10/24 04:00 06/10/24 06:40 Laboratory Results - last 24 hr 06/09/24 05:54: Hgb 15.0 D, ESR 26 H, Sodium 136, Potassium 4.0, Chloride 103, Carbon Dioxide 23, Anion Gap 14.0, BUN 16, Creatinine 0.90, Estimated Creat Clear 108, Estimated GFR 85, Est GFR ( Amer) 103, Glucose 89, Calcium 8.8, Total Bilirubin 1.0, AST 27, ALT 14 D, Alkaline Phosphatase 46, C-Reactive Protein 192.2 H, Total Protein 6.8, Albumin 3.7 D, Globulin 3.1, Albumin/Globulin Ratio 1.2 06/10/24 05:18: WBC 6.4, RBC 4.44 L, Hgb 14.2, Hct 41.8 L, MCV 94.1 H, MCH 32.0 H, MCHC 34.0, RDW 12.3, Plt Count 236, MPV 9.9, Neut % (Auto) 62.6, Lymph % (Auto) 20.0, [place] % (Auto) 11.4 H, Eos % (Auto) 4.7, Baso % (Auto) 0.8, Neut # (Auto) 4.0, Lymph # (Auto) 1.3, [place] # (Auto) 0.7, Eos # (Auto) 0.3, Baso # (Auto) 0.1 I & O for Labs for Last 24 Hours: Intake & Output 06/07/24 06/08/24 06/09/24 06/10/24 23:59 23:59 23:59 23:59 Intake Total 120 / 120 1703 / 1703 480 / 480 Output Total 0 / 0 0 / 0 Balance 120 / 120 1703 / 1703 480 / 480 Weight 220 lb 3 oz 222 lb 7.143 oz 220 lb 7.396 oz Microbiology Reports for the Last 24 Hours: Microbiology 06/08/24 14:00 Ankle,Left Gram Stain - Final 06/08/24 14:00 Toe,Left Great Gram Stain - Final Constitutional: Present no acute distress and cooperative Head: Present normocephalic Eyes: Present as per HPI Neck: Present trachea midline Respiratory: Present normal respiratory effort and able to speak in complete sentences Cardiac: Present posterior tibial pulses present and pedal pulses present Comments:: deferred Rectal (male): Present deferred (male): Present deferred Extremities: Present tenderness, normal capillary refill and edema (Left foot cellulitis improving ) Skin: Present warm and normal turgor Comment:: Sutures intact to the left lateral foot/ankle. Less edema to the ankle with no pain to palpation. Sutures clean dry and intact to the left first MTPJ and medial plantar foot. No purulence malodor or drainage. Edema and erythema both greatly reduced from the medial plantar foot. Patient reports minimal pain. Neuro: Present Motor Function Intact, Sensory Function Intact, oriented x 3 and moves all extremities Ankle: left: erythema, left: swelling (imrproving ) and left: tenderness Feet/Toes: left: erythema (improving to medial plantar foot), left: swelling (improving) and left: tenderness (improving) Assessment and Plan *Assessment and plan (1) Gout: Status: Acute Qualifiers: Chronicity: chronic Gout etiology: unspecified cause Gout site: toe Laterality: left Presence of tophus: without tophus Qualified Code(s): M1A.9XX0 - Chronic gout, unspecified, without tophus (tophi) Category: Medical Code(s): M10.9 - Gout, unspecified (2) Cellulitis: Status: Acute Qualifiers: Laterality: left Site of cellulitis: extremity Site of cellulitis of extremity: lower extremity Qualified Code(s): L03.116 - Cellulitis of left lower limb Category: Medical Code(s): L03.90 - Cellulitis, unspecified (3) Abscess of great toe, left: Status: Acute Category: Medical Code(s): L02.612 - Cutaneous abscess of left foot (4) Cellulitis of left ankle: Status: Acute Category: Medical Code(s): L03.116 - Cellulitis of left lower limb (5) Left foot pain: Status: Acute Category: Medical Code(s): M79.672 - Pain in left foot (6) Left ankle pain: Status: Acute Qualifiers: Chronicity: chronic Qualified Code(s): M25.572 - Pain in left ankle and joints of left foot; G89.29 - Other chronic pain Category: Medical Code(s): M25.572 - Pain in left ankle and joints of left foot Plan Surgery, 06/08/24: s/p Left ankle incision and drainage, foot incision and drainage, Open bone biopsy, Left first MTPJ synovectomy, irrigation and debridement (wide excisional debridement nonviable soft tissue to the deep fascia), Excision of skin lesion Intraop Specimens: PENDING Micro: Left ankle wound culture left foot wound culture left foot gout crystals left 1st metatarsal bone culture left proximal phalanx bone culture Path: left foot skin lesion left 1st metatarsal bone left proximal phalanx bone Labs: 06/08/24: wbc 11.9, esr 11, crp 148.1, cr 1.00, gfr 75, glucose 105, albumin 4.5, Ha1c 5.3%, uric acid 8.9 06/09/24: wbc 7.9, crp 192.2, cr 0.9, gfr 85, glucose 89, albumin 3.7 06/10/24: WBC 6.4 ESR 23, glucose 93, CRP 101.4 06/10/24: POD #2 Left foot/Ankle Cellulitis, Gout flare, abscess of left great toe: -Reviewed labs as above. -Dsg changed: overall pain, edema and erythema has improved. -New xeroform, betadine soaked gauze, dry gauze, deshawn, yolis applied. -Maintain dressing clean dry and intact to left foot, reinforce as necessary. -Continue to use PT for gait training, patient now has fracture boot to use for heel pressure only -NWB in short fracture boot, walker. -Antibiotics: continue IV Vanco, Levo per Hospitalist team. -Recommend nutrition consult, gout treatment/management. -Hospitalist initiated allopurinol. -Monitor cultures. If bone has positive growth will need sx for possible amputation. -Podiatry continue to follow and see in am for dressing change. - All orders per Dr. Ortiz
[2024-06-10 07:08] LABS: Albumin Level 3.2 g/dl (3.5-5.0); Chloride 105 mmol/L (98-107); Potassium 4.2 mmoL/L (3.5-5.1); Sodium 138 mmol/L (136-145)
[2024-06-10 07:11] LABS: Alanine Aminotransferase 18 U/L (12-78); Albumin/Globulin Ratio 1.2 (1.1-1.8); Alkaline Phosphatase 43 U/L (38-126); Anion Gap 13.2 mEq/L (5-15); Aspartate Amino Transferase 24 U/L (17-59); Bilirubin,Total 0.7 mg/dl (0.2-1.3); Blood Urea Nitrogen 12 mg/dl (9-20); Calcium 8.8 mg/dl (8.4-10.2); Carbon Dioxide 24 mmol/L (22.0-30.0); Creatinine Clearance Estimated 107 mL/min (50-200); Estimated Glomerular Filt Rate 98 ml/min (>60); GFR (African American) 118 ML/MIN (>60); Globulin 2.6 g/dL (1.3-3.2); Glucose 93 mg/dl (74-100); Magnesium 1.7 mg/dl (1.6-2.3); Total Protein,Serum 5.8 g/dl (6.3-8.2)
[2024-06-10 08:00] VITALS: BP 120/67; PULSE 81; RESP 16; TEMP 36.5; O2SAT 93
[2024-06-10 08:40] VITALS: O2SAT 93
[2024-06-10] MEDS: ALLOPURINOL 100MG TABLET 100 MG PO (08:42)
[2024-06-10] MEDS: PHA TO NURSING INSTRUCTION 1 EACH NOTAPPLIC (10:05)
[2024-06-10 10:35] LABS: Vancomycin,Trough 13.5 ug/mL (5.0-10.0)
[2024-06-10] MEDS: VANCOMYCIN/WATER FOR INJ (PEG) 1.5 GM/300 ML PIGGYBACK IV ×2 (11:49→22:02)
--- NOTE | 2024-06-10 13:09 | P.CONPHA_ITS ---
Pharmacy Consult Date: 06/10/24 Time: 13:09 Referring provider: DR. FAULKNER Reason for Consult:: VANCOMYCIN LEVEL Allergies Allergy/AdvReac Type Severity Reaction Status Date / Time ceftriaxone Allergy Mild ANAPHYLAXIS Verified 05/27/24 10:39 Home Medications ?Medication ?Instructions ?Recorded ?Confirmed ?Type cyanocobalamin (vitamin B-12) 1,000 mcg IM MONTHLY 08/17/22 06/08/24 History 1,000 mcg/mL injection solution cholecalciferol (vitamin D3) 50 50 mcg PO DAILY #30 caps 06/02/24 06/08/24 Rx mcg (2,000 unit) capsule cholecalciferol (vitamin D3) 1,250 1,250 mcg PO WEEKLY 06/08/24 06/08/24 History mcg (50,000 unit) capsule New Prescriptions to Start Prescriptions: Height: 1.7 m Weight: 100 kg Laboratory Results:: Laboratory Results - last 24 hr 06/10/24 05:18: WBC 6.4, RBC 4.44 L, Hgb 14.2, Hct 41.8 L, MCV 94.1 H, MCH 32.0 H, MCHC 34.0, RDW 12.3, Plt Count 236, MPV 9.9, Neut % (Auto) 62.6, Lymph % (Auto) 20.0, [place] % (Auto) 11.4 H, Eos % (Auto) 4.7, Baso % (Auto) 0.8, Neut # (Auto) 4.0, Lymph # (Auto) 1.3, [place] # (Auto) 0.7, Eos # (Auto) 0.3, Baso # (Auto) 0.1, ESR 23 H, Sodium 138 06/10/24 05:18: Sodium 138, Potassium 3.9 06/10/24 05:18: Potassium 4.2, Chloride 105 06/10/24 05:18: Chloride 105, Carbon Dioxide 25 06/10/24 05:18: Carbon Dioxide 24, Anion Gap 11.9 06/10/24 05:18: Anion Gap 13.2, BUN 12 06/10/24 05:18: BUN 12, Creatinine 0.80 06/10/24 05:18: Creatinine 0.80, Estimated Creat Clear 107 06/10/24 05:18: Estimated Creat Clear 107, Estimated GFR 98 06/10/24 05:18: Estimated GFR 98, Est GFR ( Amer) 118 06/10/24 05:18: Est GFR ( Amer) 118, Glucose 98 06/10/24 05:18: Glucose 93, Calcium 9.1 06/10/24 05:18: Calcium 8.8, Magnesium 1.7, Total Bilirubin 0.7, AST 24, ALT 18 D, Alkaline Phosphatase 43, C-Reactive Protein 101.4 H, Total Protein 5.8 L, Albumin 3.2 L D, Globulin 2.6, Albumin/Globulin Ratio 1.2 06/10/24 09:57: Vancomycin Trough 13.5 H Medical History: Medical History (Updated 06/08/24 @ 13:22 by Margi Bennett APRN) Asthma History of COPD Dyspnea on exertion History of sleep apnea Nocturnal hypoxemia Moderate persistent asthma Allergic rhinitis due to animal (cat) (dog) hair and dander Seasonal allergies Assessment and Plan Assessment and plan all Dx Assessment and Plan for all problems:: PATIENT'S VANCOMYCIN TROUGH LEVEL WAS 13.5 MCG/ML TODAY. RECOMMEND PATIENT CONTINUE WITH VANCOMYCIN 1500 MG Q12H AT THIS TIME.
[2024-06-10] MEDS: LEVOFLOXACIN/D5W 750 MG/150 ML 750 MG/150 ML PIGGYBACK 100 MG IV (13:51)
[2024-06-10 16:00] VITALS: BP 136/85; PULSE 81; RESP 16; TEMP 36.4; O2SAT 93
[2024-06-10 16:16] LABS: Vancomycin,Peak 31.9 ug/ml (11-39)
--- NOTE | 2024-06-10 17:12 | PC.NURSE ---
a&ox4. pt has tolerated ra well throughout shift. respirations regular and unlabored. lung sounds clear throughout. no cough noted. pt has used incentive spirometer 10 times every hour while awake. active bowel sounds heard in all 4 quadrants. soft and nontender. pt voids via bathroom independently. hand charging car operator equal. +1 pulses noted throughout. no edema noted. pt has denied pain thus far. dressing noted to L foot from I&D done 06/08/[address] Ortiz. Jacoby NASCIMENTO changed pt's dressing this am, dressing has remained cdi. no reinforcement needed thus far. extremity has been elevated throughout shift. pt has a walking boot and walker for mobility. pt tolerates wel. pt received antibiotics per may and tolerated well. pt has been up in the chair several times today. this nurse changed pt's linens and provided patient with supplies to take a shower or bath if he prefers to. no questions or concerns voiced. sister was here for awhile to visit today. bed in lowest position. call light within reach. vss. pt has remained afebrile.
[2024-06-10 20:00] VITALS: BP 133/84; PULSE 89; RESP 16; TEMP 36.8; O2SAT 93
--- NOTE | 2024-06-10 22:00 | EXP.PN ---
Subjective *Date: 06/10/24 *Time: 22:00 Interval history: Patient feeling well today, no concerns. Has mild pain with ambulation. Pending cultures, if positive podiatry will amputate left great toe. Otherwise continue antibiotics. Exam Data for Last 24 hours Vital signs and Labs for Last 24 Hours: Temp Pulse Resp BP Pulse Ox O2 Del Method 98.2 F 89 16 133/84 93 L Room Air 06/10/24 20:00 06/10/24 20:00 06/10/24 20:00 06/10/24 20:00 06/10/24 20:00 06/10/24 20:00 Laboratory Results - last 24 hr 06/10/24 05:18: WBC 6.4, RBC 4.44 L, Hgb 14.2, Hct 41.8 L, MCV 94.1 H, MCH 32.0 H, MCHC 34.0, RDW 12.3, Plt Count 236, MPV 9.9, Neut % (Auto) 62.6, Lymph % (Auto) 20.0, [place] % (Auto) 11.4 H, Eos % (Auto) 4.7, Baso % (Auto) 0.8, Neut # (Auto) 4.0, Lymph # (Auto) 1.3, [place] # (Auto) 0.7, Eos # (Auto) 0.3, Baso # (Auto) 0.1, ESR 23 H, Sodium 138 06/10/24 05:18: Sodium 138, Potassium 3.9 06/10/24 05:18: Potassium 4.2, Chloride 105 06/10/24 05:18: Chloride 105, Carbon Dioxide 25 06/10/24 05:18: Carbon Dioxide 24, Anion Gap 11.9 06/10/24 05:18: Anion Gap 13.2, BUN 12 06/10/24 05:18: BUN 12, Creatinine 0.80 06/10/24 05:18: Creatinine 0.80, Estimated Creat Clear 107 06/10/24 05:18: Estimated Creat Clear 107, Estimated GFR 98 06/10/24 05:18: Estimated GFR 98, Est GFR ( Amer) 118 06/10/24 05:18: Est GFR ( Amer) 118, Glucose 98 06/10/24 05:18: Glucose 93, Calcium 9.1 06/10/24 05:18: Calcium 8.8, Magnesium 1.7, Total Bilirubin 0.7, AST 24, ALT 18 D, Alkaline Phosphatase 43, C-Reactive Protein 101.4 H, Total Protein 5.8 L, Albumin 3.2 L D, Globulin 2.6, Albumin/Globulin Ratio 1.2 06/10/24 09:57: Vancomycin Trough 13.5 H 06/10/24 15:18: Vancomycin Peak 31.9 I & O for Last 24 hours: Intake & Output 06/07/24 06/08/24 06/09/24 06/10/24 23:59 23:59 23:59 23:59 Intake Total 120 / 520 1703 / 2183 1530 / 1530 Output Total 0 / 0 0 / 0 Balance 120 / 520 1703 / 2183 1530 / 1530 Weight 99.875 kg 100.9 kg 100 kg Microbiology Reports for the Last 24 Hours: Microbiology 06/08/24 14:00 Foot,Left Gram Stain - Final 06/08/24 14:00 Foot,Left Surgical Biopsy Culture - Preliminary NO GROWTH AFTER 24 HOURS Constitutional Constitutional: no acute distress *Routine HEENT Exam Head: Present normocephalic Eye: Present EOMI and PERRL ENT: Present mucous membranes moist *Routine Neck Exam Neck: Present supple; Absent lymphadenopathy *Routine Respiratory Exam Respiratory: Present CTA bilaterally *Routine Cardiovascular Exam Cardiovascular: Present RRR *Routine Abdominal Exam Abdominal: Present soft and normoactive bowel sounds; Absent tenderness *Routine Extremities Exam Extremities: Absent cyanosis, clubbing or edema Comments: Left foot dressed and wrapped. *Routine Skin Exam Skin: Present warm; Absent rash *Routine Neurological Exam Neurological: Present alert and oriented X3 Assessment and Plan *Assessment and plan (1) Gout: Status: Acute Qualifiers: Gout site: toe Gout etiology: unspecified cause Chronicity: chronic Laterality: left Presence of tophus: without tophus Qualified Code(s): M1A.9XX0 - Chronic gout, unspecified, without tophus (tophi) Category: Medical Code(s): M10.9 - Gout, unspecified (2) Cellulitis: Status: Acute Qualifiers: Laterality: left Site of cellulitis: extremity Site of cellulitis of extremity: lower extremity Qualified Code(s): L03.116 - Cellulitis of left lower limb Category: Medical Code(s): L03.90 - Cellulitis, unspecified (3) Abscess of great toe, left: Status: Acute Category: Medical Code(s): L02.612 - Cutaneous abscess of left foot (4) Cellulitis of left ankle: Status: Acute Category: Medical Code(s): L03.116 - Cellulitis of left lower limb (5) Left foot pain: Status: Acute Category: Medical Code(s): M79.672 - Pain in left foot (6) Left ankle pain: Status: Acute Qualifiers: Chronicity: chronic Qualified Code(s): M25.572 - Pain in left ankle and joints of left foot; G89.29 - Other chronic pain Category: Medical Code(s): M25.572 - Pain in left ankle and joints of left foot (7) Obesity: Status: Acute Qualifiers: Obesity type: due to excess calories Obesity classification: adult class 2 (BMI 35 - 39.9) Serious obesity comorbidity presence: with serious comorbidity Body mass index: BMI 35.0-35.9 Qualified Code(s): E66.812 - Obesity, class 2; E66.01 - Morbid (severe) obesity due to excess calories; Z68.35 - Body mass index [BMI] 35.0-35.9, adult Category: Medical Code(s): E66.9 - Obesity, unspecified Plan Ramakrishna Sen is a 69-year-old male who presented with swelling and redness of his left foot. Imaging in the ED concerning for gout with erosions and flare versus osteomyelitis. Discussed case with ER physician, request admission after patient goes to the OR for debridement. #Left foot/Ankle Cellulitis #Gout #Abscess of left great toe - Podiatry consulted, taken to the OR for debridement and washout. Bone biopsies obtained. ? Follow-up on wound, bone cultures. If positive, podiatry will plan to amputate left great toe for source control. - Continue IV vancomycin and IV Levaquin. - Uric acid 8.9, initiate allopurinol 100 mg daily. Titrate as tolerated. No known history of diabetes. A1c 5.3. Full code Regular diet
[2024-06-10] MEDS: APAP/HYDROCODONE 325MG/7.5MG TAB 1 TAB PO (22:07)
[2024-06-11] VITALS: BP 129/72; PULSE 82; RESP 16; TEMP 36.9; O2SAT 92
[2024-06-11 04:00] VITALS: BP 109/65; PULSE 74; RESP 18; TEMP 36.7; O2SAT 92; BMI 34.9
--- NOTE | 2024-06-11 06:35 | PC.NURSE ---
Alert and oriented. Complaints of pain one time, treated per may. Rested well throughout night. IV abx. Ambulates to restroom with assistance. Room air. Dressing CDI to left foot. Call light in reach.
[2024-06-11 06:38] LABS: Basophils % 0.7 % (0.1-2.0); Eosinophils # 0.3 K/mm3 (0.0-0.4); Eosinophils % 5.3 % (0.1-12.0); Hematocrit 40.1 % (42.0-52.0); Hemoglobin 13.4 g/dL (14.1-18.0); Lymphocytes # 1.1 K/mm3 (0.7-4.5); Lymphocytes % 18.9 % (10-50); Mean Corpuscular HGB Conc 33.4 g/dL (31.8-35.4); Mean Corpuscular Hemoglobin 31.2 pg (27.0-31.2); Mean Corpuscular Volume 93.5 fl (80-94); Mean Platelet Volume 9.4 fl (7.4-10.4); Monocytes # 0.5 K/mm3 (0.1-1.0); Monocytes % 8.8 % (1.7-9.3); Neutrophils # 3.9 K/mm3 (1.8-7.8); Neutrophils % 65.8 % (37.0-80.0); Nucleated Red Blood Cells # 0 10^3/uL; Nucleated Red Blood Cells % 0 %; Platelet Count 269 K/mm3 (142-424); Red Blood Count 4.29 M/mm3 (4.60-6.20); Red Cell Distribution Width 12.3 % (11.5-17.5); Red Cell Distribution Width-SD 42.6 fL
[2024-06-11 06:53] LABS: Albumin Level 3.2 g/dl (3.5-5.0)
[2024-06-11 06:54] LABS: Chloride 106 mmol/L (98-107); Potassium 3.9 mmoL/L (3.5-5.1); Sodium 137 mmol/L (136-145)
[2024-06-11 06:56] LABS: Alanine Aminotransferase 21 U/L (12-78); Alkaline Phosphatase 48 U/L (38-126); Anion Gap 9.9 mEq/L (5-15); Aspartate Amino Transferase 27 U/L (17-59); Bilirubin,Total 0.6 mg/dl (0.2-1.3); Blood Urea Nitrogen 8 mg/dl (9-20); Carbon Dioxide 25 mmol/L (22.0-30.0); Creatinine Clearance Estimated 108 mL/min (50-200); Estimated Glomerular Filt Rate 114 ml/min (>60); GFR (African American) 138 ML/MIN (>60)
[2024-06-11 06:57] LABS: Albumin/Globulin Ratio 1.1 (1.1-1.8); Glucose 96 mg/dl (74-100); Magnesium 1.8 mg/dl (1.6-2.3); Total Protein,Serum 6.2 g/dl (6.3-8.2)
[2024-06-11 07:09] LABS: Erythrocyte Sedimentation Rate 48 mm/hr (0-20)
[2024-06-11 07:39] LABS: C-Reactive Protein 56.5 mg/L (0-4)
[2024-06-11 08:00] VITALS: BP 132/68; PULSE 89; RESP 19; TEMP 36.5; O2SAT 94
--- NOTE | 2024-06-11 08:00 | P.PN_ITS ---
Subjective *Date: 06/11/24 *Time: 08:05 Interval history: Patient resting in bed done very well through the night denies any acute pain with left foot surgical site, remains clean dry and intact. Ortho Exam (Inpt) Vital signs and Labs for Last 24 Hours: Temp Pulse Resp BP Pulse Ox O2 Del Method 98.0 F 74 18 109/65 L 92 L Room Air 06/11/24 04:00 06/11/24 04:00 06/11/24 04:00 06/11/24 04:00 06/11/24 04:00 06/11/24 06:54 Laboratory Results - last 24 hr 06/10/24 09:57: Vancomycin Trough 13.5 H 06/10/24 15:18: Vancomycin Peak 31.9 06/11/24 06:03: WBC 6.0, RBC 4.29 L, Hgb 13.4 L, Hct 40.1 L, MCV 93.5, MCH 31.2, MCHC 33.4, RDW 12.3, Plt Count 269, MPV 9.4, Neut % (Auto) 65.8, Lymph % (Auto) 18.9, [place] % (Auto) 8.8, Eos % (Auto) 5.3, Baso % (Auto) 0.7, Neut # (Auto) 3.9, Lymph # (Auto) 1.1, [place] # (Auto) 0.5, Eos # (Auto) 0.3, Baso # (Auto) 0.0, ESR 48 H, Sodium 137, Potassium 3.9, Chloride 106, Carbon Dioxide 25, Anion Gap 9.9, BUN 8 L D, Creatinine 0.70, Estimated Creat Clear 108, Estimated GFR 114, Est GFR ( Amer) 138, Glucose 96, Calcium 9.0, Magnesium 1.8, Total Bilirubin 0.6, AST 27, ALT 21, Alkaline Phosphatase 48, C-Reactive Protein 56.5 H D, Total Protein 6.2 L, Albumin 3.2 L, Globulin 3.0, Albumin/Globulin Ratio 1.1 I & O for Labs for Last 24 Hours: Intake & Output 06/08/24 06/09/24 06/10/24 06/11/24 23:59 23:59 23:59 23:59 Intake Total 120 / 120 1703 / 1703 1830 / 1830 Output Total 0 / 0 0 / 0 0 / 0 Balance 120 / 120 1703 / 1703 1830 / 1830 0 / 0 Weight 220 lb 3 oz 222 lb 7.143 oz 220 lb 7.396 oz 222 lb 14.4 oz Microbiology Reports for the Last 24 Hours: Microbiology 06/08/24 14:00 Foot,Left Gram Stain - Final 06/08/24 14:00 Foot,Left Surgical Biopsy Culture - Preliminary NO GROWTH AFTER 48 HOURS Constitutional: Present no acute distress and cooperative Head: Present normocephalic Eyes: Present as per HPI Neck: Present trachea midline Respiratory: Present normal respiratory effort and able to speak in complete sentences Cardiac: Present posterior tibial pulses present and pedal pulses present Comments:: deferred Rectal (male): Present deferred (male): Present deferred Extremities: Present tenderness, normal capillary refill and edema (Left foot cellulitis improving ) Skin: Present warm and normal turgor Comment:: Sutures intact to the left lateral foot/ankle. Less edema to the ankle with no pain to palpation. Sutures clean dry and intact to the left first MTPJ and medial plantar foot. No purulence malodor or drainage. Edema and erythema both greatly reduced from the medial plantar foot. Patient reports minimal pain. Neuro: Present Motor Function Intact, Sensory Function Intact, oriented x 3 and moves all extremities Ankle: left: erythema, left: swelling (imrproving ) and left: tenderness Feet/Toes: left: erythema (improving to medial plantar foot), left: swelling (improving) and left: tenderness (improving) Assessment and Plan *Assessment and plan (1) Gout: Status: Acute Qualifiers: Chronicity: chronic Gout etiology: unspecified cause Gout site: toe Laterality: left Presence of tophus: without tophus Qualified Code(s): M1A.9XX0 - Chronic gout, unspecified, without tophus (tophi) Category: Medical Code(s): M10.9 - Gout, unspecified (2) Cellulitis: Status: Acute Qualifiers: Laterality: left Site of cellulitis: extremity Site of cellulitis of extremity: lower extremity Qualified Code(s): L03.116 - Cellulitis of left lower limb Category: Medical Code(s): L03.90 - Cellulitis, unspecified (3) Abscess of great toe, left: Status: Acute Category: Medical Code(s): L02.612 - Cutaneous abscess of left foot (4) Cellulitis of left ankle: Status: Acute Category: Medical Code(s): L03.116 - Cellulitis of left lower limb (5) Left foot pain: Status: Acute Category: Medical Code(s): M79.672 - Pain in left foot (6) Left ankle pain: Status: Acute Qualifiers: Chronicity: chronic Qualified Code(s): M25.572 - Pain in left ankle and joints of left foot; G89.29 - Other chronic pain Category: Medical Code(s): M25.572 - Pain in left ankle and joints of left foot Plan Surgery, 06/08/24: s/p Left ankle incision and drainage, foot incision and drainage, Open bone biopsy, Left first MTPJ synovectomy, irrigation and debridement (wide excisional debridement nonviable soft tissue to the deep fascia), Excision of skin lesion Intraop Specimens: PENDING Micro: Left ankle wound culture left foot wound culture left foot gout crystals left 1st metatarsal bone culture left proximal phalanx bone culture Path: left foot skin lesion left 1st metatarsal bone left proximal phalanx bone Labs: 06/08/24: wbc 11.9, esr 11, crp 148.1, cr 1.00, gfr 75, glucose 105, albumin 4.5, Ha1c 5.3%, uric acid 8.9 06/09/24: wbc 7.9, crp 192.2, cr 0.9, gfr 85, glucose 89, albumin 3.7 06/10/24: WBC 6.4 ESR 23, glucose 93, CRP 101.4 06/11/24: BC 6.0, ESR 48, CRP 56.5 06/10/24: POD #2 Left foot/Ankle Cellulitis, Gout flare, abscess of left great toe: -Reviewed labs as above. -Dsg changed: overall pain, edema and erythema has improved. -New xeroform, betadine soaked gauze, dry gauze, deshawn, yolis applied. -Maintain dressing clean dry and intact to left foot, reinforce as necessary. -Continue to use PT for gait training, patient now has fracture boot to use for heel pressure only -NWB in short fracture boot, walker. -Antibiotics: continue IV Vanco, Levo per Hospitalist team. -Recommend nutrition consult, gout treatment/management. -Hospitalist initiated allopurinol. -Monitor cultures. If bone has positive growth will need sx for possible amputation. -Podiatry continue to follow and see in am for dressing change. - All orders per Dr. Ortiz 06/11/24: POD #3 Left foot/Ankle Cellulitis, Gout flare, abscess of left great toe: -Reviewed labs as above, CRP is trending down Dsg changed: overall pain, edema and erythema has improved. -New xeroform, betadine soaked gauze, dry gauze, deshawn, yolis applied. -Maintain dressing clean dry and intact to left foot, reinforce as necessary. -Plan for nursing to start doing daily dressing changes while patient remains inpatient starting 06/12/24 -Continue to use PT for gait training, patient now has fracture boot to use for heel pressure only -NWB in short fracture boot, walker. -Antibiotics: continue IV Vanco, Levo per Hospitalist team. -Recommend nutrition consult, gout treatment/management. -Hospitalist initiated allopurinol, patient seems to be tolerating well. -Monitor cultures. If bone has positive growth will need sx for possible amputation. -Podiatry continue to follow and see in am for dressing change. - All orders per Dr. Ortiz
--- NOTE | 2024-06-11 08:34 | EXP.PHA.PN ---
Subjective *Date: 06/11/24 *Time: 08:34 Medical Exam Vital signs and Labs for Last 24 Hours: Vital Signs Temp Pulse Resp BP Pulse Ox O2 Del Method 06/11/24 06:54 Room Air 06/11/24 05:00 Room Air 06/11/24 04:00 98.0 F 74 18 109/65 L 92 L Room Air 06/11/24 03:00 Room Air 06/11/24 01:00 Room Air 06/11/24 00:00 98.5 F 82 16 129/72 92 L Room Air 06/10/24 23:00 Room Air 06/10/24 21:00 Room Air 06/10/24 20:00 Room Air 06/10/24 20:00 98.2 F 89 16 133/84 93 L Room Air 06/10/24 18:42 Room Air 06/10/24 17:08 Room Air 06/10/24 16:00 97.5 F L 81 16 136/85 93 L Room Air 06/10/24 15:00 Room Air 06/10/24 13:08 Room Air 06/10/24 11:15 Room Air 06/10/24 09:05 Room Air 06/10/24 08:40 93 L Room Air Intake and Output 06/10/24 06/11/24 06/11/24 23:59 07:59 15:59 Intake Total 300 / 1830 Output Total 0 / 0 0 / 0 Balance 300 / 1830 0 / 0 Intake: Intake, Total IV Amount 300 / 750 Vancomycin/Water For Inj (Peg) 300 / 600 1.5 gm In 300 ml @ 150 mls/hr IV Q12H [facility] Rx#:[id number] Output: Output, Urine Amount 0 / 0 0 / 0 Other: Number of Unmeasured Voids 1 1 Weight 101.106 kg Patient Weight 06/11/24 23:59 Weight 101.106 kg Laboratory Results - last 24 hr 06/10/24 09:57: Vancomycin Trough 13.5 H 06/10/24 15:18: Vancomycin Peak 31.9 06/11/24 06:03: WBC 6.0, RBC 4.29 L, Hgb 13.4 L, Hct 40.1 L, MCV 93.5, MCH 31.2, MCHC 33.4, RDW 12.3, Plt Count 269, MPV 9.4, Neut % (Auto) 65.8, Lymph % (Auto) 18.9, [place] % (Auto) 8.8, Eos % (Auto) 5.3, Baso % (Auto) 0.7, Neut # (Auto) 3.9, Lymph # (Auto) 1.1, [place] # (Auto) 0.5, Eos # (Auto) 0.3, Baso # (Auto) 0.0, ESR 48 H, Sodium 137, Potassium 3.9, Chloride 106, Carbon Dioxide 25, Anion Gap 9.9, BUN 8 L D, Creatinine 0.70, Estimated Creat Clear 108, Estimated GFR 114, Est GFR ( Amer) 138, Glucose 96, Calcium 9.0, Magnesium 1.8, Total Bilirubin 0.6, AST 27, ALT 21, Alkaline Phosphatase 48, C-Reactive Protein 56.5 H D, Total Protein 6.2 L, Albumin 3.2 L, Globulin 3.0, Albumin/Globulin Ratio 1.1 I & O for Labs for Last 24 Hours: Intake & Output 06/08/24 06/09/24 06/10/24 06/11/24 23:59 23:59 23:59 23:59 Intake Total 120 / 520 1703 / 2183 1830 / 1830 Output Total 0 / 0 0 / 0 0 / 0 Balance 120 / 520 1703 / 2183 1830 / 1830 0 / 0 Weight 99.875 kg 100.9 kg 100 kg 101.106 kg Microbiology Reports for the Last 24 Hours: Microbiology 06/08/24 14:00 Foot,Left Gram Stain - Final 06/08/24 14:00 Foot,Left Surgical Biopsy Culture - Preliminary NO GROWTH AFTER 48 HOURS The patient's infection will respond to the chosen ABx?: Yes (WHITE COUNT 6.0, AFEBRILE OVER 24 HRS, BONE AND WOUND CXS PENDING.) Is the patient receiving the right drug, dose, and route?: Yes Could a more targeted ABx be ordered?: No
[2024-06-11] MEDS: ALLOPURINOL 100MG TABLET 100 MG PO (10:00)
[2024-06-11] MEDS: VANCOMYCIN/WATER FOR INJ (PEG) 1.5 GM/300 ML PIGGYBACK IV (10:00)
--- NOTE | 2024-06-11 10:43 | PC.NURSE ---
pt may have difficulty in performing daily dressing changes per self. dsg changes consist of Xeroform, betadine soaked gauze, dry 4x4, deshawn, [place] wrap.
--- NOTE | 2024-06-11 11:34 | SW/DCPLANNER ---
Addendum entered by Annalisa Silvestre 06/11/24 13:10: Yuki gray/ [facility] stated that patient has been accepted and services will begin Thursday 06/15. Original Note: I spoke w/ this patient regarding plans once medically stable for discharge for dressing changes. Patient will need dressing changes to foot twice weekly per Dr Ortiz. Patient prefers to return home w/ home health services to complete dressing changes. Patient did not have a preferred home health agency. Patient information/order has been faxed to Yuki gray/ [facility]. Patient will discharge home today. I will continue to follow up w/ home health.
--- NOTE | 2024-06-11 11:44 | P.DS_ITS ---
General Admission date:: 06/08/24 HPI HPI HPI: Mr. Sen is a 69-year-old gentleman with history of gout and obesity. He presented to the ER because of pain and swelling in his left foot and ankle. Is gotten worse over the past few days. He was concern for gout flare but began to worry more for infection due to it getting hot and him having a hard time walking on both his feet as his right foot began to hurt 2. He initially prese nted to the ER on 05/30 for the same problem and was given a course of doxycycline. Swelling got somewhat better but then returned after completing antibiotics. On presentation today, Patient's left foot is hot and red. White count elevated 11.9, ESR 11 and CRP elevated at 148. Uric acid is also elevated at 8.9. Complaining of pain in foot. Foot is hot and red. Imaging obtained showing concern for cellulitis and edema. Podiatry consulted to evaluate. Patient taken to the OR for further management. CT obtained showing bony erosion and soft tissue swelling of the first metatarsal head and calcifications concerning for gout versus osteomyelitis. Evaluated after surgery, patient is pain-free due to anesthesia. Stable on room air. Bone biopsies obtained from surgical site. Afebrile. Hospital Course Hospital Course Hospital Course: Ramakrishna Sen is a 69-year-old male who presented with swelling and redness of his left foot. Imaging in the ED concerning for gout with erosions and flare versus osteomyelitis. Discussed case with ER physician, request admission after patient goes to the OR for debridement. #Left foot/Ankle Cellulitis #Abscess of left great toe #Gout - Podiatry consulted, taken to the OR for debridement and washout. Bone biopsie s obtained, ultimately did not have growth. ? Treated with vancomycin, Levaquin. Podiatry recommended 10 more days of doxycycline 100 mg twice daily, levofloxacin 750 mg daily. - Uric acid 8.9, started allopurinol 100 mg daily. Titrate as tolerated. ? Will follow-up with podiatry, PCP within 2 weeks. ? Patient will be set up with home health for dressing changes. #Hyperlipidemia ? LDL 139. Started atorvastatin 40 mg nightly. No known history of diabetes. A1c 5.3. Exam Data for Last 24 hours Vital signs and Labs for Last 24 Hours: Temp Pulse Resp BP Pulse Ox O2 Del Method 97.7 F 89 19 132/68 94 L Room Air 06/11/24 08:00 06/11/24 08:00 06/11/24 08:00 06/11/24 08:00 06/11/24 08:00 06/11/24 08:00 Laboratory Results - last 24 hr 06/10/24 15:18: Vancomycin Peak 31.9 06/11/24 06:03: WBC 6.0, RBC 4.29 L, Hgb 13.4 L, Hct 40.1 L, MCV 93.5, MCH 31.2, MCHC 33.4, RDW 12.3, Plt Count 269, MPV 9.4, Neut % (Auto) 65.8, Lymph % (Auto) 18.9, [place] % (Auto) 8.8, Eos % (Auto) 5.3, Baso % (Auto) 0.7, Neut # (Auto) 3.9, Lymph # (Auto) 1.1, [place] # (Auto) 0.5, Eos # (Auto) 0.3, Baso # (Auto) 0.0, ESR 48 H, Sodium 137, Potassium 3.9, Chloride 106, Carbon Dioxide 25, Anion Gap 9.9, BUN 8 L D, Creatinine 0.70, Estimated Creat Clear 108, Estimated GFR 114, Est GFR ( Amer) 138, Glucose 96, Calcium 9.0, Magnesium 1.8, Total Bilirubin 0.6, AST 27, ALT 21, Alkaline Phosphatase 48, C-Reactive Protein 56.5 H D, Total Protein 6.2 L, Albumin 3.2 L, Globulin 3.0, Albumin/Globulin Ratio 1.1 I & O for Last 24 hours: Intake & Output 06/08/24 06/09/24 06/10/24 06/11/24 23:59 23:59 23:59 23:59 Intake Total 120 / 520 1703 / 2183 1830 / 1830 360 / 360 Output Total 0 / 0 0 / 0 0 / 0 Balance 120 / 520 1703 / 2183 1830 / 1830 360 / 360 Weight 99.875 kg 100.9 kg 100 kg 101.106 kg Microbiology Reports for the Last 24 Hours: Microbiology 06/08/24 14:00 Foot,Left Gram Stain - Final 06/08/24 14:00 Foot,Left Surgical Biopsy Culture - Preliminary NO GROWTH AFTER 48 HOURS Constitutional Constitutional: no acute distress *Routine HEENT Exam Head: Present normocephalic Eye: Present EOMI and PERRL ENT: Present mucous membranes moist *Routine Neck Exam Neck: Present supple; Absent lymphadenopathy *Routine Respiratory Exam Respiratory: Present CTA bilaterally *Routine Cardiovascular Exam Cardiovascular: Present RRR *Routine Abdominal Exam Abdominal: Present soft and normoactive bowel sounds; Absent tenderness *Routine Extremities Exam Extremities: Absent cyanosis, clubbing or edema Comments: Left foot dressed and wrapped. *Routine Skin Exam Skin: Present warm; Absent rash *Routine Neurological Exam Neurological: Present alert and oriented X3 Results Data Completed and Pending Labs on day of discharge: Labs from last 24 hours 06/11/24 06/10/24 06:03 15:18 WBC 6.0 RBC 4.29 L Hgb 13.4 L Hct 40.1 L MCV 93.5 MCH 31.2 MCHC 33.4 RDW 12.3 Plt Count 269 MPV 9.4 Neut % (Auto) 65.8 Lymph % (Auto) 18.9 [place] % (Auto) 8.8 Eos % (Auto) 5.3 Baso % (Auto) 0.7 Neut # (Auto) 3.9 Lymph # (Auto) 1.1 [place] # (Auto) 0.5 Eos # (Auto) 0.3 Baso # (Auto) 0.0 ESR 48 H Sodium 137 Potassium 3.9 Chloride 106 Carbon Dioxide 25 Anion Gap 9.9 BUN 8 L D Creatinine 0.70 Estimated Creat Clear 108 Estimated GFR 114 Est GFR ( Amer) 138 Glucose 96 Calcium 9.0 Magnesium 1.8 Total Bilirubin 0.6 AST 27 ALT 21 Alkaline Phosphatase 48 C-Reactive Protein 56.5 H D Total Protein 6.2 L Albumin 3.2 L Globulin 3.0 Albumin/Globulin Ratio 1.1 Vancomycin Peak 31.9 Preliminary micro results at discharge 06/08/24 14:00 Surgical Biopsy Culture - Preliminary Foot,Left NO GROWTH AFTER 48 HOURS DS: Diagnosis Discharge Diagnosis (1) Gout: Status: Acute Code(s): M10.9 - Gout, unspecified Qualifiers: Chronicity: chronic Gout etiology: unspecified cause Gout site: toe Laterality: left Presence of tophus: without tophus Qualified Code(s): M1A.9XX0 - Chronic gout, unspecified, without tophus (tophi) (2) Cellulitis: Status: Acute Code(s): L03.90 - Cellulitis, unspecified Qualifiers: Laterality: left Site of cellulitis: extremity Site of cellulitis of extremity: lower extremity Qualified Code(s): L03.116 - Cellulitis of left lower limb (3) Abscess of great toe, left: Status: Acute Code(s): L02.612 - Cutaneous abscess of left foot (4) Cellulitis of left ankle: Status: Acute Code(s): L03.116 - Cellulitis of left lower limb (5) Left foot pain: Status: Acute Code(s): M79.672 - Pain in left foot (6) Left ankle pain: Status: Acute Code(s): M25.572 - Pain in left ankle and joints of left foot Qualifiers: Chronicity: chronic Qualified Code(s): M25.572 - Pain in left ankle and joints of left foot; G89.29 - Other chronic pain Meds Home Medications and Allergies Home Medications ?Medication ?Instructions ?Recorded ?Confirmed ?Type cyanocobalamin (vitamin B-12) 1,000 mcg IM MONTHLY 08/17/22 06/08/24 History 1,000 mcg/mL injection solution cholecalciferol (vitamin D3) 50 50 mcg PO DAILY #30 caps 06/02/24 06/08/24 Rx mcg (2,000 unit) capsule cholecalciferol (vitamin D3) 1,250 1,250 mcg PO WEEKLY 06/08/24 06/08/24 History mcg (50,000 unit) capsule allopurinol 100 mg tablet 100 mg PO DAILY 30 days #30 tabs 06/11/24 Rx atorvastatin 40 mg tablet 40 mg PO HS 30 days #30 tabs 06/11/24 Rx doxycycline monohydrate 100 mg 100 mg PO BID 10 days #20 caps 06/11/24 Rx capsule levofloxacin 750 mg tablet 750 mg PO DAILY 10 days #10 tabs 06/11/24 Rx New Prescriptions to Start Prescriptions: allopurinol Nkechi,Prieto atorvastatin Nkechi,Prieto doxycycline monohydrate Nkechi,Prieto levofloxacin Nkechi,Prieto Allergies Allergy/AdvReac Type Severity Reaction Status Date / Time ceftriaxone Allergy Mild ANAPHYLAXIS Verified 05/27/24 10:39 Discharge Plan Disposition Patient Disposition: Home Health Service Condition: Fair Discharge Order Discharge Orders: Discharge Order (Routine); Ordered 06/11/24 Ordered By: Prieto Arboleda Follow up Plan Follow up with: Niles Acosta APRN [Primary Care Provider] - 06/17/24 10:00 am Lakia Ortiz DPM [Staff Physician] - 06/18/24 () Prescriptions/Medication Reconciliation: New levofloxacin 750 mg tablet 750 mg PO DAILY 10 Days Qty: 10 0RF allopurinol 100 mg Tablet 100 mg PO DAILY 30 Days Qty: 30 0RF doxycycline monohydrate 100 mg capsule 100 mg PO BID 10 Days Qty: 20 0RF atorvastatin 40 mg tablet 40 mg PO HS 30 Days Qty: 30 0RF Continued cyanocobalamin (vitamin B-12) 1,000 mcg/mL solution 1,000 mcg IM MONTHLY cholecalciferol (vitamin D3) 50 mcg (2,000 unit) capsule 50 mcg PO DAILY Qty: 30 4RF cholecalciferol (vitamin D3) 1,250 mcg (50,000 unit) capsule 1,250 mcg PO WEEKLY Problem Reconciliation Problems Reviewed?: Yes Patient Discharge Instructions Patient Instructions: Low-Purine Diet, DI for Skin Abscess Print Language: Mohawk Providers Primary Care Provider: Niles Acosta Admit Provider: Andrew Almeida Attending Provider: Andrew Almeida
[2024-06-11 12:00] VITALS: BP 148/76; PULSE 81; RESP 19; O2SAT 93
--- NOTE | 2024-06-11 13:12 | PC.NURSE ---
awaiting PA for zyvox other medications are ready at clinic pharmacy
--- NOTE | 2024-06-11 14:06 | CARE MANAGER ---
Patient will require a rolling walker for stability while ambulating, in which a cane would not provide enough support.
--- NOTE | 2024-06-11 15:25 | CARE MANAGER ---
Patient Choice signed and scanned to chart for [facility]. Walker has been ordered and delivered to bedside. PA has been requested on [employer] for linezolid.
--- NOTE | 2024-06-12 10:45 | SW/DCPLANNER ---
Spoke with patient on the phone. Patient stated that he is doing well,just resting and taking it easy and getting his foot healed up. Patient stated that he is aware of his upcoming appointments. Patient stated that he was able to picker tender helper his new medicine from clinic pharmacy. Patient stated that he has no concerns or questions at this time. Gayathri Yang
== END 2024-06-11 15:12 | disposition home health service (06) | DRG 478 ==
LOC: ER 13:13 → OR 13:16 → 2ND 16:13
PROVIDERS: Podiatrist; Student in an Organized Health Care Education/Training Program; Admitting Provider Internal Medicine Adolescent Medicine; Emergency Provider Emergency Medicine; PCP Nurse Practitioner Family; Visit Provider Internal Medicine Adolescent Medicine
PROC: 0SBN0ZZ Excision of Left Metatarsal-Phalangeal Joint, Open Approach (ICD-10-PCS; principal; 2024-06-08 13:00)
DX: M1A.9XX0 Chronic gout, unspecified, without tophus (tophi) (principal); L02.612 Cutaneous abscess of left foot; L03.116 Cellulitis of left lower limb; G47.33 Obstructive sleep apnea (adult) (pediatric); M79.672 Pain in left foot; M79.671 Pain in right foot; E66.9 Obesity, unspecified; J44.89 Other specified chronic obstructive pulmonary disease; I10 Essential (primary) hypertension; E78.5 Hyperlipidemia, unspecified; Z88.1 Allergy status to other antibiotic agents; Z80.9 Family history of malignant neoplasm, unspecified; Z68.34 Body mass index [BMI] 34.0-34.9, adult; Z79.899 Other long term (current) drug therapy; Z90.49 Acquired absence of other specified parts of digestive tract
CPT/HCPCS: 36415; 73630; 73701; 80048; 80053; 80202; 83036; 83605; 83735; 84145; 84550; 85025; 85651; 86140; 87070; 87077; 87186; 87205; 88304; 88305; 88311; 97163; 99285; J1100; J1580; J1885; J1956; J2405; J3010; J3372; Q9967

== ENCOUNTER 2024-06-26 09:06 | Outpatient (CLI) | payer MEDICARE, SELFPAY ==
[2024-06-26 09:15] VITALS: BP 116/78; PULSE 84; RESP 20; TEMP 36.6; O2SAT 98
[2024-06-26] MEDS: VITAMIN B-12 1,000 MCG 1ML VIAL 1000 MCG IM (09:15)
== END 2024-06-26 09:30 | disposition home or self-care (01) ==
LOC: INF 09:07
PROVIDERS: PCP Nurse Practitioner Family; Visit Provider Internal Medicine Medical Oncology
DX: D64.9 Anemia, unspecified (principal); D75.1 Secondary polycythemia
CPT/HCPCS: 96372; J3420

== ENCOUNTER 2024-06-29 11:55 | Outpatient (CLI) | payer MEDICARE, SELFPAY ==
[2024-06-29 12:12] LABS: Basophils % 0.4 % (0.1-2.0); Eosinophils # 0.1 Kmm3 (0.0-0.4); Eosinophils % 1.2 % (0.1-12.0); Hematocrit 48.2 % (42.0-52.0); Hemoglobin 16.1 g/dL (14.1-18.0); Lymphocytes # 0.9 K/mm3 (0.7-4.5); Lymphocytes % 9.8 % (10-50); Mean Corpuscular HGB Conc 33.4 g/dL (31.8-35.4); Mean Corpuscular Hemoglobin 31.1 pg (27.0-31.2); Mean Corpuscular Volume 93.1 fl (80-94); Mean Platelet Volume 9.3 fl (7.4-10.4); Monocytes # 0.7 K/mm3 (0.1-1.0); Monocytes % 7.5 % (1.7-9.3); Neutrophils # 7.6 K/mm3 (1.8-7.8); Neutrophils % 80.9 % (37.0-80.0); Nucleated Red Blood Cells # 0 10^3/uL; Nucleated Red Blood Cells % 0 %; Platelet Count 345 K/mm3 (142-424); Red Blood Count 5.18 M/mm3 (4.60-6.20); Red Cell Distribution Width 11.8 % (11.5-17.5); Red Cell Distribution Width-SD 40.3 fL; White Blood Count 9.5 K/mm3 (4.8-10.8)
[2024-06-29 12:41] LABS: Erythrocyte Sedimentation Rate 6 mm/hr (0-20)
[2024-06-29 12:59] LABS: Alanine Aminotransferase 39 U/L (12-78); Albumin Level 4.3 g/dl (3.5-5.0); Albumin/Globulin Ratio 1.4 (1.1-1.8); Alkaline Phosphatase 58 U/L (38-126); Anion Gap 14.7 mEq/L (5-15); Aspartate Amino Transferase 32 U/L (17-59); Bilirubin,Total 0.8 mg/dl (0.2-1.3); Blood Urea Nitrogen 10 mg/dl (9-20); Calcium 9.6 mg/dl (8.4-10.2); Carbon Dioxide 26 mmol/L (22.0-30.0); Chloride 104 mmol/L (98-107); Estimated Glomerular Filt Rate 85 ml/min (>60); GFR (African American) 103 ML/MIN (>60); Glucose 101 mg/dl (74-100); Potassium 4.7 mmoL/L (3.5-5.1); Sodium 140 mmol/L (136-145); Total Protein,Serum 7.3 g/dl (6.3-8.2); Uric Acid 5.6 mg/dl (3.5-8.5)
[2024-06-29 13:04] LABS: C-Reactive Protein 40.3 mg/L (0-4)
== END 2024-06-29 23:59 | disposition home or self-care (01) ==
LOC: LAB 11:55
PROVIDERS: PCP Nurse Practitioner Family; Visit Provider Nurse Practitioner
DX: L03.116 Cellulitis of left lower limb (principal); M1A.9XX0 Chronic gout, unspecified, without tophus (tophi)
CPT/HCPCS: 36415; 80053; 84550; 85025; 85651; 86140

== ENCOUNTER 2024-07-13 12:52 | Emergency (ER) | payer MEDICARE, SELFPAY ==
[2024-07-13 13:35] VITALS: BP 110/72; PULSE 100; O2SAT 98
--- NOTE | 2024-07-13 15:26 | XR_ITS ---
PROCEDURE INFORMATION: Exam: XR Left Foot Exam date and time: 07/13/2024 4:06 PM Age: 64 years old Clinical indication: Pain; Left; Prior surgery; Surgery date: 1-6 months; Surgery type: Foot surgery; Additional info: Pain, swelling, redness, surgery 1 mo ago TECHNIQUE: Imaging protocol: Radiologic exam of the left foot. Views: 3 or more views. COMPARISON: CT FOOT LT W CON 06/08/2024 11:28 AM FINDINGS: Bones/joints: Focal lucency is seen laterally in the head of the 1st metatarsal. This appears more pronounced than on the prior CT examination, areas of cortical disruption are also noted. Soft tissues: Normal. IMPRESSION: Focal lucency is seen laterally in the head of the 1st metatarsal. This appears more pronounced than on the prior CT examination, areas of cortical disruption are also noted. Findings worrisome for possible osteomyelitis consider MRI for further evaluation as clinically indicated.
--- NOTE | 2024-07-13 15:34 | ED_ITS ---
Discharge Plan Disposition Patient Disposition: Home, Self-Care Condition: Good Prescriptions Prescriptions: No Action levofloxacin 750 mg tablet 750 mg PO DAILY 14 Days Qty: 14 0RF linezolid [Zyvox] 600 mg tablet 600 mg PO Q12H 14 Days Qty: 28 0RF cyanocobalamin (vitamin B-12) 1,000 mcg/mL solution 1,000 mcg IM MONTHLY cholecalciferol (vitamin D3) 50 mcg (2,000 unit) capsule 50 mcg PO DAILY Qty: 30 4RF clindamycin HCl 300 mg capsule 300 mg PO TID 14 Days Qty: 42 0RF Rx Instructions: administer with large glass of water ondansetron 4 mg tablet,disintegrating 4 mg PO Q6H Qty: 30 2RF cholecalciferol (vitamin D3) 1,250 mcg (50,000 unit) capsule 1,250 mcg PO WEEKLY allopurinol 100 mg Tablet 100 mg PO DAILY 30 Days Qty: 30 0RF atorvastatin 40 mg tablet 40 mg PO HS 30 Days Qty: 30 0RF Referrals Follow up/Referrals: Niles Acosta APRN [Primary Care Provider] - See instructions Activity Restrictions/Add. Instructions Additional Instructions/Restrictions: You were evaluated in the emergency department today. Please see Dr. Ortiz in clinic tomorrow at 9:30 in the morning. They have scheduled you a new appointment so that you can be seen then. Continue taking your antibiotics as prescribed. Your potassium was slightly high, so we gave you a dose of IV Lasix here which will help lower this. This will also help with fluid retention. Please follow-up closely with your primary care provider for recheck of your potassium. Return to the emergency department for new or worsening symptoms such as significant worsening of redness/pain/swelling, fevers, or other concern. Clinical Impressions Clinical Impression: Localized swelling of left foot, Chronic infection, Hyperkalemia Instructions Patient Instructions: DI for Hyperkalemia Print Language Print Language: Azeri Discharge ED Provider: Geraldine Hernandez General Adult HPI General Chief complaint: Recheck/Abnormal Lab/Rx Stated complaint: Post Op 06/26 swelling in suture site Time Seen by Provider: 07/13/24 15:21 History of Present Illness HPI narrative: This patient is a 64-year-old male with a history of gout, left foot infection, obesity, hypertension, hyperlipidemia, BIENVENIDO presenting to the emergency department for evaluation with concern for redness, warmth, swelling of his left foot. He had surgery 06/08/2024 for left ankle incision and drainage, foot incision and drainage, MTPJ synovectomy, irrigation and debridement. He was found to have Staphylococcus capitis and Staph epidermidis with some chronic inflammation as well. He had a retained suture and had to have removal 07/07/2024. Given the osteophyte okay at that time and he was discharged to continue taking Zyvox and levofloxacin. He notes that despite taking this, he has had increased redness, warmth, swelling today. He notes he tried to call the office but did not hear back, so he decided to come to the ED for evaluation. No fevers, streaking up the legs, calf pain/swelling, or significant increase in pain. He currently rates his pain a 1 out of 10 Related Data Home Medications ?Medication ?Instructions ?Recorded ?Confirmed cyanocobalamin (vitamin B-12) 1,000 mcg IM MONTHLY 08/17/22 07/07/24 1,000 mcg/mL injection solution cholecalciferol (vitamin D3) 1,250 1,250 mcg PO WEEKLY 06/08/24 07/07/24 mcg (50,000 unit) capsule Previous Rx's ?Medication ?Instructions ?Recorded cholecalciferol (vitamin D3) 50 50 mcg PO DAILY #30 caps 06/02/24 mcg (2,000 unit) capsule allopurinol 100 mg tablet 100 mg PO DAILY 30 days #30 tabs 06/11/24 atorvastatin 40 mg tablet 40 mg PO HS 30 days #30 tabs 06/11/24 clindamycin HCl 300 mg capsule 300 mg PO TID infection 2 weeks 06/16/24 #42 caps ondansetron 4 mg disintegrating 4 mg PO Q6H nausea and vomiting 06/16/24 tablet #30 tabs levofloxacin 750 mg tablet 750 mg PO DAILY 14 days #14 tabs 07/01/24 linezolid 600 mg tablet (Zyvox) 600 mg PO Q12H 14 days #28 tabs 07/01/24 Allergies Allergy/AdvReac Type Severity Reaction Status Date / Time ceftriaxone Allergy Mild ANAPHYLAXIS Verified 07/13/24 15:53 [facility] Disclaimer: The information contained in this section may have been updated after the patient was seen, as this information can be updated by other users. Medical History Abscess of great toe, left Left ankle pain Gout SOB (shortness of breath) Fatigue Tachycardia Rash and nonspecific skin eruption Positive colorectal cancer screening using Cologuard test Asthma History of COPD Dyspnea on exertion History of sleep apnea Nocturnal hypoxemia Moderate persistent asthma Allergic rhinitis due to animal (cat) (dog) hair and dander Seasonal allergies Surgical History H/O esophagogastroduodenoscopy H/O colonoscopy History of cholecystectomy H/O hernia repair Family History Other Cancer Social History Smoking Status: Never smoker second hand exposure: No alcohol intake: never substance use type: denies use current occupational status: unemployed and disabled Travel in the last 8 weeks?: None household members: none housing: house lives independently: Yes marital status: single current occupational exposures/hazards: No caffeine: Yes Other Medical History Have you received the Flu Vaccine for this season: No Have you received the Pneumonia Vaccine: No ROS Obtained: Yes All systems reviewed & no additional complaints except as documented Physical Exam General General appearance: alert and in no apparent distress Head Head exam: atraumatic and normocephalic Eye Eye exam: Present normal appearance, PERRL and EOMI ENT ENT exam: Present normal exam, normal oropharynx, mucous membranes moist and normal external ear exam Neck Neck exam: Present normal inspection, full ROM and trachea midline; Absent tenderness Chest Chest inspection: Present normal inspection and symmetric chest wall rise; Absent tenderness Respiratory Respiratory exam: Present normal lung sounds bilaterally; Absent respiratory distress, wheezes, stridor or accessory muscle use Cardiovascular Cardiovascular exam: Present regular rate and normal rhythm Abdominal Exam Abdominal exam: Present soft; Absent distention, tenderness or guarding Extremities Exam Extremities exam: Present full ROM, normal capillary refill, edema and other (Mild pedal edema isolated to L foot, mild erythema, no red streaking up the foot, intact range of motion of all the joints with no significant joint swelling. Neurovascularly intact. No palpable fluctuance or induration); Absent tenderness Back Exam Back exam: Present normal inspection and full ROM; Absent tenderness Neurological Exam Neurological exam: Present alert, oriented X3, CN II-XII intact and normal gait; Absent motor sensory deficit Psychiatric Psychiatric exam: Present normal affect and normal mood Skin Skin exam: Present warm and dry Medical Decision Making Medical Records Medical records reviewed: Yes I reviewed the patient's medical records. Screening: Per USPSTF and CDC recommendations, given the prevalence of disease in our region, it is our hospital?s policy to screen for HIV and viral Hepatitis for all patients aged 18 and over and those with ongoing risk factors. Ba Inquiry Pt receiving controlled substance: No Vital Signs: 07/13/24 13:35 07/13/24 15:46 07/13/24 16:05 Temperature 98.8 F Temperature Source Oral Pulse Rate 100 H 80 Pulse Rate [Left] 100 H Respiratory Rate 16 Blood Pressure 110/72 128/69 Blood Pressure [Right Arm] 127/86 Blood Pressure Mean [Right Arm] 99 Blood Pressure Source Automatic Cuff Blood Pressure Source [Right Arm] Automatic Cuff Blood Pressure Position Sitting Blood Pressure Position [Right Arm] Sitting 02 Sat by Pulse Oximetry 98 95 97 Oxygen Delivery Method Room Air Room Air Room Air 07/13/24 16:30 07/13/24 17:06 Temperature 98.8 F Temperature Source Pulse Rate 82 84 Pulse Rate [Left] Respiratory Rate 16 Blood Pressure 142/97 H 129/81 Blood Pressure [Right Arm] Blood Pressure Mean [Right Arm] Blood Pressure Source Blood Pressure Source [Right Arm] Blood Pressure Position Blood Pressure Position [Right Arm] 02 Sat by Pulse Oximetry 95 Oxygen Delivery Method Room Air Lab Data Lab results reviewed: Yes I reviewed the patient's lab results. Lab Results 07/13/24 15:35: WBC 7.0, RBC 5.03, Hgb 15.4, Hct 46.5, MCV 92.4, MCH 30.6, MCHC 33.1, RDW 12.2, Plt Count 143, MPV 9.8, Neut % (Auto) 77.2, Lymph % (Auto) 12.6, [place] % (Auto) 8.7, Eos % (Auto) 1.0, Baso % (Auto) 0.4, Neut # (Auto) 5.4, Lymph # (Auto) 0.9, [place] # (Auto) 0.6, Eos # (Auto) 0.1, Baso # (Auto) 0.0, ESR 12 07/13/24 15:56: Sodium 135 L, Potassium 5.9 H, Chloride 105, Carbon Dioxide 25, Anion Gap 10.9, BUN 16, Creatinine 1.00, Estimated Creat Clear 103, Estimated GFR 75, Est GFR ( Amer) 91, Glucose 106 H, Calcium 8.6, Total Bilirubin 0.8, AST 43, ALT 28, Alkaline Phosphatase < 20 L, C-Reactive Protein 97.8 H, NT-Pro-B Natriuret Pep < 20.0, Total Protein 7.3, Albumin 4.1, Globulin 3.2, Albumin/Globulin Ratio 1.3 07/13/24 15:35 07/13/24 15:56 Orders (Tests/Meds): ED MEDICATIONS Discontinued Medications Generic Name Dose Route Start Last Admin Trade Name Freq PRN Reason Stop Dose Admin Furosemide 20 mg 07/13/24 16:20 07/13/24 16:29 Furosemide 20 Mg/2 Ml Vial IV 07/13/24 16:21 20 mg ONCE ONE Administration ORDERS Category Date Time Status Foot XR left minimum 3 views [XR foot LT min 3V] Stat Exams 07/13/24 15:26 Completed BNP [NT Pro Brain Natriuretic Pep.] Stat Lab 07/13/24 15:56 Completed CRP [C-Reactive Protein] Stat Lab 07/13/24 15:56 Completed Complete Blood Count Auto Diff Stat Lab 07/13/24 15:35 Completed Comprehensive Metabolic Panel Stat Lab 07/13/24 15:56 Completed ESR [Erythrocyte Sedimentation Rate] Stat Lab 07/13/24 15:35 Completed ECG Data Tracing #1: I reviewed this ECG and interpreted as documented below: Normal sinus rhythm with a ventricular rate of [address] changes concerning for ischemia. Normal intervals ECG initial impression date: 07/13/24 ECG initial impression time: 16:28 Medical Decision Narrative: In summary, this patient is a 64-year-old male presenting to the Emergency Department for evaluation of left foot swelling that is increased despite taking Zyvox and levofloxacin. Differential diagnoses considered include but are not limited to cellulitis, abscess, postop infection, gout flare. ruling out the most morbid conditions drove assessment. It should be noted patient's history includes gout and infection of the left foot which may or may not be at goal therapy. This complicates all aspects of care by increasing patient's risk for morbidity. I reviewed patient's past medical records and noted multiple previous evaluations by podiatry as detailed in HPI. He was just seen 07/07/2024 and in note pictures at that time do not look significant different from exam today. On exam, the patient has mild pedal edema to the left foot and mild erythema but no palpable fluctuance or induration, intact range of motion is present for all the joints. Exam is not overtly concerning for severe infection at this time. He has no red streaking up the leg or calf pain swelling/tenderness that would suggest DVT or other emergent pathology. Workup included CBC, CMP, ESR, CRP, x- rays of the left foot. I independently interpreted x-ray prior to the radiologist read and noted lucency of great toe that appeared to be present on prior CT scan, slightly worsened likely related to recent surgery. Please see their read for final interpretation. Labs were obtained that demonstrated reassuring CBC with no significant leukocytosis or neutrophilic shift. He has mildly elevated CRP but ESR is normal. he has mild hyperkalemia at 5.9 with no EKG changes noted. He has normal renal function. I did give a small dose of IV Lasix to help with the hyperkalemia as well as with possibly some of the edema. I called and had an interactive discussion with Dr. Ortiz with podiatry who advised that she feels the patient is appropriate for discharge home and will see him in clinic tomorrow morning for reassessment. Patient agreeable with this. He was discharged with strict return precautions and plan for very close follow-up tomorrow Critical Care Critical Care Time Critical Care Time: No
[2024-07-13 15:43] LABS: Basophils % 0.4 % (0.1-2.0); Eosinophils # 0.1 Kmm3 (0.0-0.4); Hematocrit 46.5 % (42.0-52.0); Hemoglobin 15.4 g/dL (14.1-18.0); Immature Granulocytes # 0.01 10^3uL; Immature Granulocytes % 0.1 %; Lymphocytes # 0.9 K/mm3 (0.7-4.5); Lymphocytes % 12.6 % (10-50); Mean Corpuscular HGB Conc 33.1 g/dL (31.8-35.4); Mean Corpuscular Hemoglobin 30.6 pg (27.0-31.2); Mean Corpuscular Volume 92.4 fl (80-94); Mean Platelet Volume 9.8 fl (7.4-10.4); Monocytes # 0.6 K/mm3 (0.1-1.0); Monocytes % 8.7 % (1.7-9.3); Neutrophils # 5.4 K/mm3 (1.8-7.8); Neutrophils % 77.2 % (37.0-80.0); Nucleated Red Blood Cells # 0 10^3/uL; Nucleated Red Blood Cells % 0 %; Platelet Count 143 K/mm3 (142-424); Red Blood Count 5.03 M/mm3 (4.60-6.20); Red Cell Distribution Width 12.2 % (11.5-17.5); Red Cell Distribution Width-SD 41.1 fL
[2024-07-13 15:46] VITALS: BP 127/86; PULSE 100; RESP 16; TEMP 37.1; O2SAT 95; BMI 33.3
[2024-07-13 16:05] VITALS: BP 128/69; PULSE 80; O2SAT 97
[2024-07-13 16:05] LABS: Erythrocyte Sedimentation Rate 12 mm/hr (0-20)
[2024-07-13 16:11] LABS: Albumin Level 4.1 g/dl (3.5-5.0); Chloride 105 mmol/L (98-107); Potassium 5.9 mmoL/L (3.5-5.1); Sodium 135 mmol/L (136-145)
[2024-07-13 16:13] LABS: Blood Urea Nitrogen 16 mg/dl (9-20); Creatinine Clearance Estimated 103 mL/min (50-200); Estimated Glomerular Filt Rate 75 ml/min (>60); GFR (African American) 91 ML/MIN (>60)
[2024-07-13 16:14] LABS: Alanine Aminotransferase 28 U/L (12-78); Albumin/Globulin Ratio 1.3 (1.1-1.8); Alkaline Phosphatase < 20 U/L (38-126); Anion Gap 10.9 mEq/L (5-15); Aspartate Amino Transferase 43 U/L (17-59); Bilirubin,Total 0.8 mg/dl (0.2-1.3); Calcium 8.6 mg/dl (8.4-10.2); Carbon Dioxide 25 mmol/L (22.0-30.0); Globulin 3.2 g/dL (1.3-3.2); Glucose 106 mg/dl (74-100); Total Protein,Serum 7.3 g/dl (6.3-8.2)
[2024-07-13 16:20] LABS: C-Reactive Protein 97.8 mg/L (0-4)
--- NOTE | 2024-07-13 16:27 | ECG_ITS ---
APPROVED REPORT Exam: Resting ECG HR:78 bpm ECG Measurements Heart Rate 78 AXES TX 163 P 26 QRSd 79 QRS -3 QT 340 T 25 QTc 373 Conclusion SINUS RHYTHM LOW QRS VOLTAGE IN PRECORDIAL LEADS [QRS DEFLECTION < 1.0 mV IN CHEST LEADS] No STEMI Electronically signed by : CRYSTAL ZAMORA, 07/13/2024 19:19:56
[2024-07-13] MEDS: FUROSEMIDE 20 MG/2 ML VIAL IV (16:29)
[2024-07-13 16:30] VITALS: BP 142/97; PULSE 82; O2SAT 95
[2024-07-13 16:42] LABS: NT Pro Brain Natriuretic Pep. < 20.0 pg/mL (0-125)
[2024-07-13 17:06] VITALS: BP 129/81; PULSE 84; RESP 16; TEMP 37.1; O2SAT 98
== END 2024-07-13 17:13 | disposition home or self-care (01) ==
PROVIDERS: Emergency Provider Emergency Medicine; PCP Nurse Practitioner Family
DX: R22.42 Localized swelling, mass and lump, left lower limb (principal); E87.5 Hyperkalemia; T81.49XA Infection following a procedure, other surgical site, initial encounter
CPT/HCPCS: 73630; 80053; 83880; 85025; 85651; 86140; 93005; 96374; 99284; J1938

== ENCOUNTER 2024-07-24 10:34 | Outpatient (CLI) | payer MEDICARE, SELFPAY ==
[2024-07-24 10:50] VITALS: BP 134/87; PULSE 74; RESP 18; TEMP 36.6; O2SAT 96
[2024-07-24] MEDS: VITAMIN B-12 1,000 MCG 1ML VIAL 1000 MCG (10:51)
== END 2024-07-24 10:57 | disposition home or self-care (01) ==
LOC: INF 10:36
PROVIDERS: PCP Nurse Practitioner Family; Visit Provider Internal Medicine Medical Oncology
DX: D64.9 Anemia, unspecified (principal); D75.1 Secondary polycythemia
CPT/HCPCS: 96372; J3420

== ENCOUNTER 2024-08-21 09:17 | Outpatient (CLI) | payer MEDICARE, SELFPAY ==
[2024-08-21 09:20] VITALS: BP 119/94; PULSE 88; RESP 18; TEMP 36.8; O2SAT 98
[2024-08-21] MEDS: VITAMIN B-12 1,000 MCG 1ML VIAL 1000 MCG IM (09:20)
--- OUTSIDE RECORDS SUMMARY | 2024-08-21 09:22 | XMS_ITS | Data Portability ---
Author Organization [facility] [place] & MICHELLE [facility] ADMIN Address [address] [place] [id number] Assessment No assessment recorded. Plan of Treatment Reminders Order Date Submit Date Provider Last Modified By Organization Details Last Modified Time Details Appointments OV NEW 30 2024 10:30A M JULY DONALDSON MD Not available Not available Not available Lab PSA, total + free, serum or plasma 2022 023 Not available 11/01/2022 07:10:22 Referral None recorded . Procedures None recorded . Surgeries None recorded . Imaging None recorded . Medication Orders None recorded . Patient TargetsNo targets recorded. Patient InstructionsNo instructions recorded. Reason for Referral None Reported. Results Created Date Observation Date Name Description Value Unit Range Abnormal Flag Note LastModifiedBy Organization Detail LastModifiedTime 08/07/1904/16/2024 imagi ng/di agnos tic resul t No observ ation record ed. [facility] [address] [place], [address], 08/06/2024 11:00:25 Result Notes None recorded. Problems Name Problem SNOMED Code Status Onset Date Resolution Date Notes Provider Name and Address Organization Details Recorded Time Anemia 250362531 Active 2022 [facility] - [place] & [place] 3 12:50:12 Hypertensive disorder 41184466 Active 2022 [facility] & [place] 3 12:50:40 Seasonal allergy 763027075 Active 2022 YANET Law [place] & [place] 3 12:50:51 Sleep apnea 13639890 Active 2022 Y[facility] Law [place] & [place] 3 12:51:01 Asthma 087032595 Active 2022 [facility] Law [place] & [place] 3 12:51:08 Chronic obstructive pulmonary disease 29960648 Active 2022 [facility] Law [place] & [place] 3 12:51:15 Problem Notes None recorded. Procedures Surgical History Date Name Laterality Status Provider Name and Address Organization Details Recorded Time procedure on gallbladder completed Carli Martinez [place] & [place] 10/24/2022 12:54:02 Imaging Results None recorded. Procedure Notes None recorded. Medical Equipment None Reported. Allergies Allergen ID Allergen Name Allergen Category Reaction Reaction Severity Criticality Documentation Date Start Date Code Code System Note Provider Name and Address Organization Details Recorded Time 916385 ceftriaxo ne medicatio n Not available Not available Not available 08/05/2024 2193 RxNorm Y[facility] & [place] 5 09:19:06 Medications Name Sig Start Date Stop Date Status Note LastModified by Organization Details LastModified Time atorvastatin 40 mg tablet Take 1 tablet every day by oral route. active Not Available Not Available No t Available doxycycline hyclate 100 mg capsule TAKE 1 CAPSULE BY MOUTH TWICE DAILY FOR 7 DAYS active Not Available Not Available No t Available clindamycin HCl 300 mg capsule TAKE 1 CAPSULE BY MOUTH THREE TIMES DAILY FOR 7 DAYS FOR INFECTION TAKE WITH A LARGE GLASS OF WATER active Not Available Not Available No t Available allopurinol 100 mg tablet Take 1 tablet every day by oral route. active Not Available Not Available No t Available linezolid 600 mg tablet TAKE 1 TABLET BY MOUTH EVERY 12 HOURS FOR 14 DAYS active Not Available Not Available Not Available doxycycline monohydrate 100 mg capsule TAKE ONE CAPSULE BY MOUTH TWICE DAILY FOR 10 DAYS -- FINISH ALL MEDICINE -- active Not Available Not Available Not Available hydrochlorot hiazide 12.5 mg capsule Take 1 capsule every day by oral route. active Not Available Not Available No t Available levofloxacin 750 mg tablet TAKE 1 TABLET BY MOUTH ONCE DAILY FOR 14 DAYS active Not Available Not Available No t Available ondansetron 4 mg disintegrati ng tablet DISSOLVE 1 TABLET IN MOUTH EVERY 6 HOURS FOR NAUSEA AND VOMITING active Not Available Not Available No t Available Vitamin D active Not Available Not Kim ilable Not Available cranberry fruit active Not Available Not Available Not Available cholecalcife rol (vitamin D3) 1,250 mcg (50,000 unit) capsule TAKE 1 CAPSULE BY MOUTH ONCE A WEEK active Not Available Not Available No t Available Vitamin D3 50 mcg (2,000 unit) capsule Take by oral route. active Not Available Not Available Not Available vitamin B12 1,000 mcg-folic acid [address] by sublingual route. active Not Available Not Available No t Available Vitals Date Recorded Body height Body mass index (BMI) Body weight Body temperature Provider Name and Address Organization Details Last Updated DateTime 10/24/2022 170.18 cm 35.4 kg/m2 742430.88 g 98 [degF] Carli Mcgee [facility] & [place] 10/24/2022 12:49:29 Social History None recorded. Functional Status Question Answer Note LastModified by Organizat ion Details LastModified Time What is your level of alcohol consumption? Occasional [email or web address] Information not available 10/24/2022 Mental Status None recorded. Family History Relationship Description Onset Age of this Age Resolved Age Notes LastModified by Organization Details LastModified Time Father Malignant tumor of colon [email or web address] Not available 10/24 12:51:35 Brother Malignant neoplasm of lung Not available 10/24 12:51:48 Mother Malignant tumor of pancreas [email or web address] Not available 10/24 12:52:08 Medical History No medical history recorded. Past Encounters Encounter ID Performer Location Encounter Start Date Encounter Closed Date Diagnosis/Indication Diagnosis SNOMED-CT Code Diagnosis ICD10 Code Diagnosis Note [id number] Ramakrishna Rosas Jr, MD [facility] [address] [address] 10/24/2022 12:16:09 10/24/2022 13:24:16 Prostate specific antigen above reference range 904918343 R97.20 recent PSA was 7.8. Free PSA puts him at a 17% risk of prostate cancer. Prostate examinatio n today is benign. Does have a family history of prostate cancer in a brother. He is not been sexually active for several years. We discussed possible causes of elevated PSA including prostate cancer, BPH and prostatiti s. We discussed treatment options including close monitoring with PSA in 6 months versus prostate biopsy. We discussed the biopsy procedure. Patient wishes to follow with watchful waiting. We will see him back in 6 months with a free and total PSA. Health Concerns Section Related Observation LastModified by Organization Detai ls LastModified Time None Recorded Concern Status LastModified by Organization Details LastModified Time None Recorded Advance Directives Directive None Recorded Payers Insurance Date Sequence Insurance Name Policy Number Policy Wood Covered Member ID Wood Member ID Guarantor Name 08/10/2024 2 [place] [id number] Ramakrishna Sen [id number] Ramakrishna Sen 08/10/2024 1 [place] [id number] Wilton Sen [id number] Ramakrishna Sen Notes Date Note Type Note Provider Name and Address Organization Details Recorded Time 10/24/2022 text/html patient is a 62-year-old white male referred for an elevated PSA. Patient's PSA on August 17 was 7.3. It was repeated 1 week later it was 7.8. Free PSA was 19% which puts the patient at a 17% chance of prostate cancer. Patient states he does have a family history of prostate cancer in his brother. He denies any lower urinary tract symptoms. He is not been sexually active for several years. He does not self stimulate. He does not have any previous PSAs to his knowledge. Ramakrishna Rosas Jr, MD [address] [place] [address], [address], [place], [address], [facility] - [place] & [place] 10/24/2022 13:57:25
== END 2024-08-21 09:25 | disposition home or self-care (01) ==
LOC: INF 09:18
PROVIDERS: PCP Nurse Practitioner Family; Visit Provider Internal Medicine Medical Oncology
DX: D64.9 Anemia, unspecified (principal)
CPT/HCPCS: 96372; J3420

== ENCOUNTER 2024-08-28 09:00 | Outpatient (RCR) | payer MEDICARE, SELFPAY ==
--- NOTE | 2024-08-12 16:42 | HMH.OPLYMPH ---
Rehab Inpt Wound Evaluation Rehab OP Lymphedema Evaluation Start: 08/12/24 16:29 Freq: Status: Active Protocol: Document 08/12/24 16:29 LSAHAUN (Rec: 08/12/24 16:42 PHORLOUIS [id number]) E-signed By Pepe Salgado, PT Subjective/History History History This is the initial PT Lymphedema eval for Ramakrishna Sen, 64 yowm who presents with increased L LE edema x ~ 2 mos. He underwent OR 06/08/24 for I&D of L foot due to cellulitis and gout. He has since been using tall cam walker for ambulation outside the home. He reports continued increased edema and pain in the L foot and ankle, although he rates his pain very low. He has PMH of CVI and COPD. Subjective Subjective Pt currently rates his pain at 1/10 in the L foot, at worst his pain is 2/10. 2+ pitting putty like edema noted to the L foot anteriorly, otherwise MILD palpable edema is noted to the left foot and ankle only. Moderate erythema noted to L foot. Lymphedema Eval Classification of Lymphedema Secondary Lymphedema Yes: post-surgical Stemmer's sign Stemmer's Sign yes Stage of Lymphedema Lymphedema stages Stage I (Pitting edema, reduces w/ elevation, no fibrosis) Skin Changes Dry Skin Yes Redness Yes Discoloration of Yes Skin Other Changes Yes Pain Scale Pain Scale (0-10) 2 Affected Extremities Areas Affected by Left Lower Extremity Lymphedema/Edema Lower Extremity Measurements Left MTP Measurement (cm) 25.6 Heel Measurement (cm 33.5 ) 10 cm Proximal to 23.2 Lateral Malleoli Measurement (cm) 20 cm Proximal to 32.4 Lateral Malleoli Measurement (cm) 30 cm Proximal to 37.0 Lateral Malleoli Measurement (cm) 40 cm Proximal to 36.5 Lateral Malleoli Measurement (cm) 50 cm Proximal to 0 Lateral Malleoli Measurement (cm) 60 cm Proximal to 0 Lateral Malleoli Measurement (cm) Lower Extremity 188.2 Measurement Total ( cm) Manual Lymphatic Drainage Treatment Area MLD Treatment Area Left Lower Extremity Wound Problems/Impairments Impairments Problems/ Palpation Tenderness,Impaired Gait Pattern,Impaired Impairmments Walking,Impaired Standing,Impaired Household Care, Lymphedema Present,Subjective C/O Pain,Impaired Self Care/Self Management Prognosis Rehab Potential Good Comment Skilled therapy is indicated to reduce overall L LE edema post-surgery in order to aid pt return to PLOF with all ambulation and ADLs. Clinical Impression Consistent with Yes Diagnosis Consistent with ALSO Additional details: I89.0 Lymphedema Short Term Goals Number of Weeks 2 Decrease Edema Yes: 1+ pitting edema to L foot Decrease Subjective Yes: 1/10 pain at worst to L foot. C/O Pain Decrease Girth Yes: L LE total by 3 cm Measurments by (cm) Fci Goals Number of Weeks 4 Decrease Edema Yes: No pitting edema to L foot Decrease Subjective Yes: 0/10 to L foot C/O Pain Patient to be Ind w/ Yes Advanced HEP Patient to be Ind w/ Yes Donning/Shelley Compression Garments Decrease Girth Yes: L LE total by 10 cm Measurments by (cm) Outpatient Therapy Plan of Care Treatment Plan May Include Therapeutic Exercise Yes Including Home Exercise Program Manual Therapy Yes Techniques Neuromuscular Re- Yes education Therapeutic Yes Activities to Return to Previous Functional/Work Level ADL/Self Care Yes Education Orthotics/Bracing/ Yes Splinting Manual Lymphatic Yes Drainage Eval/Re-Eval Yes Frequency Times per week 2 Duration Number of Weeks 4 Addendums This patient is a No candidate for social or vocational rehab ? Patient/Guardian Yes verbally acknowledges understanding of treatment program and consents to further treatment? Patient/Guardian Yes verbally acknowledges understanding of diagnosis, prognosis and goals for treatment? Eval Complexity PT Charges 70213 - High Complexity PHYSICIAN CERTIFICATION: I certify the specified therapy services for Ramakrishna Sen are required, authorized, and reviewed every 30 days.
== END 2024-08-28 23:59 | disposition home or self-care (01) ==
LOC: PT 09:00
PROVIDERS: Visit Provider Podiatrist
DX: I89.0 Lymphedema, not elsewhere classified (principal)
CPT/HCPCS: 97140; 97163

== ENCOUNTER 2024-09-02 10:17 | Outpatient (CLI) | payer MEDICARE, SELFPAY ==
--- OUTSIDE RECORDS SUMMARY | 2024-09-02 10:29 | XMS_ITS | Continuity of Care Document ---
Author Organization [facility] Address [address] [facility] [address] [place] [id number] Assessment Encounter Date Assessment Date Assessment LastModified by Organization Details LastModified Time 08/27/2024 08/27/2024 ASSESSMENT: Wilton Sen is a 64-year-old male with a history of a complex cyst on the left kidney, a simple cyst on the right kidney, and elevated PSA levels. PLAN: 1. Order an MRI with contrast to evaluate the complex cyst on the left kidney and determine its Bosniak classification. 2. Order updated PSA blood testing to assess current levels, given the patient's family history of prostate cancer and prior elevated readings. 3. Discuss results with the patient via phone in approximately three weeks, allowing time for the MRI to be completed and interpreted. 4. Provide instructions for PSA testing, including avoiding alcohol, certain foods, and sexual activity for 48 hours prior to the test to ensure accuracy. Please note this report was created using voice recognition/text compilation software documentation services during the encounter with the patient. [email or web address] Not available 08/27/2024 11:21:21 Plan of Treatment Reminders Order Date Submit Date Provider Last Modified By Organization Details Last Modified Time Details Appointments TELEPHONI C VISIT 15 2024 04:30P Lisa DONALDSON MD Not available Not available Not available Lab PSA, total + free, serum or plasma 2024 025 [facility] (Registration ), [address] [facility], [place], [address], 08/27/2024 11:23:15 urinalysi s, dipstick 2024 025 [email or web address] [facility], [address], [place], [address], 08/27/2024 11:21:41 Referral None recorded. Procedures None recorded. Surgeries None recorded. Imaging MRI, abdomen, w/wo contrast 2024 025 [id number] [facility] (Centralized Scheduling), [address], [place], [address], 08/30/2024 08:45:59 Medication Orders None recorded. Patient TargetsNo targets recorded. Patient InstructionsNo instructions recorded. Reason for Referral None Reported. Results Created Date Observation Date Name Description Value Unit Range Abnormal Flag Note LastModifiedBy Organization Detail LastModifiedTime 08/28/1908/27/2024 urina lysis , dipst ick Leukocytes (reference range) negati ve Not Available [place] [address] [address], [place], [address], 08/27/2024 10:42:55 08/28/19 25 08/27/2024 urina lysis , dipst ick Nitrite (reference range:) negati ve Not Available [place] [address] [address] [facility] [address], [place], [address], 08/27/2024 10:42:55 08/28/19 25 08/27/2024 urina lysis , dipst ick Urobilinogen (reference range) 0.2 Not Available [facility] [place] [address] [address] [facility] [address], [place], [address], 08/27/2024 10:42:55 08/28/19 25 08/27/2024 urina lysis , dipst ick Protein (reference range) trace Not Available [facility] [place] [address] [address] [facility] [address], [place], [address], 08/27/2024 10:42:55 08/28/19 25 08/27/2024 urina lysis , dipst ick pH (reference range 5-8.5) 5.0 Not Available [facility] [place] [address] [address], [place], [address], 08/27/2024 10:42:55 08/28/19 25 08/27/2024 urina lysis , dipst ick Blood (reference range:) negati ve Not Available [place] [address] [address] [facility] [address], [place], [address], 08/27/2024 10:42:55 08/28/19 25 08/27/2024 urina lysis , dipst ick Specific Weir (reference range) 1.005 Not Available [facility] [place] [address] [address] [facility] [address], [place], [address], 08/27/2024 10:42:55 08/28/19 25 08/27/2024 urina lysis , dipst ick Ketone (reference range) negati ve Not Available [place] [address] [address] [facility] [address], [place], [address], 08/27/2024 10:42:55 08/28/19 25 08/27/2024 urina lysis , dipst ick Bilirubin (reference range) negati ve Not Available [place] [address] [address] [facility] [address], [place], [address], 08/27/2024 10:42:55 08/28/19 25 08/27/2024 urina lysis , dipst ick Glucose (reference range) negati ve Not Available [place] [address] [address] [facility] [address], [place], [address], 08/27/2024 10:42:55 08/28/19 25 08/27/2024 urina lysis , dipst ick Color (reference range: yellow-brown ) Yellow Not Available [facility] [place] [facility], [place], [address], 08/27/2024 10:42:55 08/07/19 25 04/16/2024 imagi ng/di agnos tic resul t No observ ation record ed. [facility] [address], [place], [address], 08/06/2024 11:00:25 Result Notes None recorded. Problems Name Problem SNOMED Code Status Onset Date Resolution Date Notes Provider Name and Address Organization Details Recorded Time Complex renal cyst 958655786 Active 2024 JULY DONALDSON MD [address], [place], [address] , [place] - [facility] - [facility] & [place] 5 11:21:02 Anemia 230018379 Active 2022 Carli nicholson, [place] - [facility] - [place] & [place] 3 12:50:12 Hypertensive disorder 38629079 Active 2022 Carli nicholson, [place] - [facility] - [place] & [place] 3 12:50:40 Seasonal allergy 286180269 Active 2022 Carli nicholson, [place] - [facility] - [place] & [place] 3 12:50:51 Sleep apnea 96536624 Active 2022 Carli nicholson, [place] - [facility] - [place] & [place] 3 12:51:01 Asthma 989872060 Active 2022 Carli nicholson, [place] - [facility] - [place] & [place] 3 12:51:08 Chronic obstructive pulmonary disease 46439219 Active 2022 Carli nicholson, [place] - [facility] - [place] & [place] 3 12:51:15 Problem Notes None recorded. Procedures Surgical History Date Name Laterality Status Provider Name and Address Organization Details Recorded Time procedure on gallbladder completed Carli HOLT - [facility] - [place] & [place] 10/24/2022 12:54:02 hernia repair completed Maria Camp [place] - [facility] & [place] 08/27/2024 10:44:14 Imaging Results None recorded. Procedure Notes None recorded. Medical Equipment None Reported. Allergies Allergen ID Allergen Name Allergen Category Reaction Reaction Severity Criticality Documentation Date Start Date Code Code System Note Provider Name and Address Organization Details Recorded Time 473512 ceftriaxo ne medicatio n Not available Not available Not available 08/05/2024 2193 RxNorm Maria Camp null, YANET - [facility] & [place] 5 09:19:06 Medications Name Sig Start Date Stop Date Status Note LastModified by Organization Details LastModified Time atorvastati n 40 mg tablet TAKE ONE TABLET BY MOUTH AT BEDTIME active Not Available Not Available No t [...] 1 tablet every day by oral route. 08/27 completed Not Available Not Available Not Available linezolid 600 mg tablet TAKE 1 TABLET BY MOUTH EVERY 12 HOURS FOR 14 DAYS active Not Available Not Available No t Available doxycycline monohydrate 100 mg capsule TAKE ONE CAPSULE BY MOUTH TWICE DAILY FOR 10 DAYS -- FINISH ALL MEDICINE -- active Not Available Not Available No t Available hydrochloro thiazide 12.5 mg capsule Take 1 capsule every day by oral route. active Not Available Not Available No t Available levofloxaci n 750 mg tablet TAKE 1 TABLET BY MOUTH ONCE DAILY FOR 14 DAYS active Not Available Not Available No t Available ondansetron 4 mg disintegrat ing tablet DISSOLVE 1 TABLET IN MOUTH EVERY 6 HOURS FOR NAUSEA AND VOMITING active Not Available Not Available No t Available Vitamin D active Not Available Not Kim ilable Not Available cranberry fruit active Not Available Not Available Not Available cholecalcif lavelle (vitamin D3) 1,250 mcg (50,000 unit) capsule TAKE 1 CAPSULE BY MOUTH ONCE A WEEK active Not Available Not Available No t Available Vitamin D3 50 mcg (2,000 unit) capsule Take by oral route. active Not Available Not Available No t Available vitamin B12 1,000 mcg-folic acid [address] by sublingua l route. active Not Available Not Available No t Available Vitals Date Recorded Body height Body mass index (BMI) Body weight Oxygen saturation Oxygen saturation in Arterial blood by Pulse oximetry Heart rate Systolic blood pressure Diastolic blood pressure Provider Name and Address Organization Details Last Updated DateTime 5 170.18 cm 33.8 kg/m2 05758.9 5 g 97 % 97 % 89 /min 132 mm[Hg] 76 mm[Hg] Maria Camp [place] - [facility] - [place] & [place] 10:42:45 Social History None recorded. Functional Status Question Answer Note LastModified by Organizat ion Details LastModified Time What is your level of alcohol consumption? Occasional [email or web address] Information not available 10/24/2022 Mental Status None recorded. Family History Relationship Description Onset Age of this Age Resolved Age Notes LastModified by Organization Details LastModified Time Father Malignant tumor of colon [email or web address] Not available 10/24 12:51:35 Brother Malignant neoplasm of lung [email or web address] Not available 10/24 12:51:48 Mother Malignant tumor of pancreas [email or web address] Not available 10/24 12:52:08 Medical History No medical history recorded. Past Encounters Encounter ID Performer Location Encounter Start Date Encounter Closed Date Diagnosis/Indication Diagnosis SNOMED-CT Code Diagnosis ICD10 Code Diagnosis Note [id number] JULY DONALDSON MD [facility] [place] [address] 08/27/2024 09:05:58 08/27/2024 11:23:50 Complex renal cyst 282071829 N28.1 History of clinical finding in subject 442967899 Z87.898 Family his tory of malignant neoplasm of prostate 161471773 Z80.42 Health Concerns Section Related Observation LastModified by Organization Detai ls LastModified Time None Recorded Concern Status LastModified by Organization Details LastModified Time None Recorded Payers Encounter Date Sequence Insurance Name Policy Number Policy Wood Covered Member ID Wood Member ID Guarantor Name 08/27/2024 2 [place] [id number] Ramakrishna Sen [id number] Wilton Sen 08/27/2024 1 [place] [id number] Wilton Sen [id number] Wilton Sen Notes Date Note Type Note Provider Name and Address Organization Details Recorded Time 08/27/2024 text/html 08/27/24 [id number] referred to my office for complex cyst of left kidney acquired. Wilton Sen is a 64-year-old male who presents for a new patient visit. He has a history of a complex cyst on the left kidney, which was drained in December 2016 at [facility] by interventional radiology. The procedure involved the use of a needle and ultrasound guidance. At the time, the cyst was large and caused symptoms such as a bulge that was noticeable with movement. Following the drainage, these symptoms improved. No fluid analysis was performed during the procedure, as the focus was on ensuring there was no infection prior to gallbladder surgery. He also has a simple cyst on the right kidney, which has been deemed harmless. Recent imaging has identified septation and calcification within the left kidney cyst, raising concerns about its complexity. Wilton has a significant family history of cancer, including colon cancer in his father, pancreatic cancer in his mother, lung cancer in two brothers, and prostate cancer in another brother, which has metastasized to his ribs. He has previously had elevated PSA levels, with readings of 98 and 9.9 in mid-2022. He has not undergone further evaluation for these results due to logistical challenges and concerns about the accuracy of the tests. * 06/11/24 Hgb 13.4, Hct 40.1, Cr 0.70, GFR 114, Magnesium 1.8, Phos Hgb 14.2, Hct 41.8, Cr 0.80, GFR 98, Magnesium 1.7, Phos Hgb 15.0, Hct 44.9, Cr 0.90, GFR 85, Phos Hgb 17.3, Hct 51.4, Cr 1.00, GFR 75, A1C 5.3, Uric Acid 8.9, Phos Hgb 17.8, Hct 51.6, Cr 0.70, GFR 114, Uric Acid 7.5, Phos Hgb 17.6, Hct 53.6, Cr 0.70, GFR 114, A1C 5.4, Phos US kidney ([facility]): 18mm simple cyst of the anterior R mid kidney, there is alarger septated cyst of the L kidney 12cm, the central septation is mildly thickened with calcification, there is no obvious solid mass, no hydronephrosis JULY DONALDSON MD [address], [place], [address], [facility] - [place] & [place] 08/27/2024 13:02:15
[2024-09-02 10:46] LABS: Hematocrit 48.0 % (42.0-52.0); Hemoglobin 15.6 g/dL (14.1-18.0); Immature Granulocytes % 0.4 %; Mean Corpuscular HGB Conc 32.5 g/dL (31.8-35.4); Mean Corpuscular Hemoglobin 29.4 pg (27.0-31.2); Mean Corpuscular Volume 90.4 fl (80-94); Nucleated Red Blood Cells % 0 %; Platelet Count 265 K/mm3 (142-424); Red Blood Count 5.31 M/mm3 (4.60-6.20); Red Cell Distribution Width-SD 46.5 fL; White Blood Count 5.7 K/mm3 (4.8-10.8)
[2024-09-02 12:00] LABS: Alanine Aminotransferase 21 U/L (12-78); Anion Gap 16.3 mEq/L (5-15); Aspartate Amino Transferase 25 U/L (17-59); Bilirubin,Total 0.8 mg/dl (0.2-1.3); Blood Urea Nitrogen 9 mg/dl (9-20); Calcium 9.7 mg/dl (8.4-10.2); Carbon Dioxide 25 mmol/L (22.0-30.0); Chloride 100 mmol/L (98-107); Cholesterol 190 mg/dl (140-200); Creatinine,Serum 0.80 mg/dl (0.66-1.25); Estimated Glomerular Filt Rate 98 ml/min (>60); GFR (African American) 118 ML/MIN (>60); Glucose 93 mg/dl (74-100); HDL Cholesterol 51 mg/dl (40-60); Potassium 4.3 mmoL/L (3.5-5.1); Sodium 137 mmol/L (136-145); Total Protein,Serum 7.5 g/dl (6.3-8.2); Triglycerides 122 mg/dl (30-150); Uric Acid 8.2 mg/dl (3.5-8.5)
[2024-09-02 12:01] LABS: Albumin Level 4.6 g/dl (3.5-5.0); Albumin/Globulin Ratio 1.6 (1.1-1.8); Alkaline Phosphatase 55 U/L (38-126); Globulin 2.9 g/dL (1.3-3.2)
[2024-09-02 12:06] LABS: C-Reactive Protein 27.4 mg/L (0-4)
[2024-09-02 12:29] LABS: Thyroid Stimulating Hormone 0.82 uIU/mL (0.465-4.68)
[2024-09-02 13:06] LABS: Folate 13.10 ng/mL
[2024-09-02 13:21] LABS: Vitamin B12 510 pg/mL (239-931)
[2024-09-02 14:15] LABS: Hemoglobin A1C 6.2 % (4.0-6.0)
[2024-09-10 01:28] LABS: 1,25 Dihydroxy Vitamin D 38 pg/mL (.); 1,25-Dihydroxy, Vitamin D-2 <10 pg/mL (.); 1,25-Dihydroxy, Vitamin D-3 38 pg/mL (.)
== END 2024-09-02 23:59 | disposition home or self-care (01) ==
LOC: LAB 10:17
PROVIDERS: Podiatrist; PCP Nurse Practitioner Family; Visit Provider Nurse Practitioner Family
DX: R22.42 Localized swelling, mass and lump, left lower limb (principal); R53.83 Other fatigue
CPT/HCPCS: 36415; 80053; 80061; 82607; 82652; 82746; 83036; 84443; 84550; 85025; 85651; 86140

== ENCOUNTER 2024-09-09 10:00 | Outpatient (RCR) | payer MEDICARE, SELFPAY | END 2024-09-09 23:59 | disposition home or self-care (01) | LOC: PT 10:00 | PROVIDERS: Visit Provider Podiatrist | DX: I83.11 Varicose veins of right lower extremity with inflammation (principal); I83.12 Varicose veins of left lower extremity with inflammation; I89.0 Lymphedema, not elsewhere classified | CPT/HCPCS: 97140 ==

== ENCOUNTER 2024-09-18 08:57 | Outpatient (CLI) | payer MEDICARE, SELFPAY ==
--- OUTSIDE RECORDS SUMMARY | 2024-09-18 09:02 | XMS_ITS ---
Author Organization [facility] Address [address] [place] [address] Care Team Providers Care Flight Service Specialist Name Role Phone Jr Niles Acosta APRN Primary Care Prov ider [facility] Status:Declined (Declined) Start date:08/28/2024 End date:09/02/2024 Decline reason:Non-Jainism provider Linked medications:hydroCHLOROthiazide (Active) Linked problems:HTN (hypertension) (Active) Continued Care and Services Coordination
--- OUTSIDE RECORDS SUMMARY | 2024-09-18 09:02 | XMS_ITS | Encounter Summary ---
[facility] Organization [facility] Address [address] [place] [address] Care Team Providers Care Project Product Manager Name Role Phone Jr Niles Acosta APRN Primary Care Prov ider Encounter Details Date Type Department Care Team (Late st Contact Info) Description 09/11/2024 External PBM[facility] Data [facility] CALL CENTER [address] [place] [phone] Pharmacy, Payor Data Social History Tobacco Use Types Packs/Day Years [...] as of this encounter Plan of Treatment Not on file documented as of this encounter Visit Diagnoses Not on filedocumented in this encounter Care Teams Project Product Manager Relationship Specialty Start Date End Date Jr Niles Acosta APRN [address] [place] [address] PCP - General Nurse Practitioner 08/16/23 documented as of this encounter
--- OUTSIDE RECORDS SUMMARY | 2024-09-18 09:02 | XMS_ITS | Encounter Summary ---
[facility] Address [address] [place] [address] Care Team Providers Care Light Air Defense Artillery Crewmember Name Role Phone Jr Niles Acosta APRN Primary Care Prov ider Encounter Details Date Type Department Care Team (Late st Contact Info) Description 08/28/2024 External PBMM Data [facility] CALL CENTER [address] [place] [phone] Pharmacy, Payor Data Social History Tobacco Use [...] on filedocumented in this encounter Care Teams Light [employer] Defense Artillery Crewmember Relationship Specialty Start Date End Date Jr Niles Acosta APRN [address] [place] [address] PCP - General Nurse Practitioner 08/16/23 documented as of this encounter
--- OUTSIDE RECORDS SUMMARY | 2024-09-18 09:02 | XMS_ITS | Clinical Summary ---
Author Organization [facility] Address [address] [place] [address] Care Team Providers Care Corporate Real Estate Specialist Name Role Phone Jr Niles Acosta APRN Primary Care Prov ider Allergies Active Allergy Reactions Criticality Noted Date Comments Ceftriaxone Other (See Comments) Medium 09/27/2022 Headaches/Body aches Medications vitamin B-12 (CYANOCOBALAMIN ) 1000 MCG tablet Take 1 tablet by mouth 1 (One) Time Per Week. Active budesonide-form oterol (Symbicort) 80-4.5 MCG/ACT inhaler Four times a day 3 Active albuterol sulfate HFA 108 (90 Base) MCG/ACT inhaler Inhale 2 puffs Every 4 (Four) Hours As Needed for Wheezing. Active fluticasone (VERAMYST) 27.5 MCG/SPRAY nasal spray Administer 2 sprays into the nostril(s) as directed by provider Daily. Active hydroCHLOROthia zide (MICROZIDE) 12.5 MG capsuleIndicati ons:Primary hypertension,Ch est pain, atypical Take 1 capsule by mouth Daily. 90 capsule 3 4 Active fluticasone (FLONASE) 50 MCG/ACT nasal spray Administer 2 sprays into the nostril(s) as directed by provider Daily. 4 Active naproxen sodium (ANAPROX) 550 MG tablet Take 1 tablet by mouth 2 (Two) Times a Day With Meals. Given a few in ER 4 Active BLACK CURRANT SEED OIL PO Take by mouth 3 (Three) Times a Day. Active Active Problems Problem Noted Date Diagnosed Date Chest pain, musculoskeletal 03/16/2024 Assessment & Plan (03/16/2024 12:14 PM EST): He was diagnosed with pleurisy in February and is still taking naproxen. Symptoms are worse after wearing his BiPAP machine. Polycythemia 11/07/2023 Assessment & Plan (11/07/2023 12:29 [...] Obstructive sleep apnea 09/27/2022 Assessment & Plan (03/16/2024 12:22 PM EST): He was having difficulty tolerating the BiPAP. His pressure settings were decreased and he reports that current settings are comfortable. He has not been using his BiPAP recently due to it causing lung pain. He reports that this only happens when he is sleeping in his apartment. His neighbor's grandson smokes marijuana and he believes that he is allergic to it. Anytime that he is home and tries to wear his BiPAP, he wakes up with chest/lung discomfort and is unable to tolerate it. When he uses his BiPAP at his sister's house, he can tolerate wearing it all night with no difficulties. This all started in October when he moved into his new apartment. He has been trying to work with [employer] to get switched to a different apartment, but no arrangements have been made yet. He is concerned about not wearing his BIPAP and wants to restart as soon as possible -Recommend that he move to a different apartment as soon as possible. -Restart PAP therapy as tolerated. Assessment & Plan (02/11/2024 12:31 PM EST): He is having difficulty tolerating the bipap and wants to switch back to a CPAP. I informed him that insurance will allow him to go back to CPAP. He reports that the bipap makes him bloated and causing him chest discomfort. He is willing to restart BIPAP if we can lower his pressures even more. Download reviewed and interpreted today. Compliance is 70%, AHI is 0.6. -Restart BIPAP therapy. Try wearing chin strap to keep mouth closed to prevent bloating -Follow up in 1 month Assessment & Plan (01/14/2024 12:43 PM EST): [...] on him and he has contacted his [employer] company and they have been unable to [...] PAP machine. This was ordered by his art department head in [place]. Patient was ordered a titration study about [...] Order for new PAP device sent to [employer]. - Continue PAP therapy at current settings. Assessment & Plan (09/27/2022 2:07 PM EDT): Patient is doing very well on PAP therapy with good control compliance. Download reviewed and interpreted today. Compliance is 100%, AHI 0.9. He is benefiting from PAP therapy and we plan to continue at current settings. HTN (hypertension) 09/27/2022 Assessment & Plan (03/16/2024 12:22 PM EST): Hypertension is stable and controlled Continue current treatment regimen. Dietary sodium restriction. Weight loss. Regular aerobic exercise. Blood pressure will be reassessed in 6 months Assessment & Plan (02/11/2024 12:25 PM EST): Hypertension is stable and controlled Continue current treatment regimen. Dietary sodium restriction. Weight loss. Regular aerobic exercise. Blood pressure will be reassessed in 6 months Assessment & Plan (01/14/2024 12:44 PM EST): [...] Encounters Date Type Department Care Team Description 09/11/2024 External PBMM Data [facility] CALL CENTER [address] [phone] Pharmacy, Payor Data 08/28/2024 External PBMM Data [facility] CALL [facility] [address] [phone] Pharmacy, Payor Data from Last 3 Months Family History Medical [...] Sign Reading Time Taken Comments Blood Pressure 130/66 03/16/2024 10:30 AM EST Pulse 86 03/16/2024 10:30 AM EST Temperature - - Respiratory Rate 16 02/11/2024 10:41 AM EST Oxygen Saturation 94% 03/16/2024 10:30 AM EST Inhaled Oxygen Concentration - - Weight 102 kg (225 lb) 03/16/2024 10:30 AM EST Height 170.2 cm (5' 7.01 ) 03/16/2024 10:[address] Body Mass Index 35.23 03/16/2024 10:30 AM EST Plan of Treatment Health Maintenance Due Date Last Done Comments Pneumococcal Vaccine 50+ (1 of 2 - PCV) 1980 TDAP/TD VACCINES (1 - Tdap) 1980 COLOGUARD 2006 COLON CANCER SCREENING 5 YEA R SIGMOIDOSCOPY 2006 COLONOSCOPY 2006 [address]AL CANCER SCREENING 2006 CT COLONOGRAPHY 2006 FECAL OCCULT BLOOD TEST 2006 FIT Testing (1 year) 2006 ZOSTER VACCINE (1 of 2) 06/07/2011 ANNUAL WELLNESS VISIT 09/27/2022 HEPATITIS C SCREENING 09/27/2022 COVID-19 Vaccine ( - season) 11/03/202310/2020 INFLUENZA VACCINE 12/02/2024 01/08/2024, 12/14/2022 Insurance [employer] ADVANT[employer] HMO Care Teams Corporate Real Estate Specialist Relationship Specialty Start Date End Date Jr Niles Acosta APRN [address] [place] [address] PCP - General Nurse Practitioner 08/16/23
[2024-09-18 09:13] VITALS: BP 122/85; PULSE 64; RESP 18; O2SAT 95
[2024-09-18] MEDS: VITAMIN B-12 1,000 MCG 1ML VIAL 1000 MCG (09:13)
== END 2024-09-18 09:13 | disposition home or self-care (01) ==
LOC: INF 09:00
PROVIDERS: PCP Nurse Practitioner Family; Visit Provider Internal Medicine Medical Oncology
DX: D64.9 Anemia, unspecified (principal); D75.1 Secondary polycythemia
CPT/HCPCS: 96372; J3420

== ENCOUNTER 2024-10-16 08:20 | Outpatient (CLI) | payer MEDICARE, SELFPAY ==
--- OUTSIDE RECORDS SUMMARY | 2024-10-16 08:23 | XMS_ITS | Encounter Summary ---
[facility] Address [address] [place] [address] Care Team Providers Care Silk Screen Layout Drafter Name Role Phone Jr Niles Acosta APRN Primary Care Prov ider Encounter Details Date Type Department Care Team (Late st Contact Info) Description 08/28/2024 External PBMM Data [facility] CALL CENTER [address] [place] [phone] Pharmacy, Payor Data Social History Tobacco Use [...] on filedocumented in this encounter Care Teams Silk Screen Layout Drafter Relationship Specialty Start Date End Date Jr Niles Acosta APRN [address] [place] [address] PCP - General Nurse Practitioner 08/16/23 documented as of this encounter
--- OUTSIDE RECORDS SUMMARY | 2024-10-16 08:23 | XMS_ITS ---
Author Organization [facility] Address [address] [place] [address] Care Team Providers Care Paper Tube Cutter Name Role Phone Jr Niles Acosta APRN Primary Care Prov ider [facility] Status:Declined (Declined) Start date:08/28/2024 End date:09/02/2024 Decline reason:Non-Pentecostalism provider Linked medications:hydroCHLOROthiazide (Active) Linked problems:HTN (hypertension) (Active) Continued Care and Services Coordination
--- OUTSIDE RECORDS SUMMARY | 2024-10-16 08:23 | XMS_ITS | Encounter Summary ---
[facility] Address [address] [place] [address] Care Team Providers Care Lead Loader Name Role Phone Jr Niles Acosta APRN Primary Care Prov ider Encounter Details Date Type Department Care Team (Late st Contact Info) Description 09/11/2024 External PBMM Data [facility] CALL CENTER [address] [place] [phone] Pharmacy, Payor Data Social History Tobacco Use [...] on filedocumented in this encounter Care Teams Lead Loader Relationship Specialty Start Date End Date Jr Niles Acosta APRN [address] [place] [address] PCP - General Nurse Practitioner 08/16/23 documented as of this encounter
--- OUTSIDE RECORDS SUMMARY | 2024-10-16 08:24 | XMS_ITS | Clinical Summary ---
Author Organization [facility] Address [address] [place] [address] Care Team Providers Care Aerobics Instructor Name Role Phone Jr Niles Acosta APRN [...] He has been trying to work with [employer] to get switched to a different apartment, [...] on him and he has contacted his [employer] company and they have been unable to [...] PAP machine. This was ordered by his news videographer in [place]. Patient was ordered a titration study about [...] Order for new PAP device sent to [employer]. - Continue PAP therapy at current settings. [...] Encounters Date Type Department Care Team Description 09/24/2024 External PBMM Data [facility] CALL CENTER [address] [place] [address] Pharmacy, Payor Data 09/11/2024 External PBMM Data [facility] CALL CENTER [address] [place] [address] Pharmacy, Payor Data 08/28/2024 External PBMM Data [facility] CALL CENTER [address] [place] [address] Pharmacy, Payor Data from Last 3 Months [...] C SCREENING 09/27/2022 COVID-19 Vaccine (2 - season) 11/03/202310/2020 INFLUENZA VACCINE 12/02/2024 01/08/2024, 12/14/2022 Insurance Care Teams Aerobics Instructor Relationship Specialty Start Date End Date Jr Niles Acosta APRN [address] [place] [address] PCP - General Nurse Practitioner 08/16/23
--- OUTSIDE RECORDS SUMMARY | 2024-10-16 08:24 | XMS_ITS | Encounter Summary ---
[facility] Address [address] [place] [address] Care Team Providers Care Thread Tool Grinder Set Up Operator Name Role Phone Jr Niles Acosta APRN Primary Care Prov ider Encounter Details Date Type Department Care Team (Late st Contact Info) Description 09/24/2024 External PBMM Data [facility] CALL CENTER [address] [place] [phone] Pharmacy, Payor Data Social History Tobacco Use [...] on filedocumented in this encounter Care Teams Thread Tool Grinder Set Up Operator Relationship Specialty Start Date End Date Jr Niles Acosta APRN [address] [place] [address] PCP - General Nurse Practitioner 08/16/23 documented as of this encounter
[2024-10-16 08:28] VITALS: BP 127/82; PULSE 62; RESP 18; TEMP 36.5; O2SAT 95
[2024-10-16] MEDS: VITAMIN B-12 1,000 MCG 1ML VIAL 1000 MCG IM (08:28)
== END 2024-10-16 08:47 | disposition home or self-care (01) ==
LOC: INF 08:21
PROVIDERS: PCP Nurse Practitioner Family; Visit Provider Internal Medicine Medical Oncology
DX: D64.9 Anemia, unspecified (principal); D75.1 Secondary polycythemia
CPT/HCPCS: 96372; J3420

== ENCOUNTER 2024-11-13 08:29 | Outpatient (CLI) | payer MEDICARE, SELFPAY ==
--- OUTSIDE RECORDS SUMMARY | 2024-11-13 08:35 | XMS_ITS | Encounter Summary ---
[facility] [address] [place] [address] Care Team Providers Care Bagel Maker Name Role Phone Jr Niles Acosta APRN Primary Care Prov ider Encounter Details Date Type Department Care Team (Late st Contact Info) Description 09/24/2024 External PBMM Data [facility] CALL CENTER [address] [place] [phone] Pharmacy, Payor Data Social History Tobacco Use [...] on filedocumented in this encounter Care Teams Bagel Maker Relationship Specialty Start Date End Date Jr Niles Acosta APRN [address] [place] [address] PCP - General Nurse Practitioner 08/16/23 documented as of this encounter
--- OUTSIDE RECORDS SUMMARY | 2024-11-13 08:35 | XMS_ITS | Clinical Summary ---
Author Organization [facility] Address [address] [place] [address] Care Team Providers Care Marbleizing Machine Tender Name Role Phone Jr Niles Acosta APRN [...] He has been trying to work with [email or web address] to get switched to a different apartment, [...] on him and he has contacted his [employer] company and they have been unable to [...] PAP machine. This was ordered by his material manager in [place]. Patient was ordered a titration study about [...] Order for new PAP device sent to [employer]. - Continue PAP therapy at current settings. [...] Team Description 09/24/2024 External PBMM Data [facility] CALL [facility]ENTER [address] [place] [address] Pharmacy, Payor Data 09/11/2024 External PBMM Data [facility] CALL [facility] [address] [place] [address] Pharmacy, Payor Data 08/28/2024 External PBMM Data [facility] CALL [facility] [address] [place] [address] Pharmacy, Payor Data from Last 3 Months [...] SCREENING 09/27/2022 COVID-19 Vaccine (2 - season) 11/02/202410/2020 INFLUENZA VACCINE 12/02/2024 01/08/2024, 12/14/2022 Insurance Care Teams Marbleizing Machine Tender Relationship Specialty Start Date End Date Jr Niles Acosta APRN [address] [place] [address] PCP - General Nurse Practitioner 08/16/23
[2024-11-13] MEDS: VITAMIN B-12 1,000 MCG 1ML VIAL 1000 MCG (08:47)
[2024-11-13 08:49] VITALS: BP 149/85; PULSE 67; RESP 20; TEMP 36.2; O2SAT 96
== END 2024-11-13 08:49 | disposition home or self-care (01) ==
LOC: INF 08:33
PROVIDERS: PCP Nurse Practitioner Family; Visit Provider Internal Medicine Medical Oncology
DX: D64.9 Anemia, unspecified (principal); D75.1 Secondary polycythemia
CPT/HCPCS: 96372; J3420

== ENCOUNTER → 2024-11-23 18:14 | Outpatient (CLI) | payer MEDICARE, SELFPAY ==
--- OUTSIDE RECORDS SUMMARY | 2024-11-23 18:17 | XMS_ITS | Encounter Summary ---
[facility] Address [address] [place] [address] Care Team Providers Care Forcer Maker Name Role Phone Jr Niles Acosta APRN Primary Care Prov ider Encounter Details Date Type Department Care Team (Late st Contact Info) Description 09/24/2024 External PBMM Data [facility] CALL CENTER [address] [place] [phone] Pharmacy, Payor Data Social History Tobacco Use [...] on filedocumented in this encounter Care Teams Forcer Maker Relationship Specialty Start Date End Date Jr Niles Acosta APRN [address] [place] [address] PCP - General Nurse Practitioner 08/16/23 documented as of this encounter
--- OUTSIDE RECORDS SUMMARY | 2024-11-23 18:17 | XMS_ITS | Clinical Summary ---
Author Organization [facility] Address [address] [place] [address] Care Team Providers Care Investments Manager Name Role Phone Jr Niles Acosta [...] He has been trying to work with [employer] to get switched to a different apartment, [...] on him and he has contacted his [employer] company and they have been unable to [...] PAP machine. This was ordered by his ribbon hand in [place]. Patient was ordered a titration study about [...] Order for new PAP device sent to [employer]. - Continue PAP therapy at current settings. [...] Care Team Description 09/24/2024 External PBMM Data [facility] CALL CENTER [address] [place] [address] Pharmacy, Payor Data 09/11/2024 External PBMM Data [facility] CALL CENTER [address] [place] [address] Pharmacy, Payor Data 08/28/2024 External PBMM Data [facility] CALL CENTER [address] [place] [address] Pharmacy, Payor Data from Last 3 Months [...] WELLNESS VISIT 09/27/2022 HEPATITIS C SCREENING 09/27/2022 INFLUENZA VACCINE 10/02/2024 01/08/2024, 12/14/2022 Insurance Care Teams Investments Manager Relationship Specialty Start Date End Date Jr Niles Acosta APRN [address] [place] [address] PCP - General Nurse Practitioner 08/16/23
== END ==
LOC: SL 18:16
PROVIDERS: PCP Nurse Practitioner Family; Visit Provider Specialist
DX: G47.33 Obstructive sleep apnea (adult) (pediatric) (principal)
CPT/HCPCS: 95810

== ENCOUNTER 2024-12-11 09:46 | Outpatient (CLI) | payer MEDICARE, SELFPAY ==
--- OUTSIDE RECORDS SUMMARY | 2024-12-11 09:49 | XMS_ITS | Clinical Summary ---
Author Organization [facility] Address [address] [place] [address] Care Team Providers Care Jet Piercer Operator Name Role Phone Jr Niles Acosta [...] He has been trying to work with [employer] to get switched to a different apartment, [...] on him and he has contacted his [employer] company and they have been unable to [...] PAP machine. This was ordered by his merchandise carrier in [place]. Patient was ordered a titration study about [...] Order for new PAP device sent to [employer]. - Continue PAP therapy at current settings. [...] Care Team Description 09/24/2024 External PBMM Data [facility] CALL CENTER [address] [phone] Pharmacy, Payor Data 09/11/2024 External PBMM Data [facility] CALL CENTER [address] [phone] Pharmacy, Payor Data from Last 3 Months [...] 09/27/2022 INFLUENZA VACCINE 10/02/2024 01/08/2024, 12/14/2022 Insurance [employer] ADVANT[employer] HMO Care Teams Jet Piercer Operator Relationship Specialty Start Date End Date Jr Niles Acosta APRN [address] [place] [address] PCP - General Nurse Practitioner 6/14/24
[2024-12-11 09:55] VITALS: BP 134/88; PULSE 70; RESP 20; TEMP 36.6; O2SAT 96
[2024-12-11] MEDS: VITAMIN B-12 1,000 MCG 1ML VIAL 1000 MCG IM (09:55)
== END 2024-12-11 23:59 | disposition home or self-care (01) ==
LOC: INF 09:46
PROVIDERS: PCP Nurse Practitioner Family; Visit Provider Internal Medicine Medical Oncology
DX: D75.1 Secondary polycythemia (principal); D64.9 Anemia, unspecified
CPT/HCPCS: 96372; J3420

== ENCOUNTER 2024-12-29 14:55 | Outpatient (CLI) | payer MEDICARE, SELFPAY ==
--- OUTSIDE RECORDS SUMMARY | 2024-12-29 15:06 | XMS_ITS | Clinical Summary ---
Author Organization [facility] Address [address] [place] [address] Care Team Providers Care Order To Delivery Supervisor Name Role Phone Jr Niles Acosta [...] He has been trying to work with [employer] to get switched to a different apartment, [...] on him and he has contacted his [employer] company and they have been unable to [...] PAP machine. This was ordered by his boiler water tester in [place]. Patient was ordered a titration study about [...] Order for new PAP device sent to [employer]. - Continue PAP therapy at current settings. [...] be reassessed at the next regular appointment. Family History Medical History Relation Name Comments [...] Insurance [employer] HMO Care Teams Order To Delivery Supervisor Relationship Specialty Start Date End Date Jr Niles Acosta APRN [address] [place] [address] PCP - General Nurse Practitioner 08/16/23
--- OUTSIDE RECORDS SUMMARY | 2024-12-29 15:07 | XMS_ITS | Continuity of Care Document ---
Author Organization [facility] Address [address] [address] Assessment Encounter Date Assessment Date Assessment LastModified by Organization Details LastModified Time 11/17/2024 11/17/2024 ASSESSMENT: Ramakrishna Sen is a 64-year-old male with identified PI-RADS 4 and PI-RADS 3 lesions on MRI, necessitating further evaluation with an MRI fusion biopsy. PLAN: 1. Perform an MRI fusion biopsy under sedation to evaluate the PI-RADS 4 and PI-RADS 3 lesions identified on MRI. 2. Coordinate scheduling of the procedure to accommodate the patient's preference for overnight monitoring due to lack of a reliable class c driver. 3. Instruct the patient to hold blood thinners for seven days prior to the procedure. 4. Prescribe Bactrim, a sulfa-based antibiotic, to be taken orally starting the day before the procedure, continuing on the day of and the day after the procedure. 5. Administer Betadine and IV antibiotics during the procedure to minimize the risk of infection. 6. Harness Rigger the patient on potential risks, including infection (approximately 3% chance), blood in urine, semen, or stool, and rare clot formation that could affect urination. 7. Inform the patient that tissue samples will be sent to pathology, with results expected in approximately four to five business days. 8. Provide reassurance regarding the quick nature of the procedure and flexibility in scheduling. Please note this report was created using voice recognition/text compilation software documentation services during the encounter with the patient. [email or web address] Not available 11/17/2024 14:11:08 Plan of Treatment Reminders Order Date Submit Date Provider Last Modified By Organization Details Last Modified Time Details Appointments TELEPHONI C VISIT 15 2024 11:30A M JULY DONALDSON MD Not available Not available Not available Lab None recorded. Referral None recorded. Procedures None recorded. Surgeries biopsy, prostate (SURG) 2024 025 [email or web address] Not available 11/26/2024 10:31:49 Imaging None recorded. Medication Orders Bactrim DS 800 mg-160 mg tablet 2024 025 [facility], [address], [address], 11/27/2024 05:03:31 Patient TargetsNo targets recorded. Patient InstructionsNo instructions recorded. Reason for Referral None Reported. Results Created Date Observation Date Name Description Value Unit Range Abnormal Flag Note LastModifiedBy Organization Detail LastModifiedTime 11/17/1911/05/2024 MRI, prost ate, w/wo contr ast No observ ation record ed. [facility] [address], [place], [address], 11/16/2024 11:26:13 Result Notes None recorded. Problems Name Problem SNOMED Code Status Onset Date Resolution Date Notes Provider Name and Address Organization Details Recorded Time Anemia 554187244 Active 2022 YANET Law [facility] & [place] 3 12:50:12 Hypertensive disorder 66558021 Active 2022 YANET Law [facility] - [place] & [place] 3 12:50:40 Seasonal allergy 400356971 Active 2022 YANET Law [facility] - [place] & [place] 3 12:50:51 Sleep apnea 66968679 Active 2022 YANET Law [facility] - [place] & [place] 3 12:51:01 Asthma 906862154 Active 2022 YANET Law [facility] - [place] & [place] 3 12:51:08 Chronic obstructive pulmonary disease 22979816 Active 2022 Carli nicholson [place] - [facility] - [facility] & [place] 3 12:51:15 Complex renal cyst 253867864 Active 2024 JULY DONALDSON MD [address], [place], [address] , [place] - [facility] - [facility] & [place] 5 11:21:02 Prostate specific antigen above reference range 328199197 Active 2024 JULY DONALDSON MD [address], [place], [address] , [place] - [facility] - [facility] & [place] 5 14:10:41 Cyst of kidney 988857357 Active [address], [place], [address] , [place] - [facility] - [place] & [place] 5 16:27:50 MRI scan abnormal 377053645 Active [address], [place], [address] , [place] - [facility] - [place] & [place] 5 14:10:46 Malignant neoplasm of prostate 900227263 Active 2024 JULY DONALDSNO MD [address], [place], [address] , [place] - [facility] - [place] & [place] 11:22:52 Problem Notes None recorded. Procedures Surgical History Date Name Laterality Status Provider Name and Address Organization Details Recorded Time procedure on gallbladder completed Carli Mcgee [place] - [facility] & [place] 10/24/2022 12:54:02 hernia repair completed Maria Camp [place] - [facility] - [facility] & [place] 08/27/2024 10:44:14 Imaging Results None recorded. Procedure Notes None recorded. Medical Equipment None Reported. Allergies Allergen ID Allergen Name Allergen Category Reaction Reaction Severity Criticality Documentation Date Start Date Code Code System Note Provider Name and Address Organization Details Recorded Time 473322 ceftriaxo ne medicatio n Not available Not available Not available 08/05/2024 2193 RxNorm Maria nicholson, [place] - [facility] - [facility] & [place] 5 09:19:06 Medications Name Sig Start Date Stop Date Status Note LastModified by Organization Details LastModified Time atorvastati n 40 mg tablet TAKE ONE TABLET BY MOUTH AT BEDTIME active Not Available Not Available No t Available doxycycline hyclate 100 mg capsule TAKE 1 CAPSULE BY MOUTH TWICE DAILY FOR 7 DAYS 11/17 completed Not Available Not Available Not Available clindamycin HCl 300 mg capsule TAKE 1 CAPSULE BY MOUTH THREE TIMES DAILY FOR 7 DAYS FOR INFECTION TAKE WITH A LARGE GLASS OF WATER 11/17 completed Not Available Not Available Not Available allopurinol 100 mg tablet Take 1 tablet every day by oral route. 08/27 completed Not Available Not Available Not Available tramadol 50 mg tablet TAKE 1 TABLET BY MOUTH EVERY 6 HOURS NEEDED FOR MODERATE PAIN 4-6 PAIN SCALE active Not Available Not Available No t Available linezolid 600 mg tablet TAKE 1 TABLET BY MOUTH EVERY 12 HOURS FOR 14 DAYS 11/17 completed Not Available Not Available Not Available doxycycline monohydrate 100 mg capsule TAKE ONE CAPSULE BY MOUTH TWICE DAILY FOR 10 DAYS -- FINISH ALL MEDICINE -- 11/17 completed Not Available Not Available Not Available hyoscyamine 0.125 mg sublingual tablet DISSOLVE 1 TABLET BY MOUTH EVERY 6 HOURS NEEDED FOR BLADDER SPASM PAIN active Not Available Not Available No t Available hydrochloro thiazide 12.5 mg capsule Take 1 capsule every day by oral route. 11/17 completed Not Available Not Available Not Available levofloxaci n 750 mg tablet TAKE 1 TABLET BY MOUTH ONCE DAILY FOR 14 DAYS 11/17 completed Not Available Not Available Not Available ondansetron 4 mg disintegrat ing tablet DISSOLVE 1 TABLET IN MOUTH EVERY 6 HOURS FOR NAUSEA AND VOMITING 11/17 completed Not Available Not Available Not Available Bactrim DS 800 mg-160 mg tablet Take 1 tablet every 12 hours by oral route for 3 days. 11/27 completed Not Available Not Available Not Available Vitamin D 11/17 completed Not Available Not Available Not Available cranberry fruit 11/17 completed Not Available Not Available Not Available cholecalcif lavelle (vitamin D3) 1,250 mcg (50,000 unit) capsule TAKE 1 CAPSULE BY MOUTH ONCE A WEEK active Not Available Not Available No t Available Vitamin D3 50 mcg (2,000 unit) capsule Take by oral route. 11/17 completed Not Available Not Available Not Available vitamin B12 1,000 mcg-folic acid [address] by sublingua l route. 11/17 completed Not Available Not Available Not Available Vitals Date Recorded Body height Body mass index (BMI) Body weight Oxygen saturation Oxygen saturation in Arterial blood by Pulse oximetry Heart rate Systolic And Diastolic Provider Name and Address Organization Details Last Updated DateTime 5 170.18 cm 35.3 kg/m2 058626. 72 g 92 % 92 % 82 /min 128/88 mm[Hg] Abimbola Peres [place] - [facility] - [place] & [place] 14:01:55 Social History None recorded. Functional Status Question Answer Note LastModified by Organizat ion Details LastModified Time What is your level of alcohol consumption? Occasional [email or web address] Information not available 10/24/2022 Mental Status None recorded. Family History Relationship Description Onset Age of this Age Resolved Age Notes LastModified by Organization Details LastModified Time Father Malignant neoplasm of colon [email or web address] Not available 10/24 12:51:35 Brother Malignant neoplasm of lung [email or web address] Not available 10/24 12:51:48 Mother Malignant neoplasm of pancreas [email or web address] Not available 10/24 12:52:08 Medical History No medical history recorded. Past Encounters Encounter ID Performer Location Encounter Start Date Encounter Closed Date Diagnosis/Indication Diagnosis SNOMED-CT Code Diagnosis ICD10 Code Diagnosis IMO Codes Diagnosis Note [id number] JULY DONALDSON MD [facility] [place] [address] 11/17/2024 13:47:05 11/17/2024 14:21:23 Prostate specific antigen above reference range 294716561 R97.20 77773 MRI scan abnormal 969788 003 R93.89 813198 Health Concerns Section Related Observation LastModified by Organization Detai ls LastModified Time None Recorded Concern Status LastModified by Organization Details LastModified Time None Recorded Payers Encounter Date Sequence Insurance Name Policy Number Policy Wood Covered Member ID Wood Member ID Guarantor Name 11/17/2024 1 ANNIE-YANET: [facility] Wilton Sen [id number] Ramakrishna Sen Notes Date Note Type Note Provider Name and Address Organization Details Recorded Time 11/17/2024 text/html 11/17/24 Patient returns to my follow up PSA, bilateral renal cysts, and MRI prostate results.Ramakrishna Sen is a 64-year-old male who presents for a follow-up visit. He has a history of Social Security disability due to major weakness issues. He reports no current use of blood thinners, including baby aspirin. He has an allergy to ROCEPHIN, which previously caused major headaches and body aches lasting two days. He prefers to stay overnight for monitoring following sedation due to the lack of a reliable class c driver. 09/24/24 Wilton Sen is a 64-year-old male who presents for a telephonic visit. He has a history of elevated PSA levels, with prior readings in the nines a couple of years ago. His most recent PSA level, checked during his last visit, is 12.1, which is three to four times higher than expected for his age. He has a significant family history of prostate cancer, as his brother was diagnosed with the condition. audio only tele visit conducted from my office in [facility]. Patient located at his home in [place]. Patient identity confirmed with name and date of . Verbal consent given to proceed. 08/27/[id number]-nng- male referred to my office for complex cyst of left kidney acquired.Wilton Sen is a 64-year-old male who presents for a new patient visit. He has a history of a complex cyst on the left kidney, which was drained in December 2016 at [facility] by interventional radiology. The procedure involved the use of a needle and ultrasound guidance. At the time, the cyst was large and caused symptoms such as a bulge that was noticeable with movement. Following the drainage, these symptoms improved. No fluid analysis was performed during the procedure, as the focus was on ensuring there was no infection prior to gallbladder surgery.He also has a simple cyst on the right kidney, which has been deemed harmless. Recent imaging has identified septation and calcification within the left kidney cyst, raising concerns about its complexity.Jamar currie has a significant family history of cancer, including colon cancer in his father, pancreatic cancer in his mother, lung cancer in two brothers, and prostate cancer in another brother, which has metastasized to his ribs. He has previously had elevated PSA levels, with readings of 9.8 and 9.9 in mid-2022. He has not undergone further evaluation for these results due to logistical challenges and concerns about the accuracy of the tests. * 11/16/24 MRI Prostate w/w/o ([facility]): Peripheral Zone: No area of significant restricted diffusion is seen in the peripheral zone. No nodule is seen in the peripheral zone. Transition Zone: The transition zone is significantly enlarged and nodular consistent with BPH. There is a 94r37nr area of decreased T2 signal involving the right anterior transition zone at the base with significant restricted diffusion and early contrast enhancement. This is consistent with aPI-RADS 4 lesionand was localized on the Nancy CAD software. There is also a 9x4mm decreased T2 signal focus left posterior transition zone at the apex with significant restricted diffusion. This is consistent with aPI-RADS 3 lesionand was localized on the Nancy CAD software. Review of the remainder of the pelvis reveals a small decreased signal focus in the medial right iliac bone of uncertain significance. A left inguinal hernia is seen containing fat only.09/10/24 MRI abd ([facility]): Benign bilateral renal lesions. No suspicious renal mass.08/27/24 PSA 12.104 Hgb 13.4, Hct 40.1, Cr 0.70, GFR 114, Magnesium 1.8, Phos Hgb 14.2, Hct 41.8, Cr 0.80, GFR 98, Magnesium 1.7, Phos Hgb 15.0, Hct 44.9, Cr 0.90, GFR 85, Phos Hgb 17.3, Hct 51.4, Cr 1.00, GFR 75, A1c 5.3, Uric Acid 8.9, Phos Hgb 17.8, Hct 51.6, Cr 0.70, GFR 114, Uric Acid 7.5, Phos Hgb 17.6, Hct 53.6, Cr 0.70, GFR 114, A1C 5.4, Phos US kidney ([facility]): 18mm simple cyst of the anterior R mid kidney, there is a larger septated cyst of the L kidney 12cm, the central septation is mildly thickened with calcification, there is no obvious solid mass, no hydronephrosis JULY DONALDSON MD [address], [place], [address], [facility] - [place] & [place] 11/20/2024 10:31:31
--- OUTSIDE RECORDS SUMMARY | 2024-12-29 15:07 | XMS_ITS | Data Portability ---
Author Organization [place] - [facility] & [place] Address [address] [place] [address] Assessment Encounter Date Assessment Date Assessment LastModified by Organization Details LastModified Time 08/27/2024 08/27/2024 ASSESSMENT: Wilotn Sen is a 64-year-old male with a [...] the patient. [email or web address] Not available 08/27/2024 11:21:21 09/24/2024 09/24/2024 ASSESSMENT: Wilton Sen is a 64-year-old male with elevated PSA levels and a significant family history of prostate cancer. PLAN: 1. Recommend an MRI of the prostate to evaluate for abnormal areas within the gland. 2. Discuss the potential need for an MRI fusion biopsy if abnormal areas are identified on the MRI. 3. Explain the possibility of a traditional 12-core biopsy if the MRI does not demonstrate abnormal areas. 4. Place an order for the MRI to be performed at either [facility] or [facility], based on patient preference. 5. Advise the patient to contact the office if the radiology department does not reach out within a couple of days to schedule the MRI. 6. Plan a follow-up telephonic visit in approximately two to three weeks to discuss MRI results and determine next steps. Please note this report was created using voice recognition/text compilation software documentation services during the encounter with the patient. [email or web address] Not available 09/24/2024 16:28:05 11/17/2024 11/17/2024 ASSESSMENT: Ramakrishna Sen is a [...] monitoring due to lack of a reliable bus van driver. 3. Instruct the patient to hold blood thinners for seven days prior to the procedure. 4. Prescribe Bactrim, a sulfa-based antibiotic, to be taken orally starting the day before the procedure, continuing on the day of and the day after the procedure. 5. Administer Betadine and IV antibiotics during the procedure to minimize the risk of infection. 6. Rn Care Transition the patient on potential risks, including infection [...] Appointments TELEPHONI C VISIT 15 2024 11:30A Luis DONALDSON MD Not available Not available Not available Lab PSA, total + free, serum or plasma 2024 025 [email or web address] [facility] (Registration ), [address] [facility], [place], [address], 09/17/2024 09:07:02 urinalysi s, dipstick [address] [facility], [address], [place], [address], 08/27/2024 11:21:41 PSA, total + free, serum or plasma 2022 023 [email or web address] Not available 11/01/2022 07:10:22 Referral None recorded. Procedures None recorded. Surgeries biopsy, prostate (SURG) 2024 025 [email or web address] Not available 11/26/2024 10:31:49 Imaging MRI, prostate, w/wo contrast 2024 025 [facility] Scheduling, [address], [place], [address], 11/16/2024 10:35:24 MRI, abdomen, w/wo contrast [email or web address] (Centralized Scheduling), [address] [facility], [place], [address], 09/30/2024 21:50:48 Medication Orders Bactrim DS 800 mg-160 mg tablet 2024 [address] [facility], [address], [address], 11/27/2024 05:03:31 Patient TargetsNo targets recorded. Patient InstructionsNo instructions recorded. Reason for Referral None Reported. Results Created Date Observation Date Name Description Value Unit Range Abnormal Flag Note LastModifiedBy Organization Detail LastModifiedTime 08/28/1908/28/2024 PSA, TOTAL + % FREE (SERI AL) PSA 12.1 NG/mL 0.0-4. 0 high Elvin ECLIA metho dolog y. . Accor ding to the Ameri can Urolo gical Assoc iatio n, Serum PSA shoul d decre ase and remai n at undet ectab le level s after radic al prost atect beto. The AUA defin es bioch emica l recur rence as an initi al PSA value 0.2 ng/mL or great er follo wed by a subse quent confi rmato ry PSA value 0.2 ng/mL or great er. Value s obtai belia with diffe rent assay metho ds or kits canno t be used inter jeffries eably . Resul ts canno t be inter prete d as absol rincon evide nce of the prese nce or absen ce of dagoberto mcclendon se. Not Available [facility] ([facility]) [address] [facility], [place], [address], 08/28/2024 19:11:21 08/28/1908/28/2024 PSA, TOTAL + % FREE (SERI AL) PSA, free 2.22 NG/mL n/a Elvin ECLIA metho dolog y. Not Available [facility] ([facility]) [address] [facility], [place], [address], 08/28/2024 19:11:21 08/28/1908/28/2024 PSA, TOTAL + % FREE (SERI AL) % free PSA 18.3 % The table below lists the proba bilit y of prost ate cance r for men with non-s uspic ious SOPHIA resul ts and total PSA betwe en 4 and 10 ng/mL , by patie nt age (Mary covarrubias et al, ADY 1998, 279:1 542). % Free PSA 50-64 yr 65-75 yr 0.00- 10.00 % 56% 55% 10.01 -15.0 0% 24% 35% 15.01 -20.0 0% 17% 23% 20.01 -25.0 0% 10% 20% >25.0 0% 5% 9% Keri e note: Jenn law al did not make speci fic recom menda tions regar ding the use of perce nt free PSA for any other popul ation of men. Not Available [facility] ([facility]) [address] [facility], [place], [address], 08/28/2024 19:11:21 08/28/19 25 08/28/2024 PSA, TOTAL + % FREE (SERI AL) pdf image . Perfo rmed at: [facility] n [address] [facility] [address] [facility], [place] [address] Lab Direc tor: Gwyn phipps PhD, Phone : [phone] Perfo rmed at: [facility] [place] [address] , [place] [address] Lab Direc tor: Malik Murphy [facility] , Phone : [phone] Not Available [facility] ([facility]) [address] [facility], [place], [address], 08/28/2024 19:11:21 08/28/19 25 08/27/2024 urina lysis , dipst ick Leukocytes (reference range) negati ve Not Available [place] [address] [address] [facility] [address], [place], [address], 08/27/2024 10:42:55 08/28/19 25 08/27/2024 urina lysis , dipst ick Nitrite (reference range:) negati ve Not Available [place] [address] [address] [facility] [address], [place], [address], 08/27/2024 10:42:55 08/28/19 25 08/27/2024 urina lysis , dipst ick Urobilinogen (reference range) 0.2 Not Available [place] [address] [address] [facility] [address], [place], [address], 08/27/2024 10:42:55 08/28/19 25 08/27/2024 urina lysis , dipst ick Protein (reference range) trace Not Available [place] [address] [address] [facility] [address], [place], [address], 08/27/2024 10:42:55 08/28/19 25 08/27/2024 urina lysis , dipst ick pH (reference range 5-8.5) 5.0 Not Available Jann[facility] [address] [address] [facility] [address], [place], [address], 08/27/2024 10:42:55 08/28/19 25 08/27/2024 urina lysis , dipst ick Blood (reference range:) negati ve Not Available [place] [address] [address] [facility] [address], [place], [address], 08/27/2024 10:42:55 08/28/19 25 08/27/2024 urina lysis , dipst ick Specific Corolla (reference range) 1.005 Not Available [place] [address] [address] [facility] [address], [place], [address], 08/27/2024 10:42:55 08/28/19 25 08/27/2024 urina lysis , dipst ick Ketone (reference range) negati ve Not Available [place] [address] [address] [facility] [address], [place], [address], 08/27/2024 10:42:55 08/28/19 25 08/27/2024 urina lysis , dipst ick Bilirubin (reference range) negati ve Not Available [place] [address] [address] [facility] [address], [place], [address], 08/27/2024 10:42:55 08/28/19 25 08/27/2024 urina lysis , dipst ick Glucose (reference range) negati ve Not Available [place] [address] [address] [facility] [address], [place], [address], 08/27/2024 10:42:55 08/28/19 25 08/27/2024 urina lysis , dipst ick Color (reference range: yellow-brown ) Yellow Not Available [facility] [address], [place], [address], 08/27/2024 10:42:55 11/26/19 25 11/30/2024 PATHO LOGY SPECI MEN pathology specimen SEE REPORT Not Available [facility] ([facility]) [address], [place], [address], 11/30/2024 12:34:56 08/07/19 25 04/16/2024 US, renal No observ ation record ed. [email or web address] [facility] [address], [place], [address], 10/07/2024 14:20:12 09/13/19 25 09/10/2024 [facility] [place] [address] Phone: Fax: Name: KATIE SEN Exam Date: : [birth year] Age 64 years Gender : M Access ion: [id number] Physic ervin: JULY DONALDSON Facili ty: [facility] Facili ty HSV: Outpat ient Exam: MRI ABD W/W/O MR ABDOME N WITHOU T THEN WITH IV CONTRA ST, 025 10:19 AM CDT INDICA TION: cyst of kidney acquir ed COMPAR SNICERE: CT imagin g Novemb er 2023. TECHNI QUE: Multip lanar multis equenc e imagin g of the abdome n was obtain ed before and after intrav enous gadoli nium admini strati on. PROBLE M SPECIF IC FINDIN GS: Kidney s: The backgr ound renal parenc hyma is overal l normal in signal charac terist ics. Bilate rally, there are multip le T1 dark, T2 bright lesion s involv ing the left greate r than right kidney s. The larges t can be seen arisin g from the interp olar and upper pole region of the left kidney . It either reflec ts a single domina nt cyst or two appose d cysts. Togeth er, the greate st axial dimens ion measur es 6.5 x 10.9 cm. If a single lesion , it contai ns a single thin international relations teacher al septat ion, MR imagin g charac terist ics still compat ible with [place] k 2 lesion . None of these lesion s demons trate any signif icant, pathol ogic enhanc ement on postga dolini um imagin g. No suspic ious solid renal mass lesion identi fied. No hydron ephros is. No pathol ogic perire nal lympha denopa thy. Renal veins are patent . ADDITI ONAL FINDIN GS: MSK: Within normal limits . Vascul ature: Within normal limits . Lungs: Within normal limits . Liver: Within normal limits . Spleen : Within normal limits . Pancre as: Within normal limits . Biliar y System : Cholec ystect beto clips. No biliar y dilata tion. Adrena ls: Within normal limits . Perito neum/E xtrape ritone um: Within normal limits . Bowel: Within normal limits . IMPRES CAT: Benign bilate ral renal lesion s. No suspic ious renal mass. Other findin gs as above. . . . S/D/G Electr onical ly signed by: Nabeel Sexton se, MD 2024 06:12 AM EDT RP Workst ation: [id number] Dictat ed By: Nabeel Sexton se Transc ribed By: Transc ribed On: 025 6:12 AM Electr onical ly signed by: Nabeel Sexton se 025 Legall y authen ticate d by PACO Irizarry 09-12 06:12: 09 Thank you for referr KATIE Perez to [facility]. Legall y authen ticate d by PACO Irizarry 09-12 06:12: 09 CC'ed Logic: Orderi ng Provid er: ANIKA MCDOWELL Attend ing Provid er: ANIKA MCDOWELL Referr ing Provid er: ART JULY Admitt ing Provid er: ANIKA MCDOWELL [email or web address] [facility] [address], [place], [address], 09/21/2024 15:21:04 11/17/19 25 11/05/2024 MRI, prost ate, w/wo contr ast No observ ation record ed. ADRIÁN [facility] [address], [place], [address], 11/16/2024 11:26:13 Result Notes None recorded. Problems Name Problem SNOMED Code Status Onset Date Resolution Date Notes Provider Name and Address Organization Details Recorded Time Anemia 488464696 Active 2022 Carli nicholson, [place] - [facility] [place] & [place] 3 12:50:12 Hypertensive disorder 58782126 Active 2022 Carli nicholson, [place] [facility] [place] 3 12:50:40 Seasonal allergy 712957515 Active 2022 Carli Mcgee null, [place] [facility] [place] 3 12:50:51 Sleep apnea 24224523 Active 2022 Carli Mcgee null, [place] [facility] [place] 3 12:51:01 Asthma 022581538 Active 2022 Carli nicholson, [place] [facility] [place] 3 12:51:08 Chronic obstructive pulmonary disease 92390068 Active 2022 Carli nicholson, [place] [facility] [place] 3 12:51:15 Complex renal cyst 674895557 Active 2024 JULY DONALDSON MD [address], [place], [address] , [place] [facility] [place] 5 11:21:02 Prostate specific antigen above reference range 377519365 Active [address], [place], [address] , [place] [facility] [place] 14:10:41 Cyst of kidney 789632939 Active 2024 JULY DONALDSON MD [address], [place], [address] , [facility] & [place] 5 16:27:50 MRI scan abnormal 816843394 Active [address], [place], [address] , [facility] & [place] 5 14:10:46 Malignant neoplasm of prostate 171459494 Active 2024 JULY DONALDSON MD [address], [place], [address] , [facility] & [place] 11:22:52 Problem Notes None recorded. Procedures Surgical History Date Name Laterality Status Provider Name and Address Organization Details Recorded Time procedure on gallbladder completed Carli Mcgee [facility] & [place] 10/24/2022 12:54:02 hernia repair [facility] [place] 08/27/2024 10:44:14 Imaging Results None recorded. Procedure Notes None recorded. Medical Equipment None Reported. Allergies Allergen ID Allergen Name Allergen Category Reaction Reaction Severity Criticality Documentation Date Start Date Code Code System Note Provider Name and Address Organization Details Recorded Time 717407 ceftriaxo ne medicatio n Not available Not available Not available 08/05/2024 2193 RxNorm [facility] [place] 5 09:19:06 Medications Name Sig Start Date [...] and Address Organization Details Last Updated DateTime 170.18 cm 33.8 kg/m2 02386.9 5 g 97 % 97 % 89 /min 132/76 mm[Hg] Maria Camp [place] - [facility] & [place] 5 10:42:45 Date Recorded Body height Body mass index (BMI) Body weight Body temperature Provider Name and Address Organization Details Last Updated DateTime 10/24/2022 170.18 cm 35.4 kg/m2 382083.88 g 98 [degF] Carli Mcgee [place] - [facility] & [place] 10/24/2022 12:49:29 Date Recorded Body height Body mass index (BMI) Body weight Oxygen saturation Oxygen saturation in Arterial blood by Pulse oximetry Heart rate Systolic And Diastolic Provider Name and Address Organization Details Last Updated DateTime 5 170.18 cm 35.3 kg/m2 864866. 72 g 92 % 92 % 82 /min 128/88 mm[Hg] Abimbola Peres [facility] & [place] 14:01:55 Social History None recorded. Functional Status Question Answer Note LastModified by Organizat ion Details LastModified Time What is your level of alcohol consumption? Occasional [id number] Information not available 10/24/2022 Mental Status None recorded. Family History Relationship Description Onset Age of this Age Resolved Age Notes LastModified by Organization Details LastModified Time Father Malignant neoplasm of colon Not available 10/24 12:51:35 Brother Malignant neoplasm of lung [email or web address] Not available 10/24 12:51:48 Mother Malignant neoplasm of pancreas [email or web address] Not available 10/24 12:52:08 Medical History No medical history recorded. Past Encounters Encounter ID Performer Location Encounter Start Date Encounter Closed Date Diagnosis/Indication Diagnosis SNOMED-CT Code Diagnosis ICD10 Code Diagnosis IMO Codes Diagnosis Note [id number] Ramakrishna Rosas Jr, MD [facility] [address] [address] 10/24/2022 12:16:09 10/24/2022 13:24:16 Prostate specific antigen above reference range 381088408 R97.20 recent PSA was 7.8. Free PSA [...] months with a free and total PSA. [id number] JULY DONALDSON MD [facility]1 00 [address] [facility] [address] [place] [address] 08/27/2024 09:05:58 08/27/2024 11:23:50 Complex renal cyst 083881468 N28.1 296205 History of clinical finding in subject 438441559 Z87.976 [id number] Family his tory of malignant neoplasm of prostate 152763003 Z80.42 [id number] JULY DONALDSON MD [facility]1 00 [address] [facility] [address] [place] [address] 09/24/2024 15:49:20 09/24/2024 16:40:00 Prostate specific antigen above reference range 449301954 R97.20 1856947209 Cyst of kidney 144414499 N28.1 355048 Family his tory of malignant neoplasm of prostate 883243522 Z80.42 [id number] [facility] [address] [facility] [address] [place] [address] 11/17/2024 13:47:05 11/17/2024 14:21:23 Prostate specific antigen above reference range 601125260 R97.20 26652 MRI scan abnormal 737510 003 R93.89 [id number] JULY DONALDSON MD [facility]-1 00 [address] [facility] [address] [place] [address] 12/29/2024 11:10:15 12/29/2024 11:25:17 Malignant neoplasm of prostate 214180579 C61 39877 Health Concerns Section Related Observation LastModified by Organization Detai ls LastModified Time None Recorded Concern Status LastModified by Organization Details LastModified Time None Recorded Advance Directives Directive None Recorded Payers Insurance Date Sequence Insurance Name Policy Number Policy Wood Covered Member ID Wood Member ID Guarantor Name 12/29/2024 2 [place] [id number] Ramakrishna Sen [id number] Ramakrishna Sen 12/29/2024 1 [place] [id number] Wilton Sen [id number] Ramakrishna Sen Notes Date Note Type [...] to his knowledge. Ramakrishna Rosas Jr, MD [address] [place] [address], [address], [place], [address], [facility] & [place] 10/24/2022 13:57:25 08/27/2024 text/html 08/27/24 28-uvlq-sdq-male referred to my office for complex cyst of left kidney acquired. Wilton Sen is a 64-year-old male who presents for a new patient visit. He has a history of a complex cyst on the left kidney, which was drained in December 2016 at [facility] by interventional radiology. The procedure involved the [...] GFR 114, A1C 5.4, Phos US kidney ([facility]): 18mm simple cyst of the anterior R mid kidney, there is alarger septated cyst of the L kidney 12cm, the central septation is mildly thickened with calcification, there is no obvious solid mass, no hydronephrosis JULY DONALDSON MD [address] [facility], [place], [address], [place] [facility] [place] 08/27/2024 13:02:15 09/24/2024 text/html 09/24/24 Wilton Sen is a 64-year-old male [...] tele visit conducted from my office in [facility]. Patient located at his home in [place]. Patient identity confirmed with name and date of . Verbal consent given to proceed. 0 08/27/[id number]-oxxl-hrf-luis lisseth referred to my office for complex cyst of left kidney acquired.Wilton Sen is a 64-year-old male who presents for a new patient visit. He has a history of a complex cyst on the left kidney, which was drained in December 2016 at [facility] by interventional radiology. The procedure involved the [...] concerns about the accuracy of the tests. *09/10/24 MRI abd ([facility]): Benign bilateral renal lesions. No suspicious renal mass.08/27/24PSA 12. Hgb 13.4, Hct 40.1, Cr 0.70, GFR [...] GFR 114, A1C 5.4, Phos US kidney ([facility]): 18mm simple cyst of the anterior R mid kidney, there is a larger septated cyst of the L kidney 12cm, the central septation is mildly thickened with calcification, there is no obvious solid mass, no hydronephrosis JULY DONALDSON MD [address], [place], [address], [facility] - [place] & [place] 09/25/2024 07:47:34 11/17/2024 text/html 11/17/24 Patient returns to my [...] due to the lack of a reliable bus van driver. 09/24/24 Wilton Sen is a 64-year-old [...] tele visit conducted from my office in [facility]. Patient located at his home in [place]. Patient identity confirmed with name and date of . Verbal consent given to proceed. 08/27/25629991-rocr-nlq- male referred to my office for complex cyst of left kidney acquired.Wilton Sen is a 64-year-old male who presents for a new patient visit. He has a history of a complex cyst on the left kidney, which was drained in December 2016 at [facility] by interventional radiology. The procedure involved the [...] the tests. * 11/16/24 MRI Prostate w/w/o ([facility]): Peripheral Zone: No area of significant restricted diffusion is seen in the peripheral zone. No nodule is seen in the peripheral zone. Transition Zone: The transition zone is significantly enlarged and nodular consistent with BPH. There is a 55k26pv area of decreased T2 signal involving the right anterior transition zone at the base with significant restricted diffusion and early contrast enhancement. This is consistent with aPI-RADS 4 lesionand was localized on the [employer] CAD software. There is also a 9x4mm [...] is seen containing fat only.09/10/24 MRI abd ([facility]): Benign bilateral renal lesions. No suspicious renal mass.08/27/24 PSA 12.104/12/26 Hgb 13.4, Hct 40.1, Cr 0.70, GFR [...] GFR 114, A1C 5.4, Phos US kidney ([facility]): 18mm simple cyst of the anterior R mid kidney, there is a larger septated cyst of the L kidney 12cm, the central septation is mildly thickened with calcification, there is no obvious solid mass, no hydronephrosis JULY DONALDSON MD [address], [place], [address], [facility] - [place] - [place] & [place] 11/20/2024 10:31:31 12/29/2024 text/html 12/29/24 Patient returns to my office for surgery follow up MRI Fusion. --------- 11/17/24 Patient returns to my follow up [...] due to the lack of a reliable bus van driver. ---- 09/24/24Wilton Sen is a 64-year-old male who presents [...] tele visit conducted from my office in [facility]. Patient located at his home in [place]. Patient identity confirmed with name and date of . Verbal consent given to proceed. 08/27/[id number]-bonu-lri- male referred to my office for complex cyst of left kidney acquired.Wilton Sen is a 64-year-old male who presents for a new patient visit. He has a history of a complex cyst on the left kidney, which was drained in December 2016 at [facility] by interventional radiology. The procedure involved the [...] concerns about the accuracy of the tests. 11/25/24 MRI Fusion BX:RLA 3+3=6 (10%)11/16/24 MRI Prostate w/w/o ([facility]): Peripheral Zone: No area of significant restricted diffusion is seen in the peripheral zone. No nodule is seen in the peripheral zone. Transition Zone: The transition zone is significantly enlarged and nodular consistent with BPH. There is a 39c68vn area of decreased T2 signal involving the right anterior transition zone at the base with significant restricted diffusion and early contrast enhancement. This is consistent with aPI-RADS 4 lesionand was localized on the [employer] CAD software. There is also a 9x4mm decreased T2 signal focus left posterior transition zone at the apex with significant restricted diffusion. This is consistent with a PI-RADS 3 lesion and was localized on the [employer] CAD software. Review of the remainder of the pelvis reveals a small decreased signal focus in the medial right iliac bone of uncertain significance. A left inguinal hernia is seen containing fat only.09/10/24 MRI abd ([facility]): Benign bilateral renal lesions. No suspicious renal mass.08/27/24PSA 12.104/12/26 Hgb 13.4, Hct 40.1, Cr 0.70, GFR [...] GFR 114, A1C 5.4, Phos US kidney ([facility]): 18mm simple cyst of the anterior R mid kidney, there is a larger septated cyst of the L kidney 12cm, the central septation is mildly thickened with calcification, there is no obvious solid mass, no hydronephrosis Ramakrishna Sen is a 64-year-old male who presents for a telephonic visit following a biopsy. He reports no complications after the biopsy, including no bleeding, fever, or other symptoms. He states he has returned to normal activities without issues. Not Available Not Available Not Available
[2024-12-29 16:02] LABS: Cholesterol 152 mg/dl (140-200); HDL Cholesterol 56 mg/dl (40-60); Triglycerides 221 mg/dl (30-150); Uric Acid 6.4 mg/dl (3.5-8.5)
[2024-12-29 16:14] LABS: C-Reactive Protein 1.0 mg/L (0-4)
[2024-12-29 16:20] LABS: 25-OH Vitamin D, Total 66.6 ng/mL (30-100)
[2024-12-29 16:57] LABS: Vitamin B12 633 pg/mL (239-931)
== END 2024-12-29 23:59 | disposition home or self-care (01) ==
LOC: LAB 14:55
PROVIDERS: PCP Nurse Practitioner Family; Visit Provider Nurse Practitioner Family
DX: E55.9 Vitamin D deficiency, unspecified (principal); B99.9 Unspecified infectious disease; M10.9 Gout, unspecified; D51.8 Other vitamin B12 deficiency anemias; I10 Essential (primary) hypertension; I89.0 Lymphedema, not elsewhere classified; E66.9 Obesity, unspecified
CPT/HCPCS: 36415; 80061; 82306; 82607; 84550; 85651; 86140

== ENCOUNTER 2025-01-08 08:41 | Outpatient (CLI) | payer MEDICARE, SELFPAY ==
[2025-01-08] MEDS: VITAMIN B-12 1,000 MCG 1ML VIAL 1000 MCG IM (08:45)
[2025-01-08 08:50] VITALS: BP 129/68; PULSE 73; RESP 18; O2SAT 95
--- OUTSIDE RECORDS SUMMARY | 2025-01-08 08:54 | XMS_ITS | Clinical Summary ---
Author Organization [facility] Address [address] [place] [address] Care Team Providers Care Excel Developer Name Role Phone Jr Niles Acosta APRN [...] He has been trying to work with [employer] to get switched to a different apartment, [...] on him and he has contacted his [employer] company and they have been unable to [...] PAP machine. This was ordered by his croze cutter in [place]. Patient was ordered a titration study about [...] Order for new PAP device sent to [facility]. - Continue PAP therapy at current settings. [...] Insurance [employer] H[employer] Care Teams Excel Developer Relationship Specialty Start Date End Date Jr Niles Acosta APRN [address] [place] [address] PCP - General Nurse Practitioner 08/16/23
== END 2025-01-08 23:59 | disposition home or self-care (01) ==
LOC: INF 08:42
PROVIDERS: PCP Nurse Practitioner Family; Visit Provider Internal Medicine Medical Oncology
DX: D64.9 Anemia, unspecified (principal)
CPT/HCPCS: 96372; J3420

== ENCOUNTER 2025-02-05 11:09 | Outpatient (CLI) | payer MEDICARE, SELFPAY ==
[2025-02-05] MEDS: VITAMIN B-12 1,000 MCG 1ML VIAL 1000 MCG IM (11:15)
[2025-02-05 11:17] VITALS: BP 115/75; PULSE 63; RESP 18; O2SAT 96
== END 2025-02-05 23:59 | disposition home or self-care (01) ==
PROVIDERS: PCP Nurse Practitioner Family; Visit Provider Internal Medicine Medical Oncology
DX: D51.9 Vitamin B12 deficiency anemia, unspecified (principal)
CPT/HCPCS: 96372; J3420